=== PATIENT | female | born 1935 | race Caucasian/White ===

== ENCOUNTER → 2018-02-15 08:51 | Outpatient (CLI) | payer OTHER, SELFPAY ==
[2018-02-15 09:08] LABS: Add Manual Diff / Slide Review NO; Basophils Percent Auto 0.7 % (0-2); Eosinophils Percent Auto 3.8 % (2-4); Hematocrit 40.2 % (36-46); Hemoglobin 13.8 g/dL (12.0-16.0); Lymphocytes Percent Auto 24.8 % (25-40); Mean Corpuscular HGB Conc 34.5 % (30-36); Mean Corpuscular Hemoglobin 33.1 PG (26-34); Mean Corpuscular Volume 95.9 fL (80-100); Monocytes Percent Auto 7.2 % (3-14); Neutrophils Absolute Auto 3800 /uL (3000-5900); Neutrophils Percent Auto 63.5 % (50-75); Platelet Count 164 X10^3/uL (150-400); Red Blood Cell Count 4.19 X10^6/uL (4.0-5.2); Red Cell Distribution Width 13.6 % (11.6-14.8); White Blood Cell Count 5.9 X10^3/uL (4.5-11.0)
[2018-02-15 09:13] LABS: Appearance Urine UA CLEAR; Bilirubin Urine UA NEGATIVE (NEGATIVE); Color Urine UA YELLOW; Glucose Urine UA NEGATIVE (Normal); Ketones Urine UA NEGATIVE (NEGATIVE); Leukocyte Esterase Urine UA NEGATIVE (NEGATIVE); Nitrite Urine UA Negative (Negative); Occult Blood Urine UA TRACE-LYSED (Negative); Protein Urine UA NEGATIVE (Negative); Specific Gravity Urine UA 1.015 (1.000-1.035); Urobilinogen Urine UA 0.2 E.U./dL (0.2)
[2018-02-15 09:51] LABS: Alanine Aminotransferase 33 IU/L (9-52); Albumin 4.1 g/dL (3.5-5.0); Albumin Globulin Ratio 1.3 (1.0-2.8); Alkaline Phosphatase 64 U/L (38-126); Aspartate Aminotransferase 28 IU/L (14-36); BUN Creatinine Ratio 18.3 (6-22); Bilirubin Total 0.6 mg/dL (0.2-1.3); Blood Urea Nitrogen 11 mg/dL (7-17); Calcium 9.6 mg/dL (8.4-10.2); Carbon Dioxide 30 mmol/L (22-32); Chloride 97 mmol/L (98-107); Cholesterol 168 mg/dL (140-199); Estimated Glomerular Filt Rate > 60.0 mL/min (>60); Globulin 3.1 g/dL (1.7-4.1); Glucose 97 mg/dL (80-110); HDL Cholesterol 73 mg/dL (40-60); HEMOLYSIS < 15 (0-50); LDL Cholesterol Calculated 77 mg/dL (<100); Potassium 3.5 mmol/L (3.4-5.1); Sodium 138 mmol/L (137-145); Total Protein 7.2 g/dL (6.3-8.2); Triglycerides 89 mg/dL (35-150)
[2018-02-15 10:21] LABS: Thyroid Stimulating Hormone 2.46 uIU/mL (0.47-4.68)
== END ==
PROVIDERS: PCP Family Medicine; Visit Provider Family Medicine
DX: E78.5 Hyperlipidemia, unspecified (principal); I10 Essential (primary) hypertension
CPT/HCPCS: 36415; 80053; 80061; 81003; 84443; 85025

== ENCOUNTER → 2018-09-17 07:17 | Outpatient (CLI) | payer OTHER, SELFPAY ==
[2018-09-17 08:23] LABS: Add Manual Diff / Slide Review NO; Basophils Percent Auto 0.6 % (0-2); Eosinophils Percent Auto 3.5 % (2-4); Hemoglobin 13.9 g/dL (12.0-16.0); Lymphocytes Percent Auto 25.4 % (25-40); Mean Corpuscular HGB Conc 33.8 % (30-36); Mean Corpuscular Hemoglobin 32.7 PG (26-34); Mean Corpuscular Volume 96.8 fL (80-100); Monocytes Percent Auto 7.5 % (3-14); Neutrophils Absolute Auto 4000 /uL (1500-7000); Platelet Count 185 X10^3/uL (150-400); Red Blood Cell Count 4.24 X10^6/uL (4.0-5.2); Red Cell Distribution Width 13.2 % (11.6-14.8); White Blood Cell Count 6.4 X10^3/uL (4.5-11.0)
[2018-09-17 08:32] LABS: Appearance Urine UA CLEAR; Bilirubin Urine UA NEGATIVE (NEGATIVE); Color Urine UA YELLOW; Glucose Urine UA NEGATIVE (Negative); Ketones Urine UA NEGATIVE (NEGATIVE); Leukocyte Esterase Urine UA TRACE (NEGATIVE); Nitrite Urine UA NEGATIVE (Negative); Occult Blood Urine UA TRACE-LYSED (Negative); Protein Urine UA NEGATIVE (Negative); Urobilinogen Urine UA 0.2 E.U./dL (0.2); pH Urine UA 6.5 (4.5-8.0)
[2018-09-17 08:54] LABS: Bacteria Urine Few (2-10); Culture Indicated Urine Specimen Cultured; RBC Urine 0-1/HPF (0-5/HPF); WBC Urine 5-10/HPF (0-5/HPF)
[2018-09-17 09:10] LABS: Alanine Aminotransferase 28 IU/L (9-52); Albumin 3.8 g/dL (3.5-5.0); Albumin Globulin Ratio 1.3 (1.0-2.8); Alkaline Phosphatase 58 U/L (38-126); Aspartate Aminotransferase 26 IU/L (14-36); Bilirubin Total 0.5 mg/dL (0.2-1.3); Blood Urea Nitrogen 14 mg/dL (7-17); Calcium 9.2 mg/dL (8.4-10.2); Carbon Dioxide 31 mmol/L (22-32); Chloride 98 mmol/L (98-107); Cholesterol 154 mg/dL (140-199); Estimated Glomerular Filt Rate > 60.0 mL/min (>60); Globulin 2.9 g/dL (1.7-4.1); Glucose 95 mg/dL (80-110); HDL Cholesterol 49 mg/dL (40-60); HEMOLYSIS < 15 (0-50); LDL Cholesterol Calculated 79 mg/dL (<100); Potassium 3.3 mmol/L (3.4-5.1); Sodium 139 mmol/L (137-145); Total Protein 6.7 g/dL (6.3-8.2); Triglycerides 130 mg/dL (35-150)
[2018-09-17 09:44] LABS: Thyroid Stimulating Hormone 4.68 uIU/mL (0.47-4.68)
== END ==
PROVIDERS: PCP Family Medicine; Visit Provider Family Medicine
DX: E78.5 Hyperlipidemia, unspecified (principal); I10 Essential (primary) hypertension; Z51.81 Encounter for therapeutic drug level monitoring
CPT/HCPCS: 36415; 80053; 80061; 81003; 81015; 84443; 85025; 87086

== ENCOUNTER → 2018-10-14 17:44 | Outpatient (CLI) | payer OTHER, SELFPAY | PROVIDERS: PCP Family Medicine; Visit Provider Physician Assistant | DX: R19.7 Diarrhea, unspecified (principal) ==

== ENCOUNTER → 2018-10-15 10:01 | Outpatient (CLI) | payer OTHER, SELFPAY ==
[2018-10-15 10:47] LABS: Add Manual Diff / Slide Review NO; Basophils Absolute Auto 0 /uL (0-100); Basophils Percent Auto 0.5 % (0-2); Eosinophils Absolute Auto 700 /uL (0-450); Eosinophils Percent Auto 8.9 % (2-4); Hemoglobin 14.1 g/dL (12.0-16.0); Lymphocytes Absolute Auto 1400 /uL (1100-4500); Lymphocytes Percent Auto 17.8 % (25-40); Mean Corpuscular HGB Conc 34.3 % (30-36); Mean Corpuscular Hemoglobin 32.7 PG (26-34); Mean Corpuscular Volume 95.3 fL (80-100); Monocytes Absolute Auto 600 /uL (0-900); Monocytes Percent Auto 7.4 % (3-14); Neutrophils Absolute Auto 5100 /uL (1500-7000); Neutrophils Percent Auto 65.4 % (50-75); Platelet Count 226 X10^3/uL (150-400); Red Cell Distribution Width 12.8 % (11.6-14.8); White Blood Cell Count 7.7 X10^3/uL (4.5-11.0)
[2018-10-15 10:57] LABS: Alanine Aminotransferase 27 IU/L (9-52); Albumin 3.8 g/dL (3.5-5.0); Albumin Globulin Ratio 1.2 (1.0-2.8); Alkaline Phosphatase 70 U/L (38-126); Aspartate Aminotransferase 27 IU/L (14-36); BUN Creatinine Ratio 12.9 (6-22); Bilirubin Total 0.4 mg/dL (0.2-1.3); Blood Urea Nitrogen 9 mg/dL (7-17); Calcium 9.1 mg/dL (8.4-10.2); Carbon Dioxide 36 mmol/L (22-32); Chloride 95 mmol/L (98-107); Estimated Glomerular Filt Rate > 60.0 mL/min (>60); Globulin 3.1 g/dL (1.7-4.1); Glucose 73 mg/dL (80-110); HEMOLYSIS < 15 (0-50); Lipase 80 U/L (23-300); Potassium 2.9 mmol/L (3.4-5.1); Sodium 138 mmol/L (137-145); Total Protein 6.9 g/dL (6.3-8.2)
[2018-10-20 18:29] LABS: Calprotectin, Stool 98.5 mcg/g
== END ==
PROVIDERS: Physician Assistant; PCP Family Medicine; Visit Provider Family Medicine
DX: R19.7 Diarrhea, unspecified (principal)
CPT/HCPCS: 36415; 80053; 83690; 83993; 85025; 87015; 87045; 87177; 87427; 87493; 87899

== ENCOUNTER → 2018-10-25 13:36 | Outpatient (CLI) | payer OTHER, SELFPAY ==
[2018-10-25 14:53] LABS: Blood Urea Nitrogen 12 mg/dL (7-17); Carbon Dioxide 28 mmol/L (22-32); Chloride 98 mmol/L (98-107); Estimated Glomerular Filt Rate > 60.0 mL/min (>60); Glucose 92 mg/dL (80-110); HEMOLYSIS < 15 (0-50); Potassium 3.8 mmol/L (3.4-5.1); Sodium 136 mmol/L (137-145)
== END ==
PROVIDERS: Physician Assistant; PCP Family Medicine; Visit Provider Family Medicine
DX: E87.6 Hypokalemia (principal)
CPT/HCPCS: 36415; 80048

== ENCOUNTER → 2018-11-05 07:36 | Outpatient (CLI) | payer OTHER, SELFPAY ==
--- NOTE | 2018-11-05 07:37 | DI.US.S_ITS ---
PROCEDURE: US ABDOMEN COMPLETE INDICATIONS: Abdominal pain, diarrhea, reflux esophitis TECHNIQUE: Real-time scanning was performed of the abdominal and retroperitoneal organs, with image documentation. COMPARISON: None. FINDINGS: Liver: Liver is normal in size and homogeneous in echotexture. Gallbladder: Sludge can be seen within the gallbladder. The gallbladder wall is not thickened, measuring 3 mm or less. No specific pericholecystic fluid is seen. The sonographic Deutsch sign is negative. Biliary ducts: Intrahepatic bile ducts are non-dilated. Extrahepatic bile duct caliber measures 5 mm. Normal is 6-7 mm or less in diameter, or 10 mm or less post-cholecystectomy. Pancreas: Visualized portions of the pancreas are sonographically normal. Spleen: Spleen is normal in size and homogeneous in echotexture. Kidneys: Kidneys are normal in size and echotexture. Right kidney measures 10.6 cm long; left kidney measures 12.1 cm long. No hydronephrosis or nephrolithiasis. No solid masses. The renal cortex measures within normal limits for thickness. Aorta: Visualized aorta is normal in caliber at less than 3 cm. Iliacs: Proximal common iliac arteries are normal in caliber at less than 2.5 cm. IVC: Intrahepatic inferior vena cava is patent. Miscellaneous: No free abdominal fluid. IMPRESSION: Sludge is seen within the gallbladder, without additional sonographic signs of cholecystitis. Dictated by: Mariano Tesfaye M.D. on 11/05/2018 at 8:37 Approved by: Mariano Tesfaye M.D. on 11/05/2018 at 8:38
== END ==
PROVIDERS: PCP Family Medicine; Visit Provider Family Medicine
DX: K21.0 Gastro-esophageal reflux disease with esophagitis (principal); R10.9 Unspecified abdominal pain; R19.7 Diarrhea, unspecified; K82.8 Other specified diseases of gallbladder
CPT/HCPCS: 76700

== ENCOUNTER 2018-11-22 10:30 | Outpatient (RCR) | payer OTHER, SELFPAY ==
--- NOTE | 2018-04-17 15:22 | PT.OIE ---
Current Diagnoses Radiculopathy, lumbar region (04/17/18) Past Medical History (Last Reviewed 02/27/18 @ 11:09 by Jennifer Chandra DO) Hyperlipemia (Chronic Unknown) Hypertension (Chronic Unknown) Osteoarthritis (Chronic Unknown) Past Surgical History (Last Reviewed 02/27/18 @ 11:09 by Jennifer Chandra DO) Hx of appendectomy (Resolved Unknown) Provider Visit Care Team Role Provider Type Jennifer Chandra DO Attending Provider Physician Primary Care Provider Specialty: Family Practice Address: [address] [place] [address], [id number] Email: [email or web address] Physical Therapy Initial Evaluation PT-OP-A Visit Information Start: 04/17/18 08:39 Freq: Status: Active Protocol: Document 04/17/18 10:28 [facility] (Rec: 04/17/18 11:21 [facility] [id number]) Out-Patient Physical Therapy Visit Information Visit Information Visit Type Initial Evaluation Visit Note 15 total visits Visit Start Time 10:30 Visit Stop Time 11:15 Total Visit Minutes 45 Visit Number 1/10 Number of BRUSHING OPERATOR Visits 0 PT-OP-B Current Condition Start: 04/17/18 08:39 Freq: Status: Active Protocol: Document 04/17/18 10:28 [facility] (Rec: 04/17/18 15:22 [facility] [id number]) Current Condition History of Current Condition Onset Date 3 years ago worsening over past 5 months especially past 2 months Current Complaints LBP w/weakness & pain into R thigh History of Current Condition Pt reports she is limping a lot and most of the time has pain in her back. Pt notes she is fine every day until about 3 PM then she starts to have pain in LB and limps. She has had 3 occurances in the past 1 .5 months where her RLE has given out and she has had to grab something. She has to stand on L leg while holding on and bring R leg up and down to make it work again. Pt reports she is more comfortable standing typically . Notes she has difficulty lifting objects and when she does, she has pain into LB into R thigh with feeling of weakness. Pt normally exercsies 3x/week at [employer] at work classes and goes to [employer], but has not gone d/t pain. She does do squats daily without any pain. Prior Treatments and Tests massage about 1.5 years ago and saw a a little improvement ; pt reprots X-ray in past reporting curved spine, but no records found. Treatment Goals Patient/Caregiver Goals Return to working out without pain, be able to carry objects PT-OP-C Subjective Start: 04/17/18 08:39 Freq: Status: Active Protocol: Document 04/17/18 10:28 [facility] (Rec: 04/17/18 12:24 [facility] [id number]) Patient Questionnaires Oswestry Low Back Index Oswestry Score did not finish OP-PT Pain Assessment Location Right Lower Back Pain Location Details R lumbar and occasionally into R thigh Intensity 5 Scale Used Numeric (1 - 10) Frequency Daily Other Pain Aggravating Factors lifting, sitting, after 3 pm daily Other Pain Alleviating Factors med but has not taken them much. PT-OP-F Manual Assessment Start: 04/17/18 08:39 Freq: Status: Active Protocol: Document 04/17/18 10:28 [facility] (Rec: 04/17/18 11:19 [facility] [id number]) Manual Assessments Soft Tissue Assessment Soft Tissue Mobility Assessment R ES & QL; R piriformis & glutes; dec hip & sacrum mobility Joint Mobility Assessment Joint Mobility Assessment R iliac crest elevated PT-OP-G Mobility & Gait Start: 04/17/18 08:39 Freq: Status: Active Protocol: Document 04/17/18 10:28 [facility] (Rec: 04/17/18 11:19 [facility] [id number]) OP Gait Assessment Comments Gait Comments Pt has dec stance time on RLE with dec push off and posterior depression. Overall dec pelvis patterns & stiff upper body & UEs. Pt ER pelvis during push off. PT-OP-J Posture/Palpation/Skin Start: 04/17/18 08:39 Freq: Status: Active Protocol: Document 04/17/18 10:28 [facility] (Rec: 04/17/18 11:19 [facility] [id number]) Posture Evaluation Ladi Postural Classification System Ladi Postural Classifications Anterior/Posterior Elbow Flexion Test 2 Lumbar Protective Mechanism Left AP 1 Lumbar Protective Mechanism Right AP 0 Lumbar Protective Mechanism Left PA 1 Lumbar Protective Mechanism Right PA 0 Leg Swing Left Hard End Feel Limited Pain Leg Swing Right Hard End Feel Limited Pain Comments Posture Comments Fwd head & neck PT-OP-K Range of Motion Start: 04/17/18 08:39 Freq: Status: Active Protocol: Document 04/17/18 10:28 [facility] (Rec: 04/17/18 11:19 [facility] [id number]) Lumbar Spine Range of Motion Lumbar Spine Active Degrees Flexion 37 Extension 18 Lateral Flexion Left 25 Lateral Flexion Right 15 Comments pain Flex; stiff R PT-OP-L Special Tests Start: 04/17/18 08:39 Freq: Status: Active Protocol: Document 04/17/18 10:28 [facility] (Rec: 04/17/18 11:19 [facility] [id number]) Special Tests Lumbar Spine Special Tests Straight Leg Raise Test Results ~20 deg R; 45 deg L Comments positive B Slump Test Results positive R ; negative L PT-OP-M Strength Start: 04/17/18 08:39 Freq: Status: Active Protocol: Document 04/17/18 10:28 [facility] (Rec: 04/17/18 11:19 [facility] [id number]) Hip Strength Hip Manual Muscle Testing Right Flexion (L2) 4- Good- Extension (S1) 3- Fair- Abduction 3 Fair External Rotation 4- Good- Internal Rotation 3+ Fair+ Comments Pain w/ R hip flex & IR; 5/5 PF & DF tested seated Left Flexion (L2) 5 Normal Extension (S1) 5 Normal Abduction 4+ Good+ External Rotation 4 Good Internal Rotation 5 Normal Knee Strength Knee Manual Muscle Testing Right Flexion (S2) 4- Good- Extension (L3) 3+ Fair+ Left Flexion (S2) 5 Normal Extension (L3) 5 Normal PT-OP-Q Treatments Start: 04/17/18 08:39 Freq: Status: Active Protocol: Document 04/17/18 10:28 [facility] (Rec: 04/17/18 11:19 [facility] [id number]) Therapeutic Exercises Supine Exercises 3 Supine Exercise Name piriformis stretch Side right Comments stopped d/t pain 2 Supine Exercise Name SKTC & BTKC Side bilateral Reps/Minutes 30 sec holds 1 Supine Exercise Name bridges Side bilateral Reps/Minutes 10 Self-Care/Home Management Treatment Education Patient Education Pain Management Other Education use of ice/heat & use of tennis ball for rolling out glutes PT-OP-T Assessment and Plan Start: 04/17/18 08:39 Freq: Status: Active Protocol: Document 04/17/18 10:28 [facility] (Rec: 04/17/18 12:31 [facility] [id number]) Physical Therapy Assessment Rehab Potential Rehabilitation Potential Good Evaluation Complexity Number of Personal Factors/Comorbidities 1-2 Number of Body Systems Impaired 4 or More Clinical Presentation at Evaluation Evolving Impairments Impairments Balance Functional Activities Functional Mobility Gait Pain Posture ROM Soft Tissue Mobility Strength Goals Three Impairment strength Nurse Tech Goal (LTG) Improved LE strength to 5/5 and EFT & LPM to 4/5 LTG Duration 06/17/18 Two Impairment dec activity Short Term Goal (STG) Indep HEP STG Duration 05/18/18 Nurse Tech Goal (LTG) Pt will return to normal workout schedule to allow her to cont strengthening. LTG Duration 06/17/18 One Impairment pain Short Term Goal (STG) pain to 3/10 at worst STG Duration 05/18/18 Retirement Goal (LTG) Pain to 1/10 at worst LTG Duration 06/17/18 Assessment Summary Assessment Pt presents with LBP with radiculopathy into RLE. She has dec core stability & dec RLE strength. Pt has impaired motion of hip and pelvis, which is affecting her mobility and impairing her gait. Physical Therapy Plan Frequency and Duration Frequency of Treatment 2x/Week Duration of Treatment 2 months Plan of Care Start Date 04/17/18 Plan of Care End Date 06/17/18 Therapeutic Interventions Therapeutic Interventions Aquatic Therapy Balance Training Gait Training Home Exercise Program Joint Mobilizations Manual Therapy Self-Care/Home Management Soft Tissue Mobilization Taping Therapeutic Activities Therapeutic Exercises Next Visit Focus/Plan Next Note Type Treatment Note Next Visit Plan supine core stability: marches , abdominal series; fredenkris hip rotation, STM to lumbar & gluteal region
--- NOTE | 2018-04-17 15:22 | PT.OPPOC ---
Current Diagnoses Radiculopathy, lumbar region (04/17/18) Provider Visit Care Team Role Provider Type Jennifer Chandra DO Attending Provider Physician Primary Care Provider Specialty: Family Practice Address: [address] [place] [address], [id number] Email: [email or web address] Plan Of Care PT-OP-T Assessment and Plan Start: 04/17/18 08:39 Freq: Status: Active Protocol: Document 04/17/18 10:28 [facility] (Rec: 04/17/18 12:31 [facility] [id number]) Physical Therapy Assessment Rehab Potential Rehabilitation Potential Good Evaluation Complexity Number of Personal Factors/Comorbidities 1-2 Number of Body Systems Impaired 4 or More Clinical Presentation at Evaluation Evolving Impairments Impairments Balance Functional Activities Functional Mobility Gait Pain Posture ROM Soft Tissue Mobility Strength Goals Three Impairment strength Group Home Goal (LTG) Improved LE strength to 5/5 and EFT & LPM to 4/5 LTG Duration 06/17/18 Two Impairment dec activity Short Term Goal (STG) Indep HEP STG Duration 05/18/18 Washroom Cleaner Goal (LTG) Pt will return to normal workout schedule to allow her to cont strengthening. LTG Duration 06/17/18 One Impairment pain Short Term Goal (STG) pain to 3/10 at worst STG Duration 05/18/18 Washroom Cleaner Goal (LTG) Pain to 1/10 at worst LTG Duration 06/17/18 Assessment Summary Assessment Pt presents with LBP with radiculopathy into RLE. She has dec core stability & dec RLE strength. Pt has impaired motion of hip and pelvis, which is affecting her mobility and impairing her gait. Physical Therapy Plan Frequency and Duration Frequency of Treatment 2x/Week Duration of Treatment 2 months Plan of Care Start Date 04/17/18 Plan of Care End Date 06/17/18 Therapeutic Interventions Therapeutic Interventions Aquatic Therapy Balance Training Gait Training Home Exercise Program Joint Mobilizations Manual Therapy Self-Care/Home Management Soft Tissue Mobilization Taping Therapeutic Activities Therapeutic Exercises Next Visit Focus/Plan Next Note Type Treatment Note Next Visit Plan supine core stability: marches , abdominal series; feldenkris hip rotation, STM to lumbar & gluteal region Plan of Care Dates Plan of Care Start Date 04/17/18 Plan of Care End Date 10/08/18 Please Sign and Return: I have reviewed this Plan of Care and certify that the skilled therapy services above are required to meet the patient?s needs. Physician Signature Date Printed Name and Credentials Clinical Instructor Signature Printed Name and Credentials
--- NOTE | 2018-04-19 13:18 | PT.OTN ---
Current Diagnoses Radiculopathy, lumbar region (04/19/18) Physical Therapy Treatment Note PT-OP-A Visit Information Start: 04/17/18 08:39 Freq: Status: Active Protocol: Document 04/19/18 12:14 [facility] (Rec: 04/19/18 13:17 [facility] [id number]) Out-Patient Physical Therapy Visit Information Visit Information Visit Type Treatment Note Visit Note 15 total visits Visit Start Time 12:15 Visit Stop Time 13:10 Total Visit Minutes 55 Visit Number 2/ Number of ENGINEER ASSISTANT Visits 0 PT-OP-B Current Condition Start: 04/17/18 08:39 Freq: Status: Active Protocol: Document 04/17/18 10:28 [facility] (Rec: 04/17/18 15:22 [facility] [id number]) Current Condition History of Current Condition Onset Date 3 years ago worsening over past 5 months especially past 2 months Current Complaints LBP w/weakness & pain into R thigh History of Current Condition Pt reports she is limping a lot and most of the time has pain in her back. Pt notes she is fine every day until about 3 PM then she starts to have pain in LB and limps. She has had 3 occurances in the past 1 .5 months where her RLE has given out and she has had to grab something. She has to stand on L leg while holding on and bring R leg up and down to make it work again. Pt reports she is more comfortable standing typically . Notes she has difficulty lifting objects and when she does, she has pain into LB into R thigh with feeling of weakness. Pt normally exercsies 3x/week at [employer] classes and goes to [employer], but has not gone d/t pain. She does do squats daily without any pain. Prior Treatments and Tests massage about 1.5 years ago and saw a a little improvement ; pt reprots X-ray in past reporting curved spine, but no records found. Treatment Goals Patient/Caregiver Goals Return to working out without pain, be able to carry objects PT-OP-C Subjective Start: 04/17/18 08:39 Freq: Status: Active Protocol: Document 04/19/18 12:14 [facility] (Rec: 04/19/18 13:17 [facility] [id number]) OP-PT Subjective Patient Comments Patient Comments Pt reports she did her exercises. Notes she tried icing in the evenings and is has helped. 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 PT-OP-F Manual Assessment Start: 04/17/18 08:39 Freq: Status: Active Protocol: Document 04/17/18 10:28 [facility] (Rec: 04/17/18 11:19 [facility] [id number]) Manual Assessments Soft Tissue Assessment Soft Tissue Mobility Assessment R ES & QL; R piriformis & glutes; dec hip & sacrum mobility Joint Mobility Assessment Joint Mobility Assessment R iliac crest elevated PT-OP-G Mobility & Gait Start: 04/17/18 08:39 Freq: Status: Active Protocol: Document 04/17/18 10:28 [facility] (Rec: 04/17/18 11:19 [facility] [id number]) OP Gait Assessment Comments Gait Comments Pt has dec stance time on RLE with dec push off and posterior depression. Overall dec pelvis patterns & stiff upper body & UEs. Pt ER pelvis during push off. PT-OP-J Posture/Palpation/Skin Start: 04/17/18 08:39 Freq: Status: Active Protocol: Document 04/17/18 10:28 [facility] (Rec: 04/17/18 11:19 [facility] [id number]) Posture Evaluation Ladi Postural Classification System Ladi Postural Classifications Anterior/Posterior Elbow Flexion Test 2 Lumbar Protective Mechanism Left AP 1 Lumbar Protective Mechanism Right AP 0 Lumbar Protective Mechanism Left PA 1 Lumbar Protective Mechanism Right PA 0 Leg Swing Left Hard End Feel Limited Pain Leg Swing Right Hard End Feel Limited Pain Comments Posture Comments Fwd head & neck PT-OP-K Range of Motion Start: 04/17/18 08:39 Freq: Status: Active Protocol: Document 04/17/18 10:28 [facility] (Rec: 04/17/18 11:19 [facility] [id number]) Lumbar Spine Range of Motion Lumbar Spine Active Degrees Flexion 37 Extension 18 Lateral Flexion Left 25 Lateral Flexion Right 15 Comments pain Flex; stiff R PT-OP-L Special Tests Start: 04/17/18 08:39 Freq: Status: Active Protocol: Document 04/17/18 10:28 [facility] (Rec: 04/17/18 11:19 [facility] [id number]) Special Tests Lumbar Spine Special Tests Straight Leg Raise Test Results ~20 deg R; 45 deg L Comments positive B Slump Test Results positive R ; negative L PT-OP-M Strength Start: 04/17/18 08:39 Freq: Status: Active Protocol: Document 04/17/18 10:28 [facility] (Rec: 04/17/18 11:19 [facility] [id number]) Hip Strength Hip Manual Muscle Testing Right Flexion (L2) 4- Good- Extension (S1) 3- Fair- Abduction 3 Fair External Rotation 4- Good- Internal Rotation 3+ Fair+ Comments Pain w/ R hip flex & IR; 5/5 PF & DF tested seated Left Flexion (L2) 5 Normal Extension (S1) 5 Normal Abduction 4+ Good+ External Rotation 4 Good Internal Rotation 5 Normal Knee Strength Knee Manual Muscle Testing Right Flexion (S2) 4- Good- Extension (L3) 3+ Fair+ Left Flexion (S2) 5 Normal Extension (L3) 5 Normal PT-OP-Q Treatments Start: 04/17/18 08:39 Freq: Status: Active Protocol: Document 04/19/18 12:14 [facility] (Rec: 04/19/18 13:17 [facility] [id number]) Cardio Equipment Recumbent Elliptical (BorderJump) Duration (Minutes) 5 Resistance 4 Therapeutic Exercises Supine Exercises 6 Supine Exercise Name Feldenkris hip rotation R Reps/Minutes 10 5 Supine Exercise Name abdominal series: flex & diagonals; single leg Comments unable to do double legs or diagonal d/t pain in LB 4 Supine Exercise Name supine marches to scissors Reps/Minutes 15 2 Supine Exercise Name SKTC & BTKC Side bilateral Reps/Minutes 30 sec holds 1 Supine Exercise Name bridges Side bilateral Reps/Minutes 8 Manual Therapy Treatment Soft Tissue Mobilization 2 Body Location piriformis Mobilization Type Sustained Pressure 1 Body Location QL & ES Mobilization Type Rolling PT-OP-R Modalities Start: 04/17/18 08:39 Freq: Status: Active Protocol: Document 04/19/18 12:14 [facility] (Rec: 04/19/18 13:18 [facility] [id number]) Electric Stimulation Electric Stimulation Interferential Current (IFC) Body Location R lumbosacral region Duration (Minutes) 10 Patient Position Prone Combined With Heat/Cold Cold Pack PT-OP-T Assessment and Plan Start: 04/17/18 08:39 Freq: Status: Active Protocol: Document 04/19/18 12:14 [facility] (Rec: 04/19/18 13:17 [facility] [id number]) Physical Therapy Assessment Goals Three Impairment strength Office Machine Service Supervisor Goal (LTG) Improved LE strength to 5/5 and EFT & LPM to 4/5 LTG Duration 06/17/18 Two Impairment dec activity Short Term Goal (STG) Indep HEP STG Duration 05/18/18 Office Machine Service Supervisor Goal (LTG) Pt will return to normal workout schedule to allow her to cont strengthening. LTG Duration 06/17/18 One Impairment pain Short Term Goal (STG) pain to 3/10 at worst STG Duration 05/18/18 Intermediate Goal (LTG) Pain to 1/10 at worst LTG Duration 06/17/18 Assessment Summary Assessment Pt required cueing during exercises to remain in painfree range. Pt had significant restriction in lumbar mm on R side, which improved with STM. Physical Therapy Plan Frequency and Duration Frequency of Treatment 2x/Week Duration of Treatment 2 months Plan of Care Start Date 04/17/18 Plan of Care End Date 06/17/18 Next Visit Focus/Plan Next Note Type Treatment Note Next Visit Plan Cont to advance supine core & LE strength
--- NOTE | 2018-04-26 13:47 | PT.OTN ---
Current Diagnoses Radiculopathy, lumbar region (04/26/18) Physical Therapy Treatment Note PT-OP-A Visit Information Start: 04/17/18 08:39 Freq: Status: Active Protocol: Document 04/26/18 12:59 [facility] (Rec: 04/26/18 13:47 [facility] [id number]) Out-Patient Physical Therapy Visit Information Visit Information Visit Type Treatment Note Visit Note 15 total visits Visit Start Time 13:00 Visit Stop Time 13:55 Total Visit Minutes 55 Visit Number 3/10 Number of DEVELOPMENT ENG Visits 0 PT-OP-B Current Condition Start: 04/17/18 08:39 Freq: Status: Active Protocol: Document 04/17/18 10:28 [facility] (Rec: 04/17/18 15:22 [facility] [id number]) Current Condition History of Current Condition Onset Date 3 years ago worsening over past 5 months especially past 2 months Current Complaints LBP w/weakness & pain into R thigh History of Current Condition Pt reports she is limping a lot and most of the time has pain in her back. Pt notes she is fine every day until about 3 PM then she starts to have pain in LB and limps. She has had 3 occurances in the past 1 .5 months where her RLE has given out and she has had to grab something. She has to stand on L leg while holding on and bring R leg up and down to make it work again. Pt reports she is more comfortable standing typically . Notes she has difficulty lifting objects and when she does, she has pain into LB into R thigh with feeling of weakness. Pt normally exercsies 3x/week at [employer] classes and goes to [employer], but has not gone d/t pain. She does do squats daily without any pain. Prior Treatments and Tests massage about 1.5 years ago and saw a a little improvement ; pt reprots X-ray in past reporting curved spine, but no records found. Treatment Goals Patient/Caregiver Goals Return to working out without pain, be able to carry objects PT-OP-C Subjective Start: 04/17/18 08:39 Freq: Status: Active Protocol: Document 04/26/18 12:59 [facility] (Rec: 04/26/18 13:47 [facility] [id number]) OP-PT Subjective Patient Comments Patient Comments Reports she did ok driving to [place]. She was a little sore after last session, but did ok . PT-OP-F Manual Assessment Start: 04/17/18 08:39 Freq: Status: Active Protocol: Document 04/17/18 10:28 [facility] (Rec: 04/17/18 11:19 [facility] [id number]) Manual Assessments Soft Tissue Assessment Soft Tissue Mobility Assessment R ES & QL; R piriformis & glutes; dec hip & sacrum mobility Joint Mobility Assessment Joint Mobility Assessment R iliac crest elevated PT-OP-G Mobility & Gait Start: 04/17/18 08:39 Freq: Status: Active Protocol: Document 04/17/18 10:28 [facility] (Rec: 04/17/18 11:19 [facility] [id number]) OP Gait Assessment Comments Gait Comments Pt has dec stance time on RLE with dec push off and posterior depression. Overall dec pelvis patterns & stiff upper body & UEs. Pt ER pelvis during push off. PT-OP-J Posture/Palpation/Skin Start: 04/17/18 08:39 Freq: Status: Active Protocol: Document 04/17/18 10:28 [facility] (Rec: 04/17/18 11:19 [facility] [id number]) Posture Evaluation Ladi Postural Classification System Ladi Postural Classifications Anterior/Posterior Elbow Flexion Test 2 Lumbar Protective Mechanism Left AP 1 Lumbar Protective Mechanism Right AP 0 Lumbar Protective Mechanism Left PA 1 Lumbar Protective Mechanism Right PA 0 Leg Swing Left Hard End Feel Limited Pain Leg Swing Right Hard End Feel Limited Pain Comments Posture Comments Fwd head & neck PT-OP-K Range of Motion Start: 04/17/18 08:39 Freq: Status: Active Protocol: Document 04/17/18 10:28 [facility] (Rec: 04/17/18 11:19 [facility] [id number]) Lumbar Spine Range of Motion Lumbar Spine Active Degrees Flexion 37 Extension 18 Lateral Flexion Left 25 Lateral Flexion Right 15 Comments pain Flex; stiff R PT-OP-L Special Tests Start: 04/17/18 08:39 Freq: Status: Active Protocol: Document 04/17/18 10:28 [facility] (Rec: 04/17/18 11:19 [facility] [id number]) Special Tests Lumbar Spine Special Tests Straight Leg Raise Test Results ~20 deg R; 45 deg L Comments positive B Slump Test Results positive R ; negative L PT-OP-M Strength Start: 04/17/18 08:39 Freq: Status: Active Protocol: Document 04/17/18 10:28 [facility] (Rec: 04/17/18 11:19 [facility] [id number]) Hip Strength Hip Manual Muscle Testing Right Flexion (L2) 4- Good- Extension (S1) 3- Fair- Abduction 3 Fair External Rotation 4- Good- Internal Rotation 3+ Fair+ Comments Pain w/ R hip flex & IR; 5/5 PF & DF tested seated Left Flexion (L2) 5 Normal Extension (S1) 5 Normal Abduction 4+ Good+ External Rotation 4 Good Internal Rotation 5 Normal Knee Strength Knee Manual Muscle Testing Right Flexion (S2) 4- Good- Extension (L3) 3+ Fair+ Left Flexion (S2) 5 Normal Extension (L3) 5 Normal PT-OP-Q Treatments Start: 04/17/18 08:39 Freq: Status: Active Protocol: Document 04/26/18 12:59 [facility] (Rec: 04/26/18 13:47 [facility] [id number]) Cardio Equipment Recumbent Elliptical (ISBX) Duration (Minutes) 5 Resistance 4-5 Seat Position 5 Other w/forte backrest Therapeutic Exercises Supine Exercises 6 Supine Exercise Name Feldenkris hip rotation R Reps/Minutes 3 5 Supine Exercise Name abdominal series: flex & diagonals; single leg Comments unable to do double legs or diagonal d/t pain in LB 4 Supine Exercise Name supine marches to scissors Reps/Minutes 15 2 Supine Exercise Name SKTC & BTKC Side bilateral Reps/Minutes 30 sec holds Sidelying Exercises 3 Sidelying Exercise Name hip abd Reps/Minutes 15 2 Sidelying Exercise Name reverse clamshells Reps/Minutes 15 1 Sidelying Exercise Name clamshells Reps/Minutes 15 Manual Therapy Treatment Soft Tissue Mobilization 2 Body Location piriformis Mobilization Type Sustained Pressure 1 Body Location QL & ES Mobilization Type Rolling PT-OP-R Modalities Start: 04/17/18 08:39 Freq: Status: Active Protocol: Document 04/26/18 12:59 [facility] (Rec: 04/26/18 13:47 [facility] [id number]) Electric Stimulation Electric Stimulation Interferential Current (IFC) Body Location R lumbosacral region Duration (Minutes) 10 Patient Position Prone Combined With Heat/Cold Cold Pack PT-OP-T Assessment and Plan Start: 04/17/18 08:39 Freq: Status: Active Protocol: Document 04/26/18 12:59 [facility] (Rec: 04/26/18 13:47 [facility] [id number]) Physical Therapy Assessment Goals Three Impairment strength Nursing Home Goal (LTG) Improved LE strength to 5/5 and EFT & LPM to 4/5 LTG Duration 06/17/18 Two Impairment dec activity Short Term Goal (STG) Indep HEP STG Duration 05/18/18 Nursing Home Goal (LTG) Pt will return to normal workout schedule to allow her to cont strengthening. LTG Duration 06/17/18 One Impairment pain Short Term Goal (STG) pain to 3/10 at worst STG Duration 05/18/18 Nursing Home Goal (LTG) Pain to 1/10 at worst LTG Duration 06/17/18 Assessment Summary Assessment Pt did well with s/l exercises with cueing to stay in painfree range. He cont to progress with her core strength with min cueing. Physical Therapy Plan Frequency and Duration Frequency of Treatment 2x/Week Duration of Treatment 2 months Plan of Care Start Date 04/17/18 Plan of Care End Date 06/17/18 Next Visit Focus/Plan Next Note Type Treatment Note Next Visit Plan Cont to advance supine core & LE strength
--- NOTE | 2018-04-30 14:28 | PT.OTN ---
Current Diagnoses Radiculopathy, lumbar region (04/30/18) Physical Therapy Treatment Note PT-OP-A Visit Information Start: 04/17/18 08:39 Freq: Status: Active Protocol: Document 04/30/18 13:54 [facility] (Rec: 04/30/18 14:28 [facility] [id number]) Out-Patient Physical Therapy Visit Information Visit Information Visit Type Treatment Note Visit Note 15 total visits Visit Start Time 13:50 Visit Stop Time 14:45 Total Visit Minutes 55 Visit Number 4/10 Number of BRAND SPECIALIST Visits 0 PT-OP-B Current Condition Start: 04/17/18 08:39 Freq: Status: Active Protocol: Document 04/17/18 10:28 [facility] (Rec: 04/17/18 15:22 [facility] [id number]) Current Condition History of Current Condition Onset Date 3 years ago worsening over past 5 months especially past 2 months Current Complaints LBP w/weakness & pain into R thigh History of Current Condition Pt reports she is limping a lot and most of the time has pain in her back. Pt notes she is fine every day until about 3 PM then she starts to have pain in LB and limps. She has had 3 occurances in the past 1 .5 months where her RLE has given out and she has had to grab something. She has to stand on L leg while holding on and bring R leg up and down to make it work again. Pt reports she is more comfortable standing typically . Notes she has difficulty lifting objects and when she does, she has pain into LB into R thigh with feeling of weakness. Pt normally exercsies 3x/week at [employer] classes and goes to [employer], but has not gone d/t pain. She does do squats daily without any pain. Prior Treatments and Tests massage about 1.5 years ago and saw a a little improvement ; pt reprots X-ray in past reporting curved spine, but no records found. Treatment Goals Patient/Caregiver Goals Return to working out without pain, be able to carry objects PT-OP-C Subjective Start: 04/17/18 08:39 Freq: Status: Active Protocol: Document 04/30/18 13:54 [facility] (Rec: 04/30/18 14:28 [facility] [id number]) OP-PT Subjective Patient Comments Patient Comments Reports she has been doing exercises. Still has trouble with one. PT-OP-F Manual Assessment Start: 04/17/18 08:39 Freq: Status: Active Protocol: Document 04/17/18 10:28 [facility] (Rec: 04/17/18 11:19 [facility] [id number]) Manual Assessments Soft Tissue Assessment Soft Tissue Mobility Assessment R ES & QL; R piriformis & glutes; dec hip & sacrum mobility Joint Mobility Assessment Joint Mobility Assessment R iliac crest elevated PT-OP-G Mobility & Gait Start: 04/17/18 08:39 Freq: Status: Active Protocol: Document 04/17/18 10:28 [facility] (Rec: 04/17/18 11:19 [facility] [id number]) OP Gait Assessment Comments Gait Comments Pt has dec stance time on RLE with dec push off and posterior depression. Overall dec pelvis patterns & stiff upper body & UEs. Pt ER pelvis during push off. PT-OP-J Posture/Palpation/Skin Start: 04/17/18 08:39 Freq: Status: Active Protocol: Document 04/17/18 10:28 [facility] (Rec: 04/17/18 11:19 [facility] [id number]) Posture Evaluation Ladi Postural Classification System [facility] Postural Classifications Anterior/Posterior Elbow Flexion Test 2 Lumbar Protective Mechanism Left AP 1 Lumbar Protective Mechanism Right AP 0 Lumbar Protective Mechanism Left PA 1 Lumbar Protective Mechanism Right PA 0 Leg Swing Left Hard End Feel Limited Pain Leg Swing Right Hard End Feel Limited Pain Comments Posture Comments Fwd head & neck PT-OP-K Range of Motion Start: 04/17/18 08:39 Freq: Status: Active Protocol: Document 04/17/18 10:28 [facility] (Rec: 04/17/18 11:19 [facility] [id number]) Lumbar Spine Range of Motion Lumbar Spine Active Degrees Flexion 37 Extension 18 Lateral Flexion Left 25 Lateral Flexion Right 15 Comments pain Flex; stiff R PT-OP-L Special Tests Start: 04/17/18 08:39 Freq: Status: Active Protocol: Document 04/17/18 10:28 [facility] (Rec: 04/17/18 11:19 [facility] [id number]) Special Tests Lumbar Spine Special Tests Straight Leg Raise Test Results ~20 deg R; 45 deg L Comments positive B Slump Test Results positive R ; negative L PT-OP-M Strength Start: 04/17/18 08:39 Freq: Status: Active Protocol: Document 04/17/18 10:28 [facility] (Rec: 04/17/18 11:19 [facility] [id number]) Hip Strength Hip Manual Muscle Testing Right Flexion (L2) 4- Good- Extension (S1) 3- Fair- Abduction 3 Fair External Rotation 4- Good- Internal Rotation 3+ Fair+ Comments Pain w/ R hip flex & IR; 5/5 PF & DF tested seated Left Flexion (L2) 5 Normal Extension (S1) 5 Normal Abduction 4+ Good+ External Rotation 4 Good Internal Rotation 5 Normal Knee Strength Knee Manual Muscle Testing Right Flexion (S2) 4- Good- Extension (L3) 3+ Fair+ Left Flexion (S2) 5 Normal Extension (L3) 5 Normal PT-OP-Q Treatments Start: 04/17/18 08:39 Freq: Status: Active Protocol: Document 04/30/18 13:54 [facility] (Rec: 04/30/18 14:28 [facility] [id number]) Therapeutic Exercises Supine Exercises 5 Supine Exercise Name abdominal series: flex & diagonals; single leg Comments unable to do double legs or diagonal d/t pain in LB 4 Supine Exercise Name scissors Reps/Minutes 2x15 1 Supine Exercise Name bridge w/march Reps/Minutes 10 Sidelying Exercises 3 Sidelying Exercise Name hip abd Reps/Minutes 15 2 Sidelying Exercise Name reverse clamshells Reps/Minutes 15 1 Sidelying Exercise Name clamshells Reps/Minutes 15 Manual Therapy Treatment Soft Tissue Mobilization 2 Body Location piriformis Mobilization Type Sustained Pressure 1 Body Location QL & ES Mobilization Type Rolling PT-OP-R Modalities Start: 04/17/18 08:39 Freq: Status: Active Protocol: Document 04/30/18 13:54 [facility] (Rec: 04/30/18 14:28 [facility] [id number]) Electric Stimulation Electric Stimulation Interferential Current (IFC) Body Location R lumbosacral region Duration (Minutes) 10 Patient Position Prone Combined With Heat/Cold Cold Pack PT-OP-T Assessment and Plan Start: 04/17/18 08:39 Freq: Status: Active Protocol: Document 04/30/18 13:54 [facility] (Rec: 04/30/18 14:28 [facility] [id number]) Physical Therapy Assessment Goals Three Impairment strength Professional Development Instructor Goal (LTG) Improved LE strength to 5/5 and EFT & LPM to 4/5 LTG Duration 06/17/18 Two Impairment dec activity Short Term Goal (STG) Indep HEP STG Duration 05/18/18 Jail Goal (LTG) Pt will return to normal workout schedule to allow her to cont strengthening. LTG Duration 06/17/18 One Impairment pain Short Term Goal (STG) pain to 3/10 at worst STG Duration 05/18/18 Jail Goal (LTG) Pain to 1/10 at worst LTG Duration 06/17/18 Physical Therapy Plan Frequency and Duration Frequency of Treatment 2x/Week Duration of Treatment 2 months Plan of Care Start Date 04/17/18 Plan of Care End Date 06/17/18 Next Visit Focus/Plan Next Note Type Treatment Note Next Visit Plan Cont to advance supine core & LE strength
--- NOTE | 2018-05-07 13:45 | PT.OTN ---
Current Diagnoses Radiculopathy, lumbar region (05/07/18) Physical Therapy Treatment Note PT-OP-A Visit Information Start: 04/17/18 08:39 Freq: Status: Active Protocol: Document 05/07/18 13:02 [facility] (Rec: 05/07/18 13:45 [facility] [id number]) Out-Patient Physical Therapy Visit Information Visit Information Visit Type Treatment Note Visit Note 15 total visits Visit Start Time 13:00 Visit Stop Time 13:55 Total Visit Minutes 55 Visit Number 5/10 Number of QUOTATION CLERK Visits 0 PT-OP-B Current Condition Start: 04/17/18 08:39 Freq: Status: Active Protocol: Document 04/17/18 10:28 [facility] (Rec: 04/17/18 15:22 [facility] [id number]) Current Condition History of Current Condition Onset Date 3 years ago worsening over past 5 months especially past 2 months Current Complaints LBP w/weakness & pain into R thigh History of Current Condition Pt reports she is limping a lot and most of the time has pain in her back. Pt notes she is fine every day until about 3 PM then she starts to have pain in LB and limps. She has had 3 occurances in the past 1 .5 months where her RLE has given out and she has had to grab something. She has to stand on L leg while holding on and bring R leg up and down to make it work again. Pt reports she is more comfortable standing typically . Notes she has difficulty lifting objects and when she does, she has pain into LB into R thigh with feeling of weakness. Pt normally exercsies 3x/week at [employer] classes and goes to [employer] aer[employer]ics, but has not gone d/t pain. She does do squats daily without any pain. Prior Treatments and Tests massage about 1.5 years ago and saw a a little improvement ; pt reprots X-ray in past reporting curved spine, but no records found. Treatment Goals Patient/Caregiver Goals Return to working out without pain, be able to carry objects PT-OP-C Subjective Start: 04/17/18 08:39 Freq: Status: Active Protocol: Document 05/07/18 13:02 [facility] (Rec: 05/07/18 13:45 [facility] [id number]) OP-PT Subjective Patient Comments Patient Comments Report she was reaching over some things for something and strained her R side of her back. Reports it is still sore . was unable to do exercises over the weekend d.t pain, but was able to do them yesterday . PT-OP-F Manual Assessment Start: 04/17/18 08:39 Freq: Status: Active Protocol: Document 04/17/18 10:28 [facility] (Rec: 04/17/18 11:19 [facility] [id number]) Manual Assessments Soft Tissue Assessment Soft Tissue Mobility Assessment R ES & QL; R piriformis & glutes; dec hip & sacrum mobility Joint Mobility Assessment Joint Mobility Assessment R iliac crest elevated PT-OP-G Mobility & Gait Start: 04/17/18 08:39 Freq: Status: Active Protocol: Document 04/17/18 10:28 [facility] (Rec: 04/17/18 11:19 [facility] [id number]) OP Gait Assessment Comments Gait Comments Pt has dec stance time on RLE with dec push off and posterior depression. Overall dec pelvis patterns & stiff upper body & UEs. Pt ER pelvis during push off. PT-OP-J Posture/Palpation/Skin Start: 04/17/18 08:39 Freq: Status: Active Protocol: Document 04/17/18 10:28 [facility] (Rec: 04/17/18 11:19 [facility] [id number]) Posture Evaluation Ladi Postural Classification System Ladi Postural Classifications Anterior/Posterior Elbow Flexion Test 2 Lumbar Protective Mechanism Left AP 1 Lumbar Protective Mechanism Right AP 0 Lumbar Protective Mechanism Left PA 1 Lumbar Protective Mechanism Right PA 0 Leg Swing Left Hard End Feel Limited Pain Leg Swing Right Hard End Feel Limited Pain Comments Posture Comments Fwd head & neck PT-OP-K Range of Motion Start: 04/17/18 08:39 Freq: Status: Active Protocol: Document 04/17/18 10:28 [facility] (Rec: 04/17/18 11:19 [facility] [id number]) Lumbar Spine Range of Motion Lumbar Spine Active Degrees Flexion 37 Extension 18 Lateral Flexion Left 25 Lateral Flexion Right 15 Comments pain Flex; stiff R PT-OP-L Special Tests Start: 04/17/18 08:39 Freq: Status: Active Protocol: Document 04/17/18 10:28 [facility] (Rec: 04/17/18 11:19 [facility] [id number]) Special Tests Lumbar Spine Special Tests Straight Leg Raise Test Results ~20 deg R; 45 deg L Comments positive B Slump Test Results positive R ; negative L PT-OP-M Strength Start: 04/17/18 08:39 Freq: Status: Active Protocol: Document 04/17/18 10:28 [facility] (Rec: 04/17/18 11:19 [facility] [id number]) Hip Strength Hip Manual Muscle Testing Right Flexion (L2) 4- Good- Extension (S1) 3- Fair- Abduction 3 Fair External Rotation 4- Good- Internal Rotation 3+ Fair+ Comments Pain w/ R hip flex & IR; 5/5 PF & DF tested seated Left Flexion (L2) 5 Normal Extension (S1) 5 Normal Abduction 4+ Good+ External Rotation 4 Good Internal Rotation 5 Normal Knee Strength Knee Manual Muscle Testing Right Flexion (S2) 4- Good- Extension (L3) 3+ Fair+ Left Flexion (S2) 5 Normal Extension (L3) 5 Normal PT-OP-Q Treatments Start: 04/17/18 08:39 Freq: Status: Active Protocol: Document 05/07/18 13:02 [facility] (Rec: 05/07/18 13:45 [facility] [id number]) Cardio Equipment Recumbent Elliptical (Biodex) Duration (Minutes) 5 Resistance 4-5 Seat Position 5 Other w/forte backrest Gym Equipment Shuttle Recovery Unilateral Squats Resistance 50 Shuttle Recovery Platform Stable Reps/Time 30 Bilateral Squats Resistance 100 Shuttle Recovery Platform Stable Reps/Time 30 Therapeutic Exercises Supine Exercises 1 Supine Exercise Name bridge w/march Reps/Minutes 10 Sidelying Exercises 3 Sidelying Exercise Name hip abd Reps/Minutes 10 2 Sidelying Exercise Name reverse clamshells Equipment Used L1 Reps/Minutes 15 1 Sidelying Exercise Name clamshells Equipment Used L1 Reps/Minutes 15 Manual Therapy Treatment Soft Tissue Mobilization 2 Body Location piriformis Mobilization Type Sustained Pressure 1 Body Location QL & ES Mobilization Type Rolling PT-OP-R Modalities Start: 04/17/18 08:39 Freq: Status: Active Protocol: Document 05/07/18 13:02 [facility] (Rec: 05/07/18 13:45 [facility] [id number]) Electric Stimulation Electric Stimulation Interferential Current (IFC) Body Location R lumbosacral region Duration (Minutes) 10 Patient Position Prone Combined With Heat/Cold Cold Pack PT-OP-T Assessment and Plan Start: 04/17/18 08:39 Freq: Status: Active Protocol: Document 05/07/18 13:02 [facility] (Rec: 05/07/18 13:45 [facility] [id number]) Physical Therapy Assessment Goals Three Impairment strength Retirement Goal (LTG) Improved LE strength to 5/5 and EFT & LPM to 4/5 LTG Duration 06/17/18 Two Impairment dec activity Short Term Goal (STG) Indep HEP STG Duration 05/18/18 Dialysis Biomed Technician Goal (LTG) Pt will return to normal workout schedule to allow her to cont strengthening. LTG Duration 06/17/18 One Impairment pain Short Term Goal (STG) pain to 3/10 at worst STG Duration 05/18/18 Retirement Goal (LTG) Pain to 1/10 at worst LTG Duration 06/17/18 Assessment Summary Assessment Pt did well with s/l exercises and was able to progress with resistance bands. Improved form with bridge with march w/ cueing. Physical Therapy Plan Frequency and Duration Frequency of Treatment 2x/Week Duration of Treatment 2 months Plan of Care Start Date 04/17/18 Plan of Care End Date 06/17/18 Next Visit Focus/Plan Next Note Type Treatment Note Next Visit Plan Cont to advance supine core & LE strength
--- NOTE | 2018-05-10 13:51 | PT.OTN ---
Current Diagnoses Radiculopathy, lumbar region (05/10/18) Physical Therapy Treatment Note PT-OP-A Visit Information Start: 04/17/18 08:39 Freq: Status: Active Protocol: Document 05/10/18 13:02 [facility] (Rec: 05/10/18 13:51 [facility] [id number]) Out-Patient Physical Therapy Visit Information Visit Information Visit Type Treatment Note Visit Note 15 total visits Visit Start Time 13:00 Visit Stop Time 13:55 Total Visit Minutes 55 Visit Number 6/10 Number of CERTIFIED REHABILITATION COUNSELOR Visits 0 PT-OP-B Current Condition Start: 04/17/18 08:39 Freq: Status: Active Protocol: Document 04/17/18 10:28 [facility] (Rec: 04/17/18 15:22 [facility] [id number]) Current Condition History of Current Condition Onset Date 3 years ago worsening over past 5 months especially past 2 months Current Complaints LBP w/weakness & pain into R thigh History of Current Condition Pt reports she is limping a lot and most of the time has pain in her back. Pt notes she is fine every day until about 3 PM then she starts to have pain in LB and limps. She has had 3 occurances in the past 1 .5 months where her RLE has given out and she has had to grab something. She has to stand on L leg while holding on and bring R leg up and down to make it work again. Pt reports she is more comfortable standing typically . Notes she has difficulty lifting objects and when she does, she has pain into LB into R thigh with feeling of weakness. Pt normally exercsies 3x/week at [employer] classes and goes to [employer], but has not gone d/t pain. She does do squats daily without any pain. Prior Treatments and Tests massage about 1.5 years ago and saw a a little improvement ; pt reprots X-ray in past reporting curved spine, but no records found. Treatment Goals Patient/Caregiver Goals Return to working out without pain, be able to carry objects PT-OP-C Subjective Start: 04/17/18 08:39 Freq: Status: Active Protocol: Document 05/10/18 13:02 [facility] (Rec: 05/10/18 13:51 [facility] [id number]) OP-PT Subjective Patient Comments Patient Comments Reports she did her exercises and they felt good. Reports she is doing better. She forgot to do her tennis ball. PT-OP-F Manual Assessment Start: 04/17/18 08:39 Freq: Status: Active Protocol: Document 04/17/18 10:28 [facility] (Rec: 04/17/18 11:19 [facility] [id number]) Manual Assessments Soft Tissue Assessment Soft Tissue Mobility Assessment R ES & QL; R piriformis & glutes; dec hip & sacrum mobility Joint Mobility Assessment Joint Mobility Assessment R iliac crest elevated PT-OP-G Mobility & Gait Start: 04/17/18 08:39 Freq: Status: Active Protocol: Document 04/17/18 10:28 [facility] (Rec: 04/17/18 11:19 [facility] [id number]) OP Gait Assessment Comments Gait Comments Pt has dec stance time on RLE with dec push off and posterior depression. Overall dec pelvis patterns & stiff upper body & UEs. Pt ER pelvis during push off. PT-OP-J Posture/Palpation/Skin Start: 04/17/18 08:39 Freq: Status: Active Protocol: Document 04/17/18 10:28 [facility] (Rec: 04/17/18 11:19 [facility] [id number]) Posture Evaluation Ladi Postural Classification System Ladi Postural Classifications Anterior/Posterior Elbow Flexion Test 2 Lumbar Protective Mechanism Left AP 1 Lumbar Protective Mechanism Right AP 0 Lumbar Protective Mechanism Left PA 1 Lumbar Protective Mechanism Right PA 0 Leg Swing Left Hard End Feel Limited Pain Leg Swing Right Hard End Feel Limited Pain Comments Posture Comments Fwd head & neck PT-OP-K Range of Motion Start: 04/17/18 08:39 Freq: Status: Active Protocol: Document 04/17/18 10:28 [facility] (Rec: 04/17/18 11:19 [facility] [id number]) Lumbar Spine Range of Motion Lumbar Spine Active Degrees Flexion 37 Extension 18 Lateral Flexion Left 25 Lateral Flexion Right 15 Comments pain Flex; stiff R PT-OP-L Special Tests Start: 04/17/18 08:39 Freq: Status: Active Protocol: Document 04/17/18 10:28 [facility] (Rec: 04/17/18 11:19 [facility] [id number]) Special Tests Lumbar Spine Special Tests Straight Leg Raise Test Results ~20 deg R; 45 deg L Comments positive B Slump Test Results positive R ; negative L PT-OP-M Strength Start: 04/17/18 08:39 Freq: Status: Active Protocol: Document 04/17/18 10:28 [facility] (Rec: 04/17/18 11:19 [facility] [id number]) Hip Strength Hip Manual Muscle Testing Right Flexion (L2) 4- Good- Extension (S1) 3- Fair- Abduction 3 Fair External Rotation 4- Good- Internal Rotation 3+ Fair+ Comments Pain w/ R hip flex & IR; 5/5 PF & DF tested seated Left Flexion (L2) 5 Normal Extension (S1) 5 Normal Abduction 4+ Good+ External Rotation 4 Good Internal Rotation 5 Normal Knee Strength Knee Manual Muscle Testing Right Flexion (S2) 4- Good- Extension (L3) 3+ Fair+ Left Flexion (S2) 5 Normal Extension (L3) 5 Normal PT-OP-Q Treatments Start: 04/17/18 08:39 Freq: Status: Active Protocol: Document 05/10/18 13:02 [facility] (Rec: 05/10/18 13:51 [facility] [id number]) Cardio Equipment Recumbent Elliptical ([employer]) Duration (Minutes) 5 Resistance 4-5 Seat Position 5 Other w/forte backrest Gym Equipment Shuttle Recovery Unilateral Squats Resistance 50 Shuttle Recovery Platform Stable Reps/Time 30 Bilateral Squats Resistance 112 Shuttle Recovery Platform Stable Reps/Time 30 Therapeutic Exercises Supine Exercises 5 Supine Exercise Name abdominal series: flex & diagonals; single leg Comments unable to do double legs or diagonal d/t pain in LB 1 Supine Exercise Name bridge /november Reps/Minutes 10 Standing Exercises 2 Standing Exercise Name bar push up to lukasz pose then squat 1 Standing Exercise Name wall squats Reps/Minutes 15 Manual Therapy Treatment Joint Mobilizations 2 Joint innominate Direction R caudal & ER FM 1 Joint hip Direction inf glide PT-OP-R Modalities Start: 04/17/18 08:39 Freq: Status: Active Protocol: Document 05/10/18 13:02 [facility] (Rec: 05/10/18 13:51 [facility] [id number]) Electric Stimulation Electric Stimulation Interferential Current (IFC) Body Location R lumbosacral region Duration (Minutes) 15 Patient Position Prone Combined With Heat/Cold Hot Pack PT-OP-T Assessment and Plan Start: 04/17/18 08:39 Freq: Status: Active Protocol: Document 05/10/18 13:02 [facility] (Rec: 05/10/18 13:51 [facility] [id number]) Physical Therapy Assessment Goals Three Impairment strength Halfway Goal (LTG) Improved LE strength to 5/5 and EFT & LPM to 4/5 LTG Duration 06/17/18 Two Impairment dec activity Short Term Goal (STG) Indep HEP STG Duration 05/18/18 Fishing Tool Operator Goal (LTG) Pt will return to normal workout schedule to allow her to cont strengthening. LTG Duration 06/17/18 One Impairment pain Short Term Goal (STG) pain to 3/10 at worst STG Duration 05/18/18 Fishing Tool Operator Goal (LTG) Pain to 1/10 at worst LTG Duration 06/17/18 Assessment Summary Assessment Pt did well with new exercises and reports most were ones she did before. NO difficulty with bridges or abdominal series today. Physical Therapy Plan Frequency and Duration Frequency of Treatment 2x/Week Duration of Treatment 2 months Plan of Care Start Date 04/17/18 Plan of Care End Date 06/17/18 Next Visit Focus/Plan Next Note Type Treatment Note Next Visit Plan Cont to advance supine core & LE strength
--- NOTE | 2018-05-17 14:11 | PT.OTN ---
Current Diagnoses Radiculopathy, lumbar region (05/17/18) Physical Therapy Treatment Note PT-OP-A Visit Information Start: 04/17/18 08:39 Freq: Status: Active Protocol: Document 05/17/18 08:15 [facility] (Rec: 05/17/18 08:58 [facility] [id number]) Out-Patient Physical Therapy Visit Information Visit Information Visit Type Treatment Note Visit Note 15 total visits Visit Start Time 08:15 Visit Stop Time 09:05 Total Visit Minutes 50 Visit Number 7/10 Number of STEM ROLLER OPERATOR Visits 0 PT-OP-B Current Condition Start: 04/17/18 08:39 Freq: Status: Active Protocol: Document 04/17/18 10:28 [facility] (Rec: 04/17/18 15:22 [facility] [id number]) Current Condition History of Current Condition Onset Date 3 years ago worsening over past 5 months especially past 2 months Current Complaints LBP w/weakness & pain into R thigh History of Current Condition Pt reports she is limping a lot and most of the time has pain in her back. Pt notes she is fine every day until about 3 PM then she starts to have pain in LB and limps. She has had 3 occurances in the past 1 .5 months where her RLE has given out and she has had to grab something. She has to stand on L leg while holding on and bring R leg up and down to make it work again. Pt reports she is more comfortable standing typically . Notes she has difficulty lifting objects and when she does, she has pain into LB into R thigh with feeling of weakness. Pt normally exercsies 3x/week at [employer] classes and goes to [employer], but has not gone d/t pain. She does do squats daily without any pain. Prior Treatments and Tests massage about 1.5 years ago and saw a a little improvement ; pt reprots X-ray in past reporting curved spine, but no records found. Treatment Goals Patient/Caregiver Goals Return to working out without pain, be able to carry objects PT-OP-C Subjective Start: 04/17/18 08:39 Freq: Status: Active Protocol: Document 05/17/18 08:15 [facility] (Rec: 05/17/18 08:58 [facility] [id number]) OP-PT Subjective Patient Comments Patient Comments Haven't done ex's for a couple days because she has been travelling. Now home, so will do them. PT-OP-F Manual Assessment Start: 04/17/18 08:39 Freq: Status: Active Protocol: Document 04/17/18 10:28 [facility] (Rec: 04/17/18 11:19 [facility] [id number]) Manual Assessments Soft Tissue Assessment Soft Tissue Mobility Assessment R ES & QL; R piriformis & glutes; dec hip & sacrum mobility Joint Mobility Assessment Joint Mobility Assessment R iliac crest elevated PT-OP-G Mobility & Gait Start: 04/17/18 08:39 Freq: Status: Active Protocol: Document 04/17/18 10:28 [facility] (Rec: 04/17/18 11:19 [facility] [id number]) OP Gait Assessment Comments Gait Comments Pt has dec stance time on RLE with dec push off and posterior depression. Overall dec pelvis patterns & stiff upper body & UEs. Pt ER pelvis during push off. PT-OP-J Posture/Palpation/Skin Start: 04/17/18 08:39 Freq: Status: Active Protocol: Document 04/17/18 10:28 [facility] (Rec: 04/17/18 11:19 [facility] [id number]) Posture Evaluation Ladi Postural Classification System Ladi Postural Classifications Anterior/Posterior Elbow Flexion Test 2 Lumbar Protective Mechanism Left AP 1 Lumbar Protective Mechanism Right AP 0 Lumbar Protective Mechanism Left PA 1 Lumbar Protective Mechanism Right PA 0 Leg Swing Left Hard End Feel Limited Pain Leg Swing Right Hard End Feel Limited Pain Comments Posture Comments Fwd head & neck PT-OP-K Range of Motion Start: 04/17/18 08:39 Freq: Status: Active Protocol: Document 04/17/18 10:28 [facility] (Rec: 04/17/18 11:19 [facility] [id number]) Lumbar Spine Range of Motion Lumbar Spine Active Degrees Flexion 37 Extension 18 Lateral Flexion Left 25 Lateral Flexion Right 15 Comments pain Flex; stiff R PT-OP-L Special Tests Start: 04/17/18 08:39 Freq: Status: Active Protocol: Document 04/17/18 10:28 [facility] (Rec: 04/17/18 11:19 [facility] [id number]) Special Tests Lumbar Spine Special Tests Straight Leg Raise Test Results ~20 deg R; 45 deg L Comments positive B Slump Test Results positive R ; negative L PT-OP-M Strength Start: 04/17/18 08:39 Freq: Status: Active Protocol: Document 04/17/18 10:28 [facility] (Rec: 04/17/18 11:19 [facility] [id number]) Hip Strength Hip Manual Muscle Testing Right Flexion (L2) 4- Good- Extension (S1) 3- Fair- Abduction 3 Fair External Rotation 4- Good- Internal Rotation 3+ Fair+ Comments Pain w/ R hip flex & IR; 5/5 PF & DF tested seated Left Flexion (L2) 5 Normal Extension (S1) 5 Normal Abduction 4+ Good+ External Rotation 4 Good Internal Rotation 5 Normal Knee Strength Knee Manual Muscle Testing Right Flexion (S2) 4- Good- Extension (L3) 3+ Fair+ Left Flexion (S2) 5 Normal Extension (L3) 5 Normal PT-OP-Q Treatments Start: 04/17/18 08:39 Freq: Status: Active Protocol: Document 05/17/18 08:15 [facility] (Rec: 05/17/18 08:58 [facility] [id number]) Cardio Equipment Recumbent Elliptical ([employer]) Duration (Minutes) 6 Resistance 4-5 Seat Position 5 Other w/forte backrest Gym Equipment Shuttle Recovery Unilateral Squats Resistance 62 Shuttle Recovery Platform Stable Reps/Time 15x2 Bilateral Squats Resistance 112 Shuttle Recovery Platform Stable Reps/Time 30 Therapeutic Exercises Supine Exercises 5 Supine Exercise Name Neutral spine bracing w/ abdominals Reps/Minutes 10' Comments Pt able to do double leg slides after training. Therapeutic Activity Therapeutic Activity Transfers Name Supine<->Sit, Sit <-> stand Reps/Minutes 7' Manual Therapy Treatment Joint Mobilizations 2 Joint Correction for an anteriorly rotated and outflared R innominate Comments MFR Self-Care/Home Management Treatment Activities Self-Care/Home Management Activities Discussed transfer techniques for getting in/out of bed and in/out car. PT-OP-R Modalities Start: 04/17/18 08:39 Freq: Status: Active Protocol: Document 05/17/18 08:15 [facility] (Rec: 05/17/18 08:58 [facility] [id number]) Electric Stimulation Electric Stimulation Interferential Current (IFC) Body Location R lumbosacral region Duration (Minutes) 15 Patient Position Supine Combined With Heat/Cold Hot Pack Comments Legs elevated Hot Pack/Cold Pack Treatment Hot Pack Location Low back Patient Position Supine Treatment Duration (minutes) 15 Comments Used with IFES PT-OP-T Assessment and Plan Start: 04/17/18 08:39 Freq: Status: Active Protocol: Document 05/17/18 08:15 [facility] (Rec: 05/17/18 08:58 [facility] [id number]) Physical Therapy Assessment Goals Three Impairment strength Shelter Goal (LTG) Improved LE strength to 5/5 and EFT & LPM to 4/5 LTG Duration 06/17/18 Two Impairment dec activity Short Term Goal (STG) Indep HEP STG Duration 05/18/18 Shelter Goal (LTG) Pt will return to normal workout schedule to allow her to cont strengthening. LTG Duration 06/17/18 One Impairment pain Short Term Goal (STG) pain to 3/10 at worst STG Duration 05/18/18 Automotive Service Assistant Goal (LTG) Pain to 1/10 at worst LTG Duration 06/17/18 Assessment Summary Assessment Pt having no pain since she's been on vacation. She notes improved strength in her R LE. Able to correct anteriorly rotated and outflared R innominate. Pt needs further self care training for transfers in/out of bed & car. Physical Therapy Plan Frequency and Duration Frequency of Treatment 2x/Week Duration of Treatment 2 months Plan of Care Start Date 04/17/18 Plan of Care End Date 06/17/18 Next Visit Focus/Plan Next Note Type Treatment Note Next Visit Plan Cont to advance supine core & LE strength. Stabilize pelvis . Might try teaching pt self correction technique of R innominate.
--- NOTE | 2018-05-20 10:08 | PT.OTN ---
Current Diagnoses Radiculopathy, lumbar region (05/20/18) Physical Therapy Treatment Note PT-OP-A Visit Information Start: 04/17/18 08:39 Freq: Status: Active Protocol: Document 05/20/18 08:15 [facility] (Rec: 05/20/18 08:59 [facility] [id number]) Out-Patient Physical Therapy Visit Information Visit Information Visit Type Treatment Note Visit Note 15 total visits Visit Start Time 08:15 Visit Stop Time 09:00 Total Visit Minutes 45 Visit Number 8/ Number of RELOCATION SERVICES SPECIALIST Visits 0 PT-OP-B Current Condition Start: 04/17/18 08:39 Freq: Status: Active Protocol: Document 04/17/18 10:28 [facility] (Rec: 04/17/18 15:22 [facility] [id number]) Current Condition History of Current Condition Onset Date 3 years ago worsening over past 5 months especially past 2 months Current Complaints LBP w/weakness & pain into R thigh History of Current Condition Pt reports she is limping a lot and most of the time has pain in her back. Pt notes she is fine every day until about 3 PM then she starts to have pain in LB and limps. She has had 3 occurances in the past 1 .5 months where her RLE has given out and she has had to grab something. She has to stand on L leg while holding on and bring R leg up and down to make it work again. Pt reports she is more comfortable standing typically . Notes she has difficulty lifting objects and when she does, she has pain into LB into R thigh with feeling of weakness. Pt normally exercsies 3x/week at [employer] classes and goes to [employer], but has not gone d/t pain. She does do squats daily without any pain. Prior Treatments and Tests massage about 1.5 years ago and saw a a little improvement ; pt reprots X-ray in past reporting curved spine, but no records found. Treatment Goals Patient/Caregiver Goals Return to working out without pain, be able to carry objects PT-OP-C Subjective Start: 04/17/18 08:39 Freq: Status: Active Protocol: Document 05/20/18 08:15 [facility] (Rec: 05/20/18 09:58 [facility] [id number]) OP-PT Subjective Patient Comments Patient Comments Doesn't like the stationary bike because she keeps sliding forward. Patient Reported Progress Same PT-OP-F Manual Assessment Start: 04/17/18 08:39 Freq: Status: Active Protocol: Document 04/17/18 10:28 [facility] (Rec: 04/17/18 11:19 [facility] [id number]) Manual Assessments Soft Tissue Assessment Soft Tissue Mobility Assessment R ES & QL; R piriformis & glutes; dec hip & sacrum mobility Joint Mobility Assessment Joint Mobility Assessment R iliac crest elevated PT-OP-G Mobility & Gait Start: 04/17/18 08:39 Freq: Status: Active Protocol: Document 04/17/18 10:28 [facility] (Rec: 04/17/18 11:19 [facility] [id number]) OP Gait Assessment Comments Gait Comments Pt has dec stance time on RLE with dec push off and posterior depression. Overall dec pelvis patterns & stiff upper body & UEs. Pt ER pelvis during push off. PT-OP-J Posture/Palpation/Skin Start: 04/17/18 08:39 Freq: Status: Active Protocol: Document 04/17/18 10:28 [facility] (Rec: 04/17/18 11:19 [facility] [id number]) Posture Evaluation Ladi Postural Classification System Ladi Postural Classifications Anterior/Posterior Elbow Flexion Test 2 Lumbar Protective Mechanism Left AP 1 Lumbar Protective Mechanism Right AP 0 Lumbar Protective Mechanism Left PA 1 Lumbar Protective Mechanism Right PA 0 Leg Swing Left Hard End Feel Limited Pain Leg Swing Right Hard End Feel Limited Pain Comments Posture Comments Fwd head & neck PT-OP-K Range of Motion Start: 04/17/18 08:39 Freq: Status: Active Protocol: Document 04/17/18 10:28 [facility] (Rec: 04/17/18 11:19 [facility] [id number]) Lumbar Spine Range of Motion Lumbar Spine Active Degrees Flexion 37 Extension 18 Lateral Flexion Left 25 Lateral Flexion Right 15 Comments pain Flex; stiff R PT-OP-L Special Tests Start: 04/17/18 08:39 Freq: Status: Active Protocol: Document 04/17/18 10:28 [facility] (Rec: 04/17/18 11:19 [facility] [id number]) Special Tests Lumbar Spine Special Tests Straight Leg Raise Test Results ~20 deg R; 45 deg L Comments positive B Slump Test Results positive R ; negative L PT-OP-M Strength Start: 04/17/18 08:39 Freq: Status: Active Protocol: Document 04/17/18 10:28 [facility] (Rec: 04/17/18 11:19 [facility] [id number]) Hip Strength Hip Manual Muscle Testing Right Flexion (L2) 4- Good- Extension (S1) 3- Fair- Abduction 3 Fair External Rotation 4- Good- Internal Rotation 3+ Fair+ Comments Pain w/ R hip flex & IR; 5/5 PF & DF tested seated Left Flexion (L2) 5 Normal Extension (S1) 5 Normal Abduction 4+ Good+ External Rotation 4 Good Internal Rotation 5 Normal Knee Strength Knee Manual Muscle Testing Right Flexion (S2) 4- Good- Extension (L3) 3+ Fair+ Left Flexion (S2) 5 Normal Extension (L3) 5 Normal PT-OP-Q Treatments Start: 04/17/18 08:39 Freq: Status: Active Protocol: Document 05/20/18 08:15 [facility] (Rec: 05/20/18 08:59 [facility] [id number]) Cardio Equipment Recumbent Bicycle Duration (Minutes) 2 Other Attempted, pt unable to be comfortable Bicycle (Upright) Duration (Minutes) 3 Resistance 3 Therapeutic Exercises Supine Exercises 5 Supine Exercise Name Neutral spine bracing w/ abdominals Reps/Minutes 10' Comments Pt able to do double leg slides after training. 1 Supine Exercise Name Bridging Reps/Minutes 8 Therapeutic Activity Therapeutic Activity Transfers Name Car transfer & sup>sit Reps/Minutes 20' Comments To minimize pelvic instability PT-OP-R Modalities Start: 04/17/18 08:39 Freq: Status: Active Protocol: Document 05/17/18 08:15 [facility] (Rec: 05/17/18 08:58 [facility] [id number]) Electric Stimulation Electric Stimulation Interferential Current (IFC) Body Location R lumbosacral region Duration (Minutes) 15 Patient Position Supine Combined With Heat/Cold Hot Pack Comments Legs elevated Hot Pack/Cold Pack Treatment Hot Pack Location Low back Patient Position Supine Treatment Duration (minutes) 15 Comments Used with IFES PT-OP-T Assessment and Plan Start: 04/17/18 08:39 Freq: Status: Active Protocol: Document 05/20/18 08:15 [facility] (Rec: 05/20/18 08:59 [facility] [id number]) Physical Therapy Assessment Goals Three Impairment strength Bilingual Instructor Goal (LTG) Improved LE strength to 5/5 and EFT & LPM to 4/5 LTG Duration 06/17/18 Two Impairment dec activity Short Term Goal (STG) Indep HEP STG Duration 05/18/18 Usp Goal (LTG) Pt will return to normal workout schedule to allow her to cont strengthening. LTG Duration 06/17/18 One Impairment pain Short Term Goal (STG) pain to 3/10 at worst STG Duration 05/18/18 Usp Goal (LTG) Pain to 1/10 at worst LTG Duration 06/17/18 Assessment Summary Assessment Pt pelvis was level. Physical Therapy Plan Frequency and Duration Frequency of Treatment 2x/Week Duration of Treatment 2 months Plan of Care Start Date 04/17/18 Plan of Care End Date 06/17/18 Next Visit Focus/Plan Next Note Type Treatment Note Next Visit Plan Cont to advance supine core & LE strength. Stabilize pelvis . Teach pt self correction technique of R innominate if she is not able to maintain stability.
--- NOTE | 2018-05-23 17:37 | PT.OTN ---
Current Diagnoses Radiculopathy, lumbar region (05/23/18) Physical Therapy Treatment Note PT-OP-A Visit Information Start: 04/17/18 08:39 Freq: Status: Active Protocol: Document 05/23/18 17:33 [facility] (Rec: 05/23/18 17:36 [facility] [id number]) Out-Patient Physical Therapy Visit Information Visit Information Visit Type Treatment Note Visit Note 15 total visits Visit Start Time 08:15 Visit Stop Time 09:00 Total Visit Minutes 45 Visit Number 9/10 Number of SUPERVISOR SHUTTLE FITTING Visits 0 PT-OP-B Current Condition Start: 04/17/18 08:39 Freq: Status: Active Protocol: Document 04/17/18 10:28 [facility] (Rec: 04/17/18 15:22 [facility] [id number]) Current Condition History of Current Condition Onset Date 3 years ago worsening over past 5 months especially past 2 months Current Complaints LBP w/weakness & pain into R thigh History of Current Condition Pt reports she is limping a lot and most of the time has pain in her back. Pt notes she is fine every day until about 3 PM then she starts to have pain in LB and limps. She has had 3 occurances in the past 1 .5 months where her RLE has given out and she has had to grab something. She has to stand on L leg while holding on and bring R leg up and down to make it work again. Pt reports she is more comfortable standing typically . Notes she has difficulty lifting objects and when she does, she has pain into LB into R thigh with feeling of weakness. Pt normally exercsies 3x/week at [employer] classes and goes to [employer], but has not gone d/t pain. She does do squats daily without any pain. Prior Treatments and Tests massage about 1.5 years ago and saw a a little improvement ; pt reprots X-ray in past reporting curved spine, but no records found. Treatment Goals Patient/Caregiver Goals Return to working out without pain, be able to carry objects PT-OP-C Subjective Start: 04/17/18 08:39 Freq: Status: Active Protocol: Document 05/23/18 17:33 [facility] (Rec: 05/23/18 17:36 [facility] [id number]) OP-PT Subjective Patient Comments Patient Comments Getting a little better PT-OP-F Manual Assessment Start: 04/17/18 08:39 Freq: Status: Active Protocol: Document 04/17/18 10:28 [facility] (Rec: 04/17/18 11:19 [facility] [id number]) Manual Assessments Soft Tissue Assessment Soft Tissue Mobility Assessment R ES & QL; R piriformis & glutes; dec hip & sacrum mobility Joint Mobility Assessment Joint Mobility Assessment R iliac crest elevated PT-OP-G Mobility & Gait Start: 04/17/18 08:39 Freq: Status: Active Protocol: Document 04/17/18 10:28 [facility] (Rec: 04/17/18 11:19 [facility] [id number]) OP Gait Assessment Comments Gait Comments Pt has dec stance time on RLE with dec push off and posterior depression. Overall dec pelvis patterns & stiff upper body & UEs. Pt ER pelvis during push off. PT-OP-J Posture/Palpation/Skin Start: 04/17/18 08:39 Freq: Status: Active Protocol: Document 04/17/18 10:28 [facility] (Rec: 04/17/18 11:19 [facility] [id number]) Posture Evaluation Ladi Postural Classification System Ladi Postural Classifications Anterior/Posterior Elbow Flexion Test 2 Lumbar Protective Mechanism Left AP 1 Lumbar Protective Mechanism Right AP 0 Lumbar Protective Mechanism Left PA 1 Lumbar Protective Mechanism Right PA 0 Leg Swing Left Hard End Feel Limited Pain Leg Swing Right Hard End Feel Limited Pain Comments Posture Comments Fwd head & neck PT-OP-K Range of Motion Start: 04/17/18 08:39 Freq: Status: Active Protocol: Document 04/17/18 10:28 [facility] (Rec: 04/17/18 11:19 [facility] [id number]) Lumbar Spine Range of Motion Lumbar Spine Active Degrees Flexion 37 Extension 18 Lateral Flexion Left 25 Lateral Flexion Right 15 Comments pain Flex; stiff R PT-OP-L Special Tests Start: 04/17/18 08:39 Freq: Status: Active Protocol: Document 04/17/18 10:28 [facility] (Rec: 04/17/18 11:19 [facility] [id number]) Special Tests Lumbar Spine Special Tests Straight Leg Raise Test Results ~20 deg R; 45 deg L Comments positive B Slump Test Results positive R ; negative L PT-OP-M Strength Start: 04/17/18 08:39 Freq: Status: Active Protocol: Document 04/17/18 10:28 [facility] (Rec: 04/17/18 11:19 [facility] [id number]) Hip Strength Hip Manual Muscle Testing Right Flexion (L2) 4- Good- Extension (S1) 3- Fair- Abduction 3 Fair External Rotation 4- Good- Internal Rotation 3+ Fair+ Comments Pain w/ R hip flex & IR; 5/5 PF & DF tested seated Left Flexion (L2) 5 Normal Extension (S1) 5 Normal Abduction 4+ Good+ External Rotation 4 Good Internal Rotation 5 Normal Knee Strength Knee Manual Muscle Testing Right Flexion (S2) 4- Good- Extension (L3) 3+ Fair+ Left Flexion (S2) 5 Normal Extension (L3) 5 Normal PT-OP-Q Treatments Start: 04/17/18 08:39 Freq: Status: Active Protocol: Document 05/23/18 17:33 [facility] (Rec: 05/23/18 17:36 [facility] [id number]) Therapeutic Exercises Supine Exercises 6 Supine Exercise Name francisco test stretch 4 Supine Exercise Name scissors 1 Supine Exercise Name bridge w/march Reps/Minutes 10 Sidelying Exercises 3 Sidelying Exercise Name hip abd Reps/Minutes 10 2 Sidelying Exercise Name reverse clamshells Equipment Used L1 Reps/Minutes 15 1 Sidelying Exercise Name clamshells Equipment Used L1 Reps/Minutes 15 Manual Therapy Treatment Soft Tissue Mobilization 2 Body Location piriformis Mobilization Type Sustained Pressure Joint Mobilizations 2 Joint innominate Direction R caudal & ER FM 1 Joint hip Direction on axis ER & PA for ext PT-OP-R Modalities Start: 04/17/18 08:39 Freq: Status: Active Protocol: Document 05/23/18 17:33 [facility] (Rec: 05/23/18 17:37 [facility] [id number]) Electric Stimulation Electric Stimulation Interferential Current (IFC) Body Location R lumbosacral region Duration (Minutes) 15 Patient Position Supine Combined With Heat/Cold Hot Pack Comments Legs elevated PT-OP-T Assessment and Plan Start: 04/17/18 08:39 Freq: Status: Active Protocol: Document 05/23/18 17:33 [facility] (Rec: 05/23/18 17:36 [facility] [id number]) Physical Therapy Assessment Goals Three Impairment strength Long-Term Goal (LTG) Improved LE strength to 5/5 and EFT & LPM to 4/5 LTG Duration 06/17/18 Two Impairment dec activity Short Term Goal (STG) Indep HEP STG Duration 05/18/18 Long-Term Goal (LTG) Pt will return to normal workout schedule to allow her to cont strengthening. LTG Duration 06/17/18 One Impairment pain Short Term Goal (STG) pain to 3/10 at worst STG Duration 05/18/18 Nursing Informatics Clinical Analyst Goal (LTG) Pain to 1/10 at worst LTG Duration 06/17/18 Assessment Summary Assessment Pt is improving with tolerance to gluteal massage and hip mobilizations,but appears to be tigth anteriorly on R. Physical Therapy Plan Frequency and Duration Frequency of Treatment 2x/Week Duration of Treatment 2 months Plan of Care Start Date 04/17/18 Plan of Care End Date 06/17/18 Next Visit Focus/Plan Next Note Type Progress Note Next Visit Plan hip flexor stretching &STM
--- NOTE | 2018-05-27 15:54 | PT.OTN ---
Current Diagnoses Radiculopathy, lumbar region (05/27/18) Physical Therapy Treatment Note PT-OP-A Visit Information Start: 04/17/18 08:39 Freq: Status: Active Protocol: Document 05/27/18 15:39 [facility] (Rec: 05/27/18 15:54 [facility] [id number]) Out-Patient Physical Therapy Visit Information Visit Information Visit Type Treatment Note Visit Note 06/24 Visit Start Time 09:00 Visit Stop Time 09:55 Total Visit Minutes 55 Visit Number 09/19 Number of SHEAR ASSEMBLER Visits 0 PT-OP-B Current Condition Start: 04/17/18 08:39 Freq: Status: Active Protocol: Document 04/17/18 10:28 [facility] (Rec: 04/17/18 15:22 [facility] [id number]) Current Condition History of Current Condition Onset Date 3 years ago worsening over past 5 months especially past 2 months Current Complaints LBP w/weakness & pain into R thigh History of Current Condition Pt reports she is limping a lot and most of the time has pain in her back. Pt notes she is fine every day until about 3 PM then she starts to have pain in LB and limps. She has had 3 occurances in the past 1 .5 months where her RLE has given out and she has had to grab something. She has to stand on L leg while holding on and bring R leg up and down to make it work again. Pt reports she is more comfortable standing typically . Notes she has difficulty lifting objects and when she does, she has pain into LB into R thigh with feeling of weakness. Pt normally exercsies 3x/week at [employer] classes and goes to [employer], but has not gone d/t pain. She does do squats daily without any pain. Prior Treatments and Tests massage about 1.5 years ago and saw a a little improvement ; pt reprots X-ray in past reporting curved spine, but no records found. Treatment Goals Patient/Caregiver Goals Return to working out without pain, be able to carry objects PT-OP-C Subjective Start: 04/17/18 08:39 Freq: Status: Active Protocol: Document 05/27/18 15:39 [facility] (Rec: 05/27/18 15:54 [facility] [id number]) OP-PT Subjective Patient Comments Patient Comments Reports she noticed her pain happens when she carries things in her R hand or reaches with R hand Patient Questionnaires Oswestry Low Back Index Oswestry Score 30 Oswestry Impairment 20 to 39% Impaired (Score 20- 39) PT-OP-F Manual Assessment Start: 04/17/18 08:39 Freq: Status: Active Protocol: Document 04/17/18 10:28 [facility] (Rec: 04/17/18 11:19 [facility] [id number]) Manual Assessments Soft Tissue Assessment Soft Tissue Mobility Assessment R ES & QL; R piriformis & glutes; dec hip & sacrum mobility Joint Mobility Assessment Joint Mobility Assessment R iliac crest elevated PT-OP-G Mobility & Gait Start: 04/17/18 08:39 Freq: Status: Active Protocol: Document 04/17/18 10:28 [facility] (Rec: 04/17/18 11:19 [facility] [id number]) OP Gait Assessment Comments Gait Comments Pt has dec stance time on RLE with dec push off and posterior depression. Overall dec pelvis patterns & stiff upper body & UEs. Pt ER pelvis during push off. PT-OP-J Posture/Palpation/Skin Start: 04/17/18 08:39 Freq: Status: Active Protocol: Document 04/17/18 10:28 [facility] (Rec: 04/17/18 11:19 [facility] [id number]) Posture Evaluation Ladi Postural Classification System Ladi Postural Classifications Anterior/Posterior Elbow Flexion Test 2 Lumbar Protective Mechanism Left AP 1 Lumbar Protective Mechanism Right AP 0 Lumbar Protective Mechanism Left PA 1 Lumbar Protective Mechanism Right PA 0 Leg Swing Left Hard End Feel Limited Pain Leg Swing Right Hard End Feel Limited Pain Comments Posture Comments Fwd head & neck PT-OP-K Range of Motion Start: 04/17/18 08:39 Freq: Status: Active Protocol: Document 04/17/18 10:28 [facility] (Rec: 04/17/18 11:19 [facility] [id number]) Lumbar Spine Range of Motion Lumbar Spine Active Degrees Flexion 37 Extension 18 Lateral Flexion Left 25 Lateral Flexion Right 15 Comments pain Flex; stiff R PT-OP-L Special Tests Start: 04/17/18 08:39 Freq: Status: Active Protocol: Document 04/17/18 10:28 [facility] (Rec: 04/17/18 11:19 [facility] [id number]) Special Tests Lumbar Spine Special Tests Straight Leg Raise Test Results ~20 deg R; 45 deg L Comments positive B Slump Test Results positive R ; negative L PT-OP-M Strength Start: 04/17/18 08:39 Freq: Status: Active Protocol: Document 05/27/18 15:39 [facility] (Rec: 05/27/18 15:54 [facility] [id number]) Hip Strength Hip Manual Muscle Testing Right Flexion (L2) 4- Good- Extension (S1) 4- Good- Abduction 4- Good- External Rotation 4+ Good+ Internal Rotation 4+ Good+ Comments Pain all motions Left Flexion (L2) 4 Good Extension (S1) 4 Good Abduction 4+ Good+ External Rotation 4+ Good+ Internal Rotation 5 Normal Knee Strength Knee Manual Muscle Testing Right Flexion (S2) 5 Normal Extension (L3) 4+ Good+ Left Flexion (S2) 5 Normal Extension (L3) 5 Normal PT-OP-Q Treatments Start: 04/17/18 08:39 Freq: Status: Active Protocol: Document 05/27/18 15:39 [facility] (Rec: 05/27/18 15:54 [facility] [id number]) Therapeutic Exercises Supine Exercises 6 Supine Exercise Name francisco test stretch Standing Exercises 4 Standing Exercise Name SLS in mirror with alt knee march 3 Standing Exercise Name sidestep Reps/Minutes L1 Comments 20ft B Manual Therapy Treatment Soft Tissue Mobilization 1 Body Location ilacus Mobilization Type Sustained Pressure Intensity/Depth Moderate Joint Mobilizations 1 Joint hip Direction inf glide PT-OP-R Modalities Start: 04/17/18 08:39 Freq: Status: Active Protocol: Document 05/27/18 15:39 [facility] (Rec: 05/27/18 15:54 [facility] [id number]) Electric Stimulation Electric Stimulation Interferential Current (IFC) Body Location R lumbosacral region Duration (Minutes) 15 Patient Position Supine Combined With Heat/Cold Hot Pack Comments Legs elevated PT-OP-T Assessment and Plan Start: 04/17/18 08:39 Freq: Status: Active Protocol: Document 05/27/18 15:39 [facility] (Rec: 05/27/18 15:54 [facility] [id number]) Physical Therapy Assessment Goals Three Impairment strength Senior Living Goal (LTG) Improved LE strength to 5/5 and EFT & LPM to 4/5 LTG Duration 06/17/18 Two Impairment dec activity Short Term Goal (STG) Indep HEP STG Duration 05/18/18-achieved (progressing) Senior Living Goal (LTG) Pt will return to normal workout schedule to allow her to cont strengthening. LTG Duration 06/17/18 One Impairment pain Short Term Goal (STG) pain to 3/10 at worst STG Duration 05/18/18 Grassland Conservationist Goal (LTG) Pain to 1/10 at worst LTG Duration 06/17/18 Assessment Summary Assessment Pt is improving with her mobility, but is still limited from some of her typical daily activity. She has been encouraged to resume tc chi class and see how she feels. Physical Therapy Plan Frequency and Duration Frequency of Treatment 2x/Week Duration of Treatment 2 months Plan of Care Start Date 04/17/18 Plan of Care End Date 06/17/18 Next Visit Focus/Plan Next Note Type Treatment Note Next Visit Plan hip flexor stretching &STM
--- NOTE | 2018-06-03 11:33 | PT.OTN ---
Current Diagnoses Radiculopathy, lumbar region (06/03/18) Physical Therapy Treatment Note PT-OP-A Visit Information Start: 04/17/18 08:39 Freq: Status: Active Protocol: Document 06/03/18 09:04 [facility] (Rec: 06/03/18 11:33 [facility] [id number]) Out-Patient Physical Therapy Visit Information Visit Information Visit Type Treatment Note Visit Note 07/25 Visit Start Time 09:00 Visit Stop Time 09:55 Total Visit Minutes 55 Visit Number / Number of ROCKET TEST FIRE WORKER Visits 0 PT-OP-B Current Condition Start: 04/17/18 08:39 Freq: Status: Active Protocol: Document 04/17/18 10:28 [facility] (Rec: 04/17/18 15:22 [facility] [id number]) Current Condition History of Current Condition Onset Date 3 years ago worsening over past 5 months especially past 2 months Current Complaints LBP w/weakness & pain into R thigh History of Current Condition Pt reports she is limping a lot and most of the time has pain in her back. Pt notes she is fine every day until about 3 PM then she starts to have pain in LB and limps. She has had 3 occurances in the past 1 .5 months where her RLE has given out and she has had to grab something. She has to stand on L leg while holding on and bring R leg up and down to make it work again. Pt reports she is more comfortable standing typically . Notes she has difficulty lifting objects and when she does, she has pain into LB into R thigh with feeling of weakness. Pt normally exercsies 3x/week at [employer] classes and goes to [employer], but has not gone d/t pain. She does do squats daily without any pain. Prior Treatments and Tests massage about 1.5 years ago and saw a a little improvement ; pt reprots X-ray in past reporting curved spine, but no records found. Treatment Goals Patient/Caregiver Goals Return to working out without pain, be able to carry objects PT-OP-C Subjective Start: 04/17/18 08:39 Freq: Status: Active Protocol: Document 06/03/18 09:04 [facility] (Rec: 06/03/18 11:33 [facility] [id number]) OP-PT Subjective Patient Comments Patient Comments Has not tried serbian chi yet. Has done her exercises a little. PT-OP-F Manual Assessment Start: 04/17/18 08:39 Freq: Status: Active Protocol: Document 04/17/18 10:28 [facility] (Rec: 04/17/18 11:19 [facility] [id number]) Manual Assessments Soft Tissue Assessment Soft Tissue Mobility Assessment R ES & QL; R piriformis & glutes; dec hip & sacrum mobility Joint Mobility Assessment Joint Mobility Assessment R iliac crest elevated PT-OP-G Mobility & Gait Start: 04/17/18 08:39 Freq: Status: Active Protocol: Document 04/17/18 10:28 [facility] (Rec: 04/17/18 11:19 [facility] [id number]) OP Gait Assessment Comments Gait Comments Pt has dec stance time on RLE with dec push off and posterior depression. Overall dec pelvis patterns & stiff upper body & UEs. Pt ER pelvis during push off. PT-OP-J Posture/Palpation/Skin Start: 04/17/18 08:39 Freq: Status: Active Protocol: Document 04/17/18 10:28 [facility] (Rec: 04/17/18 11:19 [facility] [id number]) Posture Evaluation Ladi Postural Classification System [facility] Postural Classifications Anterior/Posterior Elbow Flexion Test 2 Lumbar Protective Mechanism Left AP 1 Lumbar Protective Mechanism Right AP 0 Lumbar Protective Mechanism Left PA 1 Lumbar Protective Mechanism Right PA 0 Leg Swing Left Hard End Feel Limited Pain Leg Swing Right Hard End Feel Limited Pain Comments Posture Comments Fwd head & neck PT-OP-K Range of Motion Start: 04/17/18 08:39 Freq: Status: Active Protocol: Document 04/17/18 10:28 [facility] (Rec: 04/17/18 11:19 [facility] [id number]) Lumbar Spine Range of Motion Lumbar Spine Active Degrees Flexion 37 Extension 18 Lateral Flexion Left 25 Lateral Flexion Right 15 Comments pain Flex; stiff R PT-OP-L Special Tests Start: 04/17/18 08:39 Freq: Status: Active Protocol: Document 04/17/18 10:28 [facility] (Rec: 04/17/18 11:19 [facility] [id number]) Special Tests Lumbar Spine Special Tests Straight Leg Raise Test Results ~20 deg R; 45 deg L Comments positive B Slump Test Results positive R ; negative L PT-OP-M Strength Start: 04/17/18 08:39 Freq: Status: Active Protocol: Document 05/27/18 15:39 [facility] (Rec: 05/27/18 15:54 [facility] [id number]) Hip Strength Hip Manual Muscle Testing Right Flexion (L2) 4- Good- Extension (S1) 4- Good- Abduction 4- Good- External Rotation 4+ Good+ Internal Rotation 4+ Good+ Comments Pain all motions Left Flexion (L2) 4 Good Extension (S1) 4 Good Abduction 4+ Good+ External Rotation 4+ Good+ Internal Rotation 5 Normal Knee Strength Knee Manual Muscle Testing Right Flexion (S2) 5 Normal Extension (L3) 4+ Good+ Left Flexion (S2) 5 Normal Extension (L3) 5 Normal PT-OP-Q Treatments Start: 04/17/18 08:39 Freq: Status: Active Protocol: Document 06/03/18 09:04 [facility] (Rec: 06/03/18 11:33 [facility] [id number]) Cardio Equipment Recumbent Elliptical (Biodex) Duration (Minutes) 6 Resistance 4-6 Seat Position 5 Other w/forte backrest Gym Equipment Shuttle Recovery Unilateral Squats Resistance 50 Shuttle Recovery Platform Stable Reps/Time 15x2 Bilateral Squats Resistance 100 Shuttle Recovery Platform Stable Reps/Time 30 Therapeutic Exercises Supine Exercises 6 Supine Exercise Name francisco test stretch 2 Supine Exercise Name figure 4 stretch Manual Therapy Treatment Soft Tissue Mobilization 2 Body Location piriformis Mobilization Type Sustained Pressure 1 Body Location ilacus Mobilization Type Sustained Pressure Intensity/Depth Moderate Joint Mobilizations 1 Joint hip Direction inf glide & on axis ER PT-OP-R Modalities Start: 04/17/18 08:39 Freq: Status: Active Protocol: Document 06/03/18 09:04 [facility] (Rec: 06/03/18 11:33 [facility] [id number]) Electric Stimulation Electric Stimulation Interferential Current (IFC) Body Location R lumbosacral region Duration (Minutes) 15 Patient Position Supine Combined With Heat/Cold Hot Pack Comments Legs elevated PT-OP-T Assessment and Plan Start: 04/17/18 08:39 Freq: Status: Active Protocol: Document 06/03/18 09:04 [facility] (Rec: 06/03/18 11:33 [facility] [id number]) Physical Therapy Assessment Goals Three Impairment strength Retirement Goal (LTG) Improved LE strength to 5/5 and EFT & LPM to 4/5 LTG Duration 06/17/18 Two Impairment dec activity Short Term Goal (STG) Indep HEP STG Duration 05/18/18-achieved (progressing) Retirement Goal (LTG) Pt will return to normal workout schedule to allow her to cont strengthening. LTG Duration 06/17/18 One Impairment pain Short Term Goal (STG) pain to 3/10 at worst STG Duration 05/18/18 Retirement Goal (LTG) Pain to 1/10 at worst LTG Duration 06/17/18 Assessment Summary Assessment Pt able to do exercises with adjustments of position. improving hip rotation ROM. Physical Therapy Plan Frequency and Duration Frequency of Treatment 2x/Week Duration of Treatment 2 months Plan of Care Start Date 04/17/18 Plan of Care End Date 06/17/18 Next Visit Focus/Plan Next Note Type Treatment Note Next Visit Plan advance core
--- NOTE | 2018-06-07 10:35 | PT.OTN ---
Current Diagnoses Radiculopathy, lumbar region (06/07/18) Physical Therapy Treatment Note PT-OP-A Visit Information Start: 04/17/18 08:39 Freq: Status: Active Protocol: Document 06/07/18 09:52 [facility] (Rec: 06/07/18 10:35 [facility] [id number]) Out-Patient Physical Therapy Visit Information Visit Information Visit Type Treatment Note Visit Note 08/24 Visit Start Time 09:45 Visit Stop Time 10:40 Total Visit Minutes 55 Visit Number 11/17 Number of SEA SHELL GATHERER Visits 0 PT-OP-B Current Condition Start: 04/17/18 08:39 Freq: Status: Active Protocol: Document 04/17/18 10:28 [facility] (Rec: 04/17/18 15:22 [facility] [id number]) Current Condition History of Current Condition Onset Date 3 years ago worsening over past 5 months especially past 2 months Current Complaints LBP w/weakness & pain into R thigh History of Current Condition Pt reports she is limping a lot and most of the time has pain in her back. Pt notes she is fine every day until about 3 PM then she starts to have pain in LB and limps. She has had 3 occurances in the past 1 .5 months where her RLE has given out and she has had to grab something. She has to stand on L leg while holding on and bring R leg up and down to make it work again. Pt reports she is more comfortable standing typically . Notes she has difficulty lifting objects and when she does, she has pain into LB into R thigh with feeling of weakness. Pt normally exercsies 3x/week at [employer] classes and goes to [employer], but has not gone d/t pain. She does do squats daily without any pain. Prior Treatments and Tests massage about 1.5 years ago and saw a a little improvement ; pt reprots X-ray in past reporting curved spine, but no records found. Treatment Goals Patient/Caregiver Goals Return to working out without pain, be able to carry objects PT-OP-C Subjective Start: 04/17/18 08:39 Freq: Status: Active Protocol: Document 06/07/18 09:52 [facility] (Rec: 06/07/18 10:35 [facility] [id number]) OP-PT Subjective Patient Comments Patient Comments Pt reports she hiked [place] without any inc pain. PT-OP-F Manual Assessment Start: 04/17/18 08:39 Freq: Status: Active Protocol: Document 04/17/18 10:28 [facility] (Rec: 04/17/18 11:19 [facility] [id number]) Manual Assessments Soft Tissue Assessment Soft Tissue Mobility Assessment R ES & QL; R piriformis & glutes; dec hip & sacrum mobility Joint Mobility Assessment Joint Mobility Assessment R iliac crest elevated PT-OP-G Mobility & Gait Start: 04/17/18 08:39 Freq: Status: Active Protocol: Document 04/17/18 10:28 [facility] (Rec: 04/17/18 11:19 [facility] [id number]) OP Gait Assessment Comments Gait Comments Pt has dec stance time on RLE with dec push off and posterior depression. Overall dec pelvis patterns & stiff upper body & UEs. Pt ER pelvis during push off. PT-OP-J Posture/Palpation/Skin Start: 04/17/18 08:39 Freq: Status: Active Protocol: Document 04/17/18 10:28 [facility] (Rec: 04/17/18 11:19 [facility] [id number]) Posture Evaluation [facility] Postural Classification System [facility] Postural Classifications Anterior/Posterior Elbow Flexion Test 2 Lumbar Protective Mechanism Left AP 1 Lumbar Protective Mechanism Right AP 0 Lumbar Protective Mechanism Left PA 1 Lumbar Protective Mechanism Right PA 0 Leg Swing Left Hard End Feel Limited Pain Leg Swing Right Hard End Feel Limited Pain Comments Posture Comments Fwd head & neck PT-OP-K Range of Motion Start: 04/17/18 08:39 Freq: Status: Active Protocol: Document 04/17/18 10:28 [facility] (Rec: 04/17/18 11:19 [facility] [id number]) Lumbar Spine Range of Motion Lumbar Spine Active Degrees Flexion 37 Extension 18 Lateral Flexion Left 25 Lateral Flexion Right 15 Comments pain Flex; stiff R PT-OP-L Special Tests Start: 04/17/18 08:39 Freq: Status: Active Protocol: Document 04/17/18 10:28 [facility] (Rec: 04/17/18 11:19 [facility] [id number]) Special Tests Lumbar Spine Special Tests Straight Leg Raise Test Results ~20 deg R; 45 deg L Comments positive B Slump Test Results positive R ; negative L PT-OP-M Strength Start: 04/17/18 08:39 Freq: Status: Active Protocol: Document 05/27/18 15:39 [facility] (Rec: 05/27/18 15:54 [facility] [id number]) Hip Strength Hip Manual Muscle Testing Right Flexion (L2) 4- Good- Extension (S1) 4- Good- Abduction 4- Good- External Rotation 4+ Good+ Internal Rotation 4+ Good+ Comments Pain all motions Left Flexion (L2) 4 Good Extension (S1) 4 Good Abduction 4+ Good+ External Rotation 4+ Good+ Internal Rotation 5 Normal Knee Strength Knee Manual Muscle Testing Right Flexion (S2) 5 Normal Extension (L3) 4+ Good+ Left Flexion (S2) 5 Normal Extension (L3) 5 Normal PT-OP-Q Treatments Start: 04/17/18 08:39 Freq: Status: Active Protocol: Document 06/07/18 09:52 [facility] (Rec: 06/07/18 10:35 [facility] [id number]) Cardio Equipment Recumbent Elliptical (Organic Motion) Duration (Minutes) 6 Resistance 4-6 Seat Position 5 Other w/forte backrest Gym Equipment Shuttle Recovery Unilateral Squats Resistance 62 Shuttle Recovery Platform Stable Reps/Time 20 Bilateral Squats Resistance 112 Shuttle Recovery Platform Stable Reps/Time 30 Therapeutic Exercises Supine Exercises 3 Supine Exercise Name piriformis stretch 2 Supine Exercise Name figure 4 stretch Standing Exercises 4 Standing Exercise Name SLS in mirror with alt knee march 3 Standing Exercise Name sidestep Reps/Minutes L1 Comments 20ft B Manual Therapy Treatment Soft Tissue Mobilization 1 Body Location ilacus Mobilization Type Sustained Pressure Intensity/Depth Moderate Joint Mobilizations 2 Joint innominate Direction R caudal FM 1 Joint hip Direction inf glide PT-OP-R Modalities Start: 04/17/18 08:39 Freq: Status: Active Protocol: Document 06/07/18 09:52 [facility] (Rec: 06/07/18 10:35 [facility] [id number]) Electric Stimulation Electric Stimulation Interferential Current (IFC) Body Location R lumbosacral region Duration (Minutes) 15 Patient Position Supine Combined With Heat/Cold Hot Pack Comments Legs elevated PT-OP-T Assessment and Plan Start: 04/17/18 08:39 Freq: Status: Active Protocol: Document 06/07/18 09:52 [facility] (Rec: 06/07/18 10:35 [facility] [id number]) Physical Therapy Assessment Goals Three Impairment strength Longterm Goal (LTG) Improved LE strength to 5/5 and EFT & LPM to 4/5 LTG Duration 06/17/18 Two Impairment dec activity Short Term Goal (STG) Indep HEP STG Duration 05/18/18-achieved (progressing) Teacher Drama Goal (LTG) Pt will return to normal workout schedule to allow her to cont strengthening. LTG Duration 06/17/18 One Impairment pain Short Term Goal (STG) pain to 3/10 at worst STG Duration 05/18/18 Teacher Drama Goal (LTG) Pain to 1/10 at worst LTG Duration 06/17/18 Physical Therapy Plan Frequency and Duration Frequency of Treatment 2x/Week Duration of Treatment 2 months Plan of Care Start Date 04/17/18 Plan of Care End Date 06/17/18 Next Visit Focus/Plan Next Note Type Treatment Note Next Visit Plan advance core
--- NOTE | 2018-06-25 14:28 | PT.OTN ---
Current Diagnoses Radiculopathy, lumbar region (06/25/18) Physical Therapy Treatment Note PT-OP-A Visit Information Start: 04/17/18 08:39 Freq: Status: Active Protocol: Document 06/25/18 13:06 EA (Rec: 06/25/18 13:49 EA [id number]) Out-Patient Physical Therapy Visit Information Visit Information Visit Type Treatment Note Visit Note Visit Start Time 13:00 Visit Stop Time 13:50 Total Visit Minutes 55 Visit Number / Number of WEATHERIZATION OPERATIONS MANAGER Visits 0 PT-OP-B Current Condition Start: 04/17/18 08:39 Freq: Status: Active Protocol: Document 04/17/18 10:28 [facility] (Rec: 04/17/18 15:22 [facility] [id number]) Current Condition History of Current Condition Onset Date 3 years ago worsening over past 5 months especially past 2 months Current Complaints LBP w/weakness & pain into R thigh History of Current Condition Pt reports she is limping a lot and most of the time has pain in her back. Pt notes she is fine every day until about 3 PM then she starts to have pain in LB and limps. She has had 3 occurances in the past 1 .5 months where her RLE has given out and she has had to grab something. She has to stand on L leg while holding on and bring R leg up and down to make it work again. Pt reports she is more comfortable standing typically . Notes she has difficulty lifting objects and when she does, she has pain into LB into R thigh with feeling of weakness. Pt normally exercsies 3x/week at [employer] classes and goes to [employer] aerobics, but has not gone d/t pain. She does do squats daily without any pain. Prior Treatments and Tests massage about 1.5 years ago and saw a a little improvement ; pt reprots X-ray in past reporting curved spine, but no records found. Treatment Goals Patient/Caregiver Goals Return to working out without pain, be able to carry objects PT-OP-C Subjective Start: 04/17/18 08:39 Freq: Status: Active Protocol: Document 06/25/18 13:06 EA (Rec: 06/25/18 13:49 EA [id number]) OP-PT Subjective Patient Comments Patient Comments Pt reports low back pain improved dramatically;states [place] and wont be back until Jul 12. Patient Reported Progress Improving PT-OP-F Manual Assessment Start: 04/17/18 08:39 Freq: Status: Active Protocol: Document 04/17/18 10:28 [facility] (Rec: 04/17/18 11:19 [facility] [id number]) Manual Assessments Soft Tissue Assessment Soft Tissue Mobility Assessment R ES & QL; R piriformis & glutes; dec hip & sacrum mobility Joint Mobility Assessment Joint Mobility Assessment R iliac crest elevated PT-OP-G Mobility & Gait Start: 04/17/18 08:39 Freq: Status: Active Protocol: Document 04/17/18 10:28 [facility] (Rec: 04/17/18 11:19 [facility] [id number]) OP Gait Assessment Comments Gait Comments Pt has dec stance time on RLE with dec push off and posterior depression. Overall dec pelvis patterns & stiff upper body & UEs. Pt ER pelvis during push off. PT-OP-J Posture/Palpation/Skin Start: 04/17/18 08:39 Freq: Status: Active Protocol: Document 04/17/18 10:28 [facility] (Rec: 04/17/18 11:19 [facility] [id number]) Posture Evaluation [facility] Postural Classification System [facility] Postural Classifications Anterior/Posterior Elbow Flexion Test 2 Lumbar Protective Mechanism Left AP 1 Lumbar Protective Mechanism Right AP 0 Lumbar Protective Mechanism Left PA 1 Lumbar Protective Mechanism Right PA 0 Leg Swing Left Hard End Feel Limited Pain Leg Swing Right Hard End Feel Limited Pain Comments Posture Comments Fwd head & neck PT-OP-K Range of Motion Start: 04/17/18 08:39 Freq: Status: Active Protocol: Document 04/17/18 10:28 [facility] (Rec: 04/17/18 11:19 [facility] [id number]) Lumbar Spine Range of Motion Lumbar Spine Active Degrees Flexion 37 Extension 18 Lateral Flexion Left 25 Lateral Flexion Right 15 Comments pain Flex; stiff R PT-OP-L Special Tests Start: 04/17/18 08:39 Freq: Status: Active Protocol: Document 04/17/18 10:28 [facility] (Rec: 04/17/18 11:19 [facility] [id number]) Special Tests Lumbar Spine Special Tests Straight Leg Raise Test Results ~20 deg R; 45 deg L Comments positive B Slump Test Results positive R ; negative L PT-OP-M Strength Start: 04/17/18 08:39 Freq: Status: Active Protocol: Document 05/27/18 15:39 [facility] (Rec: 05/27/18 15:54 [facility] [id number]) Hip Strength Hip Manual Muscle Testing Right Flexion (L2) 4- Good- Extension (S1) 4- Good- Abduction 4- Good- External Rotation 4+ Good+ Internal Rotation 4+ Good+ Comments Pain all motions Left Flexion (L2) 4 Good Extension (S1) 4 Good Abduction 4+ Good+ External Rotation 4+ Good+ Internal Rotation 5 Normal Knee Strength Knee Manual Muscle Testing Right Flexion (S2) 5 Normal Extension (L3) 4+ Good+ Left Flexion (S2) 5 Normal Extension (L3) 5 Normal PT-OP-Q Treatments Start: 04/17/18 08:39 Freq: Status: Active Protocol: Document 06/25/18 13:06 EA (Rec: 06/25/18 13:49 EA [id number]) Gym Equipment Shuttle Recovery Unilateral Squats Resistance 62 Shuttle Recovery Platform Stable Reps/Time 15 Bilateral Squats Resistance 100 Shuttle Recovery Platform Stable Reps/Time 15 Therapeutic Exercises Supine Exercises 3 Supine Exercise Name piriformis stretch 2 Supine Exercise Name figure 4 stretch Standing Exercises 4 Standing Exercise Name SLS in mirror with alt knee march 3 Standing Exercise Name sidestep Reps/Minutes L1 Comments 20ft B 2 Standing Exercise Name Trunk rotation with 1/4 lunge Resistance Lv 1 Reps/Minutes x 10 reps at each side 1 Standing Exercise Name wall squat/sit with PPT Reps/Minutes x 5SH x 10 reps Manual Therapy Treatment Soft Tissue Mobilization 2 Body Location piriformis Mobilization Type Sustained Pressure 1 Body Location ilacus Mobilization Type Sustained Pressure Intensity/Depth Moderate Joint Mobilizations 1 Joint hip Direction inf glide PT-OP-R Modalities Start: 04/17/18 08:39 Freq: Status: Active Protocol: Document 06/25/18 13:06 EA (Rec: 06/25/18 13:49 EA [id number]) Electric Stimulation Electric Stimulation Interferential Current (IFC) Body Location R lumbosacral region/ piriformis, right Duration (Minutes) 15 Patient Position Supine Combined With Heat/Cold Hot Pack Comments SL PT-OP-T Assessment and Plan Start: 04/17/18 08:39 Freq: Status: Active Protocol: Document 06/25/18 13:06 EA (Rec: 06/25/18 13:49 EA [id number]) Physical Therapy Assessment Assessment Summary Assessment Tolerated treatment well. Physical Therapy Plan Next Visit Focus/Plan Next Note Type Treatment Note Next Visit Plan advance core
--- NOTE | 2018-07-17 14:43 | PT.OTN ---
Current Diagnoses Radiculopathy, lumbar region (07/17/18) Physical Therapy Treatment Note PT-OP-A Visit Information Start: 04/17/18 08:39 Freq: Status: Active Protocol: Document 07/17/18 09:30 ML (Rec: 07/17/18 09:46 ML [id number]) Out-Patient Physical Therapy Visit Information Visit Information Visit Type Progress Note Visit Note Visit Start Time 09:30 Visit Stop Time 10:08 Total Visit Minutes 38 Visit Number 01/17 PT-OP-B Current Condition Start: 04/17/18 08:39 Freq: Status: Active Protocol: Document 04/17/18 10:28 [facility] (Rec: 04/17/18 15:22 [facility] [id number]) Current Condition History of Current Condition Onset Date 3 years ago worsening over past 5 months especially past 2 months Current Complaints LBP w/weakness & pain into R thigh History of Current Condition Pt reports she is limping a lot and most of the time has pain in her back. Pt notes she is fine every day until about 3 PM then she starts to have pain in LB and limps. She has had 3 occurances in the past 1 .5 months where her RLE has given out and she has had to grab something. She has to stand on L leg while holding on and bring R leg up and down to make it work again. Pt reports she is more comfortable standing typically . Notes she has difficulty lifting objects and when she does, she has pain into LB into R thigh with feeling of weakness. Pt normally exercsies 3x/week at [employer] classes and goes to [employer]obics, but has not gone d/t pain. She does do squats daily without any pain. Prior Treatments and Tests massage about 1.5 years ago and saw a a little improvement ; pt reprots X-ray in past reporting curved spine, but no records found. Treatment Goals Patient/Caregiver Goals Return to working out without pain, be able to carry objects PT-OP-C Subjective Start: 04/17/18 08:39 Freq: Status: Active Protocol: Document 07/17/18 09:30 ML (Rec: 07/17/18 09:48 ML [id number]) OP-PT Subjective Patient Comments Patient Comments Pt reports that she doesn't feel as strong because she hasn't been doing her exercises or coming to PT because she has been gone, and doing a lot of driving. Patient Reported Progress impr&worse PT-OP-F Manual Assessment Start: 04/17/18 08:39 Freq: Status: Active Protocol: Document 07/17/18 09:30 ML (Rec: 07/17/18 09:46 ML [id number]) Manual Assessments Joint Mobility Assessment Joint Mobility Assessment HISL early motion of sacrum and inominate PT-OP-G Mobility & Gait Start: 04/17/18 08:39 Freq: Status: Active Protocol: Document 04/17/18 10:28 [facility] (Rec: 04/17/18 11:19 [facility] [id number]) OP Gait Assessment Comments Gait Comments Pt has dec stance time on RLE with dec push off and posterior depression. Overall dec pelvis patterns & stiff upper body & UEs. Pt ER pelvis during push off. PT-OP-J Posture/Palpation/Skin Start: 04/17/18 08:39 Freq: Status: Active Protocol: Document 04/17/18 10:28 [facility] (Rec: 04/17/18 11:19 [facility] [id number]) Posture Evaluation [facility] Postural Classification System [facility] Postural Classifications Anterior/Posterior Elbow Flexion Test 2 Lumbar Protective Mechanism Left AP 1 Lumbar Protective Mechanism Right AP 0 Lumbar Protective Mechanism Left PA 1 Lumbar Protective Mechanism Right PA 0 Leg Swing Left Hard End Feel Limited Pain Leg Swing Right Hard End Feel Limited Pain Comments Posture Comments Fwd head & neck PT-OP-K Range of Motion Start: 04/17/18 08:39 Freq: Status: Active Protocol: Document 04/17/18 10:28 [facility] (Rec: 04/17/18 11:19 [facility] [id number]) Lumbar Spine Range of Motion Lumbar Spine Active Degrees Flexion 37 Extension 18 Lateral Flexion Left 25 Lateral Flexion Right 15 Comments pain Flex; stiff R PT-OP-L Special Tests Start: 04/17/18 08:39 Freq: Status: Active Protocol: Document 04/17/18 10:28 [facility] (Rec: 04/17/18 11:19 [facility] [id number]) Special Tests Lumbar Spine Special Tests Straight Leg Raise Test Results ~20 deg R; 45 deg L Comments positive B Slump Test Results positive R ; negative L PT-OP-M Strength Start: 04/17/18 08:39 Freq: Status: Active Protocol: Document 07/17/18 09:30 ML (Rec: 07/17/18 09:43 ML [id number]) Hip Strength Hip Manual Muscle Testing Right Flexion (L2) 4- Good- External Rotation 4+ Good+ Internal Rotation 4 Good Comments pain in buttock region on hip flexion Left Flexion (L2) 4+ Good+ External Rotation 5 Normal Internal Rotation 5 Normal Knee Strength Knee Manual Muscle Testing Right Flexion (S2) 4+ Good+ Extension (L3) 4+ Good+ Left Flexion (S2) 5 Normal Extension (L3) 5 Normal PT-OP-Q Treatments Start: 04/17/18 08:39 Freq: Status: Active Protocol: Document 07/17/18 09:30 ML (Rec: 07/17/18 09:46 ML [id number]) Therapeutic Exercises Supine Exercises 6 Supine Exercise Name francisco test stretch Reps/Minutes reviewed & corrected 5 Supine Exercise Name piriformis stretch Manual Therapy Treatment Joint Mobilizations 3 Joint R hip Direction ER 2 Joint innominate R Direction flexion FM 1 Joint hip R Direction inf glide PT-OP-R Modalities Start: 04/17/18 08:39 Freq: Status: Active Protocol: Document 07/17/18 09:30 ML (Rec: 07/17/18 09:53 ML [id number]) Hot Pack/Cold Pack Treatment Hot Pack Location lumbar Patient Position Hooklying Treatment Duration (minutes) 15 PT-OP-T Assessment and Plan Start: 04/17/18 08:39 Freq: Status: Active Protocol: Document 07/17/18 09:30 ML (Rec: 07/17/18 09:43 ML [id number]) Physical Therapy Assessment Impairments Impairments Activity Tolerance Balance Functional Activities Functional Mobility Gait Pain Posture ROM Soft Tissue Mobility Strength Goals Three Impairment strength Usp Goal (LTG) Improved LE strength to 5/5 and EFT & LPM to 4/5 LTG Duration 09/16/18 Two Impairment dec activity Short Term Goal (STG) Indep HEP STG Duration 05/18/18-achieved (progressing) Granulizing Machine Operator Goal (LTG) Pt will return to normal workout schedule to allow her to cont strengthening. LTG Duration 09/16/18- progressing One Impairment pain Short Term Goal (STG) pain to 3/10 at worst STG Duration 05/18/18 - achieved Usp Goal (LTG) Pain to 1/10 at worst LTG Duration 09/16/18 Assessment Summary Assessment Pt reported improvement in her pain level and is now stating that she is able to return to the gym next week after being gone, getting back to her normal routine and improving her LE strength. Some of her LE strength has shown improvement, but some has declined since she has been out of town and not doing her exercises frequently. The pt presented with pain in her stretching exercise that was addressed with mobilization of her R hip. HISL was not presenting with appropriate motion moving earlier than range. Physical Therapy Plan Frequency and Duration Frequency of Treatment 2x/Week Duration of Treatment 2 months Plan of Care Start Date 07/17/18 Plan of Care End Date 09/16/18 Therapeutic Interventions Therapeutic Interventions Aquatic Therapy Balance Training Gait Training Home Exercise Program Joint Mobilizations Manual Therapy Neuromuscular Re-education Patient/Caregiver Education Self-Care/Home Management Soft Tissue Mobilization Taping Therapeutic Activities Therapeutic Exercises Modalities Cold Pack/Ice Massage Electric Stimulation Hot Packs Infrared Therapy Iontophoresis Traction- Mechanical Ultrasound Next Visit Focus/Plan Next Note Type Treatment Note Next Visit Plan advance core and LE strength; hip flexion mobility prn through soft tissue and joints
--- NOTE | 2018-07-17 14:43 | PT.OPPOC ---
Current Diagnoses Radiculopathy, lumbar region (07/17/18) Provider Visit Care Team Role Provider Type Jennifer Chandra DO Attending Provider Physician Primary Care Provider Specialty: Family Practice Address: [address] [place] [address], [id number] Email: [email or web address] Plan Of Care PT-OP-T Assessment and Plan Start: 04/17/18 08:39 Freq: Status: Active Protocol: Document 07/17/18 09:30 ML (Rec: 07/17/18 09:43 ML [id number]) Physical Therapy Assessment Impairments Impairments Activity Tolerance Balance Functional Activities Functional Mobility Gait Pain Posture ROM Soft Tissue Mobility Strength Goals Three Impairment strength Floater Operator Goal (LTG) Improved LE strength to 5/5 and EFT & LPM to 4/5 LTG Duration 09/16/18 Two Impairment dec activity Short Term Goal (STG) Indep HEP STG Duration 05/18/18-achieved (progressing) Floater Operator Goal (LTG) Pt will return to normal workout schedule to allow her to cont strengthening. LTG Duration 09/16/18- progressing One Impairment pain Short Term Goal (STG) pain to 3/10 at worst STG Duration 05/18/18 - achieved Residential Goal (LTG) Pain to 1/10 at worst LTG Duration 09/16/18 Assessment Summary Assessment Pt reported improvement in her pain level and is now stating that she is able to return to the gym next week after being gone, getting back to her normal routine and improving her LE strength. Some of her LE strength has shown improvement, but some has declined since she has been out of town and not doing her exercises frequently. The pt presented with pain in her stretching exercise that was addressed with mobilization of her R hip. HISL was not presenting with appropriate motion moving earlier than range. Physical Therapy Plan Frequency and Duration Frequency of Treatment 2x/Week Duration of Treatment 2 months Plan of Care Start Date 07/17/18 Plan of Care End Date 09/16/18 Therapeutic Interventions Therapeutic Interventions Aquatic Therapy Balance Training Gait Training Home Exercise Program Joint Mobilizations Manual Therapy Neuromuscular Re-education Patient/Caregiver Education Self-Care/Home Management Soft Tissue Mobilization Taping Therapeutic Activities Therapeutic Exercises Modalities Cold Pack/Ice Massage Electric Stimulation Hot Packs Infrared Therapy Iontophoresis Traction- Mechanical Ultrasound Next Visit Focus/Plan Next Note Type Treatment Note Next Visit Plan advance core and LE strength; hip flexion mobility prn through soft tissue and joints Plan of Care Dates Plan of Care Start Date 07/17/18 Plan of Care End Date 09/16/18 Please Sign and Return: I have reviewed this Plan of Care and certify that the skilled therapy services above are required to meet the patient?s needs. Physician Signature Date Printed Name and Credentials Clinical Instructor Signature Printed Name and Credentials
--- NOTE | 2018-07-31 13:56 | PT.OTN ---
Current Diagnoses Radiculopathy, lumbar region (07/31/18) Physical Therapy Treatment Note PT-OP-A Visit Information Start: 04/17/18 08:39 Freq: Status: Active Protocol: Document 07/31/18 11:05 ML (Rec: 07/31/18 11:23 ML [id number]) Out-Patient Physical Therapy Visit Information Visit Information Visit Type Treatment Note Visit Note 09/24 Visit Start Time 09:45 Visit Stop Time 10:38 Total Visit Minutes 53 Visit Number 02/17 PT-OP-B Current Condition Start: 04/17/18 08:39 Freq: Status: Active Protocol: Document 04/17/18 10:28 [facility] (Rec: 04/17/18 15:22 [facility] [id number]) Current Condition History of Current Condition Onset Date 3 years ago worsening over past 5 months especially past 2 months Current Complaints LBP w/weakness & pain into R thigh History of Current Condition Pt reports she is limping a lot and most of the time has pain in her back. Pt notes she is fine every day until about 3 PM then she starts to have pain in LB and limps. She has had 3 occurances in the past 1 .5 months where her RLE has given out and she has had to grab something. She has to stand on L leg while holding on and bring R leg up and down to make it work again. Pt reports she is more comfortable standing typically . Notes she has difficulty lifting objects and when she does, she has pain into LB into R thigh with feeling of weakness. Pt normally exercsies 3x/week at [employer] classes and goes to [employer]obics, but has not gone d/t pain. She does do squats daily without any pain. Prior Treatments and Tests massage about 1.5 years ago and saw a a little improvement ; pt reprots X-ray in past reporting curved spine, but no records found. Treatment Goals Patient/Caregiver Goals Return to working out without pain, be able to carry objects PT-OP-C Subjective Start: 04/17/18 08:39 Freq: Status: Active Protocol: Document 07/31/18 11:05 ML (Rec: 07/31/18 11:23 ML [id number]) OP-PT Subjective Patient Comments Patient Comments Pt reports she has not been doing her exercises and has been just in the car more than anything since she had her last visit. She also indicated having pain with prolonged standing. PT-OP-F Manual Assessment Start: 04/17/18 08:39 Freq: Status: Active Protocol: Document 07/17/18 09:30 ML (Rec: 07/17/18 09:46 ML [id number]) Manual Assessments Joint Mobility Assessment Joint Mobility Assessment HISL early motion of sacrum and inominate PT-OP-G Mobility & Gait Start: 04/17/18 08:39 Freq: Status: Active Protocol: Document 04/17/18 10:28 [facility] (Rec: 04/17/18 11:19 [facility] [id number]) OP Gait Assessment Comments Gait Comments Pt has dec stance time on RLE with dec push off and posterior depression. Overall dec pelvis patterns & stiff upper body & UEs. Pt ER pelvis during push off. PT-OP-J Posture/Palpation/Skin Start: 04/17/18 08:39 Freq: Status: Active Protocol: Document 04/17/18 10:28 [facility] (Rec: 04/17/18 11:19 [facility] [id number]) Posture Evaluation Ladi Postural Classification System Ladi Postural Classifications Anterior/Posterior Elbow Flexion Test 2 Lumbar Protective Mechanism Left AP 1 Lumbar Protective Mechanism Right AP 0 Lumbar Protective Mechanism Left PA 1 Lumbar Protective Mechanism Right PA 0 Leg Swing Left Hard End Feel Limited Pain Leg Swing Right Hard End Feel Limited Pain Comments Posture Comments Fwd head & neck PT-OP-K Range of Motion Start: 04/17/18 08:39 Freq: Status: Active Protocol: Document 04/17/18 10:28 [facility] (Rec: 04/17/18 11:19 [facility] [id number]) Lumbar Spine Range of Motion Lumbar Spine Active Degrees Flexion 37 Extension 18 Lateral Flexion Left 25 Lateral Flexion Right 15 Comments pain Flex; stiff R PT-OP-L Special Tests Start: 04/17/18 08:39 Freq: Status: Active Protocol: Document 04/17/18 10:28 [facility] (Rec: 04/17/18 11:19 [facility] [id number]) Special Tests Lumbar Spine Special Tests Straight Leg Raise Test Results ~20 deg R; 45 deg L Comments positive B Slump Test Results positive R ; negative L PT-OP-M Strength Start: 04/17/18 08:39 Freq: Status: Active Protocol: Document 07/17/18 09:30 ML (Rec: 07/17/18 09:43 ML [id number]) Hip Strength Hip Manual Muscle Testing Right Flexion (L2) 4- Good- External Rotation 4+ Good+ Internal Rotation 4 Good Comments pain in buttock region on hip flexion Left Flexion (L2) 4+ Good+ External Rotation 5 Normal Internal Rotation 5 Normal Knee Strength Knee Manual Muscle Testing Right Flexion (S2) 4+ Good+ Extension (L3) 4+ Good+ Left Flexion (S2) 5 Normal Extension (L3) 5 Normal PT-OP-Q Treatments Start: 04/17/18 08:39 Freq: Status: Active Protocol: Document 07/31/18 11:05 ML (Rec: 07/31/18 11:23 ML [id number]) Cardio Equipment Recumbent Elliptical (ConnXus) Duration (Minutes) 8 Resistance 11->8 Seat Position 7 Other w/forte backrest; dec resistance due to difficulty Manual Therapy Treatment Soft Tissue Mobilization 4 Body Location lumbar paraspinals Mobilization Type Myofascial Release Rolling Sustained Pressure Comments w/deep breathing; R only 3 Body Location QL Mobilization Type Myofascial Release Rolling Sustained Pressure Body Position Prone Comments w/deep breathing; R only 2 Body Location piriformis&glutes Mobilization Type Sustained Pressure Comments w/active CR of knee flex/ext Self-Care/Home Management Treatment Education Patient Education Posture Other Education standing posture corrected with verbal and tactile cues PT-OP-R Modalities Start: 04/17/18 08:39 Freq: Status: Active Protocol: Document 07/31/18 11:05 ML (Rec: 07/31/18 11:23 ML [id number]) Hot Pack/Cold Pack Treatment Cold Pack Location glutes and low back Patient Position Prone Treatment Duration (minutes) 10 PT-OP-T Assessment and Plan Start: 04/17/18 08:39 Freq: Status: Active Protocol: Document 07/31/18 11:05 ML (Rec: 07/31/18 11:23 ML [id number]) Physical Therapy Assessment Goals Three Impairment strength Retirement Goal (LTG) Improved LE strength to 5/5 and EFT & LPM to 4/5 LTG Duration 09/16/18 Two Impairment dec activity Short Term Goal (STG) Indep HEP STG Duration 05/18/18-achieved (progressing) Metal Tester Goal (LTG) Pt will return to normal workout schedule to allow her to cont strengthening. LTG Duration 09/16/18- progressing One Impairment pain Short Term Goal (STG) pain to 3/10 at worst STG Duration 05/18/18 - achieved Metal Tester Goal (LTG) Pain to 1/10 at worst LTG Duration 09/16/18 Assessment Summary Assessment Pt reports having no questions on her HEP despite her lack of being able to do them recently due to being in the car lots lately. PT discussed with pt about getting back to HEP and returning to [employer] class. Pt noted still having some low back pain, especially on her R through prolonged standing. Pt's standing posture was addressed and upon palpation, pt showed significant tightness through her QL, lumbar paraspinals, and piriformis/glutes on her R . This tightness was addressed with soft tissue mobilizations. Physical Therapy Plan Frequency and Duration Frequency of Treatment 2x/Week Duration of Treatment 2 months Plan of Care Start Date 07/17/18 Plan of Care End Date 09/16/18 Next Visit Focus/Plan Next Note Type Treatment Note Next Visit Plan advance core and LE strength; hip flexion mobility prn through soft tissue and joints
--- NOTE | 2018-08-06 17:25 | PT.OTN ---
Current Diagnoses Radiculopathy, lumbar region (08/06/18) Physical Therapy Treatment Note PT-OP-A Visit Information Start: 04/17/18 08:39 Freq: Status: Active Protocol: Document 08/06/18 17:12 [facility] (Rec: 08/06/18 17:25 [facility] [id number]) Out-Patient Physical Therapy Visit Information Visit Information Visit Type Treatment Note Visit Note 10/25 Visit Start Time 13:00 Visit Stop Time 13:45 Total Visit Minutes 45 Visit Number 7/10 Number of MILLER SUPERVISOR Visits 0 PT-OP-B Current Condition Start: 04/17/18 08:39 Freq: Status: Active Protocol: Document 04/17/18 10:28 [facility] (Rec: 04/17/18 15:22 [facility] [id number]) Current Condition History of Current Condition Onset Date 3 years ago worsening over past 5 months especially past 2 months Current Complaints LBP w/weakness & pain into R thigh History of Current Condition Pt reports she is limping a lot and most of the time has pain in her back. Pt notes she is fine every day until about 3 PM then she starts to have pain in LB and limps. She has had 3 occurances in the past 1 .5 months where her RLE has given out and she has had to grab something. She has to stand on L leg while holding on and bring R leg up and down to make it work again. Pt reports she is more comfortable standing typically . Notes she has difficulty lifting objects and when she does, she has pain into LB into R thigh with feeling of weakness. Pt normally exercsies 3x/week at [employer] classes and goes to [employer] aerobics, but has not gone d/t pain. She does do squats daily without any pain. Prior Treatments and Tests massage about 1.5 years ago and saw a a little improvement ; pt reprots X-ray in past reporting curved spine, but no records found. Treatment Goals Patient/Caregiver Goals Return to working out without pain, be able to carry objects PT-OP-C Subjective Start: 04/17/18 08:39 Freq: Status: Active Protocol: Document 08/06/18 17:12 [facility] (Rec: 08/06/18 17:25 [facility] [id number]) OP-PT Subjective Patient Comments Patient Comments doing better overall, [facility]'t [facility] due to scheduling conflicts PT-OP-F Manual Assessment Start: 04/17/18 08:39 Freq: Status: Active Protocol: Document 07/17/18 09:30 ML (Rec: 07/17/18 09:46 ML [id number]) Manual Assessments Joint Mobility Assessment Joint Mobility Assessment HISL early motion of sacrum and inominate PT-OP-G Mobility & Gait Start: 04/17/18 08:39 Freq: Status: Active Protocol: Document 04/17/18 10:28 [facility] (Rec: 04/17/18 11:19 [facility] [id number]) OP Gait Assessment Comments Gait Comments Pt has dec stance time on RLE with dec push off and posterior depression. Overall dec pelvis patterns & stiff upper body & UEs. Pt ER pelvis during push off. PT-OP-J Posture/Palpation/Skin Start: 04/17/18 08:39 Freq: Status: Active Protocol: Document 04/17/18 10:28 [facility] (Rec: 04/17/18 11:19 [facility] [id number]) Posture Evaluation [facility] Postural Classification System [facility] Postural Classifications Anterior/Posterior Elbow Flexion Test 2 Lumbar Protective Mechanism Left AP 1 Lumbar Protective Mechanism Right AP 0 Lumbar Protective Mechanism Left PA 1 Lumbar Protective Mechanism Right PA 0 Leg Swing Left Hard End Feel Limited Pain Leg Swing Right Hard End Feel Limited Pain Comments Posture Comments Fwd head & neck PT-OP-K Range of Motion Start: 04/17/18 08:39 Freq: Status: Active Protocol: Document 04/17/18 10:28 [facility] (Rec: 04/17/18 11:19 [facility] [id number]) Lumbar Spine Range of Motion Lumbar Spine Active Degrees Flexion 37 Extension 18 Lateral Flexion Left 25 Lateral Flexion Right 15 Comments pain Flex; stiff R PT-OP-L Special Tests Start: 04/17/18 08:39 Freq: Status: Active Protocol: Document 04/17/18 10:28 [facility] (Rec: 04/17/18 11:19 [facility] [id number]) Special Tests Lumbar Spine Special Tests Straight Leg Raise Test Results ~20 deg R; 45 deg L Comments positive B Slump Test Results positive R ; negative L PT-OP-M Strength Start: 04/17/18 08:39 Freq: Status: Active Protocol: Document 07/17/18 09:30 ML (Rec: 07/17/18 09:43 ML [id number]) Hip Strength Hip Manual Muscle Testing Right Flexion (L2) 4- Good- External Rotation 4+ Good+ Internal Rotation 4 Good Comments pain in buttock region on hip flexion Left Flexion (L2) 4+ Good+ External Rotation 5 Normal Internal Rotation 5 Normal Knee Strength Knee Manual Muscle Testing Right Flexion (S2) 4+ Good+ Extension (L3) 4+ Good+ Left Flexion (S2) 5 Normal Extension (L3) 5 Normal PT-OP-Q Treatments Start: 04/17/18 08:39 Freq: Status: Active Protocol: Document 08/06/18 17:12 [facility] (Rec: 08/06/18 17:25 [facility] [email or web address]) Therapeutic Exercises Supine Exercises 7 Supine Exercise Name supine hamstring stretch with a strap Reps/Minutes hold 30 seconds Sidelying Exercises 3 Sidelying Exercise Name sidelying clam shell Reps/Minutes 2 x 10 2 Sidelying Exercise Name sidelying hip abduction Reps/Minutes 2 x 10 Standing Exercises 5 Standing Exercise Name standing balance with hip flexion 3 Standing Exercise Name sidestep Reps/Minutes L1 Comments 20ft B Other Exercises 1 Other Exercise Name quadraped rock backs Reps/Minutes x 15 Manual Therapy Treatment Joint Mobilizations 4 Joint posterior joint capsule mobilization Comments with belt as assistance 3 Joint R hip Direction ER Comments with belt for hip distraction 1 Joint hip R Direction inf glide Comments with belt as assistance PT-OP-R Modalities Start: 04/17/18 08:39 Freq: Status: Active Protocol: Document 07/31/18 11:05 ML (Rec: 07/31/18 11:23 ML [id number]) Hot Pack/Cold Pack Treatment Cold Pack Location glutes and low back Patient Position Prone Treatment Duration (minutes) 10 PT-OP-T Assessment and Plan Start: 04/17/18 08:39 Freq: Status: Active Protocol: Document 08/06/18 17:12 [facility] (Rec: 08/06/18 17:25 [facility] [email or web address]) Physical Therapy Assessment Assessment Summary Assessment no pain to palpation following treatment today. The patient really liked the hamstring stretch and rock backs Physical Therapy Plan Frequency and Duration Frequency of Treatment 2x/Week Duration of Treatment 2 months Plan of Care Start Date 07/17/18 Plan of Care End Date 09/16/18 Therapeutic Interventions Therapeutic Interventions Aquatic Therapy Balance Training Gait Training Home Exercise Program Joint Mobilizations Manual Therapy Neuromuscular Re-education Patient/Caregiver Education Self-Care/Home Management Soft Tissue Mobilization Taping Therapeutic Activities Therapeutic Exercises Modalities Cold Pack/Ice Massage Electric Stimulation Hot Packs Infrared Therapy Iontophoresis Traction- Mechanical Ultrasound Next Visit Focus/Plan Next Note Type Treatment Note Next Visit Plan pt to do a bruneian chi class prior to next visit so review balance exercises that are challanging for her
--- NOTE | 2018-08-13 11:30 | PT.OTN ---
Current Diagnoses Radiculopathy, lumbar region (08/13/18) Physical Therapy Treatment Note PT-OP-A Visit Information Start: 04/17/18 08:39 Freq: Status: Active Protocol: Document 08/13/18 11:17 [facility] (Rec: 08/13/18 11:30 [facility] [email or web address]) Out-Patient Physical Therapy Visit Information Visit Information Visit Type Treatment Note Visit Note 11/22 Visit Start Time 09:45 Visit Stop Time 10:31 Total Visit Minutes 46 Visit Number 04/19 Number of ANSWERING SERVICE OPERATOR Visits 1 PT-OP-B Current Condition Start: 04/17/18 08:39 Freq: Status: Active Protocol: Document 04/17/18 10:28 [facility] (Rec: 04/17/18 15:22 [facility] [email or web address]) Current Condition History of Current Condition Onset Date 3 years ago worsening over past 5 months especially past 2 months Current Complaints LBP w/weakness & pain into R thigh History of Current Condition Pt reports she is limping a lot and most of the time has pain in her back. Pt notes she is fine every day until about 3 PM then she starts to have pain in LB and limps. She has had 3 occurances in the past 1 .5 months where her RLE has given out and she has had to grab something. She has to stand on L leg while holding on and bring R leg up and down to make it work again. Pt reports she is more comfortable standing typically . Notes she has difficulty lifting objects and when she does, she has pain into LB into R thigh with feeling of weakness. Pt normally exercsies 3x/week at [employer] classes and goes to [employer] aerobics, but has not gone d/t pain. She does do squats daily without any pain. Prior Treatments and Tests massage about 1.5 years ago and saw a a little improvement ; pt reprots X-ray in past reporting curved spine, but no records found. Treatment Goals Patient/Caregiver Goals Return to working out without pain, be able to carry objects PT-OP-C Subjective Start: 04/17/18 08:39 Freq: Status: Active Protocol: Document 08/13/18 11:17 [facility] (Rec: 08/13/18 11:30 [facility] [email or web address]) OP-PT Subjective Patient Comments Patient Comments Pt reports felling better, had a flare up last week with trying to move some boxes and had to take a few days off from exercises, but much improved today. Patient Reported Progress Improving PT-OP-F Manual Assessment Start: 04/17/18 08:39 Freq: Status: Active Protocol: Document 07/17/18 09:30 ML (Rec: 07/17/18 09:46 ML [id number]) Manual Assessments Joint Mobility Assessment Joint Mobility Assessment HISL early motion of sacrum and inominate PT-OP-G Mobility & Gait Start: 04/17/18 08:39 Freq: Status: Active Protocol: Document 04/17/18 10:28 [facility] (Rec: 04/17/18 11:19 [facility] [id number]) OP Gait Assessment Comments Gait Comments Pt has dec stance time on RLE with dec push off and posterior depression. Overall dec pelvis patterns & stiff upper body & UEs. Pt ER pelvis during push off. PT-OP-J Posture/Palpation/Skin Start: 04/17/18 08:39 Freq: Status: Active Protocol: Document 04/17/18 10:28 [facility] (Rec: 04/17/18 11:19 [facility] [id number]) Posture Evaluation Ladi Postural Classification System [facility] Postural Classifications Anterior/Posterior Elbow Flexion Test 2 Lumbar Protective Mechanism Left AP 1 Lumbar Protective Mechanism Right AP 0 Lumbar Protective Mechanism Left PA 1 Lumbar Protective Mechanism Right PA 0 Leg Swing Left Hard End Feel Limited Pain Leg Swing Right Hard End Feel Limited Pain Comments Posture Comments Fwd head & neck PT-OP-K Range of Motion Start: 04/17/18 08:39 Freq: Status: Active Protocol: Document 04/17/18 10:28 [facility] (Rec: 04/17/18 11:19 [facility] [id number]) Lumbar Spine Range of Motion Lumbar Spine Active Degrees Flexion 37 Extension 18 Lateral Flexion Left 25 Lateral Flexion Right 15 Comments pain Flex; stiff R PT-OP-L Special Tests Start: 04/17/18 08:39 Freq: Status: Active Protocol: Document 04/17/18 10:28 [facility] (Rec: 04/17/18 11:19 [facility] [id number]) Special Tests Lumbar Spine Special Tests Straight Leg Raise Test Results ~20 deg R; 45 deg L Comments positive B Slump Test Results positive R ; negative L PT-OP-M Strength Start: 04/17/18 08:39 Freq: Status: Active Protocol: Document 07/17/18 09:30 ML (Rec: 07/17/18 09:43 ML [id number]) Hip Strength Hip Manual Muscle Testing Right Flexion (L2) 4- Good- External Rotation 4+ Good+ Internal Rotation 4 Good Comments pain in buttock region on hip flexion Left Flexion (L2) 4+ Good+ External Rotation 5 Normal Internal Rotation 5 Normal Knee Strength Knee Manual Muscle Testing Right Flexion (S2) 4+ Good+ Extension (L3) 4+ Good+ Left Flexion (S2) 5 Normal Extension (L3) 5 Normal PT-OP-Q Treatments Start: 04/17/18 08:39 Freq: Status: Active Protocol: Document 08/13/18 11:17 [facility] (Rec: 08/13/18 11:30 [facility] [email or web address]) Therapeutic Exercises Supine Exercises 7 Supine Exercise Name supine hamstring stretch with a strap Reps/Minutes hold 30 seconds Prone Exercises Rock back stretch Reps/Minutes 10 x 6 reps Sidelying Exercises 3 Sidelying Exercise Name sidelying clam shell Resistance 2# Reps/Minutes 2 x 10 2 Sidelying Exercise Name sidelying hip abduction Resistance 2# Reps/Minutes 2 x 10 Standing Exercises 5 Standing Exercise Name standing balance with hip flexion Reps/Minutes 10 x each Comments Focus on single leg balance with control of LE movement 3 Standing Exercise Name sidestep Reps/Minutes L1 Comments 4 lengths Manual Therapy Treatment Soft Tissue Mobilization 2 Body Location piriformis&glutes Mobilization Type Rolling Strumming Sustained Pressure Intensity/Depth Moderate Joint Mobilizations 1 Joint hip R Direction inf glide PT-OP-R Modalities Start: 04/17/18 08:39 Freq: Status: Active Protocol: Document 07/31/18 11:05 ML (Rec: 07/31/18 11:23 ML [id number]) Hot Pack/Cold Pack Treatment Cold Pack Location glutes and low back Patient Position Prone Treatment Duration (minutes) 10 PT-OP-T Assessment and Plan Start: 04/17/18 08:39 Freq: Status: Active Protocol: Document 08/13/18 11:17 [facility] (Rec: 08/13/18 11:30 [facility] [email or web address]) Physical Therapy Assessment Progress Towards Goals Progress Towards Goals Progressing Toward Goals Assessment Summary Assessment Pt doing HEP again after flare up and with good tolerance, reports decrease in hip pain. Tolerated hip strengthening well. Physical Therapy Plan Next Visit Focus/Plan Next Note Type Treatment Note Next Visit Plan Progress hip strengthening and assess [employer] balance activity next visit as pt did not attend this past week d/t flare up.
--- NOTE | 2018-08-19 13:37 | PT.OTN ---
Current Diagnoses Radiculopathy, lumbar region (08/19/18) Physical Therapy Treatment Note PT-OP-A Visit Information Start: 04/17/18 08:39 Freq: Status: Active Protocol: Document 08/19/18 09:00 AMB (Rec: 08/19/18 09:04 AMB [id number]) Out-Patient Physical Therapy Visit Information Visit Information Visit Type Treatment Note Visit Note 12/23 Visit Start Time 09:00 Visit Stop Time 09:46 Total Visit Minutes 46 Visit Number / Number of TOP TILE DECORATOR Visits 0 PT-OP-B Current Condition Start: 04/17/18 08:39 Freq: Status: Active Protocol: Document 04/17/18 10:28 LR (Rec: 04/17/18 15:22 LR [id number]) Current Condition History of Current Condition Onset Date 3 years ago worsening over past 5 months especially past 2 months Current Complaints LBP w/weakness & pain into R thigh History of Current Condition Pt reports she is limping a lot and most of the time has pain in her back. Pt notes she is fine every day until about 3 PM then she starts to have pain in LB and limps. She has had 3 occurances in the past 1 .5 months where her RLE has given out and she has had to grab something. She has to stand on L leg while holding on and bring R leg up and down to make it work again. Pt reports she is more comfortable standing typically . Notes she has difficulty lifting objects and when she does, she has pain into LB into R thigh with feeling of weakness. Pt normally exercsies 3x/week at [employer] classes and goes to [employer], but has not gone d/t pain. She does do squats daily without any pain. Prior Treatments and Tests massage about 1.5 years ago and saw a a little improvement ; pt reprots X-ray in past reporting curved spine, but no records found. Treatment Goals Patient/Caregiver Goals Return to working out without pain, be able to carry objects PT-OP-C Subjective Start: 04/17/18 08:39 Freq: Status: Active Protocol: Document 08/19/18 09:00 AMB (Rec: 08/19/18 09:17 AMB [id number]) OP-PT Subjective Patient Comments Patient Comments The patient reports she is having R back pain. She was lifting boxes of [place] decorations. PT-OP-F Manual Assessment Start: 04/17/18 08:39 Freq: Status: Active Protocol: Document 07/17/18 09:30 ML (Rec: 07/17/18 09:46 ML [id number]) Manual Assessments Joint Mobility Assessment Joint Mobility Assessment HISL early motion of sacrum and inominate PT-OP-G Mobility & Gait Start: 04/17/18 08:39 Freq: Status: Active Protocol: Document 04/17/18 10:28 [facility] (Rec: 04/17/18 11:19 [facility] [id number]) OP Gait Assessment Comments Gait Comments Pt has dec stance time on RLE with dec push off and posterior depression. Overall dec pelvis patterns & stiff upper body & UEs. Pt ER pelvis during push off. PT-OP-J Posture/Palpation/Skin Start: 04/17/18 08:39 Freq: Status: Active Protocol: Document 04/17/18 10:28 [facility] (Rec: 04/17/18 11:19 [facility] [id number]) Posture Evaluation Ladi Postural Classification System Ladi Postural Classifications Anterior/Posterior Elbow Flexion Test 2 Lumbar Protective Mechanism Left AP 1 Lumbar Protective Mechanism Right AP 0 Lumbar Protective Mechanism Left PA 1 Lumbar Protective Mechanism Right PA 0 Leg Swing Left Hard End Feel Limited Pain Leg Swing Right Hard End Feel Limited Pain Comments Posture Comments Fwd head & neck PT-OP-K Range of Motion Start: 04/17/18 08:39 Freq: Status: Active Protocol: Document 04/17/18 10:28 [facility] (Rec: 04/17/18 11:19 [facility] [id number]) Lumbar Spine Range of Motion Lumbar Spine Active Degrees Flexion 37 Extension 18 Lateral Flexion Left 25 Lateral Flexion Right 15 Comments pain Flex; stiff R PT-OP-L Special Tests Start: 04/17/18 08:39 Freq: Status: Active Protocol: Document 04/17/18 10:28 [facility] (Rec: 04/17/18 11:19 [facility] [id number]) Special Tests Lumbar Spine Special Tests Straight Leg Raise Test Results ~20 deg R; 45 deg L Comments positive B Slump Test Results positive R ; negative L PT-OP-M Strength Start: 04/17/18 08:39 Freq: Status: Active Protocol: Document 07/17/18 09:30 ML (Rec: 07/17/18 09:43 ML [id number]) Hip Strength Hip Manual Muscle Testing Right Flexion (L2) 4- Good- External Rotation 4+ Good+ Internal Rotation 4 Good Comments pain in buttock region on hip flexion Left Flexion (L2) 4+ Good+ External Rotation 5 Normal Internal Rotation 5 Normal Knee Strength Knee Manual Muscle Testing Right Flexion (S2) 4+ Good+ Extension (L3) 4+ Good+ Left Flexion (S2) 5 Normal Extension (L3) 5 Normal PT-OP-Q Treatments Start: 04/17/18 08:39 Freq: Status: Active Protocol: Document 08/19/18 09:00 AMB (Rec: 08/19/18 13:37 AMB [id number]) Therapeutic Exercises Prone Exercises Rock back stretch Reps/Minutes 10 x 6 reps Comments added sidebend to open R side Sidelying Exercises 3 Sidelying Exercise Name sidelying clam shell Reps/Minutes 2 x 10 Standing Exercises 5 Standing Exercise Name standing balance with hip flexion Reps/Minutes 10 x each Comments Focus on single leg balance with control of LE movement 3 Standing Exercise Name sidestep Reps/Minutes L1 Comments 4 lengths 2 Standing Exercise Name mini lunges/squats Reps/Minutes 2x10 Manual Therapy Treatment Soft Tissue Mobilization 4 Body Location lumbar paraspinals Mobilization Type Myofascial Release Rolling Sustained Pressure Comments w/deep breathing; R only 3 Body Location QL Mobilization Type Myofascial Release Rolling Sustained Pressure Body Position Prone Comments w/deep breathing; R only PT-OP-R Modalities Start: 04/17/18 08:39 Freq: Status: Active Protocol: Document 07/31/18 11:05 ML (Rec: 07/31/18 11:23 ML [id number]) Hot Pack/Cold Pack Treatment Cold Pack Location glutes and low back Patient Position Prone Treatment Duration (minutes) 10 PT-OP-T Assessment and Plan Start: 04/17/18 08:39 Freq: Status: Active Protocol: Document 08/19/18 09:00 AMB (Rec: 08/19/18 13:37 AMB [id number]) Physical Therapy Assessment Assessment Summary Assessment Pt hoping to go to [employer] tomorrow. Continues to have right sided pain with weightshifting, but squat and lunge are doing well. R back pain more pronounced than hip pain today due to lifting. Physical Therapy Plan Next Visit Focus/Plan Next Note Type Progress Note Next Visit Plan Progress hip strengthening and assess [employer] balance activity next visit
--- NOTE | 2018-08-27 08:48 | PT.OTN ---
Current Diagnoses Radiculopathy, lumbar region (08/27/18) Physical Therapy Treatment Note PT-OP-A Visit Information Start: 04/17/18 08:39 Freq: Status: Active Protocol: Document 08/27/18 07:30 AMB (Rec: 08/27/18 08:16 AMB [id number]) Out-Patient Physical Therapy Visit Information Visit Information Visit Type Treatment Note Visit Note 01/22 Visit Start Time 09:00 Visit Stop Time 09:46 Total Visit Minutes 46 Visit Number 09/19 Number of RAZOR GRINDER Visits 0 PT-OP-B Current Condition Start: 04/17/18 08:39 Freq: Status: Active Protocol: Document 04/17/18 10:28 [facility] (Rec: 04/17/18 15:22 LR [id number]) Current Condition History of Current Condition Onset Date 3 years ago worsening over past 5 months especially past 2 months Current Complaints LBP w/weakness & pain into R thigh History of Current Condition Pt reports she is limping a lot and most of the time has pain in her back. Pt notes she is fine every day until about 3 PM then she starts to have pain in LB and limps. She has had 3 occurances in the past 1 .5 months where her RLE has given out and she has had to grab something. She has to stand on L leg while holding on and bring R leg up and down to make it work again. Pt reports she is more comfortable standing typically . Notes she has difficulty lifting objects and when she does, she has pain into LB into R thigh with feeling of weakness. Pt normally exercsies 3x/week at [employer] classes and goes to [employer] [facility]obics, but has not gone d/t pain. She does do squats daily without any pain. Prior Treatments and Tests massage about 1.5 years ago and saw a a little improvement ; pt reprots X-ray in past reporting curved spine, but no records found. Treatment Goals Patient/Caregiver Goals Return to working out without pain, be able to carry objects PT-OP-C Subjective Start: 04/17/18 08:39 Freq: Status: Active Protocol: Document 08/27/18 07:30 AMB (Rec: 08/27/18 08:48 AMB [id number]) OP-PT Subjective Patient Comments Patient Comments Pt is reporting hip pain is much better. Low back on the right continues. PT-OP-F Manual Assessment Start: 04/17/18 08:39 Freq: Status: Active Protocol: Document 07/17/18 09:30 ML (Rec: 07/17/18 09:46 ML [id number]) Manual Assessments Joint Mobility Assessment Joint Mobility Assessment HISL early motion of sacrum and inominate PT-OP-G Mobility & Gait Start: 04/17/18 08:39 Freq: Status: Active Protocol: Document 04/17/18 10:28 [facility] (Rec: 04/17/18 11:19 [facility] [id number]) OP Gait Assessment Comments Gait Comments Pt has dec stance time on RLE with dec push off and posterior depression. Overall dec pelvis patterns & stiff upper body & UEs. Pt ER pelvis during push off. PT-OP-J Posture/Palpation/Skin Start: 04/17/18 08:39 Freq: Status: Active Protocol: Document 04/17/18 10:28 [facility] (Rec: 04/17/18 11:19 [facility] [id number]) Posture Evaluation [facility] Postural Classification System [facility] Postural Classifications Anterior/Posterior Elbow Flexion Test 2 Lumbar Protective Mechanism Left AP 1 Lumbar Protective Mechanism Right AP 0 Lumbar Protective Mechanism Left PA 1 Lumbar Protective Mechanism Right PA 0 Leg Swing Left Hard End Feel Limited Pain Leg Swing Right Hard End Feel Limited Pain Comments Posture Comments Fwd head & neck PT-OP-K Range of Motion Start: 04/17/18 08:39 Freq: Status: Active Protocol: Document 04/17/18 10:28 [facility] (Rec: 04/17/18 11:19 [facility] [id number]) Lumbar Spine Range of Motion Lumbar Spine Active Degrees Flexion 37 Extension 18 Lateral Flexion Left 25 Lateral Flexion Right 15 Comments pain Flex; stiff R PT-OP-L Special Tests Start: 04/17/18 08:39 Freq: Status: Active Protocol: Document 04/17/18 10:28 [facility] (Rec: 04/17/18 11:19 [facility] [id number]) Special Tests Lumbar Spine Special Tests Straight Leg Raise Test Results ~20 deg R; 45 deg L Comments positive B Slump Test Results positive R ; negative L PT-OP-M Strength Start: 04/17/18 08:39 Freq: Status: Active Protocol: Document 07/17/18 09:30 ML (Rec: 07/17/18 09:43 ML [id number]) Hip Strength Hip Manual Muscle Testing Right Flexion (L2) 4- Good- External Rotation 4+ Good+ Internal Rotation 4 Good Comments pain in buttock region on hip flexion Left Flexion (L2) 4+ Good+ External Rotation 5 Normal Internal Rotation 5 Normal Knee Strength Knee Manual Muscle Testing Right Flexion (S2) 4+ Good+ Extension (L3) 4+ Good+ Left Flexion (S2) 5 Normal Extension (L3) 5 Normal PT-OP-Q Treatments Start: 04/17/18 08:39 Freq: Status: Active Protocol: Document 08/27/18 07:30 AMB (Rec: 08/27/18 08:48 AMB [id number]) Therapeutic Exercises Sidelying Exercises 1 Sidelying Exercise Name sidelying QL stretch Comments with towel roll under side Standing Exercises 3 Standing Exercise Name sidestep Reps/Minutes L1 Comments 4 lengths 2 Standing Exercise Name mini lunges/squats Reps/Minutes 2x10 Therapeutic Activity Therapeutic Activity Transfers Name sit to stand and reach Comments without flaring back sx Neuro Re-Education Treatment Other Activities 1 Details posture with mirror feedback Comments standing with even weightbearing, focus on hip/ pelvis abs PT-OP-R Modalities Start: 04/17/18 08:39 Freq: Status: Active Protocol: Document 07/31/18 11:05 ML (Rec: 07/31/18 11:23 ML [id number]) Hot Pack/Cold Pack Treatment Cold Pack Location glutes and low back Patient Position Prone Treatment Duration (minutes) 10 PT-OP-T Assessment and Plan Start: 04/17/18 08:39 Freq: Status: Active Protocol: Document 08/27/18 07:30 AMB (Rec: 08/27/18 08:48 AMB [id number]) Physical Therapy Assessment Assessment Summary Assessment Pt is going out of town for a few weeks. Overall hip is much better, but R back is still more flared up than usual (although it has been painful for years) Physical Therapy Plan Next Visit Focus/Plan Next Note Type Progress Note Next Visit Plan Reassess objective data/goals
--- NOTE | 2018-09-27 12:20 | PT.OTN ---
Current Diagnoses Radiculopathy, lumbar region (09/27/18) Physical Therapy Treatment Note PT-OP-A Visit Information Start: 04/17/18 08:39 Freq: Status: Active Protocol: Document 09/27/18 08:17 [facility] (Rec: 09/27/18 12:18 [facility] [id number]) Out-Patient Physical Therapy Visit Information Visit Information Visit Type Progress Note Visit Note 02/22 Visit Start Time 08:15 Visit Stop Time 09:00 Total Visit Minutes 45 Visit Number 09/19 Number of CUBING MACHINE TENDER Visits 0 PT-OP-B Current Condition Start: 04/17/18 08:39 Freq: Status: Active Protocol: Document 04/17/18 10:28 [facility] (Rec: 04/17/18 15:22 [facility] [id number]) Current Condition History of Current Condition Onset Date 3 years ago worsening over past 5 months especially past 2 months Current Complaints LBP w/weakness & pain into R thigh History of Current Condition Pt reports she is limping a lot and most of the time has pain in her back. Pt notes she is fine every day until about 3 PM then she starts to have pain in LB and limps. She has had 3 occurances in the past 1 .5 months where her RLE has given out and she has had to grab something. She has to stand on L leg while holding on and bring R leg up and down to make it work again. Pt reports she is more comfortable standing typically . Notes she has difficulty lifting objects and when she does, she has pain into LB into R thigh with feeling of weakness. Pt normally exercsies 3x/week at [employer] classes and goes to [employer], but has not gone d/t pain. She does do squats daily without any pain. Prior Treatments and Tests massage about 1.5 years ago and saw a a little improvement ; pt reprots X-ray in past reporting curved spine, but no records found. Treatment Goals Patient/Caregiver Goals Return to working out without pain, be able to carry objects PT-OP-C Subjective Start: 04/17/18 08:39 Freq: Status: Active Protocol: Document 09/27/18 08:17 [facility] (Rec: 09/27/18 12:18 [facility] [id number]) OP-PT Subjective Patient Comments Patient Comments Pt reports her hip is feeling better but her back is still painful. Reports she did [employer] recently and was disappointed that her back hurt about 1/2 way through. Pt walked at [facility] and was able to do a long walk with hills without pain, just leg soreness. Standing extended in place is painful. PT-OP-F Manual Assessment Start: 04/17/18 08:39 Freq: Status: Active Protocol: Document 07/17/18 09:30 ML (Rec: 07/17/18 09:46 ML [id number]) Manual Assessments Joint Mobility Assessment Joint Mobility Assessment HISL early motion of sacrum and inominate PT-OP-G Mobility & Gait Start: 04/17/18 08:39 Freq: Status: Active Protocol: Document 04/17/18 10:28 [facility] (Rec: 04/17/18 11:19 [facility] [id number]) OP Gait Assessment Comments Gait Comments Pt has dec stance time on RLE with dec push off and posterior depression. Overall dec pelvis patterns & stiff upper body & UEs. Pt ER pelvis during push off. PT-OP-J Posture/Palpation/Skin Start: 04/17/18 08:39 Freq: Status: Active Protocol: Document 04/17/18 10:28 [facility] (Rec: 04/17/18 11:19 [facility] [id number]) Posture Evaluation Ladi Postural Classification System Ladi Postural Classifications Anterior/Posterior Elbow Flexion Test 2 Lumbar Protective Mechanism Left AP 1 Lumbar Protective Mechanism Right AP 0 Lumbar Protective Mechanism Left PA 1 Lumbar Protective Mechanism Right PA 0 Leg Swing Left Hard End Feel Limited Pain Leg Swing Right Hard End Feel Limited Pain Comments Posture Comments Fwd head & neck PT-OP-K Range of Motion Start: 04/17/18 08:39 Freq: Status: Active Protocol: Document 04/17/18 10:28 [facility] (Rec: 04/17/18 11:19 [facility] [id number]) Lumbar Spine Range of Motion Lumbar Spine Active Degrees Flexion 37 Extension 18 Lateral Flexion Left 25 Lateral Flexion Right 15 Comments pain Flex; stiff R PT-OP-L Special Tests Start: 04/17/18 08:39 Freq: Status: Active Protocol: Document 04/17/18 10:28 [facility] (Rec: 04/17/18 11:19 [facility] [id number]) Special Tests Lumbar Spine Special Tests Straight Leg Raise Test Results ~20 deg R; 45 deg L Comments positive B Slump Test Results positive R ; negative L PT-OP-M Strength Start: 04/17/18 08:39 Freq: Status: Active Protocol: Document 09/27/18 08:17 [facility] (Rec: 09/27/18 12:18 [facility] [id number]) Hip Strength Hip Manual Muscle Testing Right Flexion (L2) 4- Good- Extension (S1) 4+ Good+ Abduction 5 Normal External Rotation 4+ Good+ Internal Rotation 4+ Good+ Comments pain w/hip flex & IR Left Flexion (L2) 4 Good Extension (S1) 4+ Good+ Abduction 5 Normal External Rotation 5 Normal Internal Rotation 5 Normal Knee Strength Knee Manual Muscle Testing Right Flexion (S2) 5 Normal Extension (L3) 5 Normal Left Flexion (S2) 5 Normal Extension (L3) 5 Normal PT-OP-Q Treatments Start: 04/17/18 08:39 Freq: Status: Active Protocol: Document 09/27/18 08:17 [facility] (Rec: 09/27/18 12:18 [facility] [id number]) Cardio Equipment Recumbent Elliptical ([place]) Duration (Minutes) 6 Resistance 5 Seat Position 7 Other w/forte back rest Manual Therapy Treatment Soft Tissue Mobilization 3 Body Location QL/ES Mobilization Type Myofascial Release Rolling Sustained Pressure Body Position Sidelying Comments w/deep breathing; R only Neuro Re-Education Treatment Other Activities core facilitation Details RLE core facilitation w/chop pattern UEs 1 Details ant elevation & post dep Comments rhythmic initiation to sustained holds to COI PT-OP-R Modalities Start: 04/17/18 08:39 Freq: Status: Active Protocol: Document 07/31/18 11:05 ML (Rec: 07/31/18 11:23 ML [id number]) Hot Pack/Cold Pack Treatment Cold Pack Location glutes and low back Patient Position Prone Treatment Duration (minutes) 10 PT-OP-T Assessment and Plan Start: 04/17/18 08:39 Freq: Status: Active Protocol: Document 09/27/18 08:17 [facility] (Rec: 09/27/18 12:18 [facility] [id number]) Physical Therapy Assessment Goals Three Impairment strength Skilled Nursing Goal (LTG) Improved LE strength to 5/5 and EFT & LPM to 4/5 LTG Duration 11/14/18-improving LE strength, EFT 5/5, LPM L AP:0/5 PA:3/5; R AP:2/5 PA 4/5 Two Impairment dec activity Short Term Goal (STG) Indep HEP STG Duration 05/18/18-achieved (progressing) Skilled Nursing Goal (LTG) Pt will return to normal workout schedule to allow her to cont strengthening. LTG Duration 11/25/18- walking but not classes One Impairment pain Short Term Goal (STG) pain to 3/10 at worst STG Duration 05/18/18 - achieved Sales Engagement Executive Goal (LTG) Pain to 1/10 at worst LTG Duration 11/14/18 Assessment Summary Assessment Pt has less hip pain but still has R SI pain that limits her ability to stand and sit extended and she has been unable to return to her typical exercise regimin. Tightness in QL & ES Likely cause significant amounts of pain. Physical Therapy Plan Frequency and Duration Frequency of Treatment 1x/Week Duration of Treatment 2 months Plan of Care Start Date 09/27/18 Plan of Care End Date 11/25/18 Therapeutic Interventions Therapeutic Interventions Aquatic Therapy Balance Training Gait Training Home Exercise Program Joint Mobilizations Manual Therapy Neuromuscular Re-education Patient/Caregiver Education Self-Care/Home Management Soft Tissue Mobilization Taping Therapeutic Activities Therapeutic Exercises Modalities Cold Pack/Ice Massage Electric Stimulation Hot Packs Infrared Therapy Iontophoresis Traction- Mechanical Ultrasound Next Visit Focus/Plan Next Note Type Treatment Note Next Visit Plan Advance core stability and pelvis mobility
--- NOTE | 2018-09-27 12:20 | PT.OPPOC ---
Current Diagnoses Radiculopathy, lumbar region (09/27/18) Provider Visit Care Team Role Provider Type Jennifer Chandra DO Attending Provider Physician Primary Care Provider Specialty: Family Practice Address: [address] [place] [address], [id number] Email: [email or web address] Plan Of Care PT-OP-T Assessment and Plan Start: 04/17/18 08:39 Freq: Status: Active Protocol: Document 09/27/18 08:17 [facility] (Rec: 09/27/18 12:18 [facility] [id number]) Physical Therapy Assessment Goals Three Impairment strength Alf Goal (LTG) Improved LE strength to 5/5 and EFT & LPM to 4/5 LTG Duration 11/14/18-improving LE strength, EFT 5/5, LPM L AP:0/5 PA:3/5; R AP:2/5 PA 4/5 Two Impairment dec activity Short Term Goal (STG) Indep HEP STG Duration 05/18/18-achieved (progressing) Supervisor Customer [employer] Division Goal (LTG) Pt will return to normal workout schedule to allow her to cont strengthening. LTG Duration 11/25/18- walking but not classes One Impairment pain Short Term Goal (STG) pain to 3/10 at worst STG Duration 05/18/18 - achieved Alf Goal (LTG) Pain to 1/10 at worst LTG Duration 11/14/18 Assessment Summary Assessment Pt has less hip pain but still has R SI pain that limits her ability to stand and sit extended and she has been unable to return to her typical exercise regimin. Tightness in QL & ES Likely cause significant amounts of pain. Physical Therapy Plan Frequency and Duration Frequency of Treatment 1x/Week Duration of Treatment 2 months Plan of Care Start Date 09/27/18 Plan of Care End Date 11/25/18 Therapeutic Interventions Therapeutic Interventions Aquatic Therapy Balance Training Gait Training Home Exercise Program Joint Mobilizations Manual Therapy Neuromuscular Re-education Patient/Caregiver Education Self-Care/Home Management Soft Tissue Mobilization Taping Therapeutic Activities Therapeutic Exercises Modalities Cold Pack/Ice Massage Electric Stimulation Hot Packs Infrared Therapy Iontophoresis Traction- Mechanical Ultrasound Next Visit Focus/Plan Next Note Type Treatment Note Next Visit Plan Advance core stability and pelvis mobility Plan of Care Dates Plan of Care Start Date 09/27/18 Plan of Care End Date 11/25/18 Please Sign and Return: I have reviewed this Plan of Care and certify that the skilled therapy services above are required to meet the patient?s needs. Physician Signature Date Printed Name and Credentials Clinical Instructor Signature Printed Name and Credentials
--- NOTE | 2018-10-04 08:59 | PT.OTN ---
Current Diagnoses Radiculopathy, lumbar region (10/04/18) Physical Therapy Treatment Note PT-OP-A Visit Information Start: 04/17/18 08:39 Freq: Status: Active Protocol: Document 10/04/18 08:12 [facility] (Rec: 10/04/18 08:59 [facility] [id number]) Out-Patient Physical Therapy Visit Information Visit Information Visit Type Treatment Note Visit Note 03/24 Visit Start Time 08:15 Visit Stop Time 09:00 Total Visit Minutes 45 Visit Number 2/ Number of INDUSTRIAL TWISTING MACHINE OPERATOR Visits 0 PT-OP-B Current Condition Start: 04/17/18 08:39 Freq: Status: Active Protocol: Document 04/17/18 10:28 [facility] (Rec: 04/17/18 15:22 [facility] [id number]) Current Condition History of Current Condition Onset Date 3 years ago worsening over past 5 months especially past 2 months Current Complaints LBP w/weakness & pain into R thigh History of Current Condition Pt reports she is limping a lot and most of the time has pain in her back. Pt notes she is fine every day until about 3 PM then she starts to have pain in LB and limps. She has had 3 occurances in the past 1 .5 months where her RLE has given out and she has had to grab something. She has to stand on L leg while holding on and bring R leg up and down to make it work again. Pt reports she is more comfortable standing typically . Notes she has difficulty lifting objects and when she does, she has pain into LB into R thigh with feeling of weakness. Pt normally exercsies 3x/week at [employer] classes and goes to [employer]ics, but has not gone d/t pain. She does do squats daily without any pain. Prior Treatments and Tests massage about 1.5 years ago and saw a a little improvement ; pt reprots X-ray in past reporting curved spine, but no records found. Treatment Goals Patient/Caregiver Goals Return to working out without pain, be able to carry objects PT-OP-C Subjective Start: 04/17/18 08:39 Freq: Status: Active Protocol: Document 10/04/18 08:12 [facility] (Rec: 10/04/18 08:59 [facility] [id number]) OP-PT Subjective Patient Comments Patient Comments Pt had one day where she was standing a lot that was a bad day. Reports she thinks it was the vacuuming. Pt reports she has been doing her exercises. PT-OP-F Manual Assessment Start: 04/17/18 08:39 Freq: Status: Active Protocol: Document 07/17/18 09:30 ML (Rec: 07/17/18 09:46 ML [id number]) Manual Assessments Joint Mobility Assessment Joint Mobility Assessment HISL early motion of sacrum and inominate PT-OP-G Mobility & Gait Start: 04/17/18 08:39 Freq: Status: Active Protocol: Document 04/17/18 10:28 [facility] (Rec: 04/17/18 11:19 [facility] [id number]) OP Gait Assessment Comments Gait Comments Pt has dec stance time on RLE with dec push off and posterior depression. Overall dec pelvis patterns & stiff upper body & UEs. Pt ER pelvis during push off. PT-OP-J Posture/Palpation/Skin Start: 04/17/18 08:39 Freq: Status: Active Protocol: Document 04/17/18 10:28 [facility] (Rec: 04/17/18 11:19 [facility] [id number]) Posture Evaluation Ladi Postural Classification System [facility] Postural Classifications Anterior/Posterior Elbow Flexion Test 2 Lumbar Protective Mechanism Left AP 1 Lumbar Protective Mechanism Right AP 0 Lumbar Protective Mechanism Left PA 1 Lumbar Protective Mechanism Right PA 0 Leg Swing Left Hard End Feel Limited Pain Leg Swing Right Hard End Feel Limited Pain Comments Posture Comments Fwd head & neck PT-OP-K Range of Motion Start: 04/17/18 08:39 Freq: Status: Active Protocol: Document 04/17/18 10:28 [facility] (Rec: 04/17/18 11:19 [facility] [id number]) Lumbar Spine Range of Motion Lumbar Spine Active Degrees Flexion 37 Extension 18 Lateral Flexion Left 25 Lateral Flexion Right 15 Comments pain Flex; stiff R PT-OP-L Special Tests Start: 04/17/18 08:39 Freq: Status: Active Protocol: Document 04/17/18 10:28 [facility] (Rec: 04/17/18 11:19 [facility] [id number]) Special Tests Lumbar Spine Special Tests Straight Leg Raise Test Results ~20 deg R; 45 deg L Comments positive B Slump Test Results positive R ; negative L PT-OP-M Strength Start: 04/17/18 08:39 Freq: Status: Active Protocol: Document 09/27/18 08:17 [facility] (Rec: 09/27/18 12:18 [facility] [id number]) Hip Strength Hip Manual Muscle Testing Right Flexion (L2) 4- Good- Extension (S1) 4+ Good+ Abduction 5 Normal External Rotation 4+ Good+ Internal Rotation 4+ Good+ Comments pain w/hip flex & IR Left Flexion (L2) 4 Good Extension (S1) 4+ Good+ Abduction 5 Normal External Rotation 5 Normal Internal Rotation 5 Normal Knee Strength Knee Manual Muscle Testing Right Flexion (S2) 5 Normal Extension (L3) 5 Normal Left Flexion (S2) 5 Normal Extension (L3) 5 Normal PT-OP-Q Treatments Start: 04/17/18 08:39 Freq: Status: Active Protocol: Document 10/04/18 08:12 [facility] (Rec: 10/04/18 08:59 [facility] [id number]) Cardio Equipment Recumbent Elliptical (Nonlinear Dynamics) Duration (Minutes) 5 Resistance 5 Seat Position 7 Other w/forte back rest Therapeutic Exercises Supine Exercises 7 Supine Exercise Name DTKC Side bilateral Reps/Minutes 45 sec hold 6 Supine Exercise Name figure 4 stretch Side right Reps/Minutes 30 sec 5 Supine Exercise Name alt marching scissors Side bilateral Reps/Minutes 10 4 Supine Exercise Name bridge with march Side bilateral Reps/Minutes 5 1 Supine Exercise Name iso hip flex Side right Comments stopped d/t pain Other Exercises quad hip ext Other Exercise Name hip ext Side bilateral Reps/Minutes 10 cat/camel Other Exercise Name cat camel Reps/Minutes 6 1 Other Exercise Name lukasz pose fwd & to R Reps/Minutes 30 sec Therapeutic Activity Therapeutic Activity vacuum Name vacuum, sweeping, mopping Comments edu on positioning Manual Therapy Treatment Joint Mobilizations 4 Joint hip Direction R on axis ER 3 Joint sacrum Direction PA and caudal FM 2 Joint innominate R Direction ER & ext FM PT-OP-R Modalities Start: 04/17/18 08:39 Freq: Status: Active Protocol: Document 10/04/18 08:12 [facility] (Rec: 10/04/18 08:59 [facility] [id number]) Hot Pack/Cold Pack Treatment Hot Pack Location LS Patient Position Hooklying Treatment Duration (minutes) 15 PT-OP-T Assessment and Plan Start: 04/17/18 08:39 Freq: Status: Active Protocol: Document 10/04/18 08:12 [facility] (Rec: 10/04/18 08:59 [facility] [id number]) Physical Therapy Assessment Goals Three Impairment strength Cnc Wood Lathe Operator Goal (LTG) Improved LE strength to 5/5 and EFT & LPM to 4/5 LTG Duration 11/14/18-improving LE strength, EFT 5/5, LPM L AP:0/5 PA:3/5; R AP:2/5 PA 4/5 Two Impairment dec activity Short Term Goal (STG) Indep HEP STG Duration 05/18/18-achieved (progressing) Cnc Wood Lathe Operator Goal (LTG) Pt will return to normal workout schedule to allow her to cont strengthening. LTG Duration 11/25/18- walking but not classes One Impairment pain Short Term Goal (STG) pain to 3/10 at worst STG Duration 05/18/18 - achieved Residential Goal (LTG) Pain to 1/10 at worst LTG Duration 11/14/18 Assessment Summary Assessment Pt requires cueing for neutral core and core engagment. She is improving with overall strength & ROM Physical Therapy Plan Frequency and Duration Frequency of Treatment 1x/Week Duration of Treatment 2 months Plan of Care Start Date 09/27/18 Plan of Care End Date 11/25/18 Next Visit Focus/Plan Next Note Type Treatment Note Next Visit Plan Advance core stability and pelvis mobility
--- NOTE | 2018-10-11 14:57 | PT.OTN ---
Current Diagnoses Radiculopathy, lumbar region (10/11/18) Physical Therapy Treatment Note PT-OP-A Visit Information Start: 04/17/18 08:39 Freq: Status: Active Protocol: Document 10/11/18 13:01 [facility] (Rec: 10/11/18 14:57 [facility] [id number]) Out-Patient Physical Therapy Visit Information Visit Information Visit Type Treatment Note Visit Note 04/24 Visit Start Time 13:00 Visit Stop Time 13:55 Total Visit Minutes 55 Visit Number / Number of DESOLDERER Visits 0 PT-OP-B Current Condition Start: 04/17/18 08:39 Freq: Status: Active Protocol: Document 04/17/18 10:28 [facility] (Rec: 04/17/18 15:22 [facility] [id number]) Current Condition History of Current Condition Onset Date 3 years ago worsening over past 5 months especially past 2 months Current Complaints LBP w/weakness & pain into R thigh History of Current Condition Pt reports she is limping a lot and most of the time has pain in her back. Pt notes she is fine every day until about 3 PM then she starts to have pain in LB and limps. She has had 3 occurances in the past 1 .5 months where her RLE has given out and she has had to grab something. She has to stand on L leg while holding on and bring R leg up and down to make it work again. Pt reports she is more comfortable standing typically . Notes she has difficulty lifting objects and when she does, she has pain into LB into R thigh with feeling of weakness. Pt normally exercsies 3x/week at [employer] classes and goes to [employer], but has not gone d/t pain. She does do squats daily without any pain. Prior Treatments and Tests massage about 1.5 years ago and saw a a little improvement ; pt reprots X-ray in past reporting curved spine, but no records found. Treatment Goals Patient/Caregiver Goals Return to working out without pain, be able to carry objects PT-OP-C Subjective Start: 04/17/18 08:39 Freq: Status: Active Protocol: Document 10/11/18 13:01 [facility] (Rec: 10/11/18 14:57 [facility] [id number]) OP-PT Subjective Patient Comments Patient Comments Pt has not been able to go to [employer] because the gym is closed until fully done with renovations. Standing any greater than 10 to 15 min. Notes she could tell when trying on a new vest that she wasn't staight. PT-OP-F Manual Assessment Start: 04/17/18 08:39 Freq: Status: Active Protocol: Document 07/17/18 09:30 ML (Rec: 07/17/18 09:46 ML [id number]) Manual Assessments Joint Mobility Assessment Joint Mobility Assessment HISL early motion of sacrum and inominate PT-OP-G Mobility & Gait Start: 04/17/18 08:39 Freq: Status: Active Protocol: Document 04/17/18 10:28 [facility] (Rec: 04/17/18 11:19 [facility] [id number]) OP Gait Assessment Comments Gait Comments Pt has dec stance time on RLE with dec push off and posterior depression. Overall dec pelvis patterns & stiff upper body & UEs. Pt ER pelvis during push off. PT-OP-J Posture/Palpation/Skin Start: 04/17/18 08:39 Freq: Status: Active Protocol: Document 04/17/18 10:28 [facility] (Rec: 04/17/18 11:19 [facility] [id number]) Posture Evaluation Ladi Postural Classification System Ladi Postural Classifications Anterior/Posterior Elbow Flexion Test 2 Lumbar Protective Mechanism Left AP 1 Lumbar Protective Mechanism Right AP 0 Lumbar Protective Mechanism Left PA 1 Lumbar Protective Mechanism Right PA 0 Leg Swing Left Hard End Feel Limited Pain Leg Swing Right Hard End Feel Limited Pain Comments Posture Comments Fwd head & neck PT-OP-K Range of Motion Start: 04/17/18 08:39 Freq: Status: Active Protocol: Document 04/17/18 10:28 [facility] (Rec: 04/17/18 11:19 [facility] [id number]) Lumbar Spine Range of Motion Lumbar Spine Active Degrees Flexion 37 Extension 18 Lateral Flexion Left 25 Lateral Flexion Right 15 Comments pain Flex; stiff R PT-OP-L Special Tests Start: 04/17/18 08:39 Freq: Status: Active Protocol: Document 04/17/18 10:28 [facility] (Rec: 04/17/18 11:19 [facility] [id number]) Special Tests Lumbar Spine Special Tests Straight Leg Raise Test Results ~20 deg R; 45 deg L Comments positive B Slump Test Results positive R ; negative L PT-OP-M Strength Start: 04/17/18 08:39 Freq: Status: Active Protocol: Document 09/27/18 08:17 [facility] (Rec: 09/27/18 12:18 [facility] [id number]) Hip Strength Hip Manual Muscle Testing Right Flexion (L2) 4- Good- Extension (S1) 4+ Good+ Abduction 5 Normal External Rotation 4+ Good+ Internal Rotation 4+ Good+ Comments pain w/hip flex & IR Left Flexion (L2) 4 Good Extension (S1) 4+ Good+ Abduction 5 Normal External Rotation 5 Normal Internal Rotation 5 Normal Knee Strength Knee Manual Muscle Testing Right Flexion (S2) 5 Normal Extension (L3) 5 Normal Left Flexion (S2) 5 Normal Extension (L3) 5 Normal PT-OP-Q Treatments Start: 04/17/18 08:39 Freq: Status: Active Protocol: Document 10/11/18 13:01 [facility] (Rec: 10/11/18 14:57 [facility] [id number]) Cardio Equipment Recumbent Elliptical (Fonmatch) Duration (Minutes) 5 Resistance 7 Seat Position 7 Other w/forte back rest Therapeutic Exercises Standing Exercises 5 Standing Exercise Name wall roll up with scap retraction 4 Standing Exercise Name scapular retraction on bosu progress to rows Equipment Used lvl 1 Reps/Minutes 15 each 3 Standing Exercise Name rows Equipment Used lvl 1 Reps/Minutes 15 Comments on level ground Therapeutic Activity Therapeutic Activity sitting posture Name unsupported sitting Comments edu of unsupported sitting standing Name standing Comments adjustment of standing posture in mirror PT-OP-R Modalities Start: 04/17/18 08:39 Freq: Status: Active Protocol: Document 10/11/18 13:01 [facility] (Rec: 10/11/18 14:57 [facility] [id number]) Hot Pack/Cold Pack Treatment Hot Pack Location LS Patient Position Hooklying Treatment Duration (minutes) 15 PT-OP-T Assessment and Plan Start: 04/17/18 08:39 Freq: Status: Active Protocol: Document 10/11/18 13:01 [facility] (Rec: 10/11/18 14:57 [facility] [id number]) Physical Therapy Assessment Goals Three Impairment strength [facility] Goal (LTG) Improved LE strength to 5/5 and EFT & LPM to 4/5 LTG Duration 11/14/18-improving LE strength, EFT 5/5, LPM L AP:0/5 PA:3/5; R AP:2/5 PA 4/5 Two Impairment dec activity Short Term Goal (STG) Indep HEP STG Duration 05/18/18-achieved (progressing) Supplies Packer Goal (LTG) Pt will return to normal workout schedule to allow her to cont strengthening. LTG Duration 11/25/18- walking but not classes One Impairment pain Short Term Goal (STG) pain to 3/10 at worst STG Duration 05/18/18 - achieved Supplies Packer Goal (LTG) Pain to 1/10 at worst LTG Duration 11/14/18 Assessment Summary Assessment Pt had difficulty with postural corrections & maintaining good posture with scapular movement. She appears to understand by end of session and was able to self correct. Physical Therapy Plan Frequency and Duration Frequency of Treatment 1x/Week Duration of Treatment 2 months Plan of Care Start Date 09/27/18 Plan of Care End Date 11/25/18 Next Visit Focus/Plan Next Note Type Treatment Note Next Visit Plan cont to work on postural stability
--- NOTE | 2018-10-18 14:58 | PT.OTN ---
Current Diagnoses Radiculopathy, lumbar region (10/18/18) Physical Therapy Treatment Note PT-OP-A Visit Information Start: 04/17/18 08:39 Freq: Status: Active Protocol: Document 10/18/18 14:55 [facility] (Rec: 10/18/18 14:58 [facility] [id number]) Out-Patient Physical Therapy Visit Information Visit Information Visit Type Treatment Note Visit Note 05/25 Visit Start Time 10:40 Visit Stop Time 11:35 Total Visit Minutes 55 Visit Number / Number of TRANSPORTATION ASSISTANT Visits 0 PT-OP-B Current Condition Start: 04/17/18 08:39 Freq: Status: Active Protocol: Document 04/17/18 10:28 [facility] (Rec: 04/17/18 15:22 [facility] [id number]) Current Condition History of Current Condition Onset Date 3 years ago worsening over past 5 months especially past 2 months Current Complaints LBP w/weakness & pain into R thigh History of Current Condition Pt reports she is limping a lot and most of the time has pain in her back. Pt notes she is fine every day until about 3 PM then she starts to have pain in LB and limps. She has had 3 occurances in the past 1 .5 months where her RLE has given out and she has had to grab something. She has to stand on L leg while holding on and bring R leg up and down to make it work again. Pt reports she is more comfortable standing typically . Notes she has difficulty lifting objects and when she does, she has pain into LB into R thigh with feeling of weakness. Pt normally exercsies 3x/week at [employer] and goes to [employer], but has not gone d/t pain. She does do squats daily without any pain. Prior Treatments and Tests massage about 1.5 years ago and saw a a little improvement ; pt reprots X-ray in past reporting curved spine, but no records found. Treatment Goals Patient/Caregiver Goals Return to working out without pain, be able to carry objects PT-OP-C Subjective Start: 04/17/18 08:39 Freq: Status: Active Protocol: Document 10/18/18 14:55 [facility] (Rec: 10/18/18 14:58 [facility] [id number]) OP-PT Subjective Patient Comments Patient Comments pt cont to be unable to go to [employer]t gym schedule. Back feels better but has not done too much PT-OP-F Manual Assessment Start: 04/17/18 08:39 Freq: Status: Active Protocol: Document 07/17/18 09:30 ML (Rec: 07/17/18 09:46 ML [id number]) Manual Assessments Joint Mobility Assessment Joint Mobility Assessment HISL early motion of sacrum and inominate PT-OP-G Mobility & Gait Start: 04/17/18 08:39 Freq: Status: Active Protocol: Document 04/17/18 10:28 [facility] (Rec: 04/17/18 11:19 [facility] [id number]) OP Gait Assessment Comments Gait Comments Pt has dec stance time on RLE with dec push off and posterior depression. Overall dec pelvis patterns & stiff upper body & UEs. Pt ER pelvis during push off. PT-OP-J Posture/Palpation/Skin Start: 04/17/18 08:39 Freq: Status: Active Protocol: Document 04/17/18 10:28 [facility] (Rec: 04/17/18 11:19 [facility] [id number]) Posture Evaluation Ladi Postural Classification System Ladi Postural Classifications Anterior/Posterior Elbow Flexion Test 2 Lumbar Protective Mechanism Left AP 1 Lumbar Protective Mechanism Right AP 0 Lumbar Protective Mechanism Left PA 1 Lumbar Protective Mechanism Right PA 0 Leg Swing Left Hard End Feel Limited Pain Leg Swing Right Hard End Feel Limited Pain Comments Posture Comments Fwd head & neck PT-OP-K Range of Motion Start: 04/17/18 08:39 Freq: Status: Active Protocol: Document 04/17/18 10:28 [facility] (Rec: 04/17/18 11:19 [facility] [id number]) Lumbar Spine Range of Motion Lumbar Spine Active Degrees Flexion 37 Extension 18 Lateral Flexion Left 25 Lateral Flexion Right 15 Comments pain Flex; stiff R PT-OP-L Special Tests Start: 04/17/18 08:39 Freq: Status: Active Protocol: Document 04/17/18 10:28 [facility] (Rec: 04/17/18 11:19 [facility] [id number]) Special Tests Lumbar Spine Special Tests Straight Leg Raise Test Results ~20 deg R; 45 deg L Comments positive B Slump Test Results positive R ; negative L PT-OP-M Strength Start: 04/17/18 08:39 Freq: Status: Active Protocol: Document 09/27/18 08:17 [facility] (Rec: 09/27/18 12:18 [facility] [id number]) Hip Strength Hip Manual Muscle Testing Right Flexion (L2) 4- Good- Extension (S1) 4+ Good+ Abduction 5 Normal External Rotation 4+ Good+ Internal Rotation 4+ Good+ Comments pain w/hip flex & IR Left Flexion (L2) 4 Good Extension (S1) 4+ Good+ Abduction 5 Normal External Rotation 5 Normal Internal Rotation 5 Normal Knee Strength Knee Manual Muscle Testing Right Flexion (S2) 5 Normal Extension (L3) 5 Normal Left Flexion (S2) 5 Normal Extension (L3) 5 Normal PT-OP-Q Treatments Start: 04/17/18 08:39 Freq: Status: Active Protocol: Document 10/18/18 14:55 [facility] (Rec: 10/18/18 14:58 [facility] [id number]) Therapeutic Exercises Supine Exercises 3 Supine Exercise Name SLR w/pelvic tilt Reps/Minutes 3x10 Standing Exercises 5 Standing Exercise Name wall roll up with scap retraction Comments & UE abd 4 Standing Exercise Name rows Equipment Used lvl 3 Reps/Minutes 20 Therapeutic Activity Therapeutic Activity standing Name standing Comments adjustment of standing posture in mirror Manual Therapy Treatment Soft Tissue Mobilization 3 Body Location ES Mobilization Type Myofascial Release Rolling Sustained Pressure Body Position Sidelying Comments w/deep breathing; R only Joint Mobilizations 3 Joint sacrum Direction PA and caudal FM PT-OP-R Modalities Start: 04/17/18 08:39 Freq: Status: Active Protocol: Document 10/18/18 14:55 [facility] (Rec: 10/18/18 14:58 [facility] [id number]) Hot Pack/Cold Pack Treatment Hot Pack Location LS Patient Position Hooklying Treatment Duration (minutes) 15 PT-OP-T Assessment and Plan Start: 04/17/18 08:39 Freq: Status: Active Protocol: Document 10/18/18 14:55 [facility] (Rec: 10/18/18 14:58 [facility] [id number]) Physical Therapy Assessment Goals Three Impairment strength Casting Machine Operator Helper Goal (LTG) Improved LE strength to 5/5 and EFT & LPM to 4/5 LTG Duration 11/14/18-improving LE strength, EFT 5/5, LPM L AP:0/5 PA:3/5; R AP:2/5 PA 4/5 Two Impairment dec activity Short Term Goal (STG) Indep HEP STG Duration 05/18/18-achieved (progressing) Assisted Goal (LTG) Pt will return to normal workout schedule to allow her to cont strengthening. LTG Duration 11/25/18- walking but not classes One Impairment pain Short Term Goal (STG) pain to 3/10 at worst STG Duration 05/18/18 - achieved Assisted Goal (LTG) Pain to 1/10 at worst LTG Duration 11/14/18 Assessment Summary Assessment Pt had improved ability today to self postural correct. She did still require cueing for positioning, but did better after wall posture exercise. Physical Therapy Plan Frequency and Duration Frequency of Treatment 1x/Week Duration of Treatment 2 months Plan of Care Start Date 09/27/18 Plan of Care End Date 11/25/18 Next Visit Focus/Plan Next Note Type Treatment Note Next Visit Plan cont to work on postural stability
--- NOTE | 2018-11-01 10:25 | PT.OTN ---
Current Diagnoses Radiculopathy, lumbar region (11/01/18) Physical Therapy Treatment Note PT-OP-A Visit Information Start: 04/17/18 08:39 Freq: Status: Active Protocol: Document 11/01/18 09:35 [facility] (Rec: 11/01/18 10:24 [facility] [id number]) Out-Patient Physical Therapy Visit Information Visit Information Visit Type Treatment Note Visit Note 06/24 Visit Start Time 09:35 Visit Stop Time 10:30 Total Visit Minutes 55 Visit Number 5/ Number of BARGE LOADER Visits 0 PT-OP-B Current Condition Start: 04/17/18 08:39 Freq: Status: Active Protocol: Document 04/17/18 10:28 [facility] (Rec: 04/17/18 15:22 [facility] [id number]) Current Condition History of Current Condition Onset Date 3 years ago worsening over past 5 months especially past 2 months Current Complaints LBP w/weakness & pain into R thigh History of Current Condition Pt reports she is limping a lot and most of the time has pain in her back. Pt notes she is fine every day until about 3 PM then she starts to have pain in LB and limps. She has had 3 occurances in the past 1 .5 months where her RLE has given out and she has had to grab something. She has to stand on L leg while holding on and bring R leg up and down to make it work again. Pt reports she is more comfortable standing typically . Notes she has difficulty lifting objects and when she does, she has pain into LB into R thigh with feeling of weakness. Pt normally exercsies 3x/week at [employer] classes and goes to [employer] aerobics, but has not gone d/t pain. She does do squats daily without any pain. Prior Treatments and Tests massage about 1.5 years ago and saw a a little improvement ; pt reprots X-ray in past reporting curved spine, but no records found. Treatment Goals Patient/Caregiver Goals Return to working out without pain, be able to carry objects PT-OP-C Subjective Start: 04/17/18 08:39 Freq: Status: Active Protocol: Document 11/01/18 09:35 [facility] (Rec: 11/01/18 10:24 [facility] [id number]) OP-PT Subjective Patient Comments Patient Comments Pt reports doing much better. Every now and then twinges at R SI PT-OP-F Manual Assessment Start: 04/17/18 08:39 Freq: Status: Active Protocol: Document 07/17/18 09:30 [facility] (Rec: 07/17/18 09:46 [facility] [id number]) Manual Assessments Joint Mobility Assessment Joint Mobility Assessment HISL early motion of sacrum and inominate PT-OP-G Mobility & Gait Start: 04/17/18 08:39 Freq: Status: Active Protocol: Document 04/17/18 10:28 [facility] (Rec: 04/17/18 11:19 [facility] [id number]) OP Gait Assessment Comments Gait Comments Pt has dec stance time on RLE with dec push off and posterior depression. Overall dec pelvis patterns & stiff upper body & UEs. Pt ER pelvis during push off. PT-OP-J Posture/Palpation/Skin Start: 04/17/18 08:39 Freq: Status: Active Protocol: Document 04/17/18 10:28 [facility] (Rec: 04/17/18 11:19 [facility] [id number]) Posture Evaluation [facility] Postural Classification System [facility] Postural Classifications Anterior/Posterior Elbow Flexion Test 2 Lumbar Protective Mechanism Left AP 1 Lumbar Protective Mechanism Right AP 0 Lumbar Protective Mechanism Left PA 1 Lumbar Protective Mechanism Right PA 0 Leg Swing Left Hard End Feel Limited Pain Leg Swing Right Hard End Feel Limited Pain Comments Posture Comments Fwd head & neck PT-OP-K Range of Motion Start: 04/17/18 08:39 Freq: Status: Active Protocol: Document 04/17/18 10:28 [facility] (Rec: 04/17/18 11:19 [facility] [id number]) Lumbar Spine Range of Motion Lumbar Spine Active Degrees Flexion 37 Extension 18 Lateral Flexion Left 25 Lateral Flexion Right 15 Comments pain Flex; stiff R PT-OP-L Special Tests Start: 04/17/18 08:39 Freq: Status: Active Protocol: Document 04/17/18 10:28 [facility] (Rec: 04/17/18 11:19 [facility] [id number]) Special Tests Lumbar Spine Special Tests Straight Leg Raise Test Results ~20 deg R; 45 deg L Comments positive B Slump Test Results positive R ; negative L PT-OP-M Strength Start: 04/17/18 08:39 Freq: Status: Active Protocol: Document 09/27/18 08:17 [facility] (Rec: 09/27/18 12:18 [facility] [id number]) Hip Strength Hip Manual Muscle Testing Right Flexion (L2) 4- Good- Extension (S1) 4+ Good+ Abduction 5 Normal External Rotation 4+ Good+ Internal Rotation 4+ Good+ Comments pain w/hip flex & IR Left Flexion (L2) 4 Good Extension (S1) 4+ Good+ Abduction 5 Normal External Rotation 5 Normal Internal Rotation 5 Normal Knee Strength Knee Manual Muscle Testing Right Flexion (S2) 5 Normal Extension (L3) 5 Normal Left Flexion (S2) 5 Normal Extension (L3) 5 Normal PT-OP-Q Treatments Start: 04/17/18 08:39 Freq: Status: Active Protocol: Document 11/01/18 09:35 [facility] (Rec: 11/01/18 10:24 [facility] [id number]) Therapeutic Exercises Sidelying Exercises 3 Sidelying Exercise Name clamshell Side right Reps/Minutes 10 L1; 10 L2 Comments cueing for no rolling 2 Sidelying Exercise Name basking seal for stretch Side right Reps/Minutes 10 sec x3 Standing Exercises 5 Standing Exercise Name wall roll up with scap retraction Comments & UE abd 3 Standing Exercise Name sidestep w/squat Side bilateral Reps/Minutes 20ft Comments w/focus on R hip position & no lat leaning 2 Standing Exercise Name standing postural correction Manual Therapy Treatment Soft Tissue Mobilization 3 Body Location QL/ES Mobilization Type Myofascial Release Rolling Sustained Pressure Body Position Sidelying Comments w/deep breathing; R only Neuro Re-Education Treatment Other Activities 1 Details ant elevation & post dep Comments rhythmic initiation to sustained holds to combination of concentrics PT-OP-R Modalities Start: 04/17/18 08:39 Freq: Status: Active Protocol: Document 11/01/18 09:35 [facility] (Rec: 11/01/18 10:24 [facility] [id number]) Hot Pack/Cold Pack Treatment Hot Pack Location LS Patient Position Hooklying Treatment Duration (minutes) 10 PT-OP-T Assessment and Plan Start: 04/17/18 08:39 Freq: Status: Active Protocol: Document 11/01/18 09:35 [facility] (Rec: 11/01/18 10:24 [facility] [id number]) Physical Therapy Assessment Goals Three Impairment strength Money Manager Goal (LTG) Improved LE strength to 5/5 and EFT & LPM to 4/5 LTG Duration 11/14/18-improving LE strength, EFT 5/5, LPM L AP:0/5 PA:3/5; R AP:2/5 PA 4/5 Two Impairment dec activity Short Term Goal (STG) Indep HEP STG Duration 05/18/18-achieved (progressing) Money Manager Goal (LTG) Pt will return to normal workout schedule to allow her to cont strengthening. LTG Duration 11/25/18- walking but not classes One Impairment pain Short Term Goal (STG) pain to 3/10 at worst STG Duration 05/18/18 - achieved [facility] Goal (LTG) Pain to 1/10 at worst LTG Duration 11/14/18 Assessment Summary Assessment Pt cont to improve with postural stability. She is improving ability to monitor position with movement. Physical Therapy Plan Frequency and Duration Frequency of Treatment 1x/Week Duration of Treatment 2 months Plan of Care Start Date 09/27/18 Plan of Care End Date 11/25/18 Next Visit Focus/Plan Next Note Type Progress Note Next Visit Plan Advance stability as tolerated
--- NOTE | 2018-11-22 16:00 | PT.OTN ---
Current Diagnoses Radiculopathy, lumbar region (11/22/18) Physical Therapy Treatment Note PT-OP-A Visit Information Start: 04/17/18 08:39 Freq: Status: Active Protocol: Document 11/22/18 15:50 [facility] (Rec: 11/22/18 16:00 [facility] [id number]) Out-Patient Physical Therapy Visit Information Visit Information Visit Type Discharge Summary Visit Note 07/25 Visit Start Time 10:30 Visit Stop Time 11:15 Total Visit Minutes 45 Visit Number 02/17 Number of YARDAGE CALLER Visits 0 PT-OP-B Current Condition Start: 04/17/18 08:39 Freq: Status: Active Protocol: Document 04/17/18 10:28 [facility] (Rec: 04/17/18 15:22 [facility] [id number]) Current Condition History of Current Condition Onset Date 3 years ago worsening over past 5 months especially past 2 months Current Complaints LBP w/weakness & pain into R thigh History of Current Condition Pt reports she is limping a lot and most of the time has pain in her back. Pt notes she is fine every day until about 3 PM then she starts to have pain in LB and limps. She has had 3 occurances in the past 1 .5 months where her RLE has given out and she has had to grab something. She has to stand on L leg while holding on and bring R leg up and down to make it work again. Pt reports she is more comfortable standing typically . Notes she has difficulty lifting objects and when she does, she has pain into LB into R thigh with feeling of weakness. Pt normally exercsies 3x/week at [employer] classes and goes to [id number] aerobics, but has not gone d/t pain. She does do squats daily without any pain. Prior Treatments and Tests massage about 1.5 years ago and saw a a little improvement ; pt reprots X-ray in past reporting curved spine, but no records found. Treatment Goals Patient/Caregiver Goals Return to working out without pain, be able to carry objects PT-OP-C Subjective Start: 04/17/18 08:39 Freq: Status: Active Protocol: Document 11/22/18 15:50 [facility] (Rec: 11/22/18 16:00 [facility] [id number]) OP-PT Subjective Patient Comments Patient Comments Pt reports pain when she was on her feet all day and was walking very slowly in a crowded convention. PT-OP-F Manual Assessment Start: 04/17/18 08:39 Freq: Status: Active Protocol: Document 07/17/18 09:30 [facility] (Rec: 07/17/18 09:46 ML [id number]) Manual Assessments Joint Mobility Assessment Joint Mobility Assessment HISL early motion of sacrum and inominate PT-OP-G Mobility & Gait Start: 04/17/18 08:39 Freq: Status: Active Protocol: Document 04/17/18 10:28 [facility] (Rec: 04/17/18 11:19 [facility] [id number]) OP Gait Assessment Comments Gait Comments Pt has dec stance time on RLE with dec push off and posterior depression. Overall dec pelvis patterns & stiff upper body & UEs. Pt ER pelvis during push off. PT-OP-J Posture/Palpation/Skin Start: 04/17/18 08:39 Freq: Status: Active Protocol: Document 04/17/18 10:28 [facility] (Rec: 04/17/18 11:19 [facility] [id number]) Posture Evaluation [facility] Postural Classification System [facility] Postural Classifications Anterior/Posterior Elbow Flexion Test 2 Lumbar Protective Mechanism Left AP 1 Lumbar Protective Mechanism Right AP 0 Lumbar Protective Mechanism Left PA 1 Lumbar Protective Mechanism Right PA 0 Leg Swing Left Hard End Feel Limited Pain Leg Swing Right Hard End Feel Limited Pain Comments Posture Comments Fwd head & neck PT-OP-K Range of Motion Start: 04/17/18 08:39 Freq: Status: Active Protocol: Document 04/17/18 10:28 [facility] (Rec: 04/17/18 11:19 [facility] [id number]) Lumbar Spine Range of Motion Lumbar Spine Active Degrees Flexion 37 Extension 18 Lateral Flexion Left 25 Lateral Flexion Right 15 Comments pain Flex; stiff R PT-OP-L Special Tests Start: 04/17/18 08:39 Freq: Status: Active Protocol: Document 04/17/18 10:28 [facility] (Rec: 04/17/18 11:19 [facility] [id number]) Special Tests Lumbar Spine Special Tests Straight Leg Raise Test Results ~20 deg R; 45 deg L Comments positive B Slump Test Results positive R ; negative L PT-OP-M Strength Start: 04/17/18 08:39 Freq: Status: Active Protocol: Document 09/27/18 08:17 [facility] (Rec: 09/27/18 12:18 [facility] [id number]) Hip Strength Hip Manual Muscle Testing Right Flexion (L2) 4- Good- Extension (S1) 4+ Good+ Abduction 5 Normal External Rotation 4+ Good+ Internal Rotation 4+ Good+ Comments pain w/hip flex & IR Left Flexion (L2) 4 Good Extension (S1) 4+ Good+ Abduction 5 Normal External Rotation 5 Normal Internal Rotation 5 Normal Knee Strength Knee Manual Muscle Testing Right Flexion (S2) 5 Normal Extension (L3) 5 Normal Left Flexion (S2) 5 Normal Extension (L3) 5 Normal PT-OP-Q Treatments Start: 04/17/18 08:39 Freq: Status: Active Protocol: Document 11/22/18 15:50 [facility] (Rec: 11/22/18 16:00 [facility] [id number]) Gym Equipment Therapeutic Ball marching Exercise Details w/core tight progressed to knee ext Ball Size/Color 55cm pelvic tilts Exercise Details progressed to circles B Ball Size/Color 55CM Therapeutic Exercises Standing Exercises 5 Standing Exercise Name wall roll up with scap retraction Comments & UE abd Other Exercises 1 Other Exercise Name bird dog Side bilateral Reps/Minutes 15 Therapeutic Activity Therapeutic Activity standing Name standing Comments adjustment of standing posture in mirror Manual Therapy Treatment Joint Mobilizations 4 Joint hip Direction inf glide R FM 2 Joint innominate R Direction flex FM PT-OP-R Modalities Start: 04/17/18 08:39 Freq: Status: Active Protocol: Document 11/01/18 09:35 [facility] (Rec: 11/01/18 10:24 [facility] [id number]) Hot Pack/Cold Pack Treatment Hot Pack Location LS Patient Position Hooklying Treatment Duration (minutes) 10 PT-OP-T Assessment and Plan Start: 04/17/18 08:39 Freq: Status: Active Protocol: Document 11/22/18 15:50 [facility] (Rec: 11/22/18 16:00 [facility] [id number]) Physical Therapy Assessment Goals Three Impairment strength Traffic [employer] Manager Goal (LTG) Improved LE strength to 5/5 and EFT & LPM to 4/5 LTG Duration 11/14/18-improving LE strength, EFT 5/5, LPM L AP:0/5 PA:3/5; R AP:2/5 PA 4/5 Two Impairment dec activity Short Term Goal (STG) Indep HEP STG Duration 05/18/18-achieved (progressing) Nursing Home Goal (LTG) Pt will return to normal workout schedule to allow her to cont strengthening. LTG Duration 11/25/18- walking but not classes d/t closure of gym One Impairment pain Short Term Goal (STG) pain to 3/10 at worst STG Duration 05/18/18 - achieved Traffic Ii Manager Goal (LTG) Pain to 1/10 at worst LTG Duration 11/14/18-at most times no pain except w/extended standing Assessment Summary Assessment Pt cont to improve with indepence with postural stability. She had dec pain with marching with mobilziation. She required min cueing with exercises and was given more uses for her tball as she asked. She is to cont w/HEP to cont to advance strength & ROM. Physical Therapy Plan Discharge Physical Therapy Discharge Reasons Goals Met
== END 2019-04-10 16:10 | disposition home or self-care (01) ==
LOC: PHYS 10:30
PROVIDERS: PCP Family Medicine; Visit Provider Family Medicine
DX: M54.16 Radiculopathy, lumbar region (principal)
CPT/HCPCS: 97010; 97014; 97110; 97112; 97140; 97162; 97530; G0283

== ENCOUNTER → 2019-02-04 09:31 | Outpatient (CLI) | payer OTHER, SELFPAY ==
--- NOTE | 2019-02-04 09:32 | DI.RAD.S_ITS ---
PROCEDURE: XR THORACIC SPINE 3V INDICATIONS: back pain TECHNIQUE: 2 views of the thoracic spine were acquired. COMPARISON: None. FINDINGS: Bones: No fractures or dislocations. No suspicious bony lesions. 12 pairs of ribs are noted, and appear intact where visualized. Soft tissues: No paravertebral stripe thickening. IMPRESSION: There is slight levoscoliosis centered at the low thoracic spine, and minimal degenerative disc height reduction. No compression fracture or subluxation is found. Dictated by: Juaquin Brady M.D. on 02/04/2019 at 11:02 Approved by: Juaquin Brady M.D. on 02/04/2019 at 11:02
== END ==
PROVIDERS: PCP Family Medicine; Visit Provider Family Medicine
DX: M54.9 Dorsalgia, unspecified (principal); M41.84 Other forms of scoliosis, thoracic region
CPT/HCPCS: 72072

== ENCOUNTER 2019-04-28 09:45 | Outpatient (RCR) | payer OTHER, SELFPAY ==
--- NOTE | 2019-03-24 15:05 | PT.OIE ---
Current Diagnoses Scoliosis, unspecified (03/24/19) Pain in thoracic spine (03/24/19) Past Medical History (Last Reviewed 02/27/18 @ 11:09 by Jennifer Chandra DO) Hyperlipemia (Chronic Unknown) Hypertension (Chronic Unknown) Osteoarthritis (Chronic Unknown) Past Surgical History (Last Reviewed 02/27/18 @ 11:09 by Jennifer Chandra DO) Hx of appendectomy (Resolved Unknown) Provider Visit Care Team Role Provider Type Jennifer Chandra DO Attending Provider Physician Primary Care Provider Specialty: [facility] Address: [address] [place] [address] Email: [email or web address] Physical Therapy Initial Evaluation PT-OP-A Visit Information Start: 03/20/19 17:23 Freq: Status: Active Protocol: Document 03/24/19 09:53 AR (Rec: 03/24/19 10:26 AR [email or web address]) Out-Patient Physical Therapy Visit Information Visit Information Visit Type Initial Evaluation Visit Start Time 09:00 Visit Stop Time 09:50 Total Visit Minutes 50 Visit Number 1 Number of WINDER OPERATOR Visits 0 PT-OP-B Current Condition Start: 03/20/19 17:23 Freq: Status: Active Protocol: Document 03/24/19 09:53 AR (Rec: 03/24/19 10:26 AR [email or web address]) Current Condition History of Current Condition Onset Date 01/22/2019 Current Complaints T/S pain after running, L/S and R hip pain intermittently History of Current Condition Pt reports sharp T/S pain began about 6-8 weeks ago. Pain occured 3 times and would last 12-24 hours. It was severe enough to limit ADLs and activity. She noted that taking a muscle relaxant was the only thing that eased pain . Pt attributes T/S pain to running on an indoor track during exercise classes, which was the only change in her recent activity. Pt gets pain after running about 200-400 meters. Pt has not tried running on other surfaces d/t fear of falling on uneven surfaces/trails. Pt also gets L/S and R hip pain with standing for extended periods of time and with walking at a slow pace. Prior Treatments and Tests Previous PT helpful and HEP dec pain when pt is complient. HEP not followed as strictly when pt is on vacation/working on home in [place]. Pt has scoliosis and responded well with previous PT treatment. T/ S x-ray reveal no compression fx. Treatment Goals Patient/Caregiver Goals Pt reports she is not seeking to get back to running and would be happy walking at a fast pace during her exercise program. She would like to be able to stand and walk at a slower pace (for community events like the [place] and quilting shows) without L/ S and R hip pain. Prior Functional Status Baseline Function- ADL's Independent Baseline Function- Mobility Independent PT-OP-C Subjective Start: 03/20/19 17:23 Freq: Status: Active Protocol: Document 03/24/19 09:53 AR (Rec: 03/24/19 10:26 AR [email or web address]) OP-PT Subjective Patient Comments Patient Comments Pt reports that T/S pain has not occured again since she stopped running. Pt reports than pain in L/S and R hip respond well to priorly prescribed HEP. Pt would like to review HEP and does not anticipate coming to therapy for long. Patient Reported Progress Worse Patient Questionnaires Oswestry Low Back Index Oswestry Score 30 Oswestry Impairment 20 to 39% Impaired (Score 20- 39) OP-PT Pain Assessment Location Thoracic Spine Pain Location Details T/S Intensity 5 Scale Used Numeric (1 - 10) Description Aching Sharp Frequency Rarely Pain Duration 12-24 hours Pain Aggravating Factors Exercise Other Pain Aggravating Factors Running Pain Alleviating Factors Heat Medication Right Lower Back Pain Location Details R L/S Intensity 5 Scale Used Numeric (1 - 10) Description Aching Frequency Intermittent Pain Aggravating Factors Position Activity Exercise Standing Other Pain Aggravating Factors walking at a slower pace, strolling Pain Alleviating Factors Heat Exercise PT-OP-G Mobility & Gait Start: 03/20/19 17:23 Freq: Status: Active Protocol: Document 03/24/19 09:53 AR (Rec: 03/24/19 10:26 AR [email or web address]) OP Gait Assessment Gait Gait Assistance Required: Independent Comments Gait Comments decreased T/S rotation, swing through initiated through LE rather than pelvis, propulsive forces comes from LE PT-OP-J Posture/Palpation/Skin Start: 03/20/19 17:23 Freq: Status: Active Protocol: Document 03/24/19 09:53 AR (Rec: 03/24/19 10:26 AR [email or web address]) Posture Evaluation Position Standing Evaluation View Lateral Head/C-Spine Posture Forward Head T-Spine Posture Increased Kyphosis Thorax Posture (R) Elevated L-Spine Posture Decreased Lordosis Shoulder Posture (L) Rounded (R) Rounded Pelvis Posture (R) Iliac Crest Superior PT-OP-K Range of Motion Start: 03/20/19 17:23 Freq: Status: Active Protocol: Document 03/24/19 09:53 AR (Rec: 03/24/19 10:26 AR [email or web address]) Lumbar Spine Range of Motion Lumbar Spine Active Percentage Testing Position Standing Flexion 90 Extension 75 Lateral Flexion Left 75 Lateral Flexion Right 90 Active Degrees Testing Position Standing Rotation Left 45 Rotation Right 45 PT-OP-M Strength Start: 03/20/19 17:23 Freq: Status: Active Protocol: Document 03/24/19 09:53 AR (Rec: 03/24/19 10:26 AR [email or web address]) Hip Strength Hip Manual Muscle Testing Left Flexion (L2) 4+ Good+ External Rotation 4- Good- Internal Rotation 4 Good Right Flexion (L2) 4+ Good+ External Rotation 4- Good- Internal Rotation 4 Good Knee Strength Knee Manual Muscle Testing Left Flexion (S2) 4 Good Extension (L3) 4 Good Right Flexion (S2) 4 Good Extension (L3) 4 Good Ankle/Foot Strength Ankle and Foot Manual Muscle Testing Left Dorsiflexion (L4) 4- Good- Plantarflexion (S1) 4- Good- Inversion 5 Normal Eversion (S1) 5 Normal Right Dorsiflexion (L4) 4+ Good+ Plantarflexion (S1) 4- Good- Inversion 5 Normal Eversion (S1) 5 Normal PT-OP-Q Treatments Start: 03/20/19 17:23 Freq: Status: Active Protocol: Document 03/24/19 09:53 AR (Rec: 03/24/19 10:26 AR [email or web address]) Therapeutic Exercises Prone Exercises Prone on Elbows Prone Exercise Name prone on elbows Side bilateral Reps/Minutes 3x30 second holds Sidelying Exercises 1 Sidelying Exercise Name open books Side bilateral Reps/Minutes 10 each side Comments cueing for pelvic stability, encouraging pt to reach end ROM PT-OP-T Assessment and Plan Start: 03/20/19 17:23 Freq: Status: Active Protocol: Document 03/24/19 09:53 AR (Rec: 03/24/19 10:26 AR [email or web address]) Physical Therapy Assessment Rehab Potential Rehabilitation Potential Excellent Evaluation Complexity Number of Personal Factors/Comorbidities 1-2 Number of Body Systems Impaired 4 or More Clinical Presentation at Evaluation Stable Impairments Impairments Activity Tolerance Functional Activities Functional Mobility Gait Pain Posture ROM Soft Tissue Mobility Strength Goals Three Impairment Strength Short Term Goal (STG) Pt will be complient with HEP in order to manage her pain with dec reliance on PT. STG Duration 04/14/2019 Long-Term Goal (LTG) Pt will demonstrate 5/5 on LE MMTs in order to be able to participate in daily activities c/o inc in L/S or R hip pain. LTG Duration 05/05/2019 Two Impairment Walking Short Term Goal (STG) Pt will be able to walk at a leisurely pace for 1 hour c/o inc in L/S or R hip pain more than 2 points on the VAS. STG Duration 04/07/2019 Long-Term Goal (LTG) Pt will be able to tolerate leisurely walking at the [employer] for 3 hours c/o inc of L/S or R hip pain more than 2 points on the VAS. LTG Duration 04/11/2019 One Impairment Standing Short Term Goal (STG) Pt will be able to tolerate standing for 30 minutes c/o L/ S and R hip pain. STG Duration 04/14/2019 Long-Term Goal (LTG) Pt will be able to stand for 2 hours c/o L/S and R hip pain in order to perform ADLs. LTG Duration 05/05/2019 Assessment Summary Assessment Pt's scoliosis, hx of recurrent pain, and dec compliance with HEP to manage L/S and R hip pain contribute to pt's current pain. T/S pain may be d/t dec mobility through T/S and inc forces through spine during running. Gait deviations and dec rotational motion through T/S and shoulder girdles may also be contributing factors. Pt will benefit from education on HEP and encouragement for incorporating it during vacation times. Physical Therapy Plan Frequency and Duration Frequency of Treatment 1-2x/week Duration of Treatment 6 weeks Plan of Care Start Date 03/24/19 Plan of Care End Date 05/05/19 Therapeutic Interventions Therapeutic Interventions Balance Training Gait Training Home Exercise Program Joint Mobilizations Manual Therapy Neuromuscular Re-education Patient/Caregiver Education Self-Care/Home Management Soft Tissue Mobilization Taping Therapeutic Activities Therapeutic Exercises Modalities Cold Pack/Ice Massage Electric Stimulation Hot Packs Next Visit Focus/Plan Next Note Type Treatment Note Next Visit Plan Review old HEP for L/S and R hip.
--- NOTE | 2019-03-24 15:05 | PT.OPPOC ---
Current Diagnoses Scoliosis, unspecified (03/24/19) Pain in thoracic spine (03/24/19) Provider Visit Care Team Role Provider Type Jennifer Chandra DO Attending Provider Physician Primary Care Provider Specialty: Family [facility] Address: [address] [place] [address], [id number] Email: [email or web address] Plan Of Care PT-OP-T Assessment and Plan Start: 03/20/19 17:23 Freq: Status: Active Protocol: Document 03/24/19 09:53 AR (Rec: 03/24/19 10:26 AR [email or web address]) Physical Therapy Assessment Rehab Potential Rehabilitation Potential Excellent Evaluation Complexity Number of Personal Factors/Comorbidities 1-2 Number of Body Systems Impaired 4 or More Clinical Presentation at Evaluation Stable Impairments Impairments Activity Tolerance Functional Activities Functional Mobility Gait Pain Posture ROM Soft Tissue Mobility Strength Goals Three Impairment Strength Short Term Goal (STG) Pt will be complient with HEP in order to manage her pain with dec reliance on PT. STG Duration 04/14/2019 Business Reporter Goal (LTG) Pt will demonstrate 5/5 on LE MMTs in order to be able to participate in daily activities c/o inc in L/S or R hip pain. LTG Duration 05/05/2019 Two Impairment Walking Short Term Goal (STG) Pt will be able to walk at a leisurely pace for 1 hour c/o inc in L/S or R hip pain more than 2 points on the VAS. STG Duration 04/07/2019 Business Reporter Goal (LTG) Pt will be able to tolerate leisurely walking at the [employer] for 3 hours c/o inc of L/S or R hip pain more than 2 points on the VAS. LTG Duration 04/11/2019 One Impairment Standing Short Term Goal (STG) Pt will be able to tolerate standing for 30 minutes c/o L/ S and R hip pain. STG Duration 04/14/2019 Fdc Goal (LTG) Pt will be able to stand for 2 hours c/o L/S and R hip pain in order to perform ADLs. LTG Duration 05/05/2019 Assessment Summary Assessment Pt's scoliosis, hx of recurrent pain, and dec compliance with HEP to manage L/S and R hip pain contribute to pt's current pain. T/S pain may be d/t dec mobility through T/S and inc forces through spine during running. Gait deviations and dec rotational motion through T/S and shoulder girdles may also be contributing factors. Pt will benefit from education on HEP and encouragement for incorporating it during vacation times. Physical Therapy Plan Frequency and Duration Frequency of Treatment 1-2x/week Duration of Treatment 6 weeks Plan of Care Start Date 03/24/19 Plan of Care End Date 05/05/19 Therapeutic Interventions Therapeutic Interventions Balance Training Gait Training Home Exercise Program Joint Mobilizations Manual Therapy Neuromuscular Re-education Patient/Caregiver Education Self-Care/Home Management Soft Tissue Mobilization Taping Therapeutic Activities Therapeutic Exercises Modalities Cold Pack/Ice Massage Electric Stimulation Hot Packs Next Visit Focus/Plan Next Note Type Treatment Note Next Visit Plan Review old HEP for L/S and R hip. Plan of Care Dates Plan of Care Start Date 03/24/19 Plan of Care End Date 05/05/19 Please Sign and Return: I have reviewed this Plan of Care and certify that the skilled therapy services above are required to meet the patient?s needs. Physician Signature Date Printed Name and Credentials Clinical Instructor Signature Printed Name and Credentials
--- NOTE | 2019-03-26 17:08 | PT.OTN ---
Current Diagnoses Scoliosis, unspecified (03/26/19) Pain in thoracic spine (03/26/19) Physical Therapy Treatment Note PT-OP-A Visit Information Start: 03/20/19 17:23 Freq: Status: Active Protocol: Document 03/26/19 16:14 AR (Rec: 03/26/19 16:33 AR [email or web address]) Out-Patient Physical Therapy Visit Information Visit Information Visit Type Treatment Note Visit Start Time 14:35 Visit Stop Time 15:30 Total Visit Minutes 55 Visit Number 2 Number of APPAREL MANUFACTURE INSTRUCTOR Visits 0 PT-OP-B Current Condition Start: 03/20/19 17:23 Freq: Status: Active Protocol: Document 03/24/19 09:53 AR (Rec: 03/24/19 10:26 AR [email or web address]) Current Condition History of Current Condition Onset Date 01/22/2019 Current Complaints T/S pain after running, L/S and R hip pain intermittently History of Current Condition Pt reports sharp T/S pain began about 6-8 weeks ago. Pain occured 3 times and would last 12-24 hours. It was severe enough to limit ADLs and activity. She noted that taking a muscle relaxant was the only thing that eased pain . Pt attributes T/S pain to running on an indoor track during exercise classes, which was the only change in her recent activity. Pt gets pain after running about 200-400 meters. Pt has not tried running on other surfaces d/t fear of falling on uneven surfaces/trails. Pt also gets L/S and R hip pain with standing for extended periods of time and with walking at a slow pace. Prior Treatments and Tests Previous PT helpful and HEP dec pain when pt is complient. HEP not followed as strictly when pt is on vacation/working on home in [place]. Pt has scoliosis and responded well with previous PT treatment. T/ S x-ray reveal no compression fx. Treatment Goals Patient/Caregiver Goals Pt reports she is not seeking to get back to running and would be happy walking at a fast pace during her exercise program. She would like to be able to stand and walk at a slower pace (for community events like the [employer] [place] and quilting shows) without L/ S and R hip pain. Prior Functional Status Baseline Function- ADL's Independent Baseline Function- Mobility Independent PT-OP-C Subjective Start: 03/20/19 17:23 Freq: Status: Active Protocol: Document 03/26/19 16:14 AR (Rec: 03/26/19 16:33 AR [email or web address]) OP-PT Subjective Patient Comments Patient Comments Pt reports having L/S pain after walking in [employer] for 45 minutes. The only thing that relieved her pain was sitting down in her car. Pt has still not gotten back to doing her HEP. PT-OP-G Mobility & Gait Start: 03/20/19 17:23 Freq: Status: Active Protocol: Document 03/24/19 09:53 AR (Rec: 03/24/19 10:26 AR [email or web address]) OP Gait Assessment Gait Gait Assistance Required: Independent Comments Gait Comments decreased T/S rotation, swing through initiated through LE rather than pelvis, propulsive forces comes from LE PT-OP-J Posture/Palpation/Skin Start: 03/20/19 17:23 Freq: Status: Active Protocol: Document 03/24/19 09:53 AR (Rec: 03/24/19 10:26 AR [email or web address]) Posture Evaluation Position Standing Evaluation View Lateral Head/C-Spine Posture Forward Head T-Spine Posture Increased Kyphosis Thorax Posture (R) Elevated L-Spine Posture Decreased Lordosis Shoulder Posture (L) Rounded (R) Rounded Pelvis Posture (R) Iliac Crest Superior PT-OP-K Range of Motion Start: 03/20/19 17:23 Freq: Status: Active Protocol: Document 03/24/19 09:53 AR (Rec: 03/24/19 10:26 AR [email or web address]) Lumbar Spine Range of Motion Lumbar Spine Active Percentage Testing Position Standing Flexion 90 Extension 75 Lateral Flexion Left 75 Lateral Flexion Right 90 Active Degrees Testing Position Standing Rotation Left 45 Rotation Right 45 PT-OP-M Strength Start: 03/20/19 17:23 Freq: Status: Active Protocol: Document 03/24/19 09:53 AR (Rec: 03/24/19 10:26 AR [email or web address]) Hip Strength Hip Manual Muscle Testing Left Flexion (L2) 4+ Good+ External Rotation 4- Good- Internal Rotation 4 Good Right Flexion (L2) 4+ Good+ External Rotation 4- Good- Internal Rotation 4 Good Knee Strength Knee Manual Muscle Testing Left Flexion (S2) 4 Good Extension (L3) 4 Good Right Flexion (S2) 4 Good Extension (L3) 4 Good Ankle/Foot Strength Ankle and Foot Manual Muscle Testing Left Dorsiflexion (L4) 4- Good- Plantarflexion (S1) 4- Good- Inversion 5 Normal Eversion (S1) 5 Normal Right Dorsiflexion (L4) 4+ Good+ Plantarflexion (S1) 4- Good- Inversion 5 Normal Eversion (S1) 5 Normal PT-OP-Q Treatments Start: 03/20/19 17:23 Freq: Status: Active Protocol: Document 03/26/19 16:14 AR (Rec: 03/26/19 16:33 AR [email or web address]) Therapeutic Exercises Standing Exercises 5 Standing Exercise Name resisted walking Resistance level 1 (green) Equipment Used sport cord Reps/Minutes 8 Comments pt cued to engage core and slow pace of walking 4 Standing Exercise Name side stepping Side bilateral Resistance level 1 Equipment Used sport cord Reps/Minutes 4 each side Comments pt reported more fatigue/ sensation in L glut with L side stepping Manual Therapy Treatment Soft Tissue Mobilization 4 Body Location R QL, paraspinals Mobilization Type Rolling Sustained Pressure Intensity/Depth Moderate Body Position Prone Comments light-moderate. Pt was very sensitive to touch at beginning but was able to tolerate deeper work throughout session. Self-Care/Home Management Treatment Education Patient Education Home Exercise Program Other Education reviewed old HEP and made corrections to form. Pt had difficulty with maintaining core stability during bird dog exercise and was encouraged to focus on this exercise. Cued to relax upper body with double [id number]. PT-OP-R Modalities Start: 03/20/19 17:23 Freq: Status: Active Protocol: Document 03/26/19 16:14 AR (Rec: 03/26/19 16:59 AR [email or web address]) Hot Pack/Cold Pack Treatment Hot Pack Patient Position Supine Treatment Duration (minutes) 15 PT-OP-T Assessment and Plan Start: 03/20/19 17:23 Freq: Status: Active Protocol: Document 03/26/19 16:14 AR (Rec: 03/26/19 16:33 AR [email or web address]) Physical Therapy Assessment Goals Three Impairment Strength Short Term Goal (STG) Pt will be complient with HEP in order to manage her pain with dec reliance on PT. STG Duration 04/14/2019 Support Staff Goal (LTG) Pt will demonstrate 5/5 on LE MMTs in order to be able to participate in daily activities w/o inc in L/S or R hip pain. LTG Duration 05/05/2019 Two Impairment Walking Short Term Goal (STG) Pt will be able to walk at a leisurely pace for 1 hour w/o inc in L/S or R hip pain more than 2 points on the VAS. STG Duration 04/07/2019 Support Staff Goal (LTG) Pt will be able to tolerate leisurely walking at the [employer] for 3 hours w/o inc of L/S or R hip pain more than 2 points on the VAS. LTG Duration 04/11/2019 One Impairment Standing Short Term Goal (STG) Pt will be able to tolerate standing for 30 minutes w/o L/ S and R hip pain. STG Duration 04/14/2019 Fpc Goal (LTG) Pt will be able to stand for 2 hours w/o L/S and R hip pain in order to perform ADLs. LTG Duration 05/05/2019 Assessment Summary Assessment Pt was unable to properly engage core during bird dog exercise and resisted walk outs, which may be a contributing factor to L/S pain with longer distance walking. Glut med weakness on L side may also be contributing factor to dec pelvic stability during amb. Physical Therapy Plan Frequency and Duration Frequency of Treatment 1-2x/week Duration of Treatment 6 weeks Plan of Care Start Date 03/24/19 Plan of Care End Date 05/05/19 Next Visit Focus/Plan Next Note Type Treatment Note Next Visit Plan progress core strengthening exercises, test glut med strength and add strengthening exercises to address as necessary.
--- NOTE | 2019-04-03 18:25 | PT.OTN ---
Current Diagnoses Scoliosis, unspecified (04/03/19) Pain in thoracic spine (04/03/19) Physical Therapy Treatment Note PT-OP-A Visit Information Start: 03/20/19 17:23 Freq: Status: Active Protocol: Document 04/03/19 17:48 AR (Rec: 04/03/19 18:07 AR [email or web address]) Out-Patient Physical Therapy Visit Information Visit Information Visit Type Treatment Note Visit Start Time 16:05 Visit Stop Time 16:45 Total Visit Minutes 40 Visit Number 3 Number of DEVELOPMENT VICE PRESIDENT Visits 0 PT-OP-B Current Condition Start: 03/20/19 17:23 Freq: Status: Active Protocol: Document 03/24/19 09:53 AR (Rec: 03/24/19 10:26 AR [email or web address]) Current Condition History of Current Condition Onset Date 01/22/2019 Current Complaints T/S pain after running, L/S and R hip pain intermittently History of Current Condition Pt reports sharp T/S pain began about 6-8 weeks ago. Pain occured 3 times and would last 12-24 hours. It was severe enough to limit ADLs and activity. She noted that taking a muscle relaxant was the only thing that eased pain . Pt attributes T/S pain to running on an indoor track during exercise classes, which was the only change in her recent activity. Pt gets pain after running about 200-400 meters. Pt has not tried running on other surfaces d/t fear of falling on uneven surfaces/trails. Pt also gets L/S and R hip pain with standing for extended periods of time and with walking at a slow pace. Prior Treatments and Tests Previous PT helpful and HEP dec pain when pt is complient. HEP not followed as strictly when pt is on vacation/working on home in [place]. Pt has scoliosis and responded well with previous PT treatment. T/ S x-ray reveal no compression fx. Treatment Goals Patient/Caregiver Goals Pt reports she is not seeking to get back to running and would be happy walking at a fast pace during her exercise program. She would like to be able to stand and walk at a slower pace (for community events like the [place] and quilting shows) without L/ S and R hip pain. Prior Functional Status Baseline Function- ADL's Independent Baseline Function- Mobility Independent PT-OP-C Subjective Start: 03/20/19 17:23 Freq: Status: Active Protocol: Document 04/03/19 17:48 AR (Rec: 04/03/19 18:07 AR [email or web address]) OP-PT Subjective Patient Comments Patient Comments Pt reports her lower back is still bothering her. She noted pain after walking for 1 hour this weekend and also has pain with standing. PT-OP-G Mobility & Gait Start: 03/20/19 17:23 Freq: Status: Active Protocol: Document 03/24/19 09:53 AR (Rec: 03/24/19 10:26 AR [email or web address]) OP Gait Assessment Gait Gait Assistance Required: Independent Comments Gait Comments decreased T/S rotation, swing through initiated through LE rather than pelvis, propulsive forces comes from LE PT-OP-J Posture/Palpation/Skin Start: 03/20/19 17:23 Freq: Status: Active Protocol: Document 03/24/19 09:53 AR (Rec: 03/24/19 10:26 AR [email or web address]) Posture Evaluation Position Standing Evaluation View Lateral Head/C-Spine Posture Forward Head T-Spine Posture Increased Kyphosis Thorax Posture (R) Elevated L-Spine Posture Decreased Lordosis Shoulder Posture (L) Rounded (R) Rounded Pelvis Posture (R) Iliac Crest Superior PT-OP-K Range of Motion Start: 03/20/19 17:23 Freq: Status: Active Protocol: Document 03/24/19 09:53 AR (Rec: 03/24/19 10:26 AR [email or web address]) Lumbar Spine Range of Motion Lumbar Spine Active Percentage Testing Position Standing Flexion 90 Extension 75 Lateral Flexion Left 75 Lateral Flexion Right 90 Active Degrees Testing Position Standing Rotation Left 45 Rotation Right 45 PT-OP-M Strength Start: 03/20/19 17:23 Freq: Status: Active Protocol: Document 03/24/19 09:53 AR (Rec: 03/24/19 10:26 AR [email or web address]) Hip Strength Hip Manual Muscle Testing Left Flexion (L2) 4+ Good+ External Rotation 4- Good- Internal Rotation 4 Good Right Flexion (L2) 4+ Good+ External Rotation 4- Good- Internal Rotation 4 Good Knee Strength Knee Manual Muscle Testing Left Flexion (S2) 4 Good Extension (L3) 4 Good Right Flexion (S2) 4 Good Extension (L3) 4 Good Ankle/Foot Strength Ankle and Foot Manual Muscle Testing Left Dorsiflexion (L4) 4- Good- Plantarflexion (S1) 4- Good- Inversion 5 Normal Eversion (S1) 5 Normal Right Dorsiflexion (L4) 4+ Good+ Plantarflexion (S1) 4- Good- Inversion 5 Normal Eversion (S1) 5 Normal PT-OP-Q Treatments Start: 03/20/19 17:23 Freq: Status: Active Protocol: Document 04/03/19 17:48 AR (Rec: 04/03/19 18:07 AR [email or web address]) Neuro Re-Education Treatment Other Activities segmental multifidi activation Details with pelvic rotation to L Reps/Duration 3 Comments pt unable to segmentally activate trunk to return to neutral. facilitory technique at knees and transverse processes did not improve ability to perform core facilitation Details w PNF chops/traction resistance Comments pt main activation through shoulder girdles, flickers of core activation 1 Details TA activation Reps/Duration 20 reps Comments added marching. pt was unable to engage TA and stabilize pelvis. palpation and cueing given to engage TA Self-Care/Home Management Treatment Education Patient Education Posture Other Education standing posture and walking. pt shifted posteriorly and noted dec pain with walking in correct posture PT-OP-R Modalities Start: 03/20/19 17:23 Freq: Status: Active Protocol: Document 03/26/19 16:14 AR (Rec: 03/26/19 16:59 AR [email or web address]) Hot Pack/Cold Pack Treatment Hot Pack Patient Position Supine Treatment Duration (minutes) 15 PT-OP-T Assessment and Plan Start: 03/20/19 17:23 Freq: Status: Active Protocol: Document 04/03/19 17:48 AR (Rec: 04/03/19 18:07 AR [email or web address]) Physical Therapy Assessment Goals Three Impairment Strength Short Term Goal (STG) Pt will be complient with HEP in order to manage her pain with dec reliance on PT. STG Duration 04/14/2019 Enterprise Resource Planning Consultant Goal (LTG) Pt will demonstrate 5/5 on LE MMTs in order to be able to participate in daily activities w/o inc in L/S or R hip pain. LTG Duration 05/05/2019 Two Impairment Walking Short Term Goal (STG) Pt will be able to walk at a leisurely pace for 1 hour w/o inc in L/S or R hip pain more than 2 points on the VAS. STG Duration 04/07/2019 Jail Goal (LTG) Pt will be able to tolerate leisurely walking [place] the [place] for 3 hours w/o inc of L/S or R hip pain more than 2 points on the VAS. LTG Duration 04/11/2019 One Impairment Standing Short Term Goal (STG) Pt will be able to tolerate standing for 30 minutes w/o L/ S and R hip pain. STG Duration 04/14/2019 Jail Goal (LTG) Pt will be able to stand for 2 hours w/o L/S and R hip pain in order to perform ADLs. LTG Duration 05/05/2019 Assessment Summary Assessment Pt's hip abd strength was tested to assess pain with lateral step outs during last session. Pt was unable to stabilize pelvis during testing, indicating decreased core activation and stabilization. Pt unable to activate core through multiple techniques and over-relies on hip flexors for LE movement. Slight activation was noted during PNF chops, but core fatigued quickly. Therapy to continue focus on core activation, as it seems to be a major contributor to LBP. Pt noted pain abolished with postural corrections and walking. Pt's posture improved with slight weight shift into forefoot and was educated on incorporating it into HEP. Physical Therapy Plan Frequency and Duration Frequency of Treatment 1-2x/week Duration of Treatment 6 weeks Plan of Care Start Date 03/24/19 Plan of Care End Date 05/05/19 Next Visit Focus/Plan Next Note Type Treatment Note Next Visit Plan continue core activation exercises, add resistance to walking if pt able to maintain appropriate posture
--- NOTE | 2019-04-09 16:48 | PT.OTN ---
Current Diagnoses Scoliosis, unspecified (04/09/19) Pain in thoracic spine (04/09/19) Physical Therapy Treatment Note PT-OP-A Visit Information Start: 03/20/19 17:23 Freq: Status: Active Protocol: Document 04/09/19 09:07 AR (Rec: 04/09/19 09:21 AR [email or web address]) Out-Patient Physical Therapy Visit Information Visit Information Visit Type Treatment Note Visit Start Time 08:15 Visit Stop Time 09:15 Total Visit Minutes 60 Visit Number 4 Number of DATA LIBRARIAN Visits 0 PT-OP-B Current Condition Start: 03/20/19 17:23 Freq: Status: Active Protocol: Document 03/24/19 09:53 AR (Rec: 03/24/19 10:26 AR [email or web address]) Current Condition History of Current Condition Onset Date 01/22/2019 Current Complaints T/S pain after running, L/S and R hip pain intermittently History of Current Condition Pt reports sharp T/S pain began about 6-8 weeks ago. Pain occured 3 times and would last 12-24 hours. It was severe enough to limit ADLs and activity. She noted that taking a muscle relaxant was the only thing that eased pain . Pt attributes T/S pain to running on an indoor track during exercise classes, which was the only change in her recent activity. Pt gets pain after running about 200-400 meters. Pt has not tried running on other surfaces d/t fear of falling on uneven surfaces/trails. Pt also gets L/S and R hip pain with standing for extended periods of time and with walking at a slow pace. Prior Treatments and Tests Previous PT helpful and HEP dec pain when pt is complient. HEP not followed as strictly when pt is on vacation/working on home in [place]. Pt has scoliosis and responded well with previous PT treatment. T/ S x-ray reveal no compression fx. Treatment Goals Patient/Caregiver Goals Pt reports she is not seeking to get back to running and would be happy walking at a fast pace during her exercise program. She would like to be able to stand and walk at a slower pace (for community events like [place] and quilting shows) without L/ S and R hip pain. Prior Functional Status Baseline Function- ADL's Independent Baseline Function- Mobility Independent PT-OP-C Subjective Start: 03/20/19 17:23 Freq: Status: Active Protocol: Document 04/09/19 09:07 AR (Rec: 04/09/19 09:21 AR [email or web address]) OP-PT Subjective Patient Comments Patient Comments Pt reports she has a pain in her lower thoracic region and believes she slept wrong on it. She has been compliant with her HEP but was confused on pelvic tilt exercises. PT-OP-G Mobility & Gait Start: 03/20/19 17:23 Freq: Status: Active Protocol: Document 03/24/19 09:53 AR (Rec: 03/24/19 10:26 AR [email or web address]) OP Gait Assessment Gait Gait Assistance Required: Independent Comments Gait Comments decreased T/S rotation, swing through initiated through LE rather than pelvis, propulsive forces comes from LE PT-OP-J Posture/Palpation/Skin Start: 03/20/19 17:23 Freq: Status: Active Protocol: Document 03/24/19 09:53 AR (Rec: 03/24/19 10:26 AR [email or web address]) Posture Evaluation Position Standing Evaluation View Lateral Head/C-Spine Posture Forward Head T-Spine Posture Increased Kyphosis Thorax Posture (R) Elevated L-Spine Posture Decreased Lordosis Shoulder Posture (L) Rounded (R) Rounded Pelvis Posture (R) Iliac Crest Superior PT-OP-K Range of Motion Start: 03/20/19 17:23 Freq: Status: Active Protocol: Document 03/24/19 09:53 AR (Rec: 03/24/19 10:26 AR [email or web address]) Lumbar Spine Range of Motion Lumbar Spine Active Percentage Testing Position Standing Flexion 90 Extension 75 Lateral Flexion Left 75 Lateral Flexion Right 90 Active Degrees Testing Position Standing Rotation Left 45 Rotation Right 45 PT-OP-M Strength Start: 03/20/19 17:23 Freq: Status: Active Protocol: Document 03/24/19 09:53 AR (Rec: 03/24/19 10:26 AR [email or web address]) Hip Strength Hip Manual Muscle Testing Left Flexion (L2) 4+ Good+ External Rotation 4- Good- Internal Rotation 4 Good Right Flexion (L2) 4+ Good+ External Rotation 4- Good- Internal Rotation 4 Good Knee Strength Knee Manual Muscle Testing Left Flexion (S2) 4 Good Extension (L3) 4 Good Right Flexion (S2) 4 Good Extension (L3) 4 Good Ankle/Foot Strength Ankle and Foot Manual Muscle Testing Left Dorsiflexion (L4) 4- Good- Plantarflexion (S1) 4- Good- Inversion 5 Normal Eversion (S1) 5 Normal Right Dorsiflexion (L4) 4+ Good+ Plantarflexion (S1) 4- Good- Inversion 5 Normal Eversion (S1) 5 Normal PT-OP-Q Treatments Start: 03/20/19 17:23 Freq: Status: Active Protocol: Document 04/09/19 09:07 AR (Rec: 04/09/19 09:21 AR [email or web address]) Therapeutic Exercises Supine Exercises 7 Supine Exercise Name TA w marches, bent knee fall outs Side bilateral Reps/Minutes 20 reps each 6 Supine Exercise Name TA with pelvic tilt Reps/Minutes 20 reps, 5-10 sec holds Standing Exercises 5 Standing Exercise Name resisted walking Resistance level 1 (green) Equipment Used sport cord Reps/Minutes 8 Comments heavy cueing for proper posture while walking Manual Therapy Treatment Soft Tissue Mobilization 4 Body Location R paraspinals Mobilization Type Rolling Strumming Sustained Pressure Intensity/Depth Superficial Body Position child's pose Comments pt very sensitive to light pressure. manual work did not help pain with post pevlic tilt exercises Self-Care/Home Management Treatment Education Patient Education Posture Other Education standing and walking. reviewed cueing from last week and focused on thorax PT-OP-R Modalities Start: 03/20/19 17:23 Freq: Status: Active Protocol: Document 04/09/19 09:07 AR (Rec: 04/09/19 09:21 AR [email or web address]) Hot Pack/Cold Pack Treatment Hot Pack Location T/S Patient Position Supine Treatment Duration (minutes) 15 PT-OP-T Assessment and Plan Start: 03/20/19 17:23 Freq: Status: Active Protocol: Document 04/09/19 09:07 AR (Rec: 04/09/19 09:21 AR [email or web address]) Physical Therapy Assessment Goals Three Impairment Strength Short Term Goal (STG) Pt will be complient with HEP in order to manage her pain with dec reliance on PT. STG Duration 04/14/2019 Film Inspector Goal (LTG) Pt will demonstrate 5/5 on LE MMTs in order to be able to participate in daily activities w/o inc in L/S or R hip pain. LTG Duration 05/05/2019 Two Impairment Walking Short Term Goal (STG) Pt will be able to walk at a leisurely pace for 1 hour w/o inc in L/S or R hip pain more than 2 points on the VAS. STG Duration 04/07/2019 Film Inspector Goal (LTG) Pt will be able to tolerate leisurely walking [place] for 3 hours w/o inc of L/S or R hip pain more than 2 points on the VAS. LTG Duration 04/11/2019 One Impairment Standing Short Term Goal (STG) Pt will be able to tolerate standing for 30 minutes w/o L/ S and R hip pain. STG Duration 04/14/2019 Film Inspector Goal (LTG) Pt will be able to stand for 2 hours w/o L/S and R hip pain in order to perform ADLs. LTG Duration 05/05/2019 Assessment Summary Assessment Pt was able to demonstrate proper standing posture and weight distribution through feet but had trouble correcting thorax posturing and heavy cueing was needed. Pt able to maintain thorax posture through resisted walking. Pt was able to engage TA better today and will benefit from continued core work. Physical Therapy Plan Frequency and Duration Frequency of Treatment 1-2x/week Duration of Treatment 6 weeks Plan of Care Start Date 03/24/19 Plan of Care End Date 05/05/19 Next Visit Focus/Plan Next Note Type Treatment Note Next Visit Plan progress TA and core exercises . review posture
--- NOTE | 2019-04-24 16:53 | PT.OTN ---
Current Diagnoses Scoliosis, unspecified (04/24/19) Pain in thoracic spine (04/24/19) Physical Therapy Treatment Note PT-OP-A Visit Information Start: 03/20/19 17:23 Freq: Status: Active Protocol: Document 04/24/19 11:13 AR (Rec: 04/24/19 12:11 AR [email or web address]) Out-Patient Physical Therapy Visit Information Visit Information Visit Type Treatment Note Visit Start Time 09:00 Visit Stop Time 10:00 Total Visit Minutes 60 Visit Number 5 Number of GLASS OR MIRROR INSPECTOR Visits 0 PT-OP-B Current Condition Start: 03/20/19 17:23 Freq: Status: Active Protocol: Document 03/24/19 09:53 AR (Rec: 03/24/19 10:26 AR [email or web address]) Current Condition History of Current Condition Onset Date 01/22/2019 Current Complaints T/S pain after running, L/S and R hip pain intermittently History of Current Condition Pt reports sharp T/S pain began about 6-8 weeks ago. Pain occured 3 times and would last 12-24 hours. It was severe enough to limit ADLs and activity. She noted that taking a muscle relaxant was the only thing that eased pain . Pt attributes T/S pain to running on an indoor track during exercise classes, which was the only change in her recent activity. Pt gets pain after running about 200-400 meters. Pt has not tried running on other surfaces d/t fear of falling on uneven surfaces/trails. Pt also gets L/S and R hip pain with standing for extended periods of time and with walking at a slow pace. Prior Treatments and Tests Previous PT helpful and HEP dec pain when pt is complient. HEP not followed as strictly when pt is on vacation/working on home in [place]. Pt has scoliosis and responded well with previous PT treatment. T/ S x-ray reveal no compression fx. Treatment Goals Patient/Caregiver Goals Pt reports she is not seeking to get back to running and would be happy walking at a fast pace during her exercise program. She would like to be able to stand and walk at a slower pace (for community events like the [place] and quilting shows) without L/ S and R hip pain. Prior Functional Status Baseline Function- ADL's Independent Baseline Function- Mobility Independent PT-OP-C Subjective Start: 03/20/19 17:23 Freq: Status: Active Protocol: Document 04/24/19 11:13 AR (Rec: 04/24/19 12:11 AR [email or web address]) OP-PT Subjective Patient Comments Patient Comments Pt reports she was able to walk [place] the [email or web address] with seated breaks for 4.5 hours. She was sore after, but she was happy she was able to do so much. She will be leaving [place] soon and thinks today could be her last visit if PT agrees. PT-OP-G Mobility & Gait Start: 03/20/19 17:23 Freq: Status: Active Protocol: Document 03/24/19 09:53 AR (Rec: 03/24/19 10:26 AR [email or web address]) OP Gait Assessment Gait Gait Assistance Required: Independent Comments Gait Comments decreased T/S rotation, swing through initiated through LE rather than pelvis, propulsive forces comes from LE PT-OP-J Posture/Palpation/Skin Start: 03/20/19 17:23 Freq: Status: Active Protocol: Document 03/24/19 09:53 AR (Rec: 03/24/19 10:26 AR [email or web address]) Posture Evaluation Position Standing Evaluation View Lateral Head/C-Spine Posture Forward Head T-Spine Posture Increased Kyphosis Thorax Posture (R) Elevated L-Spine Posture Decreased Lordosis Shoulder Posture (L) Rounded (R) Rounded Pelvis Posture (R) Iliac Crest Superior PT-OP-K Range of Motion Start: 03/20/19 17:23 Freq: Status: Active Protocol: Document 03/24/19 09:53 AR (Rec: 03/24/19 10:26 AR [email or web address]) Lumbar Spine Range of Motion Lumbar Spine Active Percentage Testing Position Standing Flexion 90 Extension 75 Lateral Flexion Left 75 Lateral Flexion Right 90 Active Degrees Testing Position Standing Rotation Left 45 Rotation Right 45 PT-OP-M Strength Start: 03/20/19 17:23 Freq: Status: Active Protocol: Document 03/24/19 09:53 AR (Rec: 03/24/19 10:26 AR [email or web address]) Hip Strength Hip Manual Muscle Testing Left Flexion (L2) 4+ Good+ External Rotation 4- Good- Internal Rotation 4 Good Right Flexion (L2) 4+ Good+ External Rotation 4- Good- Internal Rotation 4 Good Knee Strength Knee Manual Muscle Testing Left Flexion (S2) 4 Good Extension (L3) 4 Good Right Flexion (S2) 4 Good Extension (L3) 4 Good Ankle/Foot Strength Ankle and Foot Manual Muscle Testing Left Dorsiflexion (L4) 4- Good- Plantarflexion (S1) 4- Good- Inversion 5 Normal Eversion (S1) 5 Normal Right Dorsiflexion (L4) 4+ Good+ Plantarflexion (S1) 4- Good- Inversion 5 Normal Eversion (S1) 5 Normal PT-OP-Q Treatments Start: 03/20/19 17:23 Freq: Status: Active Protocol: Document 04/24/19 11:13 AR (Rec: 04/24/19 12:11 AR [email or web address]) Therapeutic Exercises Supine Exercises 7 Supine Exercise Name TA w marches, BKFO, heel slides Side bilateral Reps/Minutes 20 reps each Comments heavy cueing needed 6 Supine Exercise Name iso TA activation with holds Reps/Minutes 10 quick reps, 10x10 sec holds Standing Exercises 3 Standing Exercise Name wall posture Side bilateral Reps/Minutes 10 reps Comments with pec stretch Manual Therapy Treatment Joint Mobilizations 4 Joint upper T/S Direction PA Grade III Body Position Sitting Comments contract/relax with shoulder flexion, into thoracic ext. PT-OP-R Modalities Start: 03/20/19 17:23 Freq: Status: Active Protocol: Document 04/24/19 11:13 AR (Rec: 04/24/19 12:11 AR [email or web address]) Hot Pack/Cold Pack Treatment Hot Pack Location T/S Patient Position Supine Treatment Duration (minutes) 15 Comments large hot pack & cervical hot pack at upper T/S PT-OP-T Assessment and Plan Start: 03/20/19 17:23 Freq: Status: Active Protocol: Document 04/24/19 11:13 AR (Rec: 04/24/19 12:11 AR [email or web address]) Physical Therapy Assessment Goals Three Impairment Strength Short Term Goal (STG) Pt will be complient with HEP in order to manage her pain with dec reliance on PT. STG Duration 04/14/2019 Barrel Builder Goal (LTG) Pt will demonstrate 5/5 on LE MMTs in order to be able to participate in daily activities w/o inc in L/S or R hip pain. LTG Duration 05/05/2019 Two Impairment Walking Short Term Goal (STG) Pt will be able to walk at a leisurely pace for 1 hour w/o inc in L/S or R hip pain more than 2 points on the VAS. STG Duration 04/07/2019 Alf Goal (LTG) Pt will be able to tolerate [place] 3 hours w/o inc of L/S or R hip pain more than 2 points on the VAS. LTG Duration 04/11/2019 One Impairment Standing Short Term Goal (STG) Pt will be able to tolerate standing for 30 minutes w/o L/ S and R hip pain. STG Duration 04/14/2019 Alf Goal (LTG) Pt will be able to stand for 2 hours w/o L/S and R hip pain in order to perform ADLs. LTG Duration 05/05/2019 Assessment Summary Assessment Pt has shown inc tolerance to walking without pain. Pt was still confused about core activation exercises and posture so treatment heavily focused on them today. Pt felt confident she understoof exercises and the relationship between posture and her back pain after treatment. Pt was encouraged to attend one more visit to review HEP in order to manage and prevent pain on her own. Physical Therapy Plan Frequency and Duration Frequency of Treatment 1-2x/week Duration of Treatment 6 weeks Plan of Care Start Date 03/24/19 Plan of Care End Date 05/05/19 Next Visit Focus/Plan Next Note Type Treatment Note Next Visit Plan review TA and core exercises, progress if appropriate. review posture. solidify HEP for pt independence
--- NOTE | 2019-04-28 14:54 | PT.OTN ---
Current Diagnoses Scoliosis, unspecified (04/28/19) Pain in thoracic spine (04/28/19) Physical Therapy Treatment Note PT-OP-A Visit Information Start: 03/20/19 17:23 Freq: Status: Active Protocol: Document 04/28/19 09:45 AR (Rec: 04/28/19 11:13 AR [email or web address]) Out-Patient Physical Therapy Visit Information Visit Information Visit Type Discharge Summary Visit Start Time 09:48 Visit Stop Time 10:45 Total Visit Minutes 57 Visit Number 6 Number of PAINT BOOTH OPERATOR Visits 0 PT-OP-B Current Condition Start: 03/20/19 17:23 Freq: Status: Active Protocol: Document 03/24/19 09:53 AR (Rec: 03/24/19 10:26 AR [email or web address]) Current Condition History of Current Condition Onset Date 01/22/2019 Current Complaints T/S pain after running, L/S and R hip pain intermittently History of Current Condition Pt reports sharp T/S pain began about 6-8 weeks ago. Pain occured 3 times and would last 12-24 hours. It was severe enough to limit ADLs and activity. She noted that taking a muscle relaxant was the only thing that eased pain . Pt attributes T/S pain to running on an indoor track during exercise classes, which was the only change in her recent activity. Pt gets pain after running about 200-400 meters. Pt has not tried running on other surfaces d/t fear of falling on uneven surfaces/trails. Pt also gets L/S and R hip pain with standing for extended periods of time and with walking at a slow pace. Prior Treatments and Tests Previous PT helpful and HEP dec pain when pt is complient. HEP not followed as strictly when pt is on vacation/working on home in [place]. Pt has scoliosis and responded well with previous PT treatment. T/ S x-ray reveal no compression fx. Treatment Goals Patient/Caregiver Goals Pt reports she is not seeking to get back to running and would be happy walking at a fast pace during her exercise program. She would like to be able to stand and walk at a slower pace (for community events like the [employer] and quilting shows) without L/ S and R hip pain. Prior Functional Status Baseline Function- ADL's Independent Baseline Function- Mobility Independent PT-OP-C Subjective Start: 03/20/19 17:23 Freq: Status: Active Protocol: Document 04/28/19 09:45 AR (Rec: 04/28/19 11:13 AR [email or web address]) OP-PT Subjective Patient Comments Patient Comments Pt reports she has been compliant with her HEP and would like some clarification on some exercises. She twisted her back today while working in the oven, but her back has felt good otherwise. PT-OP-G Mobility & Gait Start: 03/20/19 17:23 Freq: Status: Active Protocol: Document 03/24/19 09:53 AR (Rec: 03/24/19 10:26 AR [email or web address]) OP Gait Assessment Gait Gait Assistance Required: Independent Comments Gait Comments decreased T/S rotation, swing through initiated through LE rather than pelvis, propulsive forces comes from LE PT-OP-J Posture/Palpation/Skin Start: 03/20/19 17:23 Freq: Status: Active Protocol: Document 03/24/19 09:53 AR (Rec: 03/24/19 10:26 AR [email or web address]) Posture Evaluation Position Standing Evaluation View Lateral Head/C-Spine Posture Forward Head T-Spine Posture Increased Kyphosis Thorax Posture (R) Elevated L-Spine Posture Decreased Lordosis Shoulder Posture (L) Rounded (R) Rounded Pelvis Posture (R) Iliac Crest Superior PT-OP-K Range of Motion Start: 03/20/19 17:23 Freq: Status: Active Protocol: Document 03/24/19 09:53 AR (Rec: 03/24/19 10:26 AR [email or web address]) Lumbar Spine Range of Motion Lumbar Spine Active Percentage Testing Position Standing Flexion 90 Extension 75 Lateral Flexion Left 75 Lateral Flexion Right 90 Active Degrees Testing Position Standing Rotation Left 45 Rotation Right 45 PT-OP-M Strength Start: 03/20/19 17:23 Freq: Status: Active Protocol: Document 04/28/19 09:45 [facility] (Rec: 04/28/19 10:25 [facility] [id number]) Hip Strength Hip Manual Muscle Testing Left Flexion (L2) 4+ Good+ External Rotation 4 Good Internal Rotation 5 Normal Right Flexion (L2) 4+ Good+ External Rotation 4+ Good+ Internal Rotation 5 Normal Knee Strength Knee Manual Muscle Testing Left Flexion (S2) 4+ Good+ Extension (L3) 5 Normal Right Flexion (S2) 5 Normal Extension (L3) 5 Normal Ankle/Foot Strength Ankle and Foot Manual Muscle Testing Left Dorsiflexion (L4) 5 Normal Plantarflexion (S1) 5 Normal Right Dorsiflexion (L4) 5 Normal Plantarflexion (S1) 5 Normal PT-OP-Q Treatments Start: 03/20/19 17:23 Freq: Status: Active Protocol: Document 04/28/19 09:45 AR (Rec: 04/28/19 11:13 AR [email or web address]) Therapeutic Exercises Supine Exercises 7 Supine Exercise Name TA w marches, BKFO, heel slides Side bilateral Reps/Minutes 1 reps each Comments reviewed HEP 6 Supine Exercise Name iso TA activation with holds Reps/Minutes 10 quick reps Standing Exercises 5 Standing Exercise Name resisted walking Resistance level 1 (green) Equipment Used sport cord Reps/Minutes 8 Comments heavy cueing for proper posture while walking 2 Standing Exercise Name wall posture w UE movements Side bilateral Reps/Minutes 10 reps Comments reviewed HEP Therapeutic Activity Therapeutic Activity weight acceptance Name wt acceptance Reps/Minutes 6 min standing Name posture in standing and against wall Reps/Minutes 10 min Comments reviewed posture and used visual cues to education pt on posture PT-OP-R Modalities Start: 03/20/19 17:23 Freq: Status: Active Protocol: Document 04/28/19 09:45 AR (Rec: 04/28/19 11:13 AR [email or web address]) Hot Pack/Cold Pack Treatment Hot Pack Location T/S Patient Position Supine Treatment Duration (minutes) 15 Comments large hot pack & cervical hot pack at upper T/S PT-OP-T Assessment and Plan Start: 03/20/19 17:23 Freq: Status: Active Protocol: Document 04/28/19 09:45 AR (Rec: 04/28/19 11:13 AR [email or web address]) Physical Therapy Assessment Goals Three Impairment Strength Short Term Goal (STG) Pt will be complient with HEP in order to manage her pain with dec reliance on PT. 04/28/19 - goal met STG Duration 04/14/2019 Bark Fitter Goal (LTG) Pt will demonstrate 5/5 on LE MMTs in order to be able to participate in daily activities w/o inc in L/S or R hip pain. 04/28/19 - progress. LTG Duration 05/05/2019 Two Impairment Walking Short Term Goal (STG) Pt will be able to walk at a leisurely pace for 1 hour w/o inc in L/S or R hip pain more than 2 points on the VAS. 04/28/19 - goal met STG Duration 04/07/2019 [facility] Goal (LTG) Pt will be able to tolerate leisurely walking at the [place] for 3 hours w/o inc of L/S or R hip pain more than 2 points on the VAS. 04/28/19 - goal met LTG Duration 04/11/2019 One Impairment Standing Short Term Goal (STG) Pt will be able to tolerate standing for 30 minutes w/o L/ S and R hip pain. 04/28/19 - goal met. able to stand 2-3 hours w/o pain STG Duration 04/14/2019 [facility] Goal (LTG) Pt will be able to stand for 2 hours w/o L/S and R hip pain in order to perform ADLs. 04/28/19 - goal met. able to stand 2-3 hours w/o pain LTG Duration 05/05/2019 Progress Towards Goals Progress Towards Goals Progressing Toward Goals Goals Met Progress Comments pt still has some LE weakness, but has improved MMT scores overall Assessment Summary Assessment Pt was able to demonstrate proper posture with minimal cueing after today's session and able to retain it through resisted walking. She has met most of her goals and is able to perform functional activities (walking, standin, etc) w/o pain. Pt still has some strength deficits but is compliant with HEP. Pt feel confident about discharging at this time. Physical Therapy Plan Frequency and Duration Frequency of Treatment 1-2x/week Duration of Treatment 6 weeks Plan of Care Start Date 03/24/19 Plan of Care End Date 05/05/19 Discharge Physical Therapy Discharge Reasons Goals Met Discharge Comments Pt will be out of state soon and feels that her goals have been met. She feels confident about HEP with proper form.
== END 2019-04-29 11:01 | disposition home or self-care (01) ==
LOC: PHYS 09:45
PROVIDERS: PCP Family Medicine; Visit Provider Family Medicine
DX: M54.6 Pain in thoracic spine (principal); M41.9 Scoliosis, unspecified
CPT/HCPCS: 97010; 97110; 97112; 97140; 97161; 97530; 97535

== ENCOUNTER → 2019-10-03 09:29 | Outpatient (CLI) | payer OTHER, SELFPAY ==
[2019-10-03 10:47] LABS: Alanine Aminotransferase 16 IU/L (<35); Albumin 4.2 g/dL (3.5-5.0); Albumin Globulin Ratio 1.4 (1.0-2.8); Alkaline Phosphatase 79 U/L (38-126); Aspartate Aminotransferase 28 IU/L (14-36); Blood Urea Nitrogen 12 mg/dL (7-17); Calcium 9.7 mg/dL (8.4-10.2); Carbon Dioxide 32 mmol/L (22-32); Chloride 94 mmol/L (98-107); Cholesterol 179 mg/dL (140-199); Estimated Glomerular Filt Rate > 60.0 mL/min (>60); Globulin 3.1 g/dL (1.7-4.1); Glucose 91 mg/dL (80-110); HDL Cholesterol 69 mg/dL (40-60); HEMOLYSIS < 15 (0-50); LDL Cholesterol Calculated 86 mg/dL (<100); Potassium 3.8 mmol/L (3.4-5.1); Sodium 136 mmol/L (137-145); Total Protein 7.3 g/dL (6.3-8.2); Triglycerides 120 mg/dL (35-150)
== END ==
PROVIDERS: PCP Family Medicine; Visit Provider Family Medicine
DX: E78.5 Hyperlipidemia, unspecified (principal); I10 Essential (primary) hypertension
CPT/HCPCS: 80053; 80061

== ENCOUNTER → 2020-10-07 07:08 | Outpatient (CLI) | payer OTHER, SELFPAY ==
[2020-10-07 09:40] LABS: Appearance Urine UA CLOUDY; Bilirubin Urine UA NEGATIVE (NEGATIVE); Color Urine UA YELLOW; Glucose Urine UA NEGATIVE (Negative); Ketones Urine UA NEGATIVE (NEGATIVE); Leukocyte Esterase Urine UA 3+ (NEGATIVE); Nitrite Urine UA POSITIVE (Negative); Occult Blood Urine UA 3+ (Negative); Protein Urine UA 1+ (Negative); Urobilinogen Urine UA 0.2 E.U./dL (0.2)
[2020-10-07 10:16] LABS: pH Urine UA 6.5 (4.5-8.0)
[2020-10-07 10:17] LABS: Bacteria Urine Many (>30); RBC Urine 10-30/HPF (0-5/HPF); WBC Urine >100/HPF (0-5/HPF)
[2020-10-07 10:18] LABS: Culture Indicated Urine Specimen Cultured
== END ==
PROVIDERS: PCP Family Medicine; Referring Provider Family Medicine; Visit Provider Family Medicine
DX: R30.0 Dysuria (principal); R35.0 Frequency of micturition
CPT/HCPCS: 81001; 87077; 87086; 87186

== ENCOUNTER → 2020-10-27 08:27 | Outpatient (CLI) | payer OTHER, SELFPAY ==
[2020-10-27 09:37] LABS: Add Manual Diff / Slide Review NO; Basophils Absolute Auto 0 /uL (0-100); Basophils Percent Auto 0.7 % (0-2); Eosinophils Absolute Auto 100 /uL (0-450); Hematocrit 40.9 % (36-46); Hemoglobin 13.9 g/dL (12.0-16.0); Lymphocytes Absolute Auto 1400 /uL (1100-4500); Mean Corpuscular Volume 97.1 fL (80-100); Monocytes Absolute Auto 400 /uL (0-900); Monocytes Percent Auto 7.1 % (3-14); Neutrophils Absolute Auto 3400 /uL (1500-7000); Neutrophils Percent Auto 64.2 % (50-75); Platelet Count 184 X10^3/uL (150-400); Red Blood Cell Count 4.21 X10^6/uL (4.0-5.2); White Blood Cell Count 5.3 X10^3/uL (4.5-11.0)
[2020-10-27 10:18] LABS: Alanine Aminotransferase 18 IU/L (<35); Albumin Globulin Ratio 1.3 (1.0-2.8); Alkaline Phosphatase 70 U/L (38-126); Aspartate Aminotransferase 28 IU/L (14-36); Bilirubin Total 0.5 mg/dL (0.2-1.3); Blood Urea Nitrogen 15 mg/dL (7-17); Calcium 9.4 mg/dL (8.4-10.2); Carbon Dioxide 34 mmol/L (22-32); Chloride 97 mmol/L (98-107); Cholesterol 161 mg/dL (140-199); Estimated Glomerular Filt Rate > 60.0 mL/min (>60); Globulin 3.2 g/dL (1.7-4.1); Glucose 109 mg/dL (80-110); HDL Cholesterol 65 mg/dL (40-60); HEMOLYSIS < 15 (0-50); LDL Cholesterol Calculated 76 mg/dL (<100); Potassium 3.5 mmol/L (3.4-5.1); Sodium 133 mmol/L (137-145); Total Protein 7.2 g/dL (6.3-8.2); Triglycerides 99 mg/dL (35-150)
== END ==
PROVIDERS: PCP Family Medicine; Referring Provider Family Medicine; Visit Provider Family Medicine
DX: E78.5 Hyperlipidemia, unspecified (principal); I10 Essential (primary) hypertension
CPT/HCPCS: 36415; 80053; 80061; 85025

== ENCOUNTER → 2020-11-02 14:49 | Outpatient (CLI) | payer OTHER, SELFPAY ==
[2020-11-03 12:36] LABS: Fecal Immunochemical Test Negative (Negative)
== END ==
PROVIDERS: PCP Family Medicine; Referring Provider Family Medicine; Visit Provider Family Medicine
DX: Z12.11 Encounter for screening for malignant neoplasm of colon (principal)
CPT/HCPCS: 82274

== ENCOUNTER 2021-03-09 08:15 | Outpatient (RCR) | payer OTHER, SELFPAY ==
--- NOTE | 2020-11-17 15:48 | PT.OIE ---
Current Diagnoses Other chronic pain (11/17/20) Torticollis (11/17/20) Dorsalgia, unspecified (11/17/20) Past Medical History (Last Updated 10/14/20 @ 09:56 by Carlos Medeiros DO) Cervical somatic dysfunction Chronic back pain greater than 3 months duration GERD (gastroesophageal reflux disease) Hyperlipemia (Unknown) Hypertension (Unknown) Lumbar region somatic dysfunction Osteoarthritis (Unknown) Pelvic somatic dysfunction Screening for osteoporosis Segmental and somatic dysfunction of abdomen and other regions Segmental and somatic dysfunction of sacral region Stiff neck Thoracic region somatic dysfunction Urinary tract infection Past Surgical History (Last Reviewed 02/25/20 @ 11:15 by Carlos Medeiros DO) Hx of appendectomy (Unknown) Visit Care Team Role Provider Type Carlos Medeiros DO Attending Provider Physician Primary Care Provider Referring Provider Specialty: [facility] Address: [address] [place] [address] Email: Physical Therapy Initial Evaluation PT-OP-A Visit Information Start: 11/15/20 10:20 Freq: Status: Active Protocol: Document 11/17/20 13:46 MB (Rec: 11/17/20 13:58 MB [id number]) Out-Patient Physical Therapy Visit Information Visit Information Visit Type Initial Evaluation Visit Note [employer], co-pay $30 Visit Start Time 13:46 Visit Stop Time 14:26 Total Visit Minutes 40 Visit Number 1 Evaluation Information Evaluation Date 11/17/20 PT-OP-B Current Condition Start: 11/15/20 10:20 Freq: Status: Active Protocol: Document 11/17/20 13:46 MB (Rec: 11/17/20 13:58 MB [id number]) Current Condition History of Current Condition Onset Date 4 years ago Current Complaints Back pain, especially when up History of Current Condition Pt reports that 4 years ago, she was caring for her who has sinced and she hurt her back. She was born with scoliosis. Pt received 4 OMT treatments from . Pt uses stationary upright bike at home. She used to backpack and hike and hasn 't been able to do so in two years d/t back pain. She is doing active cervical rotation with thoracic slumping at home, hook lying lumbar rocking and buttocks stretches , hamstring stretches in sitting. She is also taking a nap each day with her legs up on a wedge. PMH: cervical somatic dysfunction, hyperlipidemia, HTN, OA, lumbar and pelvic somatic dysfunction, OP, thoracic region somatic dysfunction. Pt rates back pain as 4/10 and it is located at right thoracic area and B SI joints. Pt has a back brace that she uses occ. She uses a waffle seat cushion and back on the mower and that helps. Prior Treatments and Tests OMT treatment, x-ray thoracic spine 02/04/19: slight levoscoliosis centered at the low thoracic spine and minimal degenerative disc height reduction Pt had PT in the past for back pain and liked being on the wedge (hook lying with her legs up) Treatment Goals Patient/Caregiver Goals To decrease back pain PT-OP-C Subjective Start: 11/15/20 10:20 Freq: Status: Active Protocol: Document 11/17/20 13:46 MB (Rec: 11/17/20 15:32 MB [id number]) OP-PT Subjective Patient Comments Patient Comments See history of current condition PT-OP-J Posture/Palpation/Skin Start: 11/15/20 10:20 Freq: Status: Active Protocol: Document 11/17/20 13:46 MB (Rec: 11/17/20 15:48 MB [id number]) Posture Evaluation Comments Posture Comments Standing posture with socks on and no shoes: Head rests in 3 deg right SB and left rotation. Decreased cervical lordosis, decreased thoracic kyphosis, increased lumbar lordosis. Dowager's hump, left shoulder lower than the right and lateral curvature of her spine with convexity to the right thoracic area and she has pain to palpation there. Right iliac crest is higher than left. Anterior tilt pelvis and shoulders and trunk more posterior and knees flexed. Increased valgus right knee and overpronation right greater than left foot. PT-OP-K Range of Motion Start: 11/15/20 10:20 Freq: Status: Active Protocol: Document 11/17/20 13:46 MB (Rec: 11/17/20 15:48 MB [id number]) Cervical Spine Range of Motion Cervical Spine Active Testing Position Standing Flexion 50 Extension 40 Rotation Left 28 Rotation Right 36 Lumbar Spine Range of Motion Lumbar Spine Active Comments Thoracic spine movement in standing: SB to the left less than the right and both reduced; sitting thoracic rotation 35 deg to the right and 40 deg to the left Shoulder Goniometric Range of Motion Shoulder ROM Limitations Comments B shoulder flexion and abduction WFLs for age Hip Goniometric Range of Motion Hip ROM Limitations Comments Passive SLR: 40 deg right and 30 deg left PT-OP-M Strength Start: 11/15/20 10:20 Freq: Status: Active Protocol: Document 11/17/20 13:46 MB (Rec: 11/17/20 15:48 MB [id number]) Hip Strength Hip Manual Muscle Testing Left Flexion (L2) 4 Good Abduction 3+ Fair+ Comments Pt supine Right Flexion (L2) 5 Normal Abduction 4 Good Comments Pt supine Knee Strength Knee Manual Muscle Testing Left Flexion (S2) 4 Good Extension (L3) 4 Good Right Flexion (S2) 4 Good Extension (L3) 5 Normal Ankle/Foot Strength Ankle and Foot Manual Muscle Testing Left Dorsiflexion (L4) 5 Normal Right Dorsiflexion (L4) 5 Normal Toe Strength Toe Manual Muscle Testing Left Great Toe Extension 4 Good Right Great Toe Extension 4 Good PT-OP-Q Treatments Start: 11/15/20 10:20 Freq: Status: Active Protocol: Document 11/17/20 13:46 MB (Rec: 11/17/20 15:33 MB [id number]) Self-Care/Home Management Treatment Education Patient Education Body Mechanics,Pain Management ,Posture,Safety Other Education Proper sleeping position for supine with pillow support under knees and small towel roll under pillow case to support neck and pt tries with PT and has relief. Ed in benefits of sitting on therapy ball at desk and proper body position for desk ergonomics. Ed to bring in her therapy ball so PT can assess it, inflate as needed and progress HEP with it. PT-OP-T Assessment and Plan Start: 11/15/20 10:20 Freq: Status: Active Protocol: Document 11/17/20 13:46 MB (Rec: 11/17/20 15:48 MB [id number]) Physical Therapy Assessment Rehab Potential Rehabilitation Potential Fair Evaluation Complexity Number of Personal Factors/Comorbidities 1-2 Number of Body Systems Impaired 1-2 Clinical Presentation at Evaluation Evolving Impairments Impairments Activity Tolerance,Balance, Pain,Posture,ROM,Soft Tissue Mobility,Strength Other Impairments Pt denies sensory changes. Other Concerns Fall Risk Pt denies falls, dizziness and headaches Goals 4 Mental Health Aides Teacher Goal (LTG) Pt will perform WNLs on a standardized balance test to decrease fall risk by 01/17/21. LTG Duration 8 weeks Three Chcf Goal (LTG) Pt will present with an improved Oswestry LBP score to no more than 25% to reflect improved pain and function by 01/17/21. LTG Duration 8 weeks Two Chcf Goal (LTG) Pt will present with improved and equal B trunk side bend in standing and thoracic rotation in sitting to improve overall thoracic mobility and flexibility and to decrease pain by 01/17/21. LTG Duration 8 weeks One Mental Health Aides Teacher Goal (LTG) Pt will perform progressive HEP with I including thoracic mobility, pelvic realignment, breathing and relaxation exercises, flexibility, core, spine and LE strengthening and balance exercises to improve pain, range and balance by 06/30. LTG Duration 8 weeks Assessment Summary Assessment Pt is an 84 y/o female presenting with right thoracic and B SI pain that is chronic and progressive. 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 She has reduced cervical and thoracic range of motion, limited B SLR and fascial changes. She presents with B hip and knee weakness. She will benefit from PT to improve flexibility, breathing pattern, pelvic alignment, balance and strength. Barriers include advanced age, visible spinal changes, history of OA and OP and pt will be leaving for the month of December and PT course will be interrupted for 1 month. Physical Therapy Plan Frequency and Duration Frequency of Treatment 2x/Week Duration of Treatment 8 weeks Plan of Care Start Date 11/17/20 Plan of Care End Date 01/17/21 Therapeutic Interventions Therapeutic Interventions Balance Training,Canalithic Repositioning,Gait Training, Home Exercise Program,Joint Mobilizations,Manual Therapy, Neuromuscular Re-education, Patient/Caregiver Education, Self-Care/Home Management,Soft Tissue Mobilization,Taping, Therapeutic Activities, Therapeutic Exercises Modalities Cold Pack/Ice Massage,Hot Packs Next Visit Focus/Plan Next Note Type Treatment Note Next Visit Plan Initiate pelvic realignment exercises and hook lying exercises with legs over therapy ball for shoulder flexion, abdominal drawing in and diaphragm breathing
--- NOTE | 2020-11-17 15:48 | PT.OPPOC ---
Physical, Occupational & Speech Therapy At [facility] Current Diagnoses Other chronic pain (11/17/20) Torticollis (11/17/20) Dorsalgia, unspecified (11/17/20) Visit Care Team Role Provider Type Carlos Medeiros DO Attending Provider Physician Primary Care Provider Referring Provider Specialty: Family [facility] Address: [address] [place] [address], [facility] Email: Plan Of Care PT-OP-T Assessment and Plan Start: 11/15/20 10:20 Freq: Status: Active Protocol: Document 11/17/20 13:46 MB (Rec: 11/17/20 15:48 MB [id number]) Physical Therapy Assessment Rehab Potential Rehabilitation Potential Fair Evaluation Complexity Number of Personal Factors/Comorbidities 1-2 Number of Body Systems Impaired 1-2 Clinical Presentation at Evaluation Evolving Impairments Impairments Activity Tolerance,Balance, Pain,Posture,ROM,Soft Tissue Mobility,Strength Other Impairments Pt denies sensory changes. Other Concerns Fall Risk Pt denies falls, dizziness and headaches Goals 4 Historical Records Administrator Goal (LTG) Pt will perform WNLs on a standardized balance test to decrease fall risk by 01/17/21. LTG Duration 8 weeks Three Historical Records Administrator Goal (LTG) Pt will present with an improved Oswestry LBP score to no more than 25% to reflect improved pain and function by 01/17/21. LTG Duration 8 weeks Two Historical Records Administrator Goal (LTG) Pt will present with improved and equal B trunk side bend in standing and thoracic rotation in sitting to improve overall thoracic mobility and flexibility and to decrease pain by 01/17/21. LTG Duration 8 weeks One Historical Records Administrator Goal (LTG) Pt will perform progressive HEP with I including thoracic mobility, pelvic realignment, breathing and relaxation exercises, flexibility, core, spine and LE strengthening and balance exercises to improve pain, range and balance by 06/30. LTG Duration 8 weeks Assessment Summary Assessment Pt is an 84 y/o female presenting with right thoracic and B SI pain that is chronic and progressive. 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 She has reduced cervical and thoracic range of motion, limited B SLR and fascial changes. She presents with B hip and knee weakness. She will benefit from PT to improve flexibility, breathing pattern, pelvic alignment, balance and strength. Barriers include advanced age, visible spinal changes, history of OA and OP and pt will be leaving for the month of December and PT course will be interrupted for 1 month. Physical Therapy Plan Frequency and Duration Frequency of Treatment 2x/Week Duration of Treatment 8 weeks Plan of Care Start Date 11/17/20 Plan of Care End Date 01/17/21 Therapeutic Interventions Therapeutic Interventions Balance Training,Canalithic Repositioning,Gait Training, Home Exercise Program,Joint Mobilizations,Manual Therapy, Neuromuscular Re-education, Patient/Caregiver Education, Self-Care/Home Management,Soft Tissue Mobilization,Taping, Therapeutic Activities, Therapeutic Exercises Modalities Cold Pack/Ice Massage,Hot Packs Next Visit Focus/Plan Next Note Type Treatment Note Next Visit Plan Initiate pelvic realignment exercises and hook lying exercises with legs over therapy ball for shoulder flexion, abdominal drawing in and diaphragm breathing Plan of Care Dates Plan of Care Start Date 11/17/20 Plan of Care End Date 01/17/21 Electronically Signed by: Latosha Kohli, PT 11/17/20 0131 Please Sign and Return: I have reviewed this Plan of Care and certify that the skilled therapy services above are required to meet the patient?s needs. Physician Signature Date Printed Name and Credentials Clinical Instructor Signature Printed Name and Credentials
--- NOTE | 2020-11-19 08:12 | PT.OTN ---
Current Diagnoses Other chronic pain (11/19/20) Torticollis (11/19/20) Dorsalgia, unspecified (11/19/20) Physical Therapy Treatment Note PT-OP-A Visit Information Start: 11/15/20 10:20 Freq: Status: Active Protocol: Document 11/19/20 07:30 MB (Rec: 11/19/20 08:11 MB [id number]) Out-Patient Physical Therapy Visit Information Visit Information Visit Type Treatment Note Visit Note [facility], co-pay $30 Visit Start Time 07:30 Visit Stop Time 08:10 Total Visit Minutes 40 Visit Number 2 PT-OP-B Current Condition Start: 11/15/20 10:20 Freq: Status: Active Protocol: Document 11/17/20 13:46 MB (Rec: 11/17/20 13:58 MB [id number]) Current Condition History of Current Condition Onset Date 4 years ago Current Complaints Back pain, especially when up History of Current Condition Pt reports that 4 years ago, she was caring for her who has sinced and she hurt her back. She was born with scoliosis. Pt received 4 OMT treatments from . Pt uses stationary upright bike at home. She used to backpack and hike and hasn 't been able to do so in two years d/t back pain. She is doing active cervical rotation with thoracic slumping at home, hook lying lumbar rocking and buttocks stretches , hamstring stretches in sitting. She is also taking a nap each day with her legs up on a wedge. PMH: cervical somatic dysfunction, hyperlipidemia, HTN, OA, lumbar and pelvic somatic dysfunction, OP, thoracic region somatic dysfunction. Pt rates back pain as 4/10 and it is located at right thoracic area and B SI joints. Pt has a back brace that she uses occ. She uses a waffle seat cushion and back on the mower and that helps. Prior Treatments and Tests OMT treatment, x-ray thoracic spine 02/04/19: slight levoscoliosis centered at the low thoracic spine and minimal degenerative disc height reduction Pt had PT in the past for back pain and liked being on the wedge (hook lying with her legs up) Treatment Goals Patient/Caregiver Goals To decrease back pain PT-OP-C Subjective Start: 11/15/20 10:20 Freq: Status: Active Protocol: Document 11/19/20 07:30 MB (Rec: 11/19/20 08:11 MB [id number]) OP-PT Subjective Patient Comments Patient Comments I ordered a footstool for my desk chair because my feet weren't touching the floor. PT-OP-J Posture/Palpation/Skin Start: 11/15/20 10:20 Freq: Status: Active Protocol: Document 11/17/20 13:46 MB (Rec: 11/17/20 15:48 MB [id number]) Posture Evaluation Comments Posture Comments Standing posture with socks on and no shoes: Head rests in 3 deg right SB and left rotation. Decreased cervical lordosis, decreased thoracic kyphosis, increased lumbar lordosis. Dowager's hump, left shoulder lower than the right and lateral curvature of her spine with convexity to the right thoracic area and she has pain to palpation there. Right iliac crest is higher than left. Anterior tilt pelvis and shoulders and trunk more posterior and knees flexed. Increased valgus right knee and overpronation right greater than left foot. PT-OP-K Range of Motion Start: 11/15/20 10:20 Freq: Status: Active Protocol: Document 11/17/20 13:46 MB (Rec: 11/17/20 15:48 MB [id number]) Cervical Spine Range of Motion Cervical Spine Active Testing Position Standing Flexion 50 Extension 40 Rotation Left 28 Rotation Right 36 Lumbar Spine Range of Motion Lumbar Spine Active Comments Thoracic spine movement in standing: SB to the left less than the right and both reduced; sitting thoracic rotation 35 deg to the right and 40 deg to the left Shoulder Goniometric Range of Motion Shoulder ROM Limitations Comments B shoulder flexion and abduction WFLs for age Hip Goniometric Range of Motion Hip ROM Limitations Comments Passive SLR: 40 deg right and 30 deg left PT-OP-M Strength Start: 11/15/20 10:20 Freq: Status: Active Protocol: Document 11/17/20 13:46 MB (Rec: 11/17/20 15:48 MB [id number]) Hip Strength Hip Manual Muscle Testing Left Flexion (L2) 4 Good Abduction 3+ Fair+ Comments Pt supine Right Flexion (L2) 5 Normal Abduction 4 Good Comments Pt supine Knee Strength Knee Manual Muscle Testing Left Flexion (S2) 4 Good Extension (L3) 4 Good Right Flexion (S2) 4 Good Extension (L3) 5 Normal Ankle/Foot Strength Ankle and Foot Manual Muscle Testing Left Dorsiflexion (L4) 5 Normal Right Dorsiflexion (L4) 5 Normal Toe Strength Toe Manual Muscle Testing Left Great Toe Extension 4 Good Right Great Toe Extension 4 Good PT-OP-Q Treatments Start: 11/15/20 10:20 Freq: Status: Active Protocol: Document 11/19/20 07:30 MB (Rec: 11/19/20 08:11 MB [id number]) Gym Equipment Therapeutic Ball Many exercises Exercise Details Hip adductor stretch, hamstring stretch, lumbar rocking, engaged pelvic Comments Pt's pink 55 cm ball: Big circles clockwise and counterclockwise, then tight circles with core engaged. Same with pelvic rocking, one engaged core and one not Adductor and hamstrings stretches B, hold 30 sec Therapeutic Exercises Supine Exercises Pelvic realignment exercises Side bilateral Comments 5 reps, 3 sec hold each exercise Self-Care/Home Management Treatment Education Other Education Tried and ed in many types of sitting positions at desk: therapy ball chair vs therapy ball (55 cm inflated better that is hers), use of platter to keep ball still, wear shoes when on ball and then hips higher than knees and she will try a footstool she just ordered PT-OP-T Assessment and Plan Start: 11/15/20 10:20 Freq: Status: Active Protocol: Document 11/19/20 07:30 MB (Rec: 11/19/20 08:11 MB [id number]) Physical Therapy Assessment Rehab Potential Rehabilitation Potential Fair Evaluation Complexity Number of Personal Factors/Comorbidities 1-2 Number of Body Systems Impaired 1-2 Clinical Presentation at Evaluation Evolving Impairments Impairments Activity Tolerance,Balance, Pain,Posture,ROM,Soft Tissue Mobility,Strength Other Impairments Pt denies sensory changes. Other Concerns Fall Risk Pt denies falls, dizziness and headaches Goals 4 [facility] Goal (LTG) Pt will perform WNLs on a standardized balance test to decrease fall risk by 01/17/21. LTG Duration 8 weeks Three [facility] Goal (LTG) Pt will present with an improved Oswestry LBP score to no more than 25% to reflect improved pain and function by 01/17/21. LTG Duration 8 weeks Two Microbiology Professor Goal (LTG) Pt will present with improved and equal B trunk side bend in standing and thoracic rotation in sitting to improve overall thoracic mobility and flexibility and to decrease pain by 01/17/21. LTG Duration 8 weeks One [facility] Goal (LTG) Pt will perform progressive HEP with I including thoracic mobility, pelvic realignment, breathing and relaxation exercises, flexibility, core, spine and LE strengthening and balance exercises to improve pain, range and balance by 06/30. LTG Duration 8 weeks Assessment Summary Assessment Initiated further body mechanics training today with her therapy ball and initiated flexibility and abdominal drawing in, pelvic realignment exercises. Physical Therapy Plan Frequency and Duration Frequency of Treatment 2x/Week Duration of Treatment 8 weeks Plan of Care Start Date 11/17/20 Plan of Care End Date 01/17/21 Therapeutic Interventions Therapeutic Interventions Balance Training,Canalithic Repositioning,Gait Training, Home Exercise Program,Joint Mobilizations,Manual Therapy, Neuromuscular Re-education, Patient/Caregiver Education, Self-Care/Home Management,Soft Tissue Mobilization,Taping, Therapeutic Activities, Therapeutic Exercises Modalities Cold Pack/Ice Massage,Hot Packs Next Visit Focus/Plan Next Note Type Treatment Note Next Visit Plan Initiate therapy ball QL, pect and thoracic rotation vs sitting in chair, possible racquet ball massage
--- NOTE | 2020-11-22 08:54 | PT.OTN ---
Current Diagnoses Other chronic pain (11/22/20) Torticollis (11/22/20) Dorsalgia, unspecified (11/22/20) Physical Therapy Treatment Note PT-OP-A Visit Information Start: 11/15/20 10:20 Freq: Status: Active Protocol: Document 11/22/20 08:14 MB (Rec: 11/22/20 08:53 MB [id number]) Out-Patient Physical Therapy Visit Information Visit Information Visit Type Treatment Note Visit Note [facility], co-pay $30 Visit Start Time 08:14 Visit Stop Time 08:54 Total Visit Minutes 40 Visit Number 3 PT-OP-B Current Condition Start: 11/15/20 10:20 Freq: Status: Active Protocol: Document 11/17/20 13:46 MB (Rec: 11/17/20 13:58 MB [id number]) Current Condition History of Current Condition Onset Date 4 years ago Current Complaints Back pain, especially when up History of Current Condition Pt reports that 4 years ago, she was caring for her who has sinced and she hurt her back. She was born with scoliosis. Pt received 4 OMT treatments from . Pt uses stationary upright bike at home. She used to backpack and hike and hasn 't been able to do so in two years d/t back pain. She is doing active cervical rotation with thoracic slumping at home, hook lying lumbar rocking and buttocks stretches , hamstring stretches in sitting. She is also taking a nap each day with her legs up on a wedge. PMH: cervical somatic dysfunction, hyperlipidemia, HTN, OA, lumbar and pelvic somatic dysfunction, OP, thoracic region somatic dysfunction. Pt rates back pain as 4/10 and it is located at right thoracic area and B SI joints. Pt has a back brace that she uses occ. She uses a waffle seat cushion and back on the mower and that helps. Prior Treatments and Tests OMT treatment, x-ray thoracic spine 02/04/19: slight levoscoliosis centered at the low thoracic spine and minimal degenerative disc height reduction Pt had PT in the past for back pain and liked being on the wedge (hook lying with her legs up) Treatment Goals Patient/Caregiver Goals To decrease back pain PT-OP-C Subjective Start: 11/15/20 10:20 Freq: Status: Active Protocol: Document 11/22/20 08:14 MB (Rec: 11/22/20 08:53 MB [id number]) OP-PT Subjective Patient Comments Patient Comments No. My car is full. When PT asks pt if she brought in her therapy ball today. PT-OP-J Posture/Palpation/Skin Start: 11/15/20 10:20 Freq: Status: Active Protocol: Document 11/17/20 13:46 MB (Rec: 11/17/20 15:48 MB [id number]) Posture Evaluation Comments Posture Comments Standing posture with socks on and no shoes: Head rests in 3 deg right SB and left rotation. Decreased cervical lordosis, decreased thoracic kyphosis, increased lumbar lordosis. Dowager's hump, left shoulder lower than the right and lateral curvature of her spine with convexity to the right thoracic area and she has pain to palpation there. Right iliac crest is higher than left. Anterior tilt pelvis and shoulders and trunk more posterior and knees flexed. Increased valgus right knee and overpronation right greater than left foot. PT-OP-K Range of Motion Start: 11/15/20 10:20 Freq: Status: Active Protocol: Document 11/17/20 13:46 MB (Rec: 11/17/20 15:48 MB [id number]) Cervical Spine Range of Motion Cervical Spine Active Testing Position Standing Flexion 50 Extension 40 Rotation Left 28 Rotation Right 36 Lumbar Spine Range of Motion Lumbar Spine Active Comments Thoracic spine movement in standing: SB to the left less than the right and both reduced; sitting thoracic rotation 35 deg to the right and 40 deg to the left Shoulder Goniometric Range of Motion Shoulder ROM Limitations Comments B shoulder flexion and abduction WFLs for age Hip Goniometric Range of Motion Hip ROM Limitations Comments Passive SLR: 40 deg right and 30 deg left PT-OP-M Strength Start: 11/15/20 10:20 Freq: Status: Active Protocol: Document 11/17/20 13:46 MB (Rec: 11/17/20 15:48 MB [id number]) Hip Strength Hip Manual Muscle Testing Left Flexion (L2) 4 Good Abduction 3+ Fair+ Comments Pt supine Right Flexion (L2) 5 Normal Abduction 4 Good Comments Pt supine Knee Strength Knee Manual Muscle Testing Left Flexion (S2) 4 Good Extension (L3) 4 Good Right Flexion (S2) 4 Good Extension (L3) 5 Normal Ankle/Foot Strength Ankle and Foot Manual Muscle Testing Left Dorsiflexion (L4) 5 Normal Right Dorsiflexion (L4) 5 Normal Toe Strength Toe Manual Muscle Testing Left Great Toe Extension 4 Good Right Great Toe Extension 4 Good PT-OP-Q Treatments Start: 11/15/20 10:20 Freq: Status: Active Protocol: Document 11/22/20 08:14 MB (Rec: 11/22/20 08:53 MB [id number]) Gym Equipment Therapeutic Ball Many exercises Comments 55 cm red ball in gym: B QL stretch with bottom knee bent and hand under head, top leg straigth and top arm overhead, pect stretch, alternating arms with core tight; walk ball out in hook lying with legs up on ball, lumbar rotation with ball under heels . Yoga mat Therapeutic Exercises Supine Exercises Pelvic realignment exercises Side bilateral Comments 5 reps, 3 sec hold each exercise Standing Exercises 5 Standing Exercise Name Thoracic mobility against wall Comments Pt performs today, breathing over PT-OP-T Assessment and Plan Start: 11/15/20 10:20 Freq: Status: Active Protocol: Document 11/22/20 08:14 MB (Rec: 11/22/20 08:53 MB [id number]) Physical Therapy Assessment Rehab Potential Rehabilitation Potential Fair Evaluation Complexity Number of Personal Factors/Comorbidities 1-2 Number of Body Systems Impaired 1-2 Clinical Presentation at Evaluation Evolving Impairments Impairments Activity Tolerance,Balance, Pain,Posture,ROM,Soft Tissue Mobility,Strength Other Impairments Pt denies sensory changes. Other Concerns Fall Risk Pt denies falls, dizziness and headaches Goals 4 [facility] Goal (LTG) Pt will perform WNLs on a standardized balance test to decrease fall risk by 01/17/21. LTG Duration 8 weeks Three Traffic Signal Supervisor Maintenance Goal (LTG) Pt will present with an improved Oswestry LBP score to no more than 25% to reflect improved pain and function by 01/17/21. LTG Duration 8 weeks Two Traffic Signal Supervisor Maintenance Goal (LTG) Pt will present with improved and equal B trunk side bend in standing and thoracic rotation in sitting to improve overall thoracic mobility and flexibility and to decrease pain by 01/17/21. LTG Duration 8 weeks One [facility] Goal (LTG) Pt will perform progressive HEP with I including thoracic mobility, pelvic realignment, breathing and relaxation exercises, flexibility, core, spine and LE strengthening and balance exercises to improve pain, range and balance by 06/30. LTG Duration 8 weeks Assessment Summary Assessment Progressed therapy ball exercises today and pt performs well with lying over the ball for her age. There are no good photos for the stretches and so pt takes a photo of PT performing. Physical Therapy Plan Frequency and Duration Frequency of Treatment 2x/Week Duration of Treatment 8 weeks Plan of Care Start Date 11/17/20 Plan of Care End Date 01/17/21 Therapeutic Interventions Therapeutic Interventions Balance Training,Canalithic Repositioning,Gait Training, Home Exercise Program,Joint Mobilizations,Manual Therapy, Neuromuscular Re-education, Patient/Caregiver Education, Self-Care/Home Management,Soft Tissue Mobilization,Taping, Therapeutic Activities, Therapeutic Exercises Modalities Cold Pack/Ice Massage,Hot Packs Next Visit Focus/Plan Next Note Type Treatment Note Next Visit Plan Possible racquet ball massage, wall squat, core progression
--- NOTE | 2020-11-24 09:01 | PT.OTN ---
Current Diagnoses Other chronic pain (11/24/20) Torticollis (11/24/20) Dorsalgia, unspecified (11/24/20) Physical Therapy Treatment Note PT-OP-A Visit Information Start: 11/15/20 10:20 Freq: Status: Active Protocol: Document 11/24/20 08:16 MB (Rec: 11/24/20 08:34 MB [id number]) Out-Patient Physical Therapy Visit Information Visit Information Visit Type Treatment Note Visit Note [facility], co-pay $30 Visit Start Time 08:16 Visit Stop Time 08:58 Total Visit Minutes 42 Visit Number 4 PT-OP-B Current Condition Start: 11/15/20 10:20 Freq: Status: Active Protocol: Document 11/17/20 13:46 MB (Rec: 11/17/20 13:58 MB [id number]) Current Condition History of Current Condition Onset Date 4 years ago Current Complaints Back pain, especially when up History of Current Condition Pt reports that 4 years ago, she was caring for her who has sinced and she hurt her back. She was born with scoliosis. Pt received 4 OMT treatments from . Pt uses stationary upright bike at home. She used to backpack and hike and hasn 't been able to do so in two years d/t back pain. She is doing active cervical rotation with thoracic slumping at home, hook lying lumbar rocking and buttocks stretches , hamstring stretches in sitting. She is also taking a nap each day with her legs up on a wedge. PMH: cervical somatic dysfunction, hyperlipidemia, HTN, OA, lumbar and pelvic somatic dysfunction, OP, thoracic region somatic dysfunction. Pt rates back pain as 4/10 and it is located at right thoracic area and B SI joints. Pt has a back brace that she uses occ. She uses a waffle seat cushion and back on the mower and that helps. Prior Treatments and Tests OMT treatment, x-ray thoracic spine 02/04/19: slight levoscoliosis centered at the low thoracic spine and minimal degenerative disc height reduction Pt had PT in the past for back pain and liked being on the wedge (hook lying with her legs up) Treatment Goals Patient/Caregiver Goals To decrease back pain PT-OP-C Subjective Start: 11/15/20 10:20 Freq: Status: Active Protocol: Document 11/24/20 08:16 MB (Rec: 11/24/20 08:34 MB [id number]) OP-PT Subjective Patient Comments Patient Comments I got my foot stool and now I am sitting at 90/90 when I am at the desk but my back hurts . PT-OP-J Posture/Palpation/Skin Start: 11/15/20 10:20 Freq: Status: Active Protocol: Document 11/17/20 13:46 MB (Rec: 11/17/20 15:48 MB [id number]) Posture Evaluation Comments Posture Comments Standing posture with socks on and no shoes: Head rests in 3 deg right SB and left rotation. Decreased cervical lordosis, decreased thoracic kyphosis, increased lumbar lordosis. Dowager's hump, left shoulder lower than the right and lateral curvature of her spine with convexity to the right thoracic area and she has pain to palpation there. Right iliac crest is higher than left. Anterior tilt pelvis and shoulders and trunk more posterior and knees flexed. Increased valgus right knee and overpronation right greater than left foot. PT-OP-K Range of Motion Start: 11/15/20 10:20 Freq: Status: Active Protocol: Document 11/17/20 13:46 MB (Rec: 11/17/20 15:48 MB [id number]) Cervical Spine Range of Motion Cervical Spine Active Testing Position Standing Flexion 50 Extension 40 Rotation Left 28 Rotation Right 36 Lumbar Spine Range of Motion Lumbar Spine Active Comments Thoracic spine movement in standing: SB to the left less than the right and both reduced; sitting thoracic rotation 35 deg to the right and 40 deg to the left Shoulder Goniometric Range of Motion Shoulder ROM Limitations Comments B shoulder flexion and abduction WFLs for age Hip Goniometric Range of Motion Hip ROM Limitations Comments Passive SLR: 40 deg right and 30 deg left PT-OP-M Strength Start: 11/15/20 10:20 Freq: Status: Active Protocol: Document 11/17/20 13:46 MB (Rec: 11/17/20 15:48 MB [id number]) Hip Strength Hip Manual Muscle Testing Left Flexion (L2) 4 Good Abduction 3+ Fair+ Comments Pt supine Right Flexion (L2) 5 Normal Abduction 4 Good Comments Pt supine Knee Strength Knee Manual Muscle Testing Left Flexion (S2) 4 Good Extension (L3) 4 Good Right Flexion (S2) 4 Good Extension (L3) 5 Normal Ankle/Foot Strength Ankle and Foot Manual Muscle Testing Left Dorsiflexion (L4) 5 Normal Right Dorsiflexion (L4) 5 Normal Toe Strength Toe Manual Muscle Testing Left Great Toe Extension 4 Good Right Great Toe Extension 4 Good PT-OP-Q Treatments Start: 11/15/20 10:20 Freq: Status: Active Protocol: Document 11/24/20 08:16 MB (Rec: 11/24/20 08:34 MB [id number]) Gym Equipment Therapeutic Ball Many exercises Comments Pt's 55 cm purple ball in gym: B QL stretch with bottom knee bent and hand under head, top leg straight and top arm overhead, pect stretch, alternating arms with core tight; walk ball out in hook lying with legs up on ball, lumbar rotation with ball under heels. Yoga mat helps pt 's knees Therapeutic Exercises Standing Exercises 5 Standing Exercise Name STM and MWM with racquet ball upper traps, intrascap, infra, hip Side bilateral Comments TrP pressure with racquet ball and ed and practice PT-OP-T Assessment and Plan Start: 11/15/20 10:20 Freq: Status: Active Protocol: Document 11/24/20 08:16 MB (Rec: 11/24/20 08:34 MB [id number]) Physical Therapy Assessment Rehab Potential Rehabilitation Potential Fair Evaluation Complexity Number of Personal Factors/Comorbidities 1-2 Number of Body Systems Impaired 1-2 Clinical Presentation at Evaluation Evolving Impairments Impairments Activity Tolerance,Balance, Pain,Posture,ROM,Soft Tissue Mobility,Strength Other Impairments Pt denies sensory changes. Other Concerns Fall Risk Pt denies falls, dizziness and headaches Goals 4 [facility] Goal (LTG) Pt will perform WNLs on a standardized balance test to decrease fall risk by 01/17/21. LTG Duration 8 weeks Three [employer] Pilot Goal (LTG) Pt will present with an improved Oswestry LBP score to no more than 25% to reflect improved pain and function by 01/17/21. LTG Duration 8 weeks Two [employer] Goal (LTG) Pt will present with improved and equal B trunk side bend in standing and thoracic rotation in sitting to improve overall thoracic mobility and flexibility and to decrease pain by 01/17/21. LTG Duration 8 weeks One Bar Pilot Goal (LTG) Pt will perform progressive HEP with I including thoracic mobility, pelvic realignment, breathing and relaxation exercises, flexibility, core, spine and LE strengthening and balance exercises to improve pain, range and balance by 06/30. LTG Duration 8 weeks Assessment Summary Assessment Reviewed pt's exercises with her own therapy ball today. Pt perfoms well with cues. Ed pt on MWM and self-massage to help with fascial tension. Physical Therapy Plan Frequency and Duration Frequency of Treatment 2x/Week Duration of Treatment 8 weeks Plan of Care Start Date 11/17/20 Plan of Care End Date 01/17/21 Therapeutic Interventions Therapeutic Interventions Balance Training,Canalithic Repositioning,Gait Training, Home Exercise Program,Joint Mobilizations,Manual Therapy, Neuromuscular Re-education, Patient/Caregiver Education, Self-Care/Home Management,Soft Tissue Mobilization,Taping, Therapeutic Activities, Therapeutic Exercises Modalities Cold Pack/Ice Massage,Hot Packs Next Visit Focus/Plan Next Note Type Treatment Note Next Visit Plan Consider sitting ball strengthening exercises, balance exercise, wall squat, core progression
--- NOTE | 2020-12-01 10:30 | PT.OTN ---
Current Diagnoses Other chronic pain (12/01/20) Torticollis (12/01/20) Dorsalgia, unspecified (12/01/20) Physical Therapy Treatment Note PT-OP-A Visit Information Start: 11/15/20 10:20 Freq: Status: Active Protocol: Document 12/01/20 09:47 MB (Rec: 12/01/20 10:26 MB [id number]) Out-Patient Physical Therapy Visit Information Visit Information Visit Type Treatment Note Visit Note [facility] [employer], co-pay $30 Visit Start Time 09:47 Visit Stop Time 10:30 Total Visit Minutes 43 Visit Number 5 PT-OP-B Current Condition Start: 11/15/20 10:20 Freq: Status: Active Protocol: Document 11/17/20 13:46 MB (Rec: 11/17/20 13:58 MB [id number]) Current Condition History of Current Condition Onset Date 4 years ago Current Complaints Back pain, especially when up History of Current Condition Pt reports that 4 years ago, she was caring for her who has sinced and she hurt her back. She was born with scoliosis. Pt received 4 OMT treatments from . Pt uses stationary upright bike at home. She used to backpack and hike and hasn 't been able to do so in two years d/t back pain. She is doing active cervical rotation with thoracic slumping at home, hook lying lumbar rocking and buttocks stretches , hamstring stretches in sitting. She is also taking a nap each day with her legs up on a wedge. PMH: cervical somatic dysfunction, hyperlipidemia, HTN, OA, lumbar and pelvic somatic dysfunction, OP, thoracic region somatic dysfunction. Pt rates back pain as 4/10 and it is located at right thoracic area and B SI joints. Pt has a back brace that she uses occ. She uses a waffle seat cushion and back on the mower and that helps. Prior Treatments and Tests OMT treatment, x-ray thoracic spine 02/04/19: slight levoscoliosis centered at the low thoracic spine and minimal degenerative disc height reduction Pt had PT in the past for back pain and liked being on the wedge (hook lying with her legs up) Treatment Goals Patient/Caregiver Goals To decrease back pain PT-OP-C Subjective Start: 11/15/20 10:20 Freq: Status: Active Protocol: Document 12/01/20 09:47 MB (Rec: 12/01/20 10:26 MB [id number]) OP-PT Subjective Patient Comments Patient Comments I have a few questions about my exercises. Pt states that she had a bad day yesterday with pain in her back and neck . PT-OP-J Posture/Palpation/Skin Start: 11/15/20 10:20 Freq: Status: Active Protocol: Document 11/17/20 13:46 MB (Rec: 11/17/20 15:48 MB [id number]) Posture Evaluation Comments Posture Comments Standing posture with socks on and no shoes: Head rests in 3 deg right SB and left rotation. Decreased cervical lordosis, decreased thoracic kyphosis, increased lumbar lordosis. Dowager's hump, left shoulder lower than the right and lateral curvature of her spine with convexity to the right thoracic area and she has pain to palpation there. Right iliac crest is higher than left. Anterior tilt pelvis and shoulders and trunk more posterior and knees flexed. Increased valgus right knee and overpronation right greater than left foot. PT-OP-K Range of Motion Start: 11/15/20 10:20 Freq: Status: Active Protocol: Document 11/17/20 13:46 MB (Rec: 11/17/20 15:48 MB [id number]) Cervical Spine Range of Motion Cervical Spine Active Testing Position Standing Flexion 50 Extension 40 Rotation Left 28 Rotation Right 36 Lumbar Spine Range of Motion Lumbar Spine Active Comments Thoracic spine movement in standing: SB to the left less than the right and both reduced; sitting thoracic rotation 35 deg to the right and 40 deg to the left Shoulder Goniometric Range of Motion Shoulder ROM Limitations Comments B shoulder flexion and abduction WFLs for age Hip Goniometric Range of Motion Hip ROM Limitations Comments Passive SLR: 40 deg right and 30 deg left PT-OP-M Strength Start: 11/15/20 10:20 Freq: Status: Active Protocol: Document 11/17/20 13:46 MB (Rec: 11/17/20 15:48 MB [id number]) Hip Strength Hip Manual Muscle Testing Left Flexion (L2) 4 Good Abduction 3+ Fair+ Comments Pt supine Right Flexion (L2) 5 Normal Abduction 4 Good Comments Pt supine Knee Strength Knee Manual Muscle Testing Left Flexion (S2) 4 Good Extension (L3) 4 Good Right Flexion (S2) 4 Good Extension (L3) 5 Normal Ankle/Foot Strength Ankle and Foot Manual Muscle Testing Left Dorsiflexion (L4) 5 Normal Right Dorsiflexion (L4) 5 Normal Toe Strength Toe Manual Muscle Testing Left Great Toe Extension 4 Good Right Great Toe Extension 4 Good PT-OP-Q Treatments Start: 11/15/20 10:20 Freq: Status: Active Protocol: Document 12/01/20 09:47 MB (Rec: 12/01/20 10:26 MB [id number]) Therapeutic Exercises Standing Exercises 5 Standing Exercise Name Thoracic mobility with her ball against wall Comments Re-ed today 4 Standing Exercise Name STM and MWM with racquet ball Side left Comments TrP pressure and then MWM, infra and intrascapular Manual Therapy Treatment Other Other Manual Treatments Pt prone: very gentle STM thoracolumbar paraspinals, QL, pt with coordinated deep breathing through her ribs, gentle B scapular mobs, grade I PA mobs, gentle STM B hip rotators, STM B cervical paraspinals PT-OP-T Assessment and Plan Start: 11/15/20 10:20 Freq: Status: Active Protocol: Document 12/01/20 09:47 MB (Rec: 12/01/20 10:26 MB [id number]) Physical Therapy Assessment Rehab Potential Rehabilitation Potential Fair Evaluation Complexity Number of Personal Factors/Comorbidities 1-2 Number of Body Systems Impaired 1-2 Clinical Presentation at Evaluation Evolving Impairments Impairments Activity Tolerance,Balance, Pain,Posture,ROM,Soft Tissue Mobility,Strength Other Impairments Pt denies sensory changes. Other Concerns Fall Risk Pt denies falls, dizziness and headaches Goals 4 Mcfp Goal (LTG) Pt will perform WNLs on a standardized balance test to decrease fall risk by 01/17/21. LTG Duration 8 weeks Three Mcfp Goal (LTG) Pt will present with an improved Oswestry LBP score to no more than 25% to reflect improved pain and function by 01/17/21. LTG Duration 8 weeks Two Mcfp Goal (LTG) Pt will present with improved and equal B trunk side bend in standing and thoracic rotation in sitting to improve overall thoracic mobility and flexibility and to decrease pain by 01/17/21. LTG Duration 8 weeks One Mcfp Goal (LTG) Pt will perform progressive HEP with I including thoracic mobility, pelvic realignment, breathing and relaxation exercises, flexibility, core, spine and LE strengthening and balance exercises to improve pain, range and balance by 06/30. LTG Duration 8 weeks Assessment Summary Assessment Manual work today and pt presents with increased tension and sensitivity right hip rotators and intercostal muscles lower right posterior ribs. Con't manual work, flexibility, progress to core exercises. Physical Therapy Plan Frequency and Duration Frequency of Treatment 2x/Week Duration of Treatment 8 weeks Plan of Care Start Date 11/17/20 Plan of Care End Date 01/17/21 Therapeutic Interventions Therapeutic Interventions Balance Training,Canalithic Repositioning,Gait Training, Home Exercise Program,Joint Mobilizations,Manual Therapy, Neuromuscular Re-education, Patient/Caregiver Education, Self-Care/Home Management,Soft Tissue Mobilization,Taping, Therapeutic Activities, Therapeutic Exercises Modalities Cold Pack/Ice Massage,Hot Packs Next Visit Focus/Plan Next Note Type Treatment Note Next Visit Plan Consider Counterstrain, Consider sitting ball strengthening exercises, balance exercise, wall squat, core progression
--- NOTE | 2020-12-03 09:00 | PT.OTN ---
Current Diagnoses Other chronic pain (12/03/20) Torticollis (12/03/20) Dorsalgia, unspecified (12/03/20) Physical Therapy Treatment Note PT-OP-A Visit Information Start: 11/15/20 10:20 Freq: Status: Active Protocol: Document 12/03/20 08:15 MB (Rec: 12/03/20 08:59 MB [id number]) Out-Patient Physical Therapy Visit Information Visit Information Visit Type Treatment Note Visit Note [facility], co-pay $30 Visit Start Time 08:15 Visit Stop Time 09:00 Total Visit Minutes 45 Visit Number 6 PT-OP-B Current Condition Start: 11/15/20 10:20 Freq: Status: Active Protocol: Document 11/17/20 13:46 MB (Rec: 11/17/20 13:58 MB [id number]) Current Condition History of Current Condition Onset Date 4 years ago Current Complaints Back pain, especially when up History of Current Condition Pt reports that 4 years ago, she was caring for her who has sinced and she hurt her back. She was born with scoliosis. Pt received 4 OMT treatments from . Pt uses stationary upright bike at home. She used to backpack and hike and hasn 't been able to do so in two years d/t back pain. She is doing active cervical rotation with thoracic slumping at home, hook lying lumbar rocking and buttocks stretches , hamstring stretches in sitting. She is also taking a nap each day with her legs up on a wedge. PMH: cervical somatic dysfunction, hyperlipidemia, HTN, OA, lumbar and pelvic somatic dysfunction, OP, thoracic region somatic dysfunction. Pt rates back pain as 4/10 and it is located at right thoracic area and B SI joints. Pt has a back brace that she uses occ. She uses a waffle seat cushion and back on the mower and that helps. Prior Treatments and Tests OMT treatment, x-ray thoracic spine 02/04/19: slight levoscoliosis centered at the low thoracic spine and minimal degenerative disc height reduction Pt had PT in the past for back pain and liked being on the wedge (hook lying with her legs up) Treatment Goals Patient/Caregiver Goals To decrease back pain PT-OP-C Subjective Start: 11/15/20 10:20 Freq: Status: Active Protocol: Document 12/03/20 08:15 MB (Rec: 12/03/20 08:59 MB [id number]) OP-PT Subjective Patient Comments Patient Comments Pt states that her pain is up the left side of the back of her head. Her neck has just started bothering her. PT-OP-J Posture/Palpation/Skin Start: 11/15/20 10:20 Freq: Status: Active Protocol: Document 11/17/20 13:46 MB (Rec: 11/17/20 15:48 MB [id number]) Posture Evaluation Comments Posture Comments Standing posture with socks on and no shoes: Head rests in 3 deg right SB and left rotation. Decreased cervical lordosis, decreased thoracic kyphosis, increased lumbar lordosis. Dowager's hump, left shoulder lower than the right and lateral curvature of her spine with convexity to the right thoracic area and she has pain to palpation there. Right iliac crest is higher than left. Anterior tilt pelvis and shoulders and trunk more posterior and knees flexed. Increased valgus right knee and overpronation right greater than left foot. PT-OP-K Range of Motion Start: 11/15/20 10:20 Freq: Status: Active Protocol: Document 11/17/20 13:46 MB (Rec: 11/17/20 15:48 MB [id number]) Cervical Spine Range of Motion Cervical Spine Active Testing Position Standing Flexion 50 Extension 40 Rotation Left 28 Rotation Right 36 Lumbar Spine Range of Motion Lumbar Spine Active Comments Thoracic spine movement in standing: SB to the left less than the right and both reduced; sitting thoracic rotation 35 deg to the right and 40 deg to the left Shoulder Goniometric Range of Motion Shoulder ROM Limitations Comments B shoulder flexion and abduction WFLs for age Hip Goniometric Range of Motion Hip ROM Limitations Comments Passive SLR: 40 deg right and 30 deg left PT-OP-M Strength Start: 11/15/20 10:20 Freq: Status: Active Protocol: Document 11/17/20 13:46 MB (Rec: 11/17/20 15:48 MB [id number]) Hip Strength Hip Manual Muscle Testing Left Flexion (L2) 4 Good Abduction 3+ Fair+ Comments Pt supine Right Flexion (L2) 5 Normal Abduction 4 Good Comments Pt supine Knee Strength Knee Manual Muscle Testing Left Flexion (S2) 4 Good Extension (L3) 4 Good Right Flexion (S2) 4 Good Extension (L3) 5 Normal Ankle/Foot Strength Ankle and Foot Manual Muscle Testing Left Dorsiflexion (L4) 5 Normal Right Dorsiflexion (L4) 5 Normal Toe Strength Toe Manual Muscle Testing Left Great Toe Extension 4 Good Right Great Toe Extension 4 Good PT-OP-Q Treatments Start: 11/15/20 10:20 Freq: Status: Active Protocol: Document 12/03/20 08:15 MB (Rec: 12/03/20 08:59 MB [id number]) Manual Therapy Treatment Other Other Manual Treatments Pt agrees to Counterstrain to assess and treat fascial tension. Pt denies DM and eye pressure changes. She presents with tension in the following fascial systems: standard lymphatic, AINTs right, cranial periosteal, right LF, right side of cranium is tighter occipital to parietal area and left mastoid is tighter. PT treats stacks in the standard lymphatic row. PT-OP-T Assessment and Plan Start: 11/15/20 10:20 Freq: Status: Active Protocol: Document 12/03/20 08:15 MB (Rec: 12/03/20 08:59 MB [id number]) Physical Therapy Assessment Rehab Potential Rehabilitation Potential Fair Evaluation Complexity Number of Personal Factors/Comorbidities 1-2 Number of Body Systems Impaired 1-2 Clinical Presentation at Evaluation Evolving Impairments Impairments Activity Tolerance,Balance, Pain,Posture,ROM,Soft Tissue Mobility,Strength Other Impairments Pt denies sensory changes. Other Concerns Fall Risk Pt denies falls, dizziness and headaches Goals 4 Intermediate Goal (LTG) Pt will perform WNLs on a standardized balance test to decrease fall risk by 01/17/21. LTG Duration 8 weeks Three Financial Accounting Analyst Goal (LTG) Pt will present with an improved Oswestry LBP score to no more than 25% to reflect improved pain and function by 01/17/21. LTG Duration 8 weeks Two Financial Accounting Analyst Goal (LTG) Pt will present with improved and equal B trunk side bend in standing and thoracic rotation in sitting to improve overall thoracic mobility and flexibility and to decrease pain by 01/17/21. LTG Duration 8 weeks One Intermediate Goal (LTG) Pt will perform progressive HEP with I including thoracic mobility, pelvic realignment, breathing and relaxation exercises, flexibility, core, spine and LE strengthening and balance exercises to improve pain, range and balance by 06/30. LTG Duration 8 weeks Assessment Summary Assessment Initiated Counterstrain today. Pt responds well initially and will monitor. Pt is leaving for [place] and will return May and will con't PT then. Con't manual work, flexibility , progress to core exercises. Physical Therapy Plan Frequency and Duration Frequency of Treatment 2x/Week Duration of Treatment 8 weeks Plan of Care Start Date 11/17/20 Plan of Care End Date 01/17/21 Therapeutic Interventions Therapeutic Interventions Balance Training,Canalithic Repositioning,Gait Training, Home Exercise Program,Joint Mobilizations,Manual Therapy, Neuromuscular Re-education, Patient/Caregiver Education, Self-Care/Home Management,Soft Tissue Mobilization,Taping, Therapeutic Activities, Therapeutic Exercises Modalities Cold Pack/Ice Massage,Hot Packs Next Visit Focus/Plan Next Note Type Treatment Note Next Visit Plan Further Counterstrain, Consider sitting ball strengthening exercises, balance exercise, wall squat, core progression
--- NOTE | 2021-01-12 08:29 | PT.OTN ---
Current Diagnoses Other chronic pain (01/12/21) Torticollis (01/12/21) Dorsalgia, unspecified (01/12/21) Physical Therapy Treatment Note PT-OP-A Visit Information Start: 11/15/20 10:20 Freq: Status: Active Protocol: Document 01/12/21 07:30 MB (Rec: 01/12/21 08:27 MB [id number]) Out-Patient Physical Therapy Visit Information Visit Information Visit Type Progress Note Visit Note [facility], co-pay $30 Visit Start Time 07:30 Visit Stop Time 08:25 Total Visit Minutes 55 Visit Number 7 PT-OP-B Current Condition Start: 11/15/20 10:20 Freq: Status: Active Protocol: Document 11/17/20 13:46 MB (Rec: 11/17/20 13:58 MB [id number]) Current Condition History of Current Condition Onset Date 4 years ago Current Complaints Back pain, especially when up History of Current Condition Pt reports that 4 years ago, she was caring for her who has sinced and she hurt her back. She was born with scoliosis. Pt received 4 OMT treatments from . Pt uses stationary upright bike at home. She used to backpack and hike and hasn 't been able to do so in two years d/t back pain. She is doing active cervical rotation with thoracic slumping at home, hook lying lumbar rocking and buttocks stretches , hamstring stretches in sitting. She is also taking a nap each day with her legs up on a wedge. PMH: cervical somatic dysfunction, hyperlipidemia, HTN, OA, lumbar and pelvic somatic dysfunction, OP, thoracic region somatic dysfunction. Pt rates back pain as 4/10 and it is located at right thoracic area and B SI joints. Pt has a back brace that she uses occ. She uses a waffle seat cushion and back on the mower and that helps. Prior Treatments and Tests OMT treatment, x-ray thoracic spine 02/04/19: slight levoscoliosis centered at the low thoracic spine and minimal degenerative disc height reduction Pt had PT in the past for back pain and liked being on the wedge (hook lying with her legs up) Treatment Goals Patient/Caregiver Goals To decrease back pain PT-OP-C Subjective Start: 11/15/20 10:20 Freq: Status: Active Protocol: Document 01/12/21 07:30 MB (Rec: 01/12/21 08:27 MB [id number]) OP-PT Subjective Patient Comments Patient Comments Pt states that she has been in a lot of pain. She has not been doing the exercise she was supposed to. She did not take her therapy ball to [place]. She has house guests for a week. Her neck has been bothering her the last few days. PT-OP-J Posture/Palpation/Skin Start: 11/15/20 10:20 Freq: Status: Active Protocol: Document 11/17/20 13:46 MB (Rec: 11/17/20 15:48 MB [id number]) Posture Evaluation Comments Posture Comments Standing posture with socks on and no shoes: Head rests in 3 deg right SB and left rotation. Decreased cervical lordosis, decreased thoracic kyphosis, increased lumbar lordosis. Dowager's hump, left shoulder lower than the right and lateral curvature of her spine with convexity to the right thoracic area and she has pain to palpation there. Right iliac crest is higher than left. Anterior tilt pelvis and shoulders and trunk more posterior and knees flexed. Increased valgus right knee and overpronation right greater than left foot. PT-OP-K Range of Motion Start: 11/15/20 10:20 Freq: Status: Active Protocol: Document 11/17/20 13:46 MB (Rec: 11/17/20 15:48 MB [id number]) Cervical Spine Range of Motion Cervical Spine Active Testing Position Standing Flexion 50 Extension 40 Rotation Left 28 Rotation Right 36 Lumbar Spine Range of Motion Lumbar Spine Active Comments Thoracic spine movement in standing: SB to the left less than the right and both reduced; sitting thoracic rotation 35 deg to the right and 40 deg to the left Shoulder Goniometric Range of Motion Shoulder ROM Limitations Comments B shoulder flexion and abduction WFLs for age Hip Goniometric Range of Motion Hip ROM Limitations Comments Passive SLR: 40 deg right and 30 deg left PT-OP-M Strength Start: 11/15/20 10:20 Freq: Status: Active Protocol: Document 11/17/20 13:46 MB (Rec: 11/17/20 15:48 MB [id number]) Hip Strength Hip Manual Muscle Testing Left Flexion (L2) 4 Good Abduction 3+ Fair+ Comments Pt supine Right Flexion (L2) 5 Normal Abduction 4 Good Comments Pt supine Knee Strength Knee Manual Muscle Testing Left Flexion (S2) 4 Good Extension (L3) 4 Good Right Flexion (S2) 4 Good Extension (L3) 5 Normal Ankle/Foot Strength Ankle and Foot Manual Muscle Testing Left Dorsiflexion (L4) 5 Normal Right Dorsiflexion (L4) 5 Normal Toe Strength Toe Manual Muscle Testing Left Great Toe Extension 4 Good Right Great Toe Extension 4 Good PT-OP-Q Treatments Start: 11/15/20 10:20 Freq: Status: Active Protocol: Document 01/12/21 07:30 MB (Rec: 01/12/21 08:27 MB [id number]) Gym Equipment Therapeutic Ball Many exercises Body Position 55 cm ball Comments Pelvic tilts, circles clockwise and counterclockwise , hamstring and adductor stretches; pect stretch and QL stretch, opposite arm marches lying over ball, pt lying with legs up on ball: lumbar rotation and walking ball out Therapeutic Exercises Supine Exercises Pelvic realignment exercises Side bilateral Comments 5 rep, 3 sec hold all exercises Standing Exercises 5 Standing Exercise Name Thoracic mobility with bigger ball against wall 4 Side bilateral Comments STM glute and intrascapular muscles, MWM infraspinatus Neuro Re-Education Treatment Balance Activities FGA Comments FGA performed today with most difficulty with tandem walking and will add to HEP in the future PT-OP-T Assessment and Plan Start: 11/15/20 10:20 Freq: Status: Active Protocol: Document 01/12/21 07:30 MB (Rec: 01/12/21 08:27 MB [id number]) Physical Therapy Assessment Rehab Potential Rehabilitation Potential Fair Evaluation Complexity Number of Personal Factors/Comorbidities 1-2 Number of Body Systems Impaired 1-2 Clinical Presentation at Evaluation Evolving Impairments Impairments Activity Tolerance,Balance, Pain,Posture,ROM,Soft Tissue Mobility,Strength Other Impairments Pt denies sensory changes. Other Concerns Fall Risk Pt denies falls, dizziness and headaches Goals 4 Crude Tester Goal (LTG) Pt will perform WNLs on a standardized balance test to decrease fall risk by 02/12/21. 01/12/21: FGA score is 24/30 and will add tandem walking to HEP in the future LTG Duration 4 weeks Three Crude Tester Goal (LTG) Pt will present with an improved Oswestry LBP score to no more than 20% to reflect improved pain and function by 02/12/21. 01/12/21: Oswestry LBP score reflects 28% impairment LTG Duration 4 weeks Two Crude Tester Goal (LTG) Pt will present with improved and equal B trunk side bend in standing and thoracic rotation in sitting to improve overall thoracic mobility and flexibility and to decrease pain by 02/12/21. 01/12/21: Decreased SB to the right compared to left in standing, decreased right thoracic rotation compared to the left LTG Duration 4 weeks One Group Home Goal (LTG) Pt will perform progressive HEP with I including thoracic mobility, pelvic realignment, breathing and relaxation exercises, flexibility, core, spine and LE strengthening and balance exercises to improve pain, range and balance by 02/12. 01/12/21: Pt has not been performing HEP in [place] LTG Duration 4 weeks Assessment Summary Assessment Progress note today as pt has not been seen for 39 days d/t she went to [place] for a month. She did a lot of sewing and did not do her exercises there . Addressed all goals and reviewed HEP exercises today and encouraged her to restart them and she states that she will. Pt presents with ongoing degenerative spinal changes that largely contribute to pain. She reports neck pain and this is also a complicating factor to treating her back pain with PT . Assessed balance, which is pretty good for her age, and will add a balance exercise in future treatments. Pt will benefit from ongoing PT for further flexibility, core and LE strengthening and manual PT . Physical Therapy Plan Frequency and Duration Frequency of Treatment 2x/Week Duration of Treatment 4 weeks Plan of Care Start Date 01/12/21 Plan of Care End Date 02/12/21 Therapeutic Interventions Therapeutic Interventions Balance Training,Canalithic Repositioning,Gait Training, Home Exercise Program,Joint Mobilizations,Manual Therapy, Neuromuscular Re-education, Patient/Caregiver Education, Self-Care/Home Management,Soft Tissue Mobilization,Taping, Therapeutic Activities, Therapeutic Exercises Modalities Cold Pack/Ice Massage,Hot Packs Next Visit Focus/Plan Next Note Type Treatment Note Next Visit Plan Further Counterstrain, Consider sitting ball strengthening exercises, balance exercise, wall squat, core progression, tandem walking
--- NOTE | 2021-01-12 08:30 | PT.OPPOC ---
Physical, Occupational & Speech Therapy At [facility] Current Diagnoses Other chronic pain (01/12/21) Torticollis (01/12/21) Dorsalgia, unspecified (01/12/21) Visit Care Team Role Provider Type Carlos Medeiros DO Attending Provider Physician Primary Care Provider Referring Provider Specialty: Family Practice Address: [address] [place] [address], [facility] Email: Plan Of Care PT-OP-T Assessment and Plan Start: 11/15/20 10:20 Freq: Status: Active Protocol: Document 01/12/21 07:30 MB (Rec: 01/12/21 08:27 MB [id number]) Physical Therapy Assessment Rehab Potential Rehabilitation Potential Fair Evaluation Complexity Number of Personal Factors/Comorbidities 1-2 Number of Body Systems Impaired 1-2 Clinical Presentation at Evaluation Evolving Impairments Impairments Activity Tolerance,Balance, Pain,Posture,ROM,Soft Tissue Mobility,Strength Other Impairments Pt denies sensory changes. Other Concerns Fall Risk Pt denies falls, dizziness and headaches Goals 4 Member Of Technical Staff Goal (LTG) Pt will perform WNLs on a standardized balance test to decrease fall risk by 02/12/21. 01/12/21: FGA score is 24/30 and will add tandem walking to HEP in the future LTG Duration 4 weeks Three Member Of Technical Staff Goal (LTG) Pt will present with an improved Oswestry LBP score to no more than 20% to reflect improved pain and function by 02/12/21. 01/12/21: Oswestry LBP score reflects 28% impairment LTG Duration 4 weeks Two Prison Goal (LTG) Pt will present with improved and equal B trunk side bend in standing and thoracic rotation in sitting to improve overall thoracic mobility and flexibility and to decrease pain by 02/12/21. 01/12/21: Decreased SB to the right compared to left in standing, decreased right thoracic rotation compared to the left LTG Duration 4 weeks One Prison Goal (LTG) Pt will perform progressive HEP with I including thoracic mobility, pelvic realignment, breathing and relaxation exercises, flexibility, core, spine and LE strengthening and balance exercises to improve pain, range and balance by 02/12. 5/5/21: Pt has not been performing HEP in [place] LTG Duration 4 weeks Assessment Summary Assessment Progress note today as pt has not been seen for 39 days d/t she went to [place] for a month. She did a lot of sewing and did not do her exercises there . Addressed all goals and reviewed HEP exercises today and encouraged her to restart them and she states that she will. Pt presents with ongoing degenerative spinal changes that largely contribute to pain. She reports neck pain and this is also a complicating factor to treating her back pain with PT . Assessed balance, which is pretty good for her age, and will add a balance exercise in future treatments. Pt will benefit from ongoing PT for further flexibility, core and LE strengthening and manual PT . Physical Therapy Plan Frequency and Duration Frequency of Treatment 2x/Week Duration of Treatment 4 weeks Plan of Care Start Date 01/12/21 Plan of Care End Date 02/12/21 Therapeutic Interventions Therapeutic Interventions Balance Training,Canalithic Repositioning,Gait Training, Home Exercise Program,Joint Mobilizations,Manual Therapy, Neuromuscular Re-education, Patient/Caregiver Education, Self-Care/Home Management,Soft Tissue Mobilization,Taping, Therapeutic Activities, Therapeutic Exercises Modalities Cold Pack/Ice Massage,Hot Packs Next Visit Focus/Plan Next Note Type Treatment Note Next Visit Plan Further Counterstrain, Consider sitting ball strengthening exercises, balance exercise, wall squat, core progression, tandem walking Plan of Care Dates Plan of Care Start Date 01/12/21 Plan of Care End Date 02/12/21 Electronically Signed by: Latosha Kohli PT 01/12/21 [id number] Please Sign and Return: I have reviewed this Plan of Care and certify that the skilled therapy services above are required to meet the patient?s needs. Physician Signature Date Printed Name and Credentials Clinical Instructor Signature Printed Name and Credentials
--- NOTE | 2021-01-19 08:11 | PT.OTN ---
Current Diagnoses Other chronic pain (01/19/21) Torticollis (01/19/21) Dorsalgia, unspecified (01/19/21) Physical Therapy Treatment Note PT-OP-A Visit Information Start: 11/15/20 10:20 Freq: Status: Active Protocol: Document 01/19/21 07:33 MB (Rec: 01/19/21 08:06 MB [id number]) Out-Patient Physical Therapy Visit Information Visit Information Visit Type Treatment Note Visit Note [facility] [employer], co-pay $30 Visit Start Time 07:33 Visit Stop Time 08:11 Total Visit Minutes 38 Visit Number 8 PT-OP-B Current Condition Start: 11/15/20 10:20 Freq: Status: Active Protocol: Document 11/17/20 13:46 MB (Rec: 11/17/20 13:58 MB [id number]) Current Condition History of Current Condition Onset Date 4 years ago Current Complaints Back pain, especially when up History of Current Condition Pt reports that 4 years ago, she was caring for her who has sinced and she hurt her back. She was born with scoliosis. Pt received 4 OMT treatments from . Pt uses stationary upright bike at home. She used to backpack and hike and hasn 't been able to do so in two years d/t back pain. She is doing active cervical rotation with thoracic slumping at home, hook lying lumbar rocking and buttocks stretches , hamstring stretches in sitting. She is also taking a nap each day with her legs up on a wedge. PMH: cervical somatic dysfunction, hyperlipidemia, HTN, OA, lumbar and pelvic somatic dysfunction, OP, thoracic region somatic dysfunction. Pt rates back pain as 4/10 and it is located at right thoracic area and B SI joints. Pt has a back brace that she uses occ. She uses a waffle seat cushion and back on the mower and that helps. Prior Treatments and Tests OMT treatment, x-ray thoracic spine 02/04/19: slight levoscoliosis centered at the low thoracic spine and minimal degenerative disc height reduction Pt had PT in the past for back pain and liked being on the wedge (hook lying with her legs up) Treatment Goals Patient/Caregiver Goals To decrease back pain PT-OP-C Subjective Start: 11/15/20 10:20 Freq: Status: Active Protocol: Document 01/19/21 07:33 MB (Rec: 01/19/21 08:06 MB [id number]) OP-PT Subjective Patient Comments Patient Comments Pt states that she did not sleep well. She has still not gotten back to her exercises. She has pain in her back. Her neck is sore. PT-OP-J Posture/Palpation/Skin Start: 11/15/20 10:20 Freq: Status: Active Protocol: Document 11/17/20 13:46 MB (Rec: 11/17/20 15:48 MB [id number]) Posture Evaluation Comments Posture Comments Standing posture with socks on and no shoes: Head rests in 3 deg right SB and left rotation. Decreased cervical lordosis, decreased thoracic kyphosis, increased lumbar lordosis. Dowager's hump, left shoulder lower than the right and lateral curvature of her spine with convexity to the right thoracic area and she has pain to palpation there. Right iliac crest is higher than left. Anterior tilt pelvis and shoulders and trunk more posterior and knees flexed. Increased valgus right knee and overpronation right greater than left foot. PT-OP-K Range of Motion Start: 11/15/20 10:20 Freq: Status: Active Protocol: Document 11/17/20 13:46 MB (Rec: 11/17/20 15:48 MB [id number]) Cervical Spine Range of Motion Cervical Spine Active Testing Position Standing Flexion 50 Extension 40 Rotation Left 28 Rotation Right 36 Lumbar Spine Range of Motion Lumbar Spine Active Comments Thoracic spine movement in standing: SB to the left less than the right and both reduced; sitting thoracic rotation 35 deg to the right and 40 deg to the left Shoulder Goniometric Range of Motion Shoulder ROM Limitations Comments B shoulder flexion and abduction WFLs for age Hip Goniometric Range of Motion Hip ROM Limitations Comments Passive SLR: 40 deg right and 30 deg left PT-OP-M Strength Start: 11/15/20 10:20 Freq: Status: Active Protocol: Document 11/17/20 13:46 MB (Rec: 11/17/20 15:48 MB [id number]) Hip Strength Hip Manual Muscle Testing Left Flexion (L2) 4 Good Abduction 3+ Fair+ Comments Pt supine Right Flexion (L2) 5 Normal Abduction 4 Good Comments Pt supine Knee Strength Knee Manual Muscle Testing Left Flexion (S2) 4 Good Extension (L3) 4 Good Right Flexion (S2) 4 Good Extension (L3) 5 Normal Ankle/Foot Strength Ankle and Foot Manual Muscle Testing Left Dorsiflexion (L4) 5 Normal Right Dorsiflexion (L4) 5 Normal Toe Strength Toe Manual Muscle Testing Left Great Toe Extension 4 Good Right Great Toe Extension 4 Good PT-OP-Q Treatments Start: 11/15/20 10:20 Freq: Status: Active Protocol: Document 01/19/21 07:33 MB (Rec: 01/19/21 08:06 MB [id number]) Manual Therapy Treatment Other Other Manual Treatments Pt prone: grade I-II thoracic PA mobs, STM thoracolumbar paraspinals, hip rotators, intrascapular muscles and upper traps, B scapular mobs, MWM left TFL with PT providing trigger point pressure and pt performing active ER/IR PT-OP-T Assessment and Plan Start: 11/15/20 10:20 Freq: Status: Active Protocol: Document 01/19/21 07:33 MB (Rec: 01/19/21 08:06 MB [id number]) Physical Therapy Assessment Rehab Potential Rehabilitation Potential Fair Evaluation Complexity Number of Personal Factors/Comorbidities 1-2 Number of Body Systems Impaired 1-2 Clinical Presentation at Evaluation Evolving Impairments Impairments Activity Tolerance,Balance, Pain,Posture,ROM,Soft Tissue Mobility,Strength Other Impairments Pt denies sensory changes. Other Concerns Fall Risk Pt denies falls, dizziness and headaches Goals 4 Music Historian Goal (LTG) Pt will perform WNLs on a standardized balance test to decrease fall risk by 02/12/21. 01/12/21: FGA score is 24/30 and will add tandem walking to HEP in the future LTG Duration 4 weeks Three Music Historian Goal (LTG) Pt will present with an improved Oswestry LBP score to no more than 20% to reflect improved pain and function by 02/12/21. 01/12/21: Oswestry LBP score reflects 28% impairment LTG Duration 4 weeks Two Music Historian Goal (LTG) Pt will present with improved and equal B trunk side bend in standing and thoracic rotation in sitting to improve overall thoracic mobility and flexibility and to decrease pain by 02/12/21. 01/12/21: Decreased SB to the right compared to left in standing, decreased right thoracic rotation compared to the left LTG Duration 4 weeks One Music Historian Goal (LTG) Pt will perform progressive HEP with I including thoracic mobility, pelvic realignment, breathing and relaxation exercises, flexibility, core, spine and LE strengthening and balance exercises to improve pain, range and balance by 02/12. 01/12/21: Pt has not been performing HEP in [place] LTG Duration 4 weeks Assessment Summary Assessment Pt has not yet been compliant with HEP since leaving for [place]. She states she will be more compliant now that her friends are leaving. She presents with spinal tension in vertebrae and musculature and this improves with gentle myofascial work today. Con't PT. Physical Therapy Plan Frequency and Duration Frequency of Treatment 2x/Week Duration of Treatment 4 weeks Plan of Care Start Date 01/12/21 Plan of Care End Date 02/12/21 Therapeutic Interventions Therapeutic Interventions Balance Training,Canalithic Repositioning,Gait Training, Home Exercise Program,Joint Mobilizations,Manual Therapy, Neuromuscular Re-education, Patient/Caregiver Education, Self-Care/Home Management,Soft Tissue Mobilization,Taping, Therapeutic Activities, Therapeutic Exercises Modalities Cold Pack/Ice Massage,Hot Packs Next Visit Focus/Plan Next Note Type Treatment Note Next Visit Plan Further Counterstrain and manual work, Consider sitting ball strengthening exercises, balance exercise, wall squat, core progression, tandem walking
--- NOTE | 2021-01-21 08:12 | PT.OTN ---
Current Diagnoses Other chronic pain (01/21/21) Torticollis (01/21/21) Dorsalgia, unspecified (01/21/21) Physical Therapy Treatment Note PT-OP-A Visit Information Start: 11/15/20 10:20 Freq: Status: Active Protocol: Document 01/21/21 07:34 MB (Rec: 01/21/21 08:10 MB [id number]) Out-Patient Physical Therapy Visit Information Visit Information Visit Type Treatment Note Visit Note [facility], co-pay $30 Pt is a few minutes late to appointment Visit Start Time 07:34 Visit Stop Time 08:12 Total Visit Minutes 38 Visit Number 9 PT-OP-B Current Condition Start: 11/15/20 10:20 Freq: Status: Active Protocol: Document 11/17/20 13:46 MB (Rec: 11/17/20 13:58 MB [id number]) Current Condition History of Current Condition Onset Date 4 years ago Current Complaints Back pain, especially when up History of Current Condition Pt reports that 4 years ago, she was caring for her who has sinced and she hurt her back. She was born with scoliosis. Pt received 4 OMT treatments from . Pt uses stationary upright bike at home. She used to backpack and hike and hasn 't been able to do so in two years d/t back pain. She is doing active cervical rotation with thoracic slumping at home, hook lying lumbar rocking and buttocks stretches , hamstring stretches in sitting. She is also taking a nap each day with her legs up on a wedge. PMH: cervical somatic dysfunction, hyperlipidemia, HTN, OA, lumbar and pelvic somatic dysfunction, OP, thoracic region somatic dysfunction. Pt rates back pain as 4/10 and it is located at right thoracic area and B SI joints. Pt has a back brace that she uses occ. She uses a waffle seat cushion and back on the mower and that helps. Prior Treatments and Tests OMT treatment, x-ray thoracic spine 02/04/19: slight levoscoliosis centered at the low thoracic spine and minimal degenerative disc height reduction Pt had PT in the past for back pain and liked being on the wedge (hook lying with her legs up) Treatment Goals Patient/Caregiver Goals To decrease back pain PT-OP-C Subjective Start: 11/15/20 10:20 Freq: Status: Active Protocol: Document 01/21/21 07:34 MB (Rec: 01/21/21 08:10 MB [id number]) OP-PT Subjective Patient Comments Patient Comments Pt states that she felt better after manual work by PT. She did not do exercises yesterday despite saying that she would last PT treatment. PT-OP-J Posture/Palpation/Skin Start: 11/15/20 10:20 Freq: Status: Active Protocol: Document 11/17/20 13:46 MB (Rec: 11/17/20 15:48 MB [id number]) Posture Evaluation Comments Posture Comments Standing posture with socks on and no shoes: Head rests in 3 deg right SB and left rotation. Decreased cervical lordosis, decreased thoracic kyphosis, increased lumbar lordosis. Dowager's hump, left shoulder lower than the right and lateral curvature of her spine with convexity to the right thoracic area and she has pain to palpation there. Right iliac crest is higher than left. Anterior tilt pelvis and shoulders and trunk more posterior and knees flexed. Increased valgus right knee and overpronation right greater than left foot. PT-OP-K Range of Motion Start: 11/15/20 10:20 Freq: Status: Active Protocol: Document 11/17/20 13:46 MB (Rec: 11/17/20 15:48 MB [id number]) Cervical Spine Range of Motion Cervical Spine Active Testing Position Standing Flexion 50 Extension 40 Rotation Left 28 Rotation Right 36 Lumbar Spine Range of Motion Lumbar Spine Active Comments Thoracic spine movement in standing: SB to the left less than the right and both reduced; sitting thoracic rotation 35 deg to the right and 40 deg to the left Shoulder Goniometric Range of Motion Shoulder ROM Limitations Comments B shoulder flexion and abduction WFLs for age Hip Goniometric Range of Motion Hip ROM Limitations Comments Passive SLR: 40 deg right and 30 deg left PT-OP-M Strength Start: 11/15/20 10:20 Freq: Status: Active Protocol: Document 11/17/20 13:46 MB (Rec: 11/17/20 15:48 MB [id number]) Hip Strength Hip Manual Muscle Testing Left Flexion (L2) 4 Good Abduction 3+ Fair+ Comments Pt supine Right Flexion (L2) 5 Normal Abduction 4 Good Comments Pt supine Knee Strength Knee Manual Muscle Testing Left Flexion (S2) 4 Good Extension (L3) 4 Good Right Flexion (S2) 4 Good Extension (L3) 5 Normal Ankle/Foot Strength Ankle and Foot Manual Muscle Testing Left Dorsiflexion (L4) 5 Normal Right Dorsiflexion (L4) 5 Normal Toe Strength Toe Manual Muscle Testing Left Great Toe Extension 4 Good Right Great Toe Extension 4 Good PT-OP-Q Treatments Start: 11/15/20 10:20 Freq: Status: Active Protocol: Document 01/21/21 07:34 MB (Rec: 01/21/21 08:10 MB [id number]) Gym Equipment Therapeutic Ball Many exercises Ball Size/Color 55 cm ball Comments B QL and pect stretches, pelvic tilts, circles clockwise and counterclockwise , hamstring and adductor stretches, alternating arm flexion Therapeutic Exercises Supine Exercises Pelvic realignment exercises Side bilateral Comments 5 reps, 3 sec hold all exercises Sitting Exercises Thoracic rotation Side bilateral Comments 3 reps each side with breath end-range to move thorax Standing Exercises 5 Standing Exercise Name Thoracic mobility with blue kid's ball Comments Upper thoracic mobility with ball PT-OP-T Assessment and Plan Start: 11/15/20 10:20 Freq: Status: Active Protocol: Document 01/21/21 07:34 MB (Rec: 01/21/21 08:10 MB [id number]) Physical Therapy Assessment Rehab Potential Rehabilitation Potential Fair Evaluation Complexity Number of Personal Factors/Comorbidities 1-2 Number of Body Systems Impaired 1-2 Clinical Presentation at Evaluation Evolving Impairments Impairments Activity Tolerance,Balance, Pain,Posture,ROM,Soft Tissue Mobility,Strength Other Impairments Pt denies sensory changes. Other Concerns Fall Risk Pt denies falls, dizziness and headaches Goals 4 Agent Telegrapher Goal (LTG) Pt will perform WNLs on a standardized balance test to decrease fall risk by 02/12/21. 01/12/21: FGA score is 24/30 and will add tandem walking to HEP in the future LTG Duration 4 weeks Three Agent Telegrapher Goal (LTG) Pt will present with an improved Oswestry LBP score to no more than 20% to reflect improved pain and function by 02/12/21. 01/12/21: Oswestry LBP score reflects 28% impairment LTG Duration 4 weeks Two Agent Telegrapher Goal (LTG) Pt will present with improved and equal B trunk side bend in standing and thoracic rotation in sitting to improve overall thoracic mobility and flexibility and to decrease pain by 02/12/21. 01/12/21: Decreased SB to the right compared to left in standing, decreased right thoracic rotation compared to the left LTG Duration 4 weeks One Agent Telegrapher Goal (LTG) Pt will perform progressive HEP with I including thoracic mobility, pelvic realignment, breathing and relaxation exercises, flexibility, core, spine and LE strengthening and balance exercises to improve pain, range and balance by 02/12. 01/12/21: Pt has not been performing HEP in [place] LTG Duration 4 weeks Assessment Summary Assessment Pt did not do exercises yesterday d/t busy sewing with friends. Decreased compliance with exercises for 5 weeks has been a barrier to PT and PT con't to educate pt about this and PT has pt perform exercises today to make sure she understands them and that they are helpful. Physical Therapy Plan Frequency and Duration Frequency of Treatment 2x/Week Duration of Treatment 4 weeks Plan of Care Start Date 01/12/21 Plan of Care End Date 02/12/21 Therapeutic Interventions Therapeutic Interventions Balance Training,Canalithic Repositioning,Gait Training, Home Exercise Program,Joint Mobilizations,Manual Therapy, Neuromuscular Re-education, Patient/Caregiver Education, Self-Care/Home Management,Soft Tissue Mobilization,Taping, Therapeutic Activities, Therapeutic Exercises Modalities Cold Pack/Ice Massage,Hot Packs Next Visit Focus/Plan Next Note Type Treatment Note Next Visit Plan Cervicothoracic work, further Counterstrain and manual work, Consider sitting ball strengthening exercises, balance exercise, wall squat, core progression, tandem walking
--- NOTE | 2021-01-25 08:29 | PT.OTN ---
Current Diagnoses Other chronic pain (01/25/21) Torticollis (01/25/21) Dorsalgia, unspecified (01/25/21) Physical Therapy Treatment Note PT-OP-A Visit Information Start: 11/15/20 10:20 Freq: Status: Active Protocol: Document 01/25/21 07:34 MB (Rec: 01/25/21 08:27 MB [id number]) Out-Patient Physical Therapy Visit Information Visit Information Visit Type Treatment Note Visit Note [facility], co-pay $30 Pt is a few minutes late to appointment Visit Start Time 07:34 Visit Stop Time 08:27 Total Visit Minutes 53 Visit Number 10 PT-OP-B Current Condition Start: 11/15/20 10:20 Freq: Status: Active Protocol: Document 11/17/20 13:46 MB (Rec: 11/17/20 13:58 MB [id number]) Current Condition History of Current Condition Onset Date 4 years ago Current Complaints Back pain, especially when up History of Current Condition Pt reports that 4 years ago, she was caring for her who has sinced and she hurt her back. She was born with scoliosis. Pt received 4 OMT treatments from . Pt uses stationary upright bike at home. She used to backpack and hike and hasn 't been able to do so in two years d/t back pain. She is doing active cervical rotation with thoracic slumping at home, hook lying lumbar rocking and buttocks stretches , hamstring stretches in sitting. She is also taking a nap each day with her legs up on a wedge. PMH: cervical somatic dysfunction, hyperlipidemia, HTN, OA, lumbar and pelvic somatic dysfunction, OP, thoracic region somatic dysfunction. Pt rates back pain as 4/10 and it is located at right thoracic area and B SI joints. Pt has a back brace that she uses occ. She uses a waffle seat cushion and back on the mower and that helps. Prior Treatments and Tests OMT treatment, x-ray thoracic spine 02/04/19: slight levoscoliosis centered at the low thoracic spine and minimal degenerative disc height reduction Pt had PT in the past for back pain and liked being on the wedge (hook lying with her legs up) Treatment Goals Patient/Caregiver Goals To decrease back pain PT-OP-C Subjective Start: 11/15/20 10:20 Freq: Status: Active Protocol: Document 01/25/21 07:34 MB (Rec: 01/25/21 08:27 MB [id number]) OP-PT Subjective Patient Comments Patient Comments Pt states that her neck is bothering her. PT encourages pt to follow up with Dr. Medeiros about her neck. PT-OP-J Posture/Palpation/Skin Start: 11/15/20 10:20 Freq: Status: Active Protocol: Document 11/17/20 13:46 MB (Rec: 11/17/20 15:48 MB [id number]) Posture Evaluation Comments Posture Comments Standing posture with socks on and no shoes: Head rests in 3 deg right SB and left rotation. Decreased cervical lordosis, decreased thoracic kyphosis, increased lumbar lordosis. Dowager's hump, left shoulder lower than the right and lateral curvature of her spine with convexity to the right thoracic area and she has pain to palpation there. Right iliac crest is higher than left. Anterior tilt pelvis and shoulders and trunk more posterior and knees flexed. Increased valgus right knee and overpronation right greater than left foot. PT-OP-K Range of Motion Start: 11/15/20 10:20 Freq: Status: Active Protocol: Document 11/17/20 13:46 MB (Rec: 11/17/20 15:48 MB [id number]) Cervical Spine Range of Motion Cervical Spine Active Testing Position Standing Flexion 50 Extension 40 Rotation Left 28 Rotation Right 36 Lumbar Spine Range of Motion Lumbar Spine Active Comments Thoracic spine movement in standing: SB to the left less than the right and both reduced; sitting thoracic rotation 35 deg to the right and 40 deg to the left Shoulder Goniometric Range of Motion Shoulder ROM Limitations Comments B shoulder flexion and abduction WFLs for age Hip Goniometric Range of Motion Hip ROM Limitations Comments Passive SLR: 40 deg right and 30 deg left PT-OP-M Strength Start: 11/15/20 10:20 Freq: Status: Active Protocol: Document 11/17/20 13:46 MB (Rec: 11/17/20 15:48 MB [id number]) Hip Strength Hip Manual Muscle Testing Left Flexion (L2) 4 Good Abduction 3+ Fair+ Comments Pt supine Right Flexion (L2) 5 Normal Abduction 4 Good Comments Pt supine Knee Strength Knee Manual Muscle Testing Left Flexion (S2) 4 Good Extension (L3) 4 Good Right Flexion (S2) 4 Good Extension (L3) 5 Normal Ankle/Foot Strength Ankle and Foot Manual Muscle Testing Left Dorsiflexion (L4) 5 Normal Right Dorsiflexion (L4) 5 Normal Toe Strength Toe Manual Muscle Testing Left Great Toe Extension 4 Good Right Great Toe Extension 4 Good PT-OP-Q Treatments Start: 11/15/20 10:20 Freq: Status: Active Protocol: Document 01/25/21 07:34 MB (Rec: 01/25/21 08:27 MB [id number]) Manual Therapy Treatment Other Other Manual Treatments Pt agrees to Counterstrain to assess and treat fascial tension and she presents with tension in the following fascial systems: ligamentum flavum, ALL, standard lymphatic venous, periosteal and spinal vein extension. PT treats stacks in the following fascial systems: spinal vein extension cervical to lumbar spine, ligamentum flavum cervical to lumbar spine. Left 1st rib isometric mob, positional release right more than left SCM and suboccipital release. PT-OP-T Assessment and Plan Start: 11/15/20 10:20 Freq: Status: Active Protocol: Document 01/25/21 07:34 MB (Rec: 01/25/21 08:27 MB [id number]) Physical Therapy Assessment Rehab Potential Rehabilitation Potential Fair Evaluation Complexity Number of Personal Factors/Comorbidities 1-2 Number of Body Systems Impaired 1-2 Clinical Presentation at Evaluation Evolving Impairments Impairments Activity Tolerance,Balance, Pain,Posture,ROM,Soft Tissue Mobility,Strength Other Impairments Pt denies sensory changes. Other Concerns Fall Risk Pt denies falls, dizziness and headaches Goals 4 Chief Dietitian Goal (LTG) Pt will perform WNLs on a standardized balance test to decrease fall risk by 02/12/21. 01/12/21: FGA score is 24/30 and will add tandem walking to HEP in the future LTG Duration 4 weeks Three Long-Term Goal (LTG) Pt will present with an improved Oswestry LBP score to no more than 20% to reflect improved pain and function by 02/12/21. 01/12/21: Oswestry LBP score reflects 28% impairment LTG Duration 4 weeks Two Long-Term Goal (LTG) Pt will present with improved and equal B trunk side bend in standing and thoracic rotation in sitting to improve overall thoracic mobility and flexibility and to decrease pain by 02/12/21. 01/12/21: Decreased SB to the right compared to left in standing, decreased right thoracic rotation compared to the left LTG Duration 4 weeks One Long-Term Goal (LTG) Pt will perform progressive HEP with I including thoracic mobility, pelvic realignment, breathing and relaxation exercises, flexibility, core, spine and LE strengthening and balance exercises to improve pain, range and balance by 02/12. 01/12/21: Pt has not been performing HEP in ID LTG Duration 4 weeks Assessment Summary Assessment Pt states that her back and neck are still bothering her. She is doing the exercises. She has a hard time standing longer than 30 seconds. Pt tolerates Counterstrain well today. Her degenerative spinal changes are a barrier to improving pain. Physical Therapy Plan Frequency and Duration Frequency of Treatment 2x/Week Duration of Treatment 4 weeks Plan of Care Start Date 01/12/21 Plan of Care End Date 02/12/21 Therapeutic Interventions Therapeutic Interventions Balance Training,Canalithic Repositioning,Gait Training, Home Exercise Program,Joint Mobilizations,Manual Therapy, Neuromuscular Re-education, Patient/Caregiver Education, Self-Care/Home Management,Soft Tissue Mobilization,Taping, Therapeutic Activities, Therapeutic Exercises Modalities Cold Pack/Ice Massage,Hot Packs Next Visit Focus/Plan Next Note Type Treatment Note Next Visit Plan Cervicothoracic work, further Counterstrain and manual work, Consider sitting ball strengthening exercises, balance exercise, wall squat, core progression, tandem walking
--- NOTE | 2021-02-02 08:16 | PT.OTN ---
Current Diagnoses Other chronic pain (02/02/21) Torticollis (02/02/21) Dorsalgia, unspecified (02/02/21) Physical Therapy Treatment Note PT-OP-A Visit Information Start: 11/15/20 10:20 Freq: Status: Active Protocol: Document 02/02/21 07:31 MB (Rec: 02/02/21 08:15 MB [id number]) Out-Patient Physical Therapy Visit Information Visit Information Visit Type Treatment Note Visit Note [facility], co-pay $30 Visit Start Time 07:31 Visit Stop Time 08:15 Total Visit Minutes 44 Visit Number 11 PT-OP-B Current Condition Start: 11/15/20 10:20 Freq: Status: Active Protocol: Document 11/17/20 13:46 MB (Rec: 11/17/20 13:58 MB [id number]) Current Condition History of Current Condition Onset Date 4 years ago Current Complaints Back pain, especially when up History of Current Condition Pt reports that 4 years ago, she was caring for her who has sinced and she hurt her back. She was born with scoliosis. Pt received 4 OMT treatments from . Pt uses stationary upright bike at home. She used to backpack and hike and hasn 't been able to do so in two years d/t back pain. She is doing active cervical rotation with thoracic slumping at home, hook lying lumbar rocking and buttocks stretches , hamstring stretches in sitting. She is also taking a nap each day with her legs up on a wedge. PMH: cervical somatic dysfunction, hyperlipidemia, HTN, OA, lumbar and pelvic somatic dysfunction, OP, thoracic region somatic dysfunction. Pt rates back pain as 4/10 and it is located at right thoracic area and B SI joints. Pt has a back brace that she uses occ. She uses a waffle seat cushion and back on the mower and that helps. Prior Treatments and Tests OMT treatment, x-ray thoracic spine 02/04/19: slight levoscoliosis centered at the low thoracic spine and minimal degenerative disc height reduction Pt had PT in the past for back pain and liked being on the wedge (hook lying with her legs up) Treatment Goals Patient/Caregiver Goals To decrease back pain PT-OP-C Subjective Start: 11/15/20 10:20 Freq: Status: Active Protocol: Document 02/02/21 07:31 MB (Rec: 02/02/21 08:15 MB [id number]) OP-PT Subjective Patient Comments Patient Comments Pt states that she is doing her exercises but not yesterday. She came so PT by mistake. She did some shopping about an hour and half and her back hurt. The Counterstrain treatment was a miracle and she wants to do it again. PT-OP-J Posture/Palpation/Skin Start: 11/15/20 10:20 Freq: Status: Active Protocol: Document 11/17/20 13:46 MB (Rec: 11/17/20 15:48 MB [id number]) Posture Evaluation Comments Posture Comments Standing posture with socks on and no shoes: Head rests in 3 deg right SB and left rotation. Decreased cervical lordosis, decreased thoracic kyphosis, increased lumbar lordosis. Dowager's hump, left shoulder lower than the right and lateral curvature of her spine with convexity to the right thoracic area and she has pain to palpation there. Right iliac crest is higher than left. Anterior tilt pelvis and shoulders and trunk more posterior and knees flexed. Increased valgus right knee and overpronation right greater than left foot. PT-OP-K Range of Motion Start: 11/15/20 10:20 Freq: Status: Active Protocol: Document 11/17/20 13:46 MB (Rec: 11/17/20 15:48 MB [id number]) Cervical Spine Range of Motion Cervical Spine Active Testing Position Standing Flexion 50 Extension 40 Rotation Left 28 Rotation Right 36 Lumbar Spine Range of Motion Lumbar Spine Active Comments Thoracic spine movement in standing: SB to the left less than the right and both reduced; sitting thoracic rotation 35 deg to the right and 40 deg to the left Shoulder Goniometric Range of Motion Shoulder ROM Limitations Comments B shoulder flexion and abduction WFLs for age Hip Goniometric Range of Motion Hip ROM Limitations Comments Passive SLR: 40 deg right and 30 deg left PT-OP-M Strength Start: 11/15/20 10:20 Freq: Status: Active Protocol: Document 11/17/20 13:46 MB (Rec: 11/17/20 15:48 MB [id number]) Hip Strength Hip Manual Muscle Testing Left Flexion (L2) 4 Good Abduction 3+ Fair+ Comments Pt supine Right Flexion (L2) 5 Normal Abduction 4 Good Comments Pt supine Knee Strength Knee Manual Muscle Testing Left Flexion (S2) 4 Good Extension (L3) 4 Good Right Flexion (S2) 4 Good Extension (L3) 5 Normal Ankle/Foot Strength Ankle and Foot Manual Muscle Testing Left Dorsiflexion (L4) 5 Normal Right Dorsiflexion (L4) 5 Normal Toe Strength Toe Manual Muscle Testing Left Great Toe Extension 4 Good Right Great Toe Extension 4 Good PT-OP-Q Treatments Start: 11/15/20 10:20 Freq: Status: Active Protocol: Document 02/02/21 07:31 MB (Rec: 02/02/21 08:15 MB [id number]) Manual Therapy Treatment Other Other Manual Treatments Pt agrees to Counterstrain to assess and treat fascial tension and she presents with tension in the following fascial systems: spinal medullary veins, periosteal, ligamentum flavum, standard lymphatic row. PT treats stacks in the following systems: ligamentum flavum and spinal medullary vein and she responds well PT-OP-T Assessment and Plan Start: 11/15/20 10:20 Freq: Status: Active Protocol: Document 02/02/21 07:31 MB (Rec: 02/02/21 08:15 MB [id number]) Physical Therapy Assessment Rehab Potential Rehabilitation Potential Fair Evaluation Complexity Number of Personal Factors/Comorbidities 1-2 Number of Body Systems Impaired 1-2 Clinical Presentation at Evaluation Evolving Impairments Impairments Activity Tolerance,Balance, Pain,Posture,ROM,Soft Tissue Mobility,Strength Other Impairments Pt denies sensory changes. Other Concerns Fall Risk Pt denies falls, dizziness and headaches Goals 4 Huller Operator Goal (LTG) Pt will perform WNLs on a standardized balance test to decrease fall risk by 02/12/21. 01/12/21: FGA score is 24/30 and will add tandem walking to HEP in the future LTG Duration 4 weeks Three Assisted Goal (LTG) Pt will present with an improved Oswestry LBP score to no more than 20% to reflect improved pain and function by 02/12/21. 01/12/21: Oswestry LBP score reflects 28% impairment LTG Duration 4 weeks Two Huller Operator Goal (LTG) Pt will present with improved and equal B trunk side bend in standing and thoracic rotation in sitting to improve overall thoracic mobility and flexibility and to decrease pain by 02/12/21. 01/12/21: Decreased SB to the right compared to left in standing, decreased right thoracic rotation compared to the left LTG Duration 4 weeks One Huller Operator Goal (LTG) Pt will perform progressive HEP with I including thoracic mobility, pelvic realignment, breathing and relaxation exercises, flexibility, core, spine and LE strengthening and balance exercises to improve pain, range and balance by 02/12. 01/12/21: Pt has not been performing HEP in ID LTG Duration 4 weeks Assessment Summary Assessment Pt had a great response to Counterstrain with her neck feeling much better. Con't Counterstrain and progress exercises, including Phoenix stretch and hamstring stretch hook lying and core strengthening in hook lying. Physical Therapy Plan Frequency and Duration Frequency of Treatment 2x/Week Duration of Treatment 4 weeks Plan of Care Start Date 01/12/21 Plan of Care End Date 02/12/21 Therapeutic Interventions Therapeutic Interventions Balance Training,Canalithic Repositioning,Gait Training, Home Exercise Program,Joint Mobilizations,Manual Therapy, Neuromuscular Re-education, Patient/Caregiver Education, Self-Care/Home Management,Soft Tissue Mobilization,Taping, Therapeutic Activities, Therapeutic Exercises Modalities Cold Pack/Ice Massage,Hot Packs Next Visit Focus/Plan Next Note Type Treatment Note Next Visit Plan Consider breathing exercises, ongoing Cervicothoracic work, further Counterstrain and manual work, Consider sitting ball strengthening exercises, balance exercise, wall squat, core progression, tandem walking, consider Phoenix stretch and hamstring stretch in hook lying
--- NOTE | 2021-02-04 08:13 | PT.OTN ---
Current Diagnoses Other chronic pain (02/04/21) Torticollis (02/04/21) Dorsalgia, unspecified (02/04/21) Physical Therapy Treatment Note PT-OP-A Visit Information Start: 11/15/20 10:20 Freq: Status: Active Protocol: Document 02/04/21 07:34 MB (Rec: 02/04/21 08:13 MB [id number]) Out-Patient Physical Therapy Visit Information Visit Information Visit Type Treatment Note Visit Note [facility], co-pay $30 Pt con't to arrive a few minutes late for appointment Visit Start Time 07:34 Visit Stop Time 08:13 Total Visit Minutes 39 Visit Number 12 PT-OP-B Current Condition Start: 11/15/20 10:20 Freq: Status: Active Protocol: Document 11/17/20 13:46 MB (Rec: 11/17/20 13:58 MB [id number]) Current Condition History of Current Condition Onset Date 4 years ago Current Complaints Back pain, especially when up History of Current Condition Pt reports that 4 years ago, she was caring for her who has sinced and she hurt her back. She was born with scoliosis. Pt received 4 OMT treatments from . Pt uses stationary upright bike at home. She used to backpack and hike and hasn 't been able to do so in two years d/t back pain. She is doing active cervical rotation with thoracic slumping at home, hook lying lumbar rocking and buttocks stretches , hamstring stretches in sitting. She is also taking a nap each day with her legs up on a wedge. PMH: cervical somatic dysfunction, hyperlipidemia, HTN, OA, lumbar and pelvic somatic dysfunction, OP, thoracic region somatic dysfunction. Pt rates back pain as 4/10 and it is located at right thoracic area and B SI joints. Pt has a back brace that she uses occ. She uses a waffle seat cushion and back on the mower and that helps. Prior Treatments and Tests OMT treatment, x-ray thoracic spine 02/04/19: slight levoscoliosis centered at the low thoracic spine and minimal degenerative disc height reduction Pt had PT in the past for back pain and liked being on the wedge (hook lying with her legs up) Treatment Goals Patient/Caregiver Goals To decrease back pain PT-OP-C Subjective Start: 11/15/20 10:20 Freq: Status: Active Protocol: Document 02/04/21 07:34 MB (Rec: 02/04/21 08:13 MB [id number]) OP-PT Subjective Patient Comments Patient Comments Pt states that she had a lot of LBP when up in the kitchen working yesterday. PT-OP-J Posture/Palpation/Skin Start: 11/15/20 10:20 Freq: Status: Active Protocol: Document 11/17/20 13:46 MB (Rec: 11/17/20 15:48 MB [id number]) Posture Evaluation Comments Posture Comments Standing posture with socks on and no shoes: Head rests in 3 deg right SB and left rotation. Decreased cervical lordosis, decreased thoracic kyphosis, increased lumbar lordosis. Dowager's hump, left shoulder lower than the right and lateral curvature of her spine with convexity to the right thoracic area and she has pain to palpation there. Right iliac crest is higher than left. Anterior tilt pelvis and shoulders and trunk more posterior and knees flexed. Increased valgus right knee and overpronation right greater than left foot. PT-OP-K Range of Motion Start: 11/15/20 10:20 Freq: Status: Active Protocol: Document 11/17/20 13:46 MB (Rec: 11/17/20 15:48 MB [id number]) Cervical Spine Range of Motion Cervical Spine Active Testing Position Standing Flexion 50 Extension 40 Rotation Left 28 Rotation Right 36 Lumbar Spine Range of Motion Lumbar Spine Active Comments Thoracic spine movement in standing: SB to the left less than the right and both reduced; sitting thoracic rotation 35 deg to the right and 40 deg to the left Shoulder Goniometric Range of Motion Shoulder ROM Limitations Comments B shoulder flexion and abduction WFLs for age Hip Goniometric Range of Motion Hip ROM Limitations Comments Passive SLR: 40 deg right and 30 deg left PT-OP-M Strength Start: 11/15/20 10:20 Freq: Status: Active Protocol: Document 11/17/20 13:46 MB (Rec: 11/17/20 15:48 MB [id number]) Hip Strength Hip Manual Muscle Testing Left Flexion (L2) 4 Good Abduction 3+ Fair+ Comments Pt supine Right Flexion (L2) 5 Normal Abduction 4 Good Comments Pt supine Knee Strength Knee Manual Muscle Testing Left Flexion (S2) 4 Good Extension (L3) 4 Good Right Flexion (S2) 4 Good Extension (L3) 5 Normal Ankle/Foot Strength Ankle and Foot Manual Muscle Testing Left Dorsiflexion (L4) 5 Normal Right Dorsiflexion (L4) 5 Normal Toe Strength Toe Manual Muscle Testing Left Great Toe Extension 4 Good Right Great Toe Extension 4 Good PT-OP-Q Treatments Start: 11/15/20 10:20 Freq: Status: Active Protocol: Document 02/04/21 07:34 MB (Rec: 02/04/21 08:13 MB [id number]) Therapeutic Exercises Supine Exercises Hamstring stretch with AP Side bilateral Comments Opposite leg straight, hand behind knee, AP 20-40 reps Phoenix stretch Side bilateral Comments Abdominal drawing in, pelvic tilt, 3 reps each leg, 20 sec hold Abdominal drawing in Supine Exercise Name Ed today to perform before Phoenix stretch Comments Several reps Sidelying Exercises Open book with lower rib breathing Side bilateral Comments 1 rep each side with prolonged hold and rib breathing Manual Therapy Treatment Other Other Manual Treatments Pt prone: PA thoracic mobs grade III, B scapular mobs, B suboccipital and cervical paraspinals, STM intrascapular muscles and thoracic paraspinals PT-OP-T Assessment and Plan Start: 11/15/20 10:20 Freq: Status: Active Protocol: Document 02/04/21 07:34 MB (Rec: 02/04/21 08:13 MB [id number]) Physical Therapy Assessment Rehab Potential Rehabilitation Potential Fair Evaluation Complexity Number of Personal Factors/Comorbidities 1-2 Number of Body Systems Impaired 1-2 Clinical Presentation at Evaluation Evolving Impairments Impairments Activity Tolerance,Balance, Pain,Posture,ROM,Soft Tissue Mobility,Strength Other Impairments Pt denies sensory changes. Other Concerns Fall Risk Pt denies falls, dizziness and headaches Goals 4 Self Pay Specialist Goal (LTG) Pt will perform WNLs on a standardized balance test to decrease fall risk by 02/12/21. 01/12/21: FGA score is 24/30 and will add tandem walking to HEP in the future LTG Duration 4 weeks Three Snf Goal (LTG) Pt will present with an improved Oswestry LBP score to no more than 20% to reflect improved pain and function by 02/12/21. 01/12/21: Oswestry LBP score reflects 28% impairment LTG Duration 4 weeks Two Self Pay Specialist Goal (LTG) Pt will present with improved and equal B trunk side bend in standing and thoracic rotation in sitting to improve overall thoracic mobility and flexibility and to decrease pain by 02/12/21. 01/12/21: Decreased SB to the right compared to left in standing, decreased right thoracic rotation compared to the left LTG Duration 4 weeks One Self Pay Specialist Goal (LTG) Pt will perform progressive HEP with I including thoracic mobility, pelvic realignment, breathing and relaxation exercises, flexibility, core, spine and LE strengthening and balance exercises to improve pain, range and balance by 02/12. 01/12/21: Pt has not been performing HEP in ID LTG Duration 4 weeks Assessment Summary Assessment Initiated Phoenix stretch, hamstring flexibility and open book with rib breathing today . Pt to perform these around nap time each day. She con't to have pain with ADLs, being up on her feet and with shopping. Pt would like to keep current appointments and not schedule more d/t summer getting busy. Physical Therapy Plan Frequency and Duration Frequency of Treatment 2x/Week Duration of Treatment 4 weeks Plan of Care Start Date 01/12/21 Plan of Care End Date 02/12/21 Therapeutic Interventions Therapeutic Interventions Balance Training,Canalithic Repositioning,Gait Training, Home Exercise Program,Joint Mobilizations,Manual Therapy, Neuromuscular Re-education, Patient/Caregiver Education, Self-Care/Home Management,Soft Tissue Mobilization,Taping, Therapeutic Activities, Therapeutic Exercises Modalities Cold Pack/Ice Massage,Hot Packs Next Visit Focus/Plan Next Note Type Treatment Note Next Visit Plan Consider ongoing Counterstrain , band exercises for hips and arms in hook lying, balance exercise, wall squat, core progression, tandem walking
--- NOTE | 2021-02-11 08:56 | PT.OTN ---
Current Diagnoses Other chronic pain (02/11/21) Torticollis (02/11/21) Dorsalgia, unspecified (02/11/21) Physical Therapy Treatment Note PT-OP-A Visit Information Start: 11/15/20 10:20 Freq: Status: Active Protocol: Document 02/11/21 08:16 MB (Rec: 02/11/21 08:54 MB [id number]) Out-Patient Physical Therapy Visit Information Visit Information Visit Type Treatment Note Visit Note [facility], co-pay $30 Visit Start Time 08:16 Visit Stop Time 08:56 Total Visit Minutes 40 Visit Number 13 PT-OP-B Current Condition Start: 11/15/20 10:20 Freq: Status: Active Protocol: Document 11/17/20 13:46 MB (Rec: 11/17/20 13:58 MB [id number]) Current Condition History of Current Condition Onset Date 4 years ago Current Complaints Back pain, especially when up History of Current Condition Pt reports that 4 years ago, she was caring for her who has sinced and she hurt her back. She was born with scoliosis. Pt received 4 OMT treatments from . Pt uses stationary upright bike at home. She used to backpack and hike and hasn 't been able to do so in two years d/t back pain. She is doing active cervical rotation with thoracic slumping at home, hook lying lumbar rocking and buttocks stretches , hamstring stretches in sitting. She is also taking a nap each day with her legs up on a wedge. PMH: cervical somatic dysfunction, hyperlipidemia, HTN, OA, lumbar and pelvic somatic dysfunction, OP, thoracic region somatic dysfunction. Pt rates back pain as 4/10 and it is located at right thoracic area and B SI joints. Pt has a back brace that she uses occ. She uses a waffle seat cushion and back on the mower and that helps. Prior Treatments and Tests OMT treatment, x-ray thoracic spine 02/04/19: slight levoscoliosis centered at the low thoracic spine and minimal degenerative disc height reduction Pt had PT in the past for back pain and liked being on the wedge (hook lying with her legs up) Treatment Goals Patient/Caregiver Goals To decrease back pain PT-OP-C Subjective Start: 11/15/20 10:20 Freq: Status: Active Protocol: Document 02/11/21 08:16 MB (Rec: 02/11/21 08:54 MB [id number]) OP-PT Subjective Patient Comments Patient Comments Pt states that she is feeling better. It has been a better week. She has been resting more because she doesn't like the heat. PT-OP-J Posture/Palpation/Skin Start: 11/15/20 10:20 Freq: Status: Active Protocol: Document 11/17/20 13:46 MB (Rec: 11/17/20 15:48 MB [id number]) Posture Evaluation Comments Posture Comments Standing posture with socks on and no shoes: Head rests in 3 deg right SB and left rotation. Decreased cervical lordosis, decreased thoracic kyphosis, increased lumbar lordosis. Dowager's hump, left shoulder lower than the right and lateral curvature of her spine with convexity to the right thoracic area and she has pain to palpation there. Right iliac crest is higher than left. Anterior tilt pelvis and shoulders and trunk more posterior and knees flexed. Increased valgus right knee and overpronation right greater than left foot. PT-OP-K Range of Motion Start: 11/15/20 10:20 Freq: Status: Active Protocol: Document 11/17/20 13:46 MB (Rec: 11/17/20 15:48 MB [id number]) Cervical Spine Range of Motion Cervical Spine Active Testing Position Standing Flexion 50 Extension 40 Rotation Left 28 Rotation Right 36 Lumbar Spine Range of Motion Lumbar Spine Active Comments Thoracic spine movement in standing: SB to the left less than the right and both reduced; sitting thoracic rotation 35 deg to the right and 40 deg to the left Shoulder Goniometric Range of Motion Shoulder ROM Limitations Comments B shoulder flexion and abduction WFLs for age Hip Goniometric Range of Motion Hip ROM Limitations Comments Passive SLR: 40 deg right and 30 deg left PT-OP-M Strength Start: 11/15/20 10:20 Freq: Status: Active Protocol: Document 11/17/20 13:46 MB (Rec: 11/17/20 15:48 MB [id number]) Hip Strength Hip Manual Muscle Testing Left Flexion (L2) 4 Good Abduction 3+ Fair+ Comments Pt supine Right Flexion (L2) 5 Normal Abduction 4 Good Comments Pt supine Knee Strength Knee Manual Muscle Testing Left Flexion (S2) 4 Good Extension (L3) 4 Good Right Flexion (S2) 4 Good Extension (L3) 5 Normal Ankle/Foot Strength Ankle and Foot Manual Muscle Testing Left Dorsiflexion (L4) 5 Normal Right Dorsiflexion (L4) 5 Normal Toe Strength Toe Manual Muscle Testing Left Great Toe Extension 4 Good Right Great Toe Extension 4 Good PT-OP-Q Treatments Start: 11/15/20 10:20 Freq: Status: Active Protocol: Document 02/11/21 08:16 MB (Rec: 02/11/21 08:54 MB [id number]) Therapeutic Exercises Supine Exercises Shoulder ER with band Side bilateral Resistance Level 1 band Comments 10 reps slowly, elbows at side Horizontal abduction with band Side bilateral Resistance Level 1 band Comments 10 reps slowly, keep resistance on the band Shoulder flexion and elbow flexion and extension with therband looped around wrists Side bilateral Resistance Level 1 band looped around wrists Comments 10 reps all, alterate elbow flexion and extension Hip abduction clam in hook lying Side bilateral Resistance Level 1 band looped around knees Comments Level 1 band, 15 reps slowly Pelvic realignment exercises Comments Reviewed today Manual Therapy Treatment Other Other Manual Treatments Pt prone: PA thoracic mobs grade III, B scapular mobs, B suboccipital and cervical paraspinals, STM intrascapular muscles and thoracic paraspinals PT-OP-T Assessment and Plan Start: 11/15/20 10:20 Freq: Status: Active Protocol: Document 02/11/21 08:16 MB (Rec: 02/11/21 08:54 MB [id number]) Physical Therapy Assessment Rehab Potential Rehabilitation Potential Fair Evaluation Complexity Number of Personal Factors/Comorbidities 1-2 Number of Body Systems Impaired 1-2 Clinical Presentation at Evaluation Evolving Impairments Impairments Activity Tolerance,Balance, Pain,Posture,ROM,Soft Tissue Mobility,Strength Other Impairments Pt denies sensory changes. Other Concerns Fall Risk Pt denies falls, dizziness and headaches Goals 4 Fci Goal (LTG) Pt will perform WNLs on a standardized balance test to decrease fall risk by 02/12/21. 01/12/21: FGA score is 24/30 and will add tandem walking to HEP in the future LTG Duration 4 weeks Three Account Development Manager Goal (LTG) Pt will present with an improved Oswestry LBP score to no more than 20% to reflect improved pain and function by 02/12/21. 01/12/21: Oswestry LBP score reflects 28% impairment LTG Duration 4 weeks Two Fci Goal (LTG) Pt will present with improved and equal B trunk side bend in standing and thoracic rotation in sitting to improve overall thoracic mobility and flexibility and to decrease pain by 02/12/21. 01/12/21: Decreased SB to the right compared to left in standing, decreased right thoracic rotation compared to the left LTG Duration 4 weeks One Account Development Manager Goal (LTG) Pt will perform progressive HEP with I including thoracic mobility, pelvic realignment, breathing and relaxation exercises, flexibility, core, spine and LE strengthening and balance exercises to improve pain, range and balance by 02/12. 01/12/21: Pt has not been performing HEP in [place] LTG Duration 4 weeks Assessment Summary Assessment Progressed strengthening today and pt performs well. Performed in hook lying as this assists with posture and unweighting head and neck. Physical Therapy Plan Frequency and Duration Frequency of Treatment 2x/Week Duration of Treatment 4 weeks Plan of Care Start Date 01/12/21 Plan of Care End Date 02/12/21 Therapeutic Interventions Therapeutic Interventions Balance Training,Canalithic Repositioning,Gait Training, Home Exercise Program,Joint Mobilizations,Manual Therapy, Neuromuscular Re-education, Patient/Caregiver Education, Self-Care/Home Management,Soft Tissue Mobilization,Taping, Therapeutic Activities, Therapeutic Exercises Modalities Cold Pack/Ice Massage,Hot Packs Next Visit Focus/Plan Next Note Type Treatment Note Next Visit Plan Consider ongoing Counterstrain , balance exercise, wall squat , core progression, tandem walking, intrascapular strengthening and multifidi strengthening
--- NOTE | 2021-02-16 09:59 | PT.OTN ---
Current Diagnoses Other chronic pain (02/16/21) Torticollis (02/16/21) Dorsalgia, unspecified (02/16/21) Physical Therapy Treatment Note PT-OP-A Visit Information Start: 11/15/20 10:20 Freq: Status: Active Protocol: Document 02/16/21 08:17 MB (Rec: 02/16/21 08:55 MB [id number]) Out-Patient Physical Therapy Visit Information Visit Information Visit Type Treatment Note Visit Note [facility], co-pay $30 Visit Start Time 08:17 Visit Stop Time 09:00 Total Visit Minutes 43 Visit Number 14 PT-OP-B Current Condition Start: 11/15/20 10:20 Freq: Status: Active Protocol: Document 11/17/20 13:46 MB (Rec: 11/17/20 13:58 MB [id number]) Current Condition History of Current Condition Onset Date 4 years ago Current Complaints Back pain, especially when up History of Current Condition Pt reports that 4 years ago, she was caring for her who has sinced and she hurt her back. She was born with scoliosis. Pt received 4 OMT treatments from . Pt uses stationary upright bike at home. She used to backpack and hike and hasn 't been able to do so in two years d/t back pain. She is doing active cervical rotation with thoracic slumping at home, hook lying lumbar rocking and buttocks stretches , hamstring stretches in sitting. She is also taking a nap each day with her legs up on a wedge. PMH: cervical somatic dysfunction, hyperlipidemia, HTN, OA, lumbar and pelvic somatic dysfunction, OP, thoracic region somatic dysfunction. Pt rates back pain as 4/10 and it is located at right thoracic area and B SI joints. Pt has a back brace that she uses occ. She uses a waffle seat cushion and back on the mower and that helps. Prior Treatments and Tests OMT treatment, x-ray thoracic spine 02/04/19: slight levoscoliosis centered at the low thoracic spine and minimal degenerative disc height reduction Pt had PT in the past for back pain and liked being on the wedge (hook lying with her legs up) Treatment Goals Patient/Caregiver Goals To decrease back pain PT-OP-C Subjective Start: 11/15/20 10:20 Freq: Status: Active Protocol: Document 02/16/21 08:17 MB (Rec: 02/16/21 09:56 MB [id number]) OP-PT Subjective Patient Comments Patient Comments Pt states that she is feeling better and doing her exercises . [place] leaves for [place] in [place]. PT-OP-J Posture/Palpation/Skin Start: 11/15/20 10:20 Freq: Status: Active Protocol: Document 11/17/20 13:46 MB (Rec: 11/17/20 15:48 MB [id number]) Posture Evaluation Comments Posture Comments Standing posture with socks on and no shoes: Head rests in 3 deg right SB and left rotation. Decreased cervical lordosis, decreased thoracic kyphosis, increased lumbar lordosis. Dowager's hump, left shoulder lower than the right and lateral curvature of her spine with convexity to the right thoracic area and she has pain to palpation there. Right iliac crest is higher than left. Anterior tilt pelvis and shoulders and trunk more posterior and knees flexed. Increased valgus right knee and overpronation right greater than left foot. PT-OP-K Range of Motion Start: 11/15/20 10:20 Freq: Status: Active Protocol: Document 11/17/20 13:46 MB (Rec: 11/17/20 15:48 MB [id number]) Cervical Spine Range of Motion Cervical Spine Active Testing Position Standing Flexion 50 Extension 40 Rotation Left 28 Rotation Right 36 Lumbar Spine Range of Motion Lumbar Spine Active Comments Thoracic spine movement in standing: SB to the left less than the right and both reduced; sitting thoracic rotation 35 deg to the right and 40 deg to the left Shoulder Goniometric Range of Motion Shoulder ROM Limitations Comments B shoulder flexion and abduction WFLs for age Hip Goniometric Range of Motion Hip ROM Limitations Comments Passive SLR: 40 deg right and 30 deg left PT-OP-M Strength Start: 11/15/20 10:20 Freq: Status: Active Protocol: Document 11/17/20 13:46 MB (Rec: 11/17/20 15:48 MB [id number]) Hip Strength Hip Manual Muscle Testing Left Flexion (L2) 4 Good Abduction 3+ Fair+ Comments Pt supine Right Flexion (L2) 5 Normal Abduction 4 Good Comments Pt supine Knee Strength Knee Manual Muscle Testing Left Flexion (S2) 4 Good Extension (L3) 4 Good Right Flexion (S2) 4 Good Extension (L3) 5 Normal Ankle/Foot Strength Ankle and Foot Manual Muscle Testing Left Dorsiflexion (L4) 5 Normal Right Dorsiflexion (L4) 5 Normal Toe Strength Toe Manual Muscle Testing Left Great Toe Extension 4 Good Right Great Toe Extension 4 Good PT-OP-Q Treatments Start: 11/15/20 10:20 Freq: Status: Active Protocol: Document 02/16/21 08:17 MB (Rec: 02/16/21 08:55 MB [id number]) Therapeutic Exercises Other Exercises Reviewed all exercises Comments Verbally reviewed all exercises during progress note , performs therapy ball Manual Therapy Treatment Other Other Manual Treatments Pt agrees to Counterstrain to assess and treat fascial tension and pt presents with tension in ALL system and PT treats stacks. Pt then treats stacks in LF. PT also performs B positional release for SCM. Neuro Re-Education Treatment Balance Activities Progressive balance exercises Comments Romberg and Tandem (see goal comments) and then added Tandem in corner for HEP and instructed and pt performs and provided handout PT-OP-T Assessment and Plan Start: 11/15/20 10:20 Freq: Status: Active Protocol: Document 02/16/21 08:17 MB (Rec: 02/16/21 08:55 MB [id number]) Physical Therapy Assessment Rehab Potential Rehabilitation Potential Fair Evaluation Complexity Number of Personal Factors/Comorbidities 1-2 Number of Body Systems Impaired 1-2 Clinical Presentation at Evaluation Evolving Impairments Impairments Activity Tolerance,Balance, Pain,Posture,ROM,Soft Tissue Mobility,Strength Other Impairments Pt denies sensory changes. Other Concerns Fall Risk Pt denies falls, dizziness and headaches Goals 4 Pst Supervisor Goal (LTG) Pt will perform WNLs on a standardized balance test to decrease fall risk by 03/09/21. 02/16/21: Romberg EO and EC no trouble. Pt has to have assist to get into position 01/12/21: FGA score is 24/30 and will add tandem walking to HEP in the future LTG Duration 3 weeks Three Half-Way Goal (LTG) Pt will present with an improved Oswestry LBP score to no more than 20% to reflect improved pain and function by 03/09/21. 02/16/21: Oswestry LBP score reflects 30% impairment which is 2% worse than last score LTG Duration 3 weeks Two Pst Supervisor Goal (LTG) Pt will present with improved and equal B trunk side bend in standing and thoracic rotation in sitting to improve overall thoracic mobility and flexibility and to decrease pain by 03/09/21. 02/16/21: Right rotation sitting on therapy ball is improved and is similar to the left. Standing SB: grossly equal LTG Duration Met One Pst Supervisor Goal (LTG) Pt will perform progressive HEP with I including thoracic mobility, pelvic realignment, breathing and relaxation exercises, flexibility, core, spine and LE strengthening and balance exercises to improve pain, range and balance by . 02/16/21: Pt has been performing HEP including therapy ball exercises, pelvic realignment and LE stretches in hook lying LTG Duration 3 weeks Assessment Summary Assessment Pt has progressed towards all goals since starting PT. Added balance exercise today. She will benefit from 2-3 more PT treatments with focus on Counterstrain and any exercise progression as pt tolerates. Physical Therapy Plan Frequency and Duration Frequency of Treatment 1x/Week Duration of Treatment 3 weeks Plan of Care Start Date 02/16/21 Plan of Care End Date 03/09/21 Therapeutic Interventions Therapeutic Interventions Balance Training,Canalithic Repositioning,Gait Training, Home Exercise Program,Joint Mobilizations,Manual Therapy, Neuromuscular Re-education, Patient/Caregiver Education, Self-Care/Home Management,Soft Tissue Mobilization,Taping, Therapeutic Activities, Therapeutic Exercises Modalities Cold Pack/Ice Massage,Hot Packs Next Visit Focus/Plan Next Note Type Treatment Note Next Visit Plan Counterstrain, balance exercise, wall squat, core progression, tandem walking, intrascapular strengthening and multifidi strengthening
--- NOTE | 2021-02-16 10:00 | PT.OPPOC ---
Physical, Occupational & Speech Therapy At [facility] Current Diagnoses Other chronic pain (02/16/21) Torticollis (02/16/21) Dorsalgia, unspecified (02/16/21) Visit Care Team Role Provider Type Carlos Medeiros DO Attending Provider Physician Primary Care Provider Referring Provider Specialty: Family Practice Address: [address] [place] [address], [facility] Email: Plan Of Care PT-OP-T Assessment and Plan Start: 11/15/20 10:20 Freq: Status: Active Protocol: Document 02/16/21 08:17 MB (Rec: 02/16/21 08:55 MB [id number]) Physical Therapy Assessment Rehab Potential Rehabilitation Potential Fair Evaluation Complexity Number of Personal Factors/Comorbidities 1-2 Number of Body Systems Impaired 1-2 Clinical Presentation at Evaluation Evolving Impairments Impairments Activity Tolerance,Balance, Pain,Posture,ROM,Soft Tissue Mobility,Strength Other Impairments Pt denies sensory changes. Other Concerns Fall Risk Pt denies falls, dizziness and headaches Goals 4 Is Architect Goal (LTG) Pt will perform WNLs on a standardized balance test to decrease fall risk by 03/09/21. 02/16/21: Romberg EO and EC no trouble. Pt has to have assist to get into position 01/12/21: FGA score is 24/30 and will add tandem walking to HEP in the future LTG Duration 3 weeks Three Retirement Goal (LTG) Pt will present with an improved Oswestry LBP score to no more than 20% to reflect improved pain and function by 03/09/21. 02/16/21: Oswestry LBP score reflects 30% impairment which is 2% worse than last score LTG Duration 3 weeks Two Is Architect Goal (LTG) Pt will present with improved and equal B trunk side bend in standing and thoracic rotation in sitting to improve overall thoracic mobility and flexibility and to decrease pain by 03/09/21. 02/16/21: Right rotation sitting on therapy ball is improved and is similar to the left. Standing SB: grossly equal LTG Duration Met One Is Architect Goal (LTG) Pt will perform progressive HEP with I including thoracic mobility, pelvic realignment, breathing and relaxation exercises, flexibility, core, spine and LE strengthening and balance exercises to improve pain, range and balance by . 02/16/21: Pt has been performing HEP including therapy ball exercises, pelvic realignment and LE stretches in hook lying LTG Duration 3 weeks Assessment Summary Assessment Pt has progressed towards all goals since starting PT. Added balance exercise today. She will benefit from 2-3 more PT treatments with focus on Counterstrain and any exercise progression as pt tolerates. Physical Therapy Plan Frequency and Duration Frequency of Treatment 1x/Week Duration of Treatment 3 weeks Plan of Care Start Date 02/16/21 Plan of Care End Date 03/09/21 Therapeutic Interventions Therapeutic Interventions Balance Training,Canalithic Repositioning,Gait Training, Home Exercise Program,Joint Mobilizations,Manual Therapy, Neuromuscular Re-education, Patient/Caregiver Education, Self-Care/Home Management,Soft Tissue Mobilization,Taping, Therapeutic Activities, Therapeutic Exercises Modalities Cold Pack/Ice Massage,Hot Packs Next Visit Focus/Plan Next Note Type Treatment Note Next Visit Plan Counterstrain, balance exercise, wall squat, core progression, tandem walking, intrascapular strengthening and multifidi strengthening Plan of Care Dates Plan of Care Start Date 02/16/21 Plan of Care End Date 03/09/21 Electronically Signed by: Latosha Kohli, PT 02/16/21 1000 Please Sign and Return: I have reviewed this Plan of Care and certify that the skilled therapy services above are required to meet the patient?s needs. Physician Signature Date Printed Name and Credentials Clinical Instructor Signature Printed Name and Credentials
--- NOTE | 2021-02-23 08:12 | PT.OTN ---
Current Diagnoses Other chronic pain (02/23/21) Torticollis (02/23/21) Dorsalgia, unspecified (02/23/21) Physical Therapy Treatment Note PT-OP-A Visit Information Start: 11/15/20 10:20 Freq: Status: Active Protocol: Document 02/23/21 07:33 MB (Rec: 02/23/21 07:54 MB [id number]) Out-Patient Physical Therapy Visit Information Visit Information Visit Type Treatment Note Visit Note [facility] [employer], co-pay $30 Visit Start Time 07:33 Visit Stop Time 08:11 Total Visit Minutes 38 Visit Number 15 PT-OP-B Current Condition Start: 11/15/20 10:20 Freq: Status: Active Protocol: Document 11/17/20 13:46 MB (Rec: 11/17/20 13:58 MB [id number]) Current Condition History of Current Condition Onset Date 4 years ago Current Complaints Back pain, especially when up History of Current Condition Pt reports that 4 years ago, she was caring for her who has sinced and she hurt her back. She was born with scoliosis. Pt received 4 OMT treatments from . Pt uses stationary upright bike at home. She used to backpack and hike and hasn 't been able to do so in two years d/t back pain. She is doing active cervical rotation with thoracic slumping at home, hook lying lumbar rocking and buttocks stretches , hamstring stretches in sitting. She is also taking a nap each day with her legs up on a wedge. PMH: cervical somatic dysfunction, hyperlipidemia, HTN, OA, lumbar and pelvic somatic dysfunction, OP, thoracic region somatic dysfunction. Pt rates back pain as 4/10 and it is located at right thoracic area and B SI joints. Pt has a back brace that she uses occ. She uses a waffle seat cushion and back on the mower and that helps. Prior Treatments and Tests OMT treatment, x-ray thoracic spine 02/04/19: slight levoscoliosis centered at the low thoracic spine and minimal degenerative disc height reduction Pt had PT in the past for back pain and liked being on the wedge (hook lying with her legs up) Treatment Goals Patient/Caregiver Goals To decrease back pain PT-OP-C Subjective Start: 11/15/20 10:20 Freq: Status: Active Protocol: Document 02/23/21 07:33 MB (Rec: 02/23/21 07:54 MB [id number]) OP-PT Subjective Patient Comments Patient Comments I feel fine. The only time my back hurts is when I am trying to do something. Pt reports trouble standing PT-OP-J Posture/Palpation/Skin Start: 11/15/20 10:20 Freq: Status: Active Protocol: Document 11/17/20 13:46 MB (Rec: 11/17/20 15:48 MB [id number]) Posture Evaluation Comments Posture Comments Standing posture with socks on and no shoes: Head rests in 3 deg right SB and left rotation. Decreased cervical lordosis, decreased thoracic kyphosis, increased lumbar lordosis. Dowager's hump, left shoulder lower than the right and lateral curvature of her spine with convexity to the right thoracic area and she has pain to palpation there. Right iliac crest is higher than left. Anterior tilt pelvis and shoulders and trunk more posterior and knees flexed. Increased valgus right knee and overpronation right greater than left foot. PT-OP-K Range of Motion Start: 11/15/20 10:20 Freq: Status: Active Protocol: Document 11/17/20 13:46 MB (Rec: 11/17/20 15:48 MB [id number]) Cervical Spine Range of Motion Cervical Spine Active Testing Position Standing Flexion 50 Extension 40 Rotation Left 28 Rotation Right 36 Lumbar Spine Range of Motion Lumbar Spine Active Comments Thoracic spine movement in standing: SB to the left less than the right and both reduced; sitting thoracic rotation 35 deg to the right and 40 deg to the left Shoulder Goniometric Range of Motion Shoulder ROM Limitations Comments B shoulder flexion and abduction WFLs for age Hip Goniometric Range of Motion Hip ROM Limitations Comments Passive SLR: 40 deg right and 30 deg left PT-OP-M Strength Start: 11/15/20 10:20 Freq: Status: Active Protocol: Document 11/17/20 13:46 MB (Rec: 11/17/20 15:48 MB [id number]) Hip Strength Hip Manual Muscle Testing Left Flexion (L2) 4 Good Abduction 3+ Fair+ Comments Pt supine Right Flexion (L2) 5 Normal Abduction 4 Good Comments Pt supine Knee Strength Knee Manual Muscle Testing Left Flexion (S2) 4 Good Extension (L3) 4 Good Right Flexion (S2) 4 Good Extension (L3) 5 Normal Ankle/Foot Strength Ankle and Foot Manual Muscle Testing Left Dorsiflexion (L4) 5 Normal Right Dorsiflexion (L4) 5 Normal Toe Strength Toe Manual Muscle Testing Left Great Toe Extension 4 Good Right Great Toe Extension 4 Good PT-OP-Q Treatments Start: 11/15/20 10:20 Freq: Status: Active Protocol: Document 02/23/21 07:33 MB (Rec: 02/23/21 07:54 MB [id number]) Therapeutic Exercises Standing Exercises Tandem standing Side bilateral Comments Reviewed in corner for HEP and pt has trouble with that Multifidi engaged, heel raises Side bilateral Comments Band to the right or left, slow heel raise, 5 reps Scapular retraction with arms straight (row) Side bilateral Comments 10 reps slowly, core engaged Manual Therapy Treatment Other Other Manual Treatments Pt kneeling on wedge and leaning over mat: STM B QL, intrascapular muscles, paraspinals and hip rotators. Self-Care/Home Management Treatment Education Other Education Ed in softening knees and spreading legs for stance ( vertically and horizontally), engaging core and stepping feet for vacuuming, power washing and cooking. PT-OP-T Assessment and Plan Start: 11/15/20 10:20 Freq: Status: Active Protocol: Document 02/23/21 07:33 MB (Rec: 02/23/21 07:54 MB [id number]) Physical Therapy Assessment Rehab Potential Rehabilitation Potential Fair Evaluation Complexity Number of Personal Factors/Comorbidities 1-2 Number of Body Systems Impaired 1-2 Clinical Presentation at Evaluation Evolving Impairments Impairments Activity Tolerance,Balance, Pain,Posture,ROM,Soft Tissue Mobility,Strength Other Impairments Pt denies sensory changes. Other Concerns Fall Risk Pt denies falls, dizziness and headaches Goals 4 Podiatrist Goal (LTG) Pt will perform WNLs on a standardized balance test to decrease fall risk by 03/09/21. 02/16/21: Romberg EO and EC no trouble. Pt has to have assist to get into position 01/12/21: FGA score is 24/30 and will add tandem walking to HEP in the future LTG Duration 3 weeks Three Half-Way Goal (LTG) Pt will present with an improved Oswestry LBP score to no more than 20% to reflect improved pain and function by 03/09/21. 02/16/21: Oswestry LBP score reflects 30% impairment which is 2% worse than last score LTG Duration 3 weeks Two Podiatrist Goal (LTG) Pt will present with improved and equal B trunk side bend in standing and thoracic rotation in sitting to improve overall thoracic mobility and flexibility and to decrease pain by 03/09/21. 02/16/21: Right rotation sitting on therapy ball is improved and is similar to the left. Standing SB: grossly equal LTG Duration Met One Podiatrist Goal (LTG) Pt will perform progressive HEP with I including thoracic mobility, pelvic realignment, breathing and relaxation exercises, flexibility, core, spine and LE strengthening and balance exercises to improve pain, range and balance by . 02/16/21: Pt has been performing HEP including therapy ball exercises, pelvic realignment and LE stretches in hook lying LTG Duration 3 weeks Assessment Summary Assessment Progressed intrascapular and balance exercises today. Pt presents with increased tension right greater than left QL and she has underlying spinal curvature. She presents with B TFL tension. Anticipate further exercise review and manual work and then prepare for d/c. Physical Therapy Plan Frequency and Duration Frequency of Treatment 1x/Week Duration of Treatment 3 weeks Plan of Care Start Date 02/16/21 Plan of Care End Date 03/09/21 Therapeutic Interventions Therapeutic Interventions Balance Training,Canalithic Repositioning,Gait Training, Home Exercise Program,Joint Mobilizations,Manual Therapy, Neuromuscular Re-education, Patient/Caregiver Education, Self-Care/Home Management,Soft Tissue Mobilization,Taping, Therapeutic Activities, Therapeutic Exercises Modalities Cold Pack/Ice Massage,Hot Packs Next Visit Focus/Plan Next Note Type Treatment Note Next Visit Plan Core progression, clam in hook lying, manual work
--- NOTE | 2021-03-01 09:01 | PT.OTN ---
Current Diagnoses Other chronic pain (03/01/21) Torticollis (03/01/21) Dorsalgia, unspecified (03/01/21) Physical Therapy Treatment Note PT-OP-A Visit Information Start: 11/15/20 10:20 Freq: Status: Active Protocol: Document 03/01/21 08:22 MB (Rec: 03/01/21 08:45 MB [id number]) Out-Patient Physical Therapy Visit Information Visit Information Visit Type Treatment Note Visit Note [facility], copay $30 Pt is late to appointment Visit Start Time 08:22 Visit Stop Time 09:00 Total Visit Minutes 38 Visit Number 16 PT-OP-B Current Condition Start: 11/15/20 10:20 Freq: Status: Active Protocol: Document 11/17/20 13:46 MB (Rec: 11/17/20 13:58 MB [id number]) Current Condition History of Current Condition Onset Date 4 years ago Current Complaints Back pain, especially when up History of Current Condition Pt reports that 4 years ago, she was caring for her who has sinced and she hurt her back. She was born with scoliosis. Pt received 4 OMT treatments from . Pt uses stationary upright bike at home. She used to backpack and hike and hasn 't been able to do so in two years d/t back pain. She is doing active cervical rotation with thoracic slumping at home, hook lying lumbar rocking and buttocks stretches , hamstring stretches in sitting. She is also taking a nap each day with her legs up on a wedge. PMH: cervical somatic dysfunction, hyperlipidemia, HTN, OA, lumbar and pelvic somatic dysfunction, OP, thoracic region somatic dysfunction. Pt rates back pain as 4/10 and it is located at right thoracic area and B SI joints. Pt has a back brace that she uses occ. She uses a waffle seat cushion and back on the mower and that helps. Prior Treatments and Tests OMT treatment, x-ray thoracic spine 02/04/19: slight levoscoliosis centered at the low thoracic spine and minimal degenerative disc height reduction Pt had PT in the past for back pain and liked being on the wedge (hook lying with her legs up) Treatment Goals Patient/Caregiver Goals To decrease back pain PT-OP-C Subjective Start: 11/15/20 10:20 Freq: Status: Active Protocol: Document 03/01/21 08:22 MB (Rec: 03/01/21 08:45 MB [id number]) OP-PT Subjective Patient Comments Patient Comments Pt states that she is feeling pretty good. She pressure washed and got the job done. She sat. Her back was sore afterwards. PT-OP-J Posture/Palpation/Skin Start: 11/15/20 10:20 Freq: Status: Active Protocol: Document 11/17/20 13:46 MB (Rec: 11/17/20 15:48 MB [id number]) Posture Evaluation Comments Posture Comments Standing posture with socks on and no shoes: Head rests in 3 deg right SB and left rotation. Decreased cervical lordosis, decreased thoracic kyphosis, increased lumbar lordosis. Dowager's hump, left shoulder lower than the right and lateral curvature of her spine with convexity to the right thoracic area and she has pain to palpation there. Right iliac crest is higher than left. Anterior tilt pelvis and shoulders and trunk more posterior and knees flexed. Increased valgus right knee and overpronation right greater than left foot. PT-OP-K Range of Motion Start: 11/15/20 10:20 Freq: Status: Active Protocol: Document 11/17/20 13:46 MB (Rec: 11/17/20 15:48 MB [id number]) Cervical Spine Range of Motion Cervical Spine Active Testing Position Standing Flexion 50 Extension 40 Rotation Left 28 Rotation Right 36 Lumbar Spine Range of Motion Lumbar Spine Active Comments Thoracic spine movement in standing: SB to the left less than the right and both reduced; sitting thoracic rotation 35 deg to the right and 40 deg to the left Shoulder Goniometric Range of Motion Shoulder ROM Limitations Comments B shoulder flexion and abduction WFLs for age Hip Goniometric Range of Motion Hip ROM Limitations Comments Passive SLR: 40 deg right and 30 deg left PT-OP-M Strength Start: 11/15/20 10:20 Freq: Status: Active Protocol: Document 11/17/20 13:46 MB (Rec: 11/17/20 15:48 MB [id number]) Hip Strength Hip Manual Muscle Testing Left Flexion (L2) 4 Good Abduction 3+ Fair+ Comments Pt supine Right Flexion (L2) 5 Normal Abduction 4 Good Comments Pt supine Knee Strength Knee Manual Muscle Testing Left Flexion (S2) 4 Good Extension (L3) 4 Good Right Flexion (S2) 4 Good Extension (L3) 5 Normal Ankle/Foot Strength Ankle and Foot Manual Muscle Testing Left Dorsiflexion (L4) 5 Normal Right Dorsiflexion (L4) 5 Normal Toe Strength Toe Manual Muscle Testing Left Great Toe Extension 4 Good Right Great Toe Extension 4 Good PT-OP-Q Treatments Start: 11/15/20 10:20 Freq: Status: Active Protocol: Document 03/01/21 08:22 MB (Rec: 03/01/21 08:45 MB [id number]) Therapeutic Exercises Supine Exercises Clam in hook lying Side bilateral Comments 10 reps, Level 1 band around knees, abdominal drawing in first Core progression Supine Exercise Name Abdominal drawing in, lumbar rotation, mini march, HS Side bilateral Comments Cues to slow down and keep heel down Manual Therapy Treatment Other Other Manual Treatments Pt kneeling on wedge and leaning over mat: STM B QL, intrascapular muscles, paraspinals and hip rotators. PT-OP-T Assessment and Plan Start: 11/15/20 10:20 Freq: Status: Active Protocol: Document 03/01/21 08:22 MB (Rec: 03/01/21 08:45 MB [id number]) Physical Therapy Assessment Rehab Potential Rehabilitation Potential Fair Evaluation Complexity Number of Personal Factors/Comorbidities 1-2 Number of Body Systems Impaired 1-2 Clinical Presentation at Evaluation Evolving Impairments Impairments Activity Tolerance,Balance, Pain,Posture,ROM,Soft Tissue Mobility,Strength Other Impairments Pt denies sensory changes. Other Concerns Fall Risk Pt denies falls, dizziness and headaches Goals 4 Residential Goal (LTG) Pt will perform WNLs on a standardized balance test to decrease fall risk by 03/09/21. 02/16/21: Romberg EO and EC no trouble. Pt has to have assist to get into position 01/12/21: FGA score is 24/30 and will add tandem walking to HEP in the future LTG Duration 3 weeks Three Residential Goal (LTG) Pt will present with an improved Oswestry LBP score to no more than 20% to reflect improved pain and function by 03/09/21. 02/16/21: Oswestry LBP score reflects 30% impairment which is 2% worse than last score LTG Duration 3 weeks Two Residential Goal (LTG) Pt will present with improved and equal B trunk side bend in standing and thoracic rotation in sitting to improve overall thoracic mobility and flexibility and to decrease pain by 03/09/21. 02/16/21: Right rotation sitting on therapy ball is improved and is similar to the left. Standing SB: grossly equal LTG Duration Met One Residential Goal (LTG) Pt will perform progressive HEP with I including thoracic mobility, pelvic realignment, breathing and relaxation exercises, flexibility, core, spine and LE strengthening and balance exercises to improve pain, range and balance by . 02/16/21: Pt has been performing HEP including therapy ball exercises, pelvic realignment and LE stretches in hook lying LTG Duration 3 weeks Assessment Summary Assessment Pt demonstrates corner Tandem exercise today and PT provides cues to place hands by her side. Progressed core and hip strengthening today. Prepare for d/t next treatment date. Physical Therapy Plan Frequency and Duration Frequency of Treatment 1x/Week Duration of Treatment 3 weeks Plan of Care Start Date 02/16/21 Plan of Care End Date 03/09/21 Therapeutic Interventions Therapeutic Interventions Balance Training,Canalithic Repositioning,Gait Training, Home Exercise Program,Joint Mobilizations,Manual Therapy, Neuromuscular Re-education, Patient/Caregiver Education, Self-Care/Home Management,Soft Tissue Mobilization,Taping, Therapeutic Activities, Therapeutic Exercises Modalities Cold Pack/Ice Massage,Hot Packs Next Visit Focus/Plan Next Note Type Discharge Summary
--- NOTE | 2021-03-09 08:56 | PT.OTN ---
Current Diagnoses Other chronic pain (03/09/21) Torticollis (03/09/21) Dorsalgia, unspecified (03/09/21) Physical Therapy Treatment Note PT-OP-A Visit Information Start: 11/15/20 10:20 Freq: Status: Active Protocol: Document 03/09/21 08:14 MB (Rec: 03/09/21 08:38 MB [id number]) Out-Patient Physical Therapy Visit Information Visit Information Visit Type Treatment Note Visit Note [facility], copay $30 Visit Start Time 08:14 Visit Stop Time 08:43 Total Visit Minutes 39 Visit Number 17 PT-OP-B Current Condition Start: 11/15/20 10:20 Freq: Status: Active Protocol: Document 11/17/20 13:46 MB (Rec: 11/17/20 13:58 MB [id number]) Current Condition History of Current Condition Onset Date 4 years ago Current Complaints Back pain, especially when up History of Current Condition Pt reports that 4 years ago, she was caring for her who has sinced and she hurt her back. She was born with scoliosis. Pt received 4 OMT treatments from . Pt uses stationary upright bike at home. She used to backpack and hike and hasn 't been able to do so in two years d/t back pain. She is doing active cervical rotation with thoracic slumping at home, hook lying lumbar rocking and buttocks stretches , hamstring stretches in sitting. She is also taking a nap each day with her legs up on a wedge. PMH: cervical somatic dysfunction, hyperlipidemia, HTN, OA, lumbar and pelvic somatic dysfunction, OP, thoracic region somatic dysfunction. Pt rates back pain as 4/10 and it is located at right thoracic area and B SI joints. Pt has a back brace that she uses occ. She uses a waffle seat cushion and back on the mower and that helps. Prior Treatments and Tests OMT treatment, x-ray thoracic spine 02/04/19: slight levoscoliosis centered at the low thoracic spine and minimal degenerative disc height reduction Pt had PT in the past for back pain and liked being on the wedge (hook lying with her legs up) Treatment Goals Patient/Caregiver Goals To decrease back pain PT-OP-C Subjective Start: 11/15/20 10:20 Freq: Status: Active Protocol: Document 03/09/21 08:14 MB (Rec: 03/09/21 08:54 MB [id number]) OP-PT Subjective Patient Comments Patient Comments Pt states that she is doing okay. She leaves from [place] on Sunday. Patient Reported Progress Improving PT-OP-J Posture/Palpation/Skin Start: 11/15/20 10:20 Freq: Status: Active Protocol: Document 11/17/20 13:46 MB (Rec: 11/17/20 15:48 MB [id number]) Posture Evaluation Comments Posture Comments Standing posture with socks on and no shoes: Head rests in 3 deg right SB and left rotation. Decreased cervical lordosis, decreased thoracic kyphosis, increased lumbar lordosis. Dowager's hump, left shoulder lower than the right and lateral curvature of her spine with convexity to the right thoracic area and she has pain to palpation there. Right iliac crest is higher than left. Anterior tilt pelvis and shoulders and trunk more posterior and knees flexed. Increased valgus right knee and overpronation right greater than left foot. PT-OP-K Range of Motion Start: 11/15/20 10:20 Freq: Status: Active Protocol: Document 11/17/20 13:46 MB (Rec: 11/17/20 15:48 MB [id number]) Cervical Spine Range of Motion Cervical Spine Active Testing Position Standing Flexion 50 Extension 40 Rotation Left 28 Rotation Right 36 Lumbar Spine Range of Motion Lumbar Spine Active Comments Thoracic spine movement in standing: SB to the left less than the right and both reduced; sitting thoracic rotation 35 deg to the right and 40 deg to the left Shoulder Goniometric Range of Motion Shoulder ROM Limitations Comments B shoulder flexion and abduction WFLs for age Hip Goniometric Range of Motion Hip ROM Limitations Comments Passive SLR: 40 deg right and 30 deg left PT-OP-M Strength Start: 11/15/20 10:20 Freq: Status: Active Protocol: Document 11/17/20 13:46 MB (Rec: 11/17/20 15:48 MB [id number]) Hip Strength Hip Manual Muscle Testing Left Flexion (L2) 4 Good Abduction 3+ Fair+ Comments Pt supine Right Flexion (L2) 5 Normal Abduction 4 Good Comments Pt supine Knee Strength Knee Manual Muscle Testing Left Flexion (S2) 4 Good Extension (L3) 4 Good Right Flexion (S2) 4 Good Extension (L3) 5 Normal Ankle/Foot Strength Ankle and Foot Manual Muscle Testing Left Dorsiflexion (L4) 5 Normal Right Dorsiflexion (L4) 5 Normal Toe Strength Toe Manual Muscle Testing Left Great Toe Extension 4 Good Right Great Toe Extension 4 Good PT-OP-Q Treatments Start: 11/15/20 10:20 Freq: Status: Active Protocol: Document 03/09/21 08:14 MB (Rec: 03/09/21 08:38 MB [id number]) Therapeutic Exercises Other Exercises Reviewed HEP Comments Reviewed exercises today in preparation for d/c Manual Therapy Treatment Other Other Manual Treatments Pt kneeling on wedge and leaning over mat: STM B QL, intrascapular muscles, paraspinals and hip rotators. Neuro Re-Education Treatment Balance Activities FGA Comments Score is 28/30 today, see goals for comments PT-OP-T Assessment and Plan Start: 11/15/20 10:20 Freq: Status: Active Protocol: Document 03/09/21 08:14 MB (Rec: 03/09/21 08:38 MB [id number]) Physical Therapy Assessment Rehab Potential Rehabilitation Potential Fair Evaluation Complexity Number of Personal Factors/Comorbidities 1-2 Number of Body Systems Impaired 1-2 Clinical Presentation at Evaluation Evolving Impairments Impairments Activity Tolerance,Balance, Pain,Posture,ROM,Soft Tissue Mobility,Strength Other Impairments Pt denies sensory changes. Other Concerns Fall Risk Pt denies falls, dizziness and headaches Goals 4 Jet Worker Goal (LTG) Pt will perform WNLs on a standardized balance test to decrease fall risk by 03/09/21. 03/09/21: FGA score is 28/30, with only trouble with tandem gait LTG Duration Met Three Jet Worker Goal (LTG) Pt will present with an improved Oswestry LBP score to no more than 20% to reflect improved pain and function by 03/09/21. 03/09/21: Oswestry score is much better and reflects 18% impairment LTG Duration Met Two Correction Goal (LTG) Pt will present with improved and equal B trunk side bend in standing and thoracic rotation in sitting to improve overall thoracic mobility and flexibility and to decrease pain by 03/09/21. 02/16/21: Right rotation sitting on therapy ball is improved and is similar to the left. Standing SB: grossly equal LTG Duration Met One Jet Worker Goal (LTG) Pt will perform progressive HEP with I including thoracic mobility, pelvic realignment, breathing and relaxation exercises, flexibility, core, spine and LE strengthening and balance exercises to improve pain, range and balance by . 03/09/21: Pt has been performing HEP including therapy ball exercises, pelvic realignment and LE stretches in hook lying, balance exercises and band exercises. Pt does not want anymore exercises. LTG Duration Met Assessment Summary Assessment Pt has met all PT goals including HEP, balance, range and Oswestry goals. She does con't to have back pain in setting of degenerative spinal changes. She will con't with HEP. She leaves for [place] in two days. Will d/c PT.
== END 2021-03-09 08:58 | disposition home or self-care (01) ==
LOC: PHYS 08:15
PROVIDERS: PCP Family Medicine; Referring Provider Family Medicine; Visit Provider Family Medicine
DX: M43.6 Torticollis (principal); M54.9 Dorsalgia, unspecified; G89.29 Other chronic pain
CPT/HCPCS: 97110; 97112; 97140; 97161; 97535

== ENCOUNTER → 2021-04-21 14:32 | Outpatient (CLI) | payer OTHER, SELFPAY ==
[2021-04-21 15:21] LABS: Appearance Urine UA CLOUDY; Bilirubin Urine UA NEGATIVE (NEGATIVE); Color Urine UA YELLOW; Glucose Urine UA TRACE g/dL (Negative); Ketones Urine UA NEGATIVE (NEGATIVE); Leukocyte Esterase Urine UA 2+ (NEGATIVE); Nitrite Urine UA POSITIVE (Negative); Occult Blood Urine UA 1+ (Negative); Protein Urine UA NEGATIVE (Negative); Urobilinogen Urine UA 0.2 E.U./dL (0.2)
[2021-04-21 16:18] LABS: Bacteria Urine Many (>30); Culture Indicated Urine Specimen Cultured; RBC Urine 1-5/HPF (0-5/HPF); Squamous Epithelial Cell Urine 0-1 /HPF (0-5/HPF); Transitional Epi Cells Urine 0-1/HPF (0-5/HPF); WBC Urine >100/HPF (0-5/HPF); pH Urine UA 6.5 (4.5-8.0)
== END ==
PROVIDERS: PCP Family Medicine; Referring Provider Family Medicine; Visit Provider Family Medicine
DX: N39.0 Urinary tract infection, site not specified (principal)
CPT/HCPCS: 81001; 87077; 87086; 87186

== ENCOUNTER → 2023-08-07 11:53 | Outpatient (CLI) | payer OTHER, SELFPAY ==
--- NOTE | 2023-08-07 11:54 | DI.RAD.S_ITS ---
PROCEDURE: XR CERVICAL SPINE 2V OR 3V INDICATIONS: spine pain TECHNIQUE: 3 view(s) of the cervical spine were acquired. COMPARISON: None. FINDINGS: Bones: No fractures or dislocations to the T1 level. The lateral masses of C1 appear intact on the odontoid view. No suspicious bony lesions. There is some anterolisthesis of C3 on C4 and C4 on C5 which appears to be secondary to bilateral facet degenerative change. At C4-C5 this measures approximately 2-3 mm. There is moderate to severe degenerative disc disease present C4-C5 through C6-C7. Soft tissues: No prevertebral soft tissue swelling. IMPRESSION: 1. No evidence for acute osseous abnormality involving the cervical spine. 2. Mild anterolisthesis C3 on C4 and C4 on C5 secondary to bilateral facet degenerative change. 3. Moderate to severe degenerative disc disease present C4-C5 through C6-C7. Dictated by: Diego Rendon M.D. on 08/07/2023 at 16:54 Approved by: Diego Rendon M.D. on 08/07/2023 at 16:56
--- NOTE | 2023-08-07 11:54 | DI.RAD.S_ITS ---
PROCEDURE: XR LUMBAR SPINE MIN 4V INDICATIONS: spine pain TECHNIQUE: 5 views of the lumbar spine were acquired, including bilateral oblique views. COMPARISON: [facility], , L-SPINE 2-3 VIEWS, 08/02/2016, 14:51. FINDINGS: Since the prior examination there has been interval worsening in the moderate lumbar scoliosis convex to the right. Associated with this is moderate diffuse degenerative disc disease all levels throughout the patient's lumbar spine. I do not see evidence for acute fracture. Atherosclerotic vascular calcifications are noted. Visualized soft tissues appear within normal limits. IMPRESSION: 1. Interval worsening in moderate lumbar scoliosis convex to the right. 2. Moderate diffuse degenerative disc disease noted at all levels. 3. Atherosclerotic vascular calcifications. Dictated by: Diego Rendon M.D. on 08/07/2023 at 14:39 Approved by: Diego Rendon M.D. on 08/07/2023 at 14:41
== END ==
PROVIDERS: PCP Family Medicine; Referring Provider Family Medicine; Visit Provider Family Medicine
DX: M43.6 Torticollis (principal); M54.9 Dorsalgia, unspecified; G89.29 Other chronic pain; M41.86 Other forms of scoliosis, lumbar region; M51.36 Other intervertebral disc degeneration, lumbar region; I25.10 Atherosclerotic heart disease of native coronary artery without angina pectoris; M43.12 Spondylolisthesis, cervical region; M50.30 Other cervical disc degeneration, unspecified cervical region
CPT/HCPCS: 72040; 72110

== ENCOUNTER → 2024-06-13 09:32 | Outpatient (CLI) | payer OTHER, SELFPAY ==
[2024-06-13 11:15] LABS: Alanine Aminotransferase 16 IU/L (<35); Albumin 4.3 g/dL (3.5-5.0); Albumin Globulin Ratio 1.4 (1.0-2.8); Alkaline Phosphatase 70 U/L (38-126); Aspartate Aminotransferase 29 IU/L (14-36); BUN Creatinine Ratio 21.2 (6-22); Bilirubin Total 0.7 mg/dL (0.2-1.3); Blood Urea Nitrogen 14 mg/dL (7-17); Calcium 9.7 mg/dL (8.4-10.2); Carbon Dioxide 31 mmol/L (22-32); Chloride 99 mmol/L (98-107); Cholesterol 178 mg/dL (140-199); Estimated Glomerular Filt Rate > 60 mL/min (>60); Globulin 3.1 g/dL (1.7-4.1); Glucose 101 mg/dL (80-110); HDL Cholesterol 77 mg/dL (40-60); HEMOLYSIS < 15 (0-50); LDL Cholesterol Calculated 84 mg/dL (<100); Potassium 3.5 mmol/L (3.4-5.1); Sodium 136 mmol/L (137-145); Total Protein 7.4 g/dL (6.3-8.2); Triglycerides 85 mg/dL (35-150)
== END ==
PROVIDERS: PCP Family Medicine; Referring Provider Family Medicine; Visit Provider Family Medicine
DX: I10 Essential (primary) hypertension (principal); E78.5 Hyperlipidemia, unspecified
CPT/HCPCS: 36415; 80053; 80061

== ENCOUNTER → 2025-09-04 12:41 | Outpatient (CLI) | payer OTHER, SELFPAY ==
--- NOTE | 2025-09-04 12:45 | DI.RAD.S_ITS ---
PROCEDURE: XR HIP W PEL IF DONE RT 2V INDICATIONS: right hip OA TECHNIQUE: 2 views of the hip were acquired. COMPARISON: None. FINDINGS: Bones: No fractures or dislocations. No suspicious bony lesions. The visualized pelvic ring appears intact. Nonuniform joint space narrowing and osteophytic lipping of the acetabuli. Soft tissues: No suspicious soft tissue calcifications or masses. Small, radiopaque material projects over the right sacral ala. IMPRESSION: Moderate bilateral hip osteoarthritis. Dictated by: Rafi Gonzalez M.D. on 09/05/2025 at 15:19 Approved by: Rafi Gonzalez M.D. on 09/05/2025 at 15:20
== END ==
PROVIDERS: PCP Family Medicine; Referring Provider Physical Medicine & Rehabilitation; Visit Provider Physical Medicine & Rehabilitation
DX: M16.0 Bilateral primary osteoarthritis of hip (principal)
CPT/HCPCS: 73502